=== PATIENT | female | born 1935 | race Caucasian/White ===

== ENCOUNTER → 2016-09-21 | Outpatient (CLI) | payer MEDICARE ==
[~2016-09-21] MED LIST: ACET-93 PO; CALC-140 PO; D50KC PO; DEXL60CA3; DICY10CA12 PO; DIPH1TAB25 PO; HYDR-3812 PO; L-THYROXINE; LEVO75TA6 PO; MELO15TA14; NITR100C44 PO; OLOP2.5D OP; OMEP40CA36 PO; OXYB5TAB9 PO; PANT40TA3 PO; PEDI18TA2 PO; PNT40TEC PO; PROP1TAB61; QUET25TA73 PO; SCR1T1 PO; SERT100T PO; SERT100T8 PO; SPIR25TA3 PO; TEMA15CA PO; TEMA15CA54 PO; [UNRECOGNIZED DRUG - OTHER]
--- NOTE | 2016-09-21 13:26 | Diagnostic Imaging Report ---
EXAMINATION: PA and lateral views of the chest. INDICATION: Weight loss. FINDINGS: The heart is enlarged. The lungs are hyperinflated. There is chronic appearing interstitial thickening with no focal infiltrate. No effusion or pneumothorax. The mediastinum and maia appear unremarkable. There is a compression fracture in the mid thoracic spine which appears to involve T8 or T9 vertebral body. When compared to 05/31/2016 exam, there is further increase in the degree of vertebral body height loss. IMPRESSION: 1. Cardiomegaly. COPD. 2. Further increased compression of T8 or T9 vertebral body compression fracture compared to 05/31/2016 exam. Dictated by: Dictated on workstation # [id number]
== END ==
LOC: RAD 12:06
DX: R63.4 Abnormal weight loss (principal)
CPT/HCPCS: 71020

== ENCOUNTER → 2016-10-05 | Outpatient (CLI) | payer MEDICARE ==
[~2016-10-05] MED LIST changes: +CATHETER FLUSH 10 ML SYR IV PRN; +IOHEXOL 350 MG/ML 100 ML (OMNIPAQUE 350) VIAL IV ONE; +NS 100 ML (IVPB) BAG IV ONE
--- NOTE | 2016-10-05 13:17 | Diagnostic Imaging Report ---
PROCEDURE: CT abdomen and pelvis with contrast. TECHNIQUE: Multiple contiguous axial images were obtained through the abdomen and pelvis after administration of intravenous contrast. INDICATION: Acute abdominal pain with diarrhea. Exam compared 02/26/2016. FINDINGS: There is a tiny punctate calcification within the lumen of or adherent to the wall of the gallbladder. No evidence for acute cholecystitis. No biliary dilatation. Spleen size within the upper limits of normal stable. Subcentimeter low density right adrenal nodule unchanged. Pancreas normal. There is right renal cortical cyst. The kidneys otherwise normal. There are postoperative changes to the sigmoid without evidence for anastomotic leak or obstruction. Gardner of the ascending and proximal transverse colon are slightly thickened and mild colitis could not be excluded. There were no features of focal diverticulitis, however. Pelvic calcifications either exophytic uterine fibroids or vascular in nature unchanged. Urinary bladder unremarkable. There is a low-density left inguinal nodule stable 1.8 cm. No abscess, hematoma or other fluid collection. No free air. No adenopathy. IMPRESSION: Questionable findings for mild proximal colitis. No abscess, obstruction or perforation. Minimal wall versus intraluminal calcification in the gallbladder but no evidence for acute cholecystitis. Stable benign-appearing right adrenal nodule. Benign right renal cortical cyst. Benign pelvic calcifications. Dictated by: Dictated on workstation # [id number]
== END ==
LOC: RAD 11:12
DX: R10.0 Acute abdomen (principal); N28.1 Cyst of kidney, acquired
CPT/HCPCS: 74177

== ENCOUNTER → 2016-12-19 | Outpatient (CLI) | payer MEDICARE ==
--- NOTE | 2016-12-19 17:19 | Diagnostic Imaging Report ---
INDICATION: Abdominal pain and a lump in the left groin area. CT of the abdomen and pelvis obtained with IV contrast bolus and compared to 10/05/2016. Visualized portions of the lung bases are clear. There are no pleural fluid collections. There is no free intraperitoneal air. There is cardiomegaly. The liver shows no focal lesion. The spleen is unremarkable. The adrenals are unchanged with a slight area of nodularity in the right adrenal gland stable compared to the prior study. The kidneys bilaterally are unremarkable except for a benign cyst in the right kidney. Pancreas appears normal. There is no retroperitoneal mass or adenopathy. There is no ascites or abnormal fluid collection. There is a left inguinal hernia containing a portion of small bowel. There appears to be partial obstruction with mild dilatation of small bowel loops above the hernia level. IMPRESSION: Left inguinal hernia containing a portion of small bowel, with mild dilatation of small bowel loops above this which probably represents partial obstruction. There is no ascites or abnormal fluid collection. There is a benign-appearing cyst in the right kidney. There is a stable small right adrenal lesion. Dictated by: Dictated on workstation # [id number]
== END ==
LOC: RAD 16:04
PROVIDERS: ATTEND Nurse Practitioner Family
DX: R10.827 Generalized rebound abdominal tenderness (principal)
CPT/HCPCS: 74177

== ENCOUNTER 2016-12-20 06:17 | Inpatient (IN) | payer MEDICARE ==
[~2016-12-20] VITALS: Ht 167.6 cm; Wt 56.3 kg
[~2016-12-20 06:17] MED LIST changes: -ACET-93 PO; -CALC-140 PO; -CATHETER FLUSH 10 ML SYR IV PRN; -D50KC PO; -DICY10CA12 PO; -DIPH1TAB25 PO; -HYDR-3812 PO; -IOHEXOL 350 MG/ML 100 ML (OMNIPAQUE 350) VIAL IV ONE; -NS 100 ML (IVPB) BAG IV ONE; -PANT40TA3 PO; -PEDI18TA2 PO; -QUET25TA73 PO; -SERT100T8 PO; -SPIR25TA3 PO; -TEMA15CA PO
[2016-12-20] MEDS ORDERED: NS IV 1000 ML 1,000 ML IV ONE (06:29)
[2016-12-20] MEDS ORDERED: fentaNYL INJECTION 100 MCG/2 ML AMP IVP ONE (06:30)
[2016-12-20] MEDS ORDERED: ONDANSETRON 4 MG/2 ML (SDV) Z0FRAN IVP ONE (06:30)
[2016-12-20 06:58] LABS: BASOPHILS % (AUTO) 0 % (0-10); EOSINOPHILS % (AUTO) 0 % (0-10); LYMPHOCYTES # (AUTO) 1.2 X 10^3 (1.0-4.0); LYMPHOCYTES % (AUTO) 8 % (12-44); MEAN CORPUSCULAR HEMOGLOBIN 25 PG (25-34); MEAN CORPUSCULAR HGB CONC 33 G/DL (32-36); MEAN CORPUSCULAR VOLUME 76 FL (80-99); MEAN PLATELET VOLUME 11.6 FL (7.4-10.4); MONOCYTES # (AUTO) 0.8 X 10^3 (0.0-1.0); MONOCYTES % (AUTO) 5 % (0-12); NEUTROPHILS # (AUTO) 12.7 X 10^3 (1.8-7.8); NEUTROPHILS % (AUTO) 86 % (42-75); PLATELET COUNT 296 10^3/uL (130-400); RED BLOOD COUNT 5.62 10^6/uL (4.35-5.85); RED CELL DISTRIBUTION WIDTH 17.4 % (10.0-14.5); WHITE BLOOD COUNT 14.7 10^3/uL (4.3-11.0)
[2016-12-20 07:17] LABS: ALANINE AMINOTRANSFERASE 14 U/L (0-55); ALBUMIN 5.1 G/DL (3.2-4.5); ANION GAP 18 MMOL/L (5-14); ASPARTATE AMINO TRANSFERASE 22 U/L (5-34); BILIRUBIN,TOTAL 0.9 MG/DL (0.1-1.0); BLOOD UREA NITROGEN 9 MG/DL (7-18); BUN/CREATININE RATIO 10; CALCIUM 10.5 MG/DL (8.5-10.1); CARBON DIOXIDE 19 MMOL/L (21-32); CHLORIDE 100 MMOL/L (98-107); CREATININE SERUM 0.86 MG/DL (0.60-1.30); GFR ESTIMATED > 60; GLUCOSE 136 MG/DL (70-105); LACTATE DEHYDROGENASE 229 U/L (125-220); MAGNESIUM 2.4 MG/DL (1.8-2.4); POTASSIUM 3.3 MMOL/L (3.6-5.0); SODIUM 137 MMOL/L (135-145); TOTAL PROTEIN 8.7 G/DL (6.4-8.2)
[2016-12-20 07:41] LABS: BILIRUBIN,URINE NEGATIVE (NEGATIVE); KETONES,URINE 3+ (NEGATIVE); LEUKOCYTE ESTERASE ,URINE 1+ (NEGATIVE); NITRITE,URINE NEGATIVE (NEGATIVE); PH,URINE 7 (5-9); PROTEIN,URINE 2+ (NEGATIVE); UROBILINOGEN,URINE NORMAL (NORMAL)
--- NOTE | 2016-12-20 07:49 | ED Abdominal Pain ---
General Chief Complaint: Abdominal/GI Problems Stated Complaint: VOMITING,CONSTIPATED Nursing Triage Note: Pt. advises she was seen yesterday secondary to difficulty passing stools. She advised this morning the pain and difficulty passing stools has not improved. Sepsis Screen: No Definite Risk Source of Information: Patient Exam Limitations: No Limitations History of Present Illness Time Seen By Provider: 06:35 Initial Comments Here with report of nausea, vomiting and abdominal pain that has been going on all night. Apparently she had difficulty with passing stool yesterday and was constipated and was trying very hard to pass the stool. Subsequently she developed a hernia in the left inguinal canal. She was sent by her primary care doctor yesterday for outpatient CT scan which does raise concerns of incarcerated left inguinal hernia. She did have some blood with stool yesterday but that has stopped. She reports vomiting multiple times overnight. Does complain of lower abdominal pain and enlarging hernia. She has not passed stool. Timing/Duration: 24 Hours Severity/Quality: Moderate, Severe Location: LLQ, Suprapubic Radiation: RUQ, LUQ, RLQ Modifying Factors: Worsens With Eating, Worsens With Movement, Improves With Vomiting Associated Symptoms: No Back Pain, No Chest Pain, No Fever/Chills, Nausea/ Vomiting, No Shortness of Air, No Weakness Allergies and Home Medications Allergies Coded Allergies: Penicillins (Verified Allergy, Unknown, 11/26/07) cephalexin (Verified Allergy, Unknown, 11/26/07) ciprofloxacin (Verified Allergy, Unknown, 11/26/07) estrogens, conjugated (Verified Allergy, Unknown, 06/17/08) gatifloxacin (Verified Allergy, Unknown, 06/17/08) tetracycline (Verified Allergy, Unknown, 06/17/08) Home Medications Levothyroxine Sodium 75 Mcg Tablet, 75 MCG PO DAILY, (Reported) Nitrofurantoin/Nitrofuran Mac 100 Mg Capsule, 100 MG PO BID, #14 Prescribed by: JOSELINE MENDOZA on 10/17/142303 Olopatadine Hcl 2.5 Ml Drops, 1 DROP OP DAILY, #1 Prescribed by: JOSELINE MENDOZA on 10/17/142303 Oxybutynin Chloride 5 Mg Tablet, 1 EACH PO BID, (Reported) Pantoprazole Sod 40 Mg Tab, 40 MG PO DAILY, #30 Ref 3 Prescribed by: KALIN HICKS on 06/24/14 1537 Sertraline Hcl 100 Mg Tablet, 150 MG PO DAILY, (Reported) Sucralfate 1 Gm Tab, 1 GM PO QID, #120 Ref 3 Prescribed by: KALIN HICKS on 06/24/141536 Temazepam 15 Mg Capsule, 15 MG PO HS PRN for SLEEP, (Reported) Review of Systems Constitutional: see HPI, No chills, No fever EENTM: No Symptoms Reported Respiratory: No Symptoms Reported Cardiovascular: No Symptoms Reported Gastrointestinal: See HPI, Abdomen Distended, Abdominal Pain, Nausea, Rectal Bleeding, Vomiting Genitourinary: No Symptoms Reported Musculoskeletal: no symptoms reported Skin: no symptoms reported All Other Systems Reviewed Negative Unless Noted: Yes Past Yrzlblm-Neenkn-Jphuzx Hx Patient Social History Alcohol Use: Denies Use Recreational Drug Use: No Smoking Status: Former Smoker Recent Foreign Travel: No Contact w/Someone Who Travel: No Recent Infectious Disease Expo: No Recent Hopitalizations: No Immunizations Up To Date Date of Pneumonia Vaccine: Jun 24, 2012 Date of Influenza Vaccine: Jun 12, 2014 Surgeries HX Surgeries: Yes (LEFT LEG) Surgeries: Abdominal, Orthopedic Respiratory Hx Respiratory Disorders: No Cardiovascular Hx Cardiac Disorders: No Neurological Hx Neurological Disorders: No Reproductive System : No Hx Reproductive Disorders: Yes Genitourinary Hx Genitourinary Disorders: No Gastrointestinal Hx Gastrointestinal Disorders: Yes Musculoskeletal Hx 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) Endocrine Hx Endocrine Disorders: No HEENT HX ENT Disorders: No Cancer Hx Cancer: No Psychosocial Hx Psychiatric Problems: No Integumentary HX Skin/Integumentary Disorder: No Blood Transfusions Hx Blood Disorders: No Reviewed Nursing Assessment Reviewed/Agree w Nursing PMH: Yes Family Medical History Significant Family History: No Pertinent Family Hx Physical Exam Vital Signs VS - Last 72 Hours, by Label 12/20/16 12/20/16 06:26 06:36 Temp 97.3 97.3 Pulse 86 Resp 16 B/P (MAP) 169/118 Pulse Ox 98 O2 Delivery Room Air Capillary Refill : Less Than 3 Seconds General Appearance: WD/WN, no apparent distress HEENT: PERRL/EOMI, pharynx normal Neck: full range of motion, supple Respiratory: lungs clear, normal breath sounds Cardiovascular: regular rate, rhythm, no murmur Gastrointestinal: distended, tenderness, hernia (left inguinal hernia that is approximately 4 x 10 cm and hard. This does not freely reduce.) Extremities: non-tender, no pedal edema Back: normal inspection, no CVA tenderness, no vertebral tenderness Neurologic/Psychiatric: alert, oriented x 3 Skin: normal color, warm/dry Progress/Results/Core Measures Results/Orders Lab Results Laboratory Tests Test 12/20/16 06:37 12/20/16 07:30 Range/Units White Blood Count 14.7 H 4.3-11.0 10^3/uL Red Blood Count 5.62 4.35-5.85 10^6/uL Hemoglobin 13.9 11.5-16.0 G/DL Hematocrit 43 35-52 % Mean Corpuscular Volume 76 L 80-99 FL Mean Corpuscular Hemoglobin 25 25-34 PG Mean Corpuscular Hemoglobin Concent 33 32-36 G/DL Red Cell Distribution Width 17.4 H 10.0-14.5 % Platelet Count 296 130-400 10^3/uL Mean Platelet Volume 11.6 H 7.4-10.4 FL Neutrophils (%) (Auto) 86 H 42-75 % Lymphocytes (%) (Auto) 8 L 12-44 % Monocytes (%) (Auto) 5 0-12 % Eosinophils (%) (Auto) 0 0-10 % Basophils (%) (Auto) 0 0-10 % Neutrophils # (Auto) 12.7 H 1.8-7.8 X 10^3 Lymphocytes # (Auto) 1.2 1.0-4.0 X 10^3 Monocytes # (Auto) 0.8 0.0-1.0 X 10^3 Eosinophils # (Auto) 0.0 0.0-0.3 10^3/uL Basophils # (Auto) 0.0 0.0-0.1 10^3/uL Sodium Level 137 135-145 MMOL/L Potassium Level 3.3 L 3.6-5.0 MMOL/L Chloride Level 100 98-107 MMOL/L Carbon Dioxide Level 19 L 21-32 MMOL/L Anion Gap 18 H 5-14 MMOL/L Blood Urea Nitrogen 9 7-18 MG/DL Creatinine 0.86 0.60-1.30 MG/DL Estimat Glomerular Filtration Rate > 60 BUN/Creatinine Ratio 10 Glucose Level 136 H 70-105 MG/DL Calcium Level 10.5 H 8.5-10.1 MG/DL Magnesium Level 2.4 1.8-2.4 MG/DL Total Bilirubin 0.9 0.1-1.0 MG/DL Aspartate Amino Transf (AST/SGOT) 22 5-34 U/L Alanine Aminotransferase (ALT/SGPT) 14 0-55 U/L Alkaline Phosphatase 94 40-136 U/L Lactate Dehydrogenase 229 H 125-220 U/L Total Protein 8.7 H 6.4-8.2 G/DL Albumin 5.1 H 3.2-4.5 G/DL Urine Color YELLOW Urine Clarity SLIGHTLY CLOUDY Urine pH 7 5-9 Urine Specific [place] 1.010 L 1.016-1.022 Urine Protein 2+ H NEGATIVE Urine Glucose (UA) NEGATIVE NEGATIVE Urine Ketones 3+ H NEGATIVE Urine Nitrite NEGATIVE NEGATIVE Urine Bilirubin NEGATIVE NEGATIVE Urine Urobilinogen NORMAL NORMAL MG/DL Urine Leukocyte Esterase 1+ H NEGATIVE Urine RBC (Auto) 1+ H NEGATIVE Urine RBC RARE /HPF Urine WBC 0-2 /HPF Urine Squamous Epithelial Cells 2-5 /HPF Urine Crystals PRESENT H /LPF Urine Amorphous Sediment FEW TREY PHOSPHATE H /LPF Urine Bacteria NEGATIVE /HPF Urine Casts PRESENT /LPF Urine Hyaline Casts 2-5 H /LPF Urine Granular Casts 2-5 H /LPF Urine Mucus NEGATIVE /LPF Urine Culture Indicated NO Medications Given in ED Current Medications Medications Dose Ordered Sig/Demarco Route Start Time Stop Time Status Last Admin Dose Admin Fentanyl Citrate 50 mcg ONCE ONCE IVP 12/20/16 06:30 12/20/16 06:33 DC 12/20/16 06:36 50 MCG Ondansetron HCl 4 mg ONCE ONCE IVP 12/20/16 06:30 12/20/16 06:33 DC 12/20/16 06:36 4 MG Sodium Chloride 1,000 ml @ 0 mls/hr Q0M ONCE IV 12/20/16 06:29 12/20/16 06:33 DC 12/20/16 06:36 0 MLS/HR Vital Signs/I&O Vital Sign - Last 12Hours 12/20/16 12/20/16 06:26 06:36 Temp 97.3 97.3 Pulse 86 Resp 16 B/P (MAP) 169/118 Pulse Ox 98 O2 Delivery Room Air Blood Pressure Mean: 135 Progress Note : Progress Note Seen and evaluated. IV, labs and UA ordered. Acute abdominal series ordered. Monitor patient. I did attempt to reduce the inguinal hernia. Multiple attempts were tried and I was unsuccessful. I did discuss the case with Dr. Hicks at 0724. He will see the patient in the ER. 0810: Patient seen by Dr. Hicks. He was able to reduce the hernia. He will take her to the OR later today for repair as the hernia appears to be returning. Patient still uncomfortable. Admit, observation status. Patient and family agree with plan. Departure Communication Time/Spoke to Admitting Phy: 07:24 Impression Impression: Primary Impression: Inguinal hernia Qualified Codes: K40.30 - Unilateral inguinal hernia, with obstruction, without gangrene, not specified as recurrent Disposition: 09 ADMITTED INPATIENT Condition: Stable Decision to Admit Reason: Admit from ER (General) Decision to Admit/Date: Dec 20, 2016 Time/Decision to Admit Time: 08:10 Departure-Patient Inst. Referrals: SAHIL ANGULO MD (PCP/Family) Primary Care Physician TRACY CHAMBERS MD Dec 20, 2016 07:49
[2016-12-20 07:55] LABS: WBC,URINE 0-2 /HPF
--- NOTE | 2016-12-20 08:13 | Diagnostic Imaging Report ---
Upright and supine views of the abdomen. INDICATION: Abdominal pain and vomiting. FINDINGS: There is no pneumoperitoneum. There are mildly dilated small bowel loops with multiple air-fluid levels. There is fecal material seen in the rectum. Internal fixation hardware is partially visualized in the femur. IMPRESSION: Findings suggestive of partial small bowel obstruction, similar to CT findings demonstrating an obstructed left inguinal hernia. Dictated by: Dictated on workstation # [id number]
[2016-12-20 09:00] VITALS: BP 196/68
[2016-12-20] MEDS ORDERED: CATHETER FLUSH 10 ML SYR IV PRN (09:30)
[2016-12-20] MEDS ORDERED: fentaNYL INJECTION 100 MCG/2 ML AMP IV PRN (09:30)
[2016-12-20] MEDS ORDERED: NS IV 1000 ML 1,000 ML IV SCH (09:30)
--- NOTE | 2016-12-20 10:42 | History & Physical-Surgical ---
History of Present Illness History of Present Illness Reason for visit/HPI Patient reports that on Monday she was doing well. She states she was straining on Monday while having a bowel movement and started having pain. She reported pain to her left lower quadrant, with nausea and vomiting all night. She was sent by her primary care doctor yesterday for outpatient CT scan which does raise concerns of incarcerated left inguinal hernia. She did have some blood with stool yesterday but that has stopped. She reports vomiting multiple times overnight. She reports blood to her stools, constipation and diarrhea. Date of Admission Dec 20, 2016 at 08:20 I consulted on this patient on 12/20/16 10:32 Attending Physician Matt Hicks DO Admitting Physician Vernon Garcia MD Consult Allergies and Home Medications Allergies Coded Allergies: Penicillins (Verified Allergy, Unknown, 11/26/07) cephalexin (Verified Allergy, Unknown, 11/26/07) ciprofloxacin (Verified Allergy, Unknown, 11/26/07) estrogens, conjugated (Verified Allergy, Unknown, 06/17/08) gatifloxacin (Verified Allergy, Unknown, 06/17/08) tetracycline (Verified Allergy, Unknown, 06/17/08) Home Medications Acetaminophen 500 Mg Tablet, 500 MG PO DAILY PRN for PAIN-MILD TO MODERATE, ( Reported) Calcium Carbonate/Vitamin D3 1 Each Tablet, 2 TAB PO DAILY, (Reported) Dicyclomine HCl 10 Mg Capsule, 10 MG PO TID PRN for ABDOMINAL PAIN, (Reported) Diphenoxylate HCl/Atropine 1 Each Tablet, 1 TAB PO TID PRN for LOOSE STOOLS, ( Reported) Ergocalciferol (Vitamin D2) 50,000 Unit Capsule, 50,000 UNITS PO WEEK, (Reported ) TAKES ON MONDAY Hydrocodone/Acetaminophen 1 Each Tablet, 1 TAB PO EVERY 4-6 HOURS PRN for PAIN- MODERATE TO SEVERE, (Reported) Pantoprazole Sodium 40 Mg Tablet.dr, 40 MG PO BID, (Reported) Pedi Mv No.79/Ferrous Fumarate 18 Mg Tab.chew, 18 MG PO DAILY, (Reported) Quetiapine Fumarate 25 Mg Tablet, 25 MG PO HS, (Reported) Sertraline HCl 100 Mg Tablet, 150 MG PO DAILY, (Reported) TAKES 1 & 1/2 OF A (100 MG) TABLET Spironolactone 25 Mg Tablet, 25 MG PO DAILY, (Reported) Temazepam 15 Mg Capsule, 15 MG PO HS PRN for SLEEP, (Reported) Past Zbudzgr-Xzwdre-Jveteu Hx Patient Social History Alcohol Use: Denies Use Recreational Drug Use: No Smoking Status: Former Smoker Recent Foreign Travel: No Contact w/Someone Who Travel: No Recent Infectious Disease Expo: No Recent Hopitalizations: No Physical Abuse Screen: No Sexual Abuse: No Immunizations Up To Date Date of Pneumonia Vaccine: Jun 24, 2012 Date of Influenza Vaccine: Jun 12, 2014 Seasonal Allergies Seasonal Allergies: No Surgeries HX Surgeries: Yes (LEFT LEG) Surgeries: Abdominal, Orthopedic Respiratory Hx Respiratory Disorders: No Cardiovascular Hx Cardiac Disorders: No Neurological Hx Neurological Disorders: No Reproductive System : No Hx Reproductive Disorders: Yes Genitourinary Hx Genitourinary Disorders: No Gastrointestinal Hx Gastrointestinal Disorders: Yes Gastrointestinal Disorders: Chronic Diarrhea, Ulcer Musculoskeletal Hx 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) Endocrine Hx Endocrine Disorders: No HEENT HX ENT Disorders: No Cancer Hx Cancer: No Psychosocial Hx Psychiatric Problems: No Integumentary HX Skin/Integumentary Disorder: No Blood Transfusions Hx Blood Disorders: No Reviewed Nursing Assessment Reviewed/Agree w Nursing PMH: Yes Family Medical History Significant Family History: No Pertinent Family Hx Constitutional: other (pain) EENTM: no symptoms reported Respiratory: no symptoms reported Cardiovascular: no symptoms reported Gastrointestinal: LLQ, abdominal pain (LLQ), other (left inguinal hernia) Genitourinary: no symptoms reported Musculoskeletal: no symptoms reported Skin: no symptoms reported Physical Exam Vital Signs Vital Sign - Last 12Hours 12/20/16 06:26 Temp 97.3 Pulse 86 Resp 16 B/P (MAP) 169/118 Pulse Ox 98 O2 Delivery Room Air Capillary Refill : Less Than 3 Seconds General Appearance: Thin Respiratory: Chest Non Tender, No Accessory Muscle Use, No Respiratory Distress Cardiovascular: Regular Rate, Rhythm Gastrointestinal: Soft, Guarding, Tenderness, Other (LLQ) Extremity: Non Tender, No Calf Tenderness, No Pedal Edema, Other (bruising noted to the Left groin. ) Neurologic/Psychiatric: Alert, Oriented x3 Skin: Normal Color, Warm/Dry Data Review Labs Laboratory Tests 12/20/16 06:37: White Blood Count 14.7H, Red Blood Count 5.62, Hemoglobin 13.9, Hematocrit 43, Mean Corpuscular Volume 76L, Mean Corpuscular Hemoglobin 25, Mean Corpuscular Hemoglobin Concent 33, Red Cell Distribution Width 17.4H, Platelet Count 296, Mean Platelet Volume 11.6H, Neutrophils (%) (Auto) 86H, Lymphocytes (%) (Auto) 8L, Monocytes (%) (Auto) 5, Eosinophils (%) (Auto) 0, Basophils (%) (Auto) 0, Neutrophils # (Auto) 12.7H, Lymphocytes # (Auto) 1.2, Monocytes # (Auto) 0.8, Eosinophils # (Auto) 0.0, Basophils # (Auto) 0.0, Sodium Level 137, Potassium Level 3.3L, Chloride Level 100, Carbon Dioxide Level 19L, Anion Gap 18H, Blood Urea Nitrogen 9, Creatinine 0.86, Estimat Glomerular Filtration Rate > 60, BUN/ Creatinine Ratio 10, Glucose Level 136H, Calcium Level 10.5H, Magnesium Level 2.4, Total Bilirubin 0.9, Aspartate Amino Transf (AST/SGOT) 22, Alanine Aminotransferase (ALT/SGPT) 14, Alkaline Phosphatase 94, Lactate Dehydrogenase 229H, Total Protein 8.7H, Albumin 5.1H 12/20/16 07:30: Urine Color YELLOW, Urine Clarity SLIGHTLY CLOUDY, Urine pH 7, Urine Specific [place] 1.010L, Urine Protein 2+H, Urine Glucose (UA) NEGATIVE, Urine Ketones 3+ H, Urine Nitrite NEGATIVE, Urine Bilirubin NEGATIVE, Urine Urobilinogen NORMAL, Urine Leukocyte Esterase 1+H, Urine RBC (Auto) 1+H, Urine RBC RARE, Urine WBC 0- 2, Urine Squamous Epithelial Cells 2-5, Urine Crystals PRESENTH, Urine Amorphous Sediment FEW TREY PHOSPHATEH, Urine Bacteria NEGATIVE, Urine Casts PRESENT, Urine Hyaline Casts 2-5H, Urine Granular Casts 2-5H, Urine Mucus NEGATIVE, Urine Culture Indicated NO Radiology NAME: MELANIA GORDON [facility] REC#: [id number] PT STATUS: ADM [place] : 1935 PHYSICIAN: JOSELINE CASAS MD ADMIT DATE: 12/20/16 Signed Date of Exam: 12/20/16 ABDOMEN, FLAT & UPRIGHT/DECUB Upright and supine views of the abdomen. INDICATION: Abdominal pain and vomiting. FINDINGS: There is no pneumoperitoneum. There are mildly dilated small bowel loops with multiple air-fluid levels. There is fecal material seen in the rectum. Internal fixation hardware is partially visualized in the femur. IMPRESSION: Findings suggestive of partial small bowel obstruction, similar to CT findings demonstrating an obstructed left inguinal hernia. Dictated by: Dictated on workstation # [id number] Dict: 12/20/16 0807 Trans: 12/20/16 0854 [id number] Assessment/Plan Assessment/Plan Assessment/Plan Nausea/vomiting Left Inguinal Hernia,-Reduced by Dr. Hicks in ER Consent for surgery for Left Inguinal Hernia repair with all other indicated procedures. Patient will be NPO. Monique- Seen and evaluated in emergency dept. Patient yesterday straining to have a bowel movement. She had a pop in the left groin and began having a bulge and pain. Patient began having some nausea and emesis overnight. Difficult to reduce left inguinal hernia appears to be causing obstruction of small bowel. I was able to reduce the hernia. She denies any fever sweats chills shortness of breath or chest pain. general uncomfortable heart reg lungs nonlabored abdomen left inguinal hernia was able to be reduced extremities left lower with previous surgical scars normal mood affect alert and oriented skin without rash, slight bruising left lower quadrant left inguinal hernia, was able to be reduced concerned for recurrenct discussed risks and benefits and wishes to proceed with left inguinal hernia repair all other indicated procedures Clinical Quality Measures DVT/VTE Risk/Contraindication: Risk Factor Score Per Nursin RFS Level Per Nursing on Admit: 4+=Very High MADISON MENDEZ APRN Dec 20, 2016 10:41 MATT HICKS DO Dec 20, 2016 13:04
[2016-12-20] MEDS ORDERED: CALC-140 PO (10:43)
[2016-12-20] MEDS ORDERED: HYDR-3812 PO (10:43)
[2016-12-20] MEDS ORDERED: D50KC PO (10:43)
[2016-12-20] MEDS ORDERED: ACET-93 PO (10:43)
[2016-12-20] MEDS ORDERED: DICY10CA12 PO (10:43)
[2016-12-20] MEDS ORDERED: SPIR25TA3 PO (10:43)
[2016-12-20] MEDS ORDERED: DIPH1TAB25 PO (10:43)
[2016-12-20] MEDS ORDERED: QUET25TA73 PO (10:43)
[2016-12-20] MEDS ORDERED: SERT100T8 PO (10:43)
[2016-12-20] MEDS ORDERED: TEMA15CA PO (10:43)
[2016-12-20] MEDS ORDERED: PEDI18TA2 PO (10:43)
[2016-12-20] MEDS ORDERED: PANT40TA3 PO (10:43)
[2016-12-20 12:00] VITALS: BP 171/81
[2016-12-20] MEDS ORDERED: LIDOCAINE PF 2% 10 ML (XYLOCAINE) AMP ONE (13:15)
[2016-12-20] MEDS ORDERED: proPOfol 200 MG/20 ML (DIPRIVAN) VIAL IV ONE (13:15)
[2016-12-20] MEDS ORDERED: MIDAZOLAM 2 MG/2 ML (VERSED) VIAL ONE (13:15)
[2016-12-20] MEDS ORDERED: fentaNYL INJECTION 100 MCG/2 ML AMP ONE ×3 (13:15→15:24)
[2016-12-20] MEDS ORDERED: BUPIVACAINE 0.5% 30 ML (SENSORCAINE) VIAL ONE (13:21)
[2016-12-20] MEDS ORDERED: LACTATED RINGERS 1,000 ML IV ONE ×2 (13:22→15:16)
[2016-12-20] MEDS ORDERED: LIDOCAINE 1% INJ 20 ML (XYLOCAINE) VIAL ONE (13:22)
[2016-12-20] MEDS ORDERED: ROCURONIUM 50 MG/5 ML (ZEMURON) VIAL IV ONE (13:22)
[2016-12-20] MEDS ORDERED: ONDANSETRON 4 MG/2 ML (SDV) Z0FRAN ONE ×2 (13:22→15:10)
[2016-12-20] MEDS: LACTATED RINGERS 1,000 ML IV PRN ×2 (13:29→15:13)
[2016-12-20] MEDS ORDERED: LACTATED RINGERS 1,000 ML IV PRN (13:35)
[2016-12-20] MEDS ORDERED: CLINDAMYCIN 600 MG/50 ML IVPB 50 ML IV ONE (13:45)
[2016-12-20] MEDS ORDERED: CLINDAMYCIN 600 MG/4ML (CLEOCIN) VIAL ONE (13:45)
[2016-12-20] MEDS ORDERED: NS (IVPB) 100 ML ONE (13:45)
[2016-12-20] MEDS ORDERED: PHENYLEPHRINE 100 MCG/ML 10 ML (ANESTHESIA) SYR ONE (14:08)
[2016-12-20] MEDS ORDERED: SEVOFLURANE (ULTANE) 15 ML INHAL SOLN ONE ×5 (15:05→16:03)
[2016-12-20] MEDS ORDERED: NEOSTIGMINE (BLOXIVERZ ) 1 MG/1ML 10 ML VIAL ONE (15:06)
[2016-12-20] MEDS ORDERED: GLYCOPYRROLATE 0.2 MG/ML (ROBINUL) 2 ML VIAL ONE (15:06)
[2016-12-20] MEDS ORDERED: morphine INJ 10 MG/ML 1ML (SYR OR VIAL) IVP PRN (15:15)
[2016-12-20] MEDS ORDERED: fentaNYL INJECTION 100 MCG/2 ML AMP IVP PRN (16:30)
[2016-12-20] MEDS: NS IV 1000 ML 1,000 ML IV SCH (16:30)
[2016-12-20 17:22] VITALS: BP 173/71
[2016-12-20] MEDS: metroNIDAZOLE 500MG/100ML IVPB 100 ML IV SCH (17:33)
--- NOTE | 2016-12-20 17:40 | Progress Note-Post Operative ---
Post-Operative Progess Note Surgeon (s)/Newspaper Editor Managing (s) Surgeon KALIN HICKS DO Newspaper Editor Managing: Dr. Ross Pre-Operative Diagnosis inguinal hernia left Post-Operative Diagnosis femoral hernia left Post-Op Procedure Note Date of Procedure: Dec 20, 2016 Name of Procedure Performed: open left femoral hernia repair, exploratory laparotomy, small bowel resection, lysis of adhesions Description of the Procedure: see note Findings of the Procedure see note Anesthesia Type general Estimated blood loss (mL): minimal Specimen(s) collected/removed hernia sac, small bowel KALIN HICKS DO Dec 20, 2016 5:40 pm
[2016-12-20] MEDS: morphine INJ 4 MG/ML 1 ML (VIAL/SYRINGE) IVP PRN (18:56)
[2016-12-20 20:25] VITALS: BP 188/89
[2016-12-20] MEDS: CLINDAMYCIN 600 MG/50 ML IVPB 50 ML IV SCH (21:24)
[2016-12-21 00:33] VITALS: BP 179/79
[2016-12-21] MEDS: metroNIDAZOLE 500MG/100ML IVPB 100 ML IV SCH (01:25)
[2016-12-21] MEDS: morphine INJ 4 MG/ML 1 ML (VIAL/SYRINGE) IVP PRN ×4 (01:26→20:01)
[2016-12-21] MEDS: NS IV 1000 ML 1,000 ML IV SCH (01:26)
[2016-12-21 04:01] VITALS: BP 160/74
[2016-12-21] MEDS: CLINDAMYCIN 600 MG/50 ML IVPB 50 ML IV SCH (05:14)
[2016-12-21 06:02] LABS: BASOPHILS % (AUTO) 0 % (0-10); EOSINOPHILS % (AUTO) 0 % (0-10); LYMPHOCYTES # (AUTO) 0.6 X 10^3 (1.0-4.0); LYMPHOCYTES % (AUTO) 6 % (12-44); MEAN CORPUSCULAR HEMOGLOBIN 25 PG (25-34); MEAN CORPUSCULAR HGB CONC 32 G/DL (32-36); MEAN CORPUSCULAR VOLUME 78 FL (80-99); MEAN PLATELET VOLUME 11.3 FL (7.4-10.4); MONOCYTES # (AUTO) 0.8 X 10^3 (0.0-1.0); MONOCYTES % (AUTO) 7 % (0-12); NEUTROPHILS # (AUTO) 10.1 X 10^3 (1.8-7.8); NEUTROPHILS % (AUTO) 87 % (42-75); PLATELET COUNT 176 10^3/uL (130-400); RED CELL DISTRIBUTION WIDTH 17.1 % (10.0-14.5); WHITE BLOOD COUNT 11.5 10^3/uL (4.3-11.0)
[2016-12-21 06:28] LABS: ALANINE AMINOTRANSFERASE 11 U/L (0-55); ALBUMIN 3.5 G/DL (3.2-4.5); ANION GAP 9 MMOL/L (5-14); ASPARTATE AMINO TRANSFERASE 16 U/L (5-34); BILIRUBIN,TOTAL 0.8 MG/DL (0.1-1.0); BLOOD UREA NITROGEN 6 MG/DL (7-18); BUN/CREATININE RATIO 9; CARBON DIOXIDE 23 MMOL/L (21-32); CHLORIDE 106 MMOL/L (98-107); CREATININE SERUM 0.64 MG/DL (0.60-1.30); GFR ESTIMATED > 60; GLUCOSE 136 MG/DL (70-105); MAGNESIUM 1.6 MG/DL (1.8-2.4); POTASSIUM 2.6 MMOL/L (3.6-5.0); SODIUM 138 MMOL/L (135-145)
[2016-12-21 07:25] VITALS: BP 183/85
[2016-12-21] MEDS: NS W/KCL 40 MEQ/L 1,000 ML IV SCH ×2 (07:41→17:50)
--- NOTE | 2016-12-21 08:31 | Progress Note ---
Subjective Subjective/Events-last exam Patient is awake and alert. C/O of some pain to the left lower quadrant of her abdomen. No distress noted at this time. Patient reports belching but not passing gas. Objective Exam Vital Signs Date Time Temp Pulse Resp B/P (MAP) Pulse Ox O2 Delivery O2 Flow Rate FiO2 12/21/16 07:25 98.4 75 18 183/85 94 Nasal Cannula 2.00 12/21/16 04:01 98.2 82 16 160/74 90 Nasal Cannula 2.00 12/21/16 00:40 93 Nasal Cannula 2.00 12/21/16 00:33 98.7 88 16 179/79 90 Nasal Cannula 2.00 12/20/16 21:00 98.9 12/20/16 20:25 99.1 76 20 188/89 98 Nasal Cannula 2.00 12/20/16 20:25 98 2.00 12/20/16 17:22 98.4 74 18 173/71 95 Nasal Cannula 2.00 12/20/16 12:00 98.3 85 20 171/81 94 Room Air 12/20/16 09:00 98.5 61 20 196/68 94 Room Air 12/20/16 08:45 97.3 82 16 98 I & O 12/21/16 07:00 Intake Total 3350 ml Output Total 1770 ml Balance 1580 ml Capillary Refill : Less Than 3 Seconds General Appearance: No Apparent Distress, Thin Neck: Normal Inspection, Non Tender Respiratory: Chest Non Tender, No Accessory Muscle Use, No Respiratory Distress Cardiovascular: Regular Rate, Rhythm Gastrointestinal: soft, tenderness (Left lower quadrant), other (Patient has two island dressing from surgery. The one to the right lower quadrant has mild shadowing but no bleeding noted. ) Extremity: Non Tender, No Calf Tenderness, No Pedal Edema, Other (bruising noted to the Left groin. ) Neurologic/Psychiatric: Alert, Oriented x3 Skin: Normal Color, Warm/Dry Results Lab Laboratory Tests Test 12/20/16 06:37 12/20/16 07:30 12/21/16 05:50 Range/Units White Blood Count 14.7 H 11.5 H 4.3-11.0 10^3/uL Red Blood Count 5.62 4.40 4.35-5.85 10^6/uL Hemoglobin 13.9 10.9 #L 11.5-16.0 G/DL Hematocrit 43 34 L 35-52 % Mean Corpuscular Volume 76 L 78 L 80-99 FL Mean Corpuscular Hemoglobin 25 25 25-34 PG Mean Corpuscular Hemoglobin Concent 33 32 32-36 G/DL Red Cell Distribution Width 17.4 H 17.1 H 10.0-14.5 % Platelet Count 296 176 130-400 10^3/uL Mean Platelet Volume 11.6 H 11.3 H 7.4-10.4 FL Neutrophils (%) (Auto) 86 H 87 H 42-75 % Lymphocytes (%) (Auto) 8 L 6 L 12-44 % Monocytes (%) (Auto) 5 7 0-12 % Eosinophils (%) (Auto) 0 0 0-10 % Basophils (%) (Auto) 0 0 0-10 % Neutrophils # (Auto) 12.7 H 10.1 H 1.8-7.8 X 10^3 Lymphocytes # (Auto) 1.2 0.6 L 1.0-4.0 X 10^3 Monocytes # (Auto) 0.8 0.8 0.0-1.0 X 10^3 Eosinophils # (Auto) 0.0 0.0 0.0-0.3 10^3/uL Basophils # (Auto) 0.0 0.0 0.0-0.1 10^3/uL Sodium Level 137 138 135-145 MMOL/L Potassium Level 3.3 L 2.6 L 3.6-5.0 MMOL/L Chloride Level 100 106 98-107 MMOL/L Carbon Dioxide Level 19 L 23 21-32 MMOL/L Anion Gap 18 H 9 5-14 MMOL/L Blood Urea Nitrogen 9 6 L 7-18 MG/DL Creatinine 0.86 0.64 0.60-1.30 MG/DL Estimat Glomerular Filtration Rate > 60 > 60 BUN/Creatinine Ratio 10 9 Glucose Level 136 H 136 H 70-105 MG/DL Calcium Level 10.5 H 8.0 L 8.5-10.1 MG/DL Magnesium Level 2.4 1.6 L 1.8-2.4 MG/DL Total Bilirubin 0.9 0.8 0.1-1.0 MG/DL Aspartate Amino Transf (AST/SGOT) 22 16 5-34 U/L Alanine Aminotransferase (ALT/SGPT) 14 11 0-55 U/L Alkaline Phosphatase 94 61 40-136 U/L Lactate Dehydrogenase 229 H 125-220 U/L Total Protein 8.7 H 6.0 L 6.4-8.2 G/DL Albumin 5.1 H 3.5 3.2-4.5 G/DL Urine Color YELLOW Urine Clarity SLIGHTLY CLOUDY Urine pH 7 5-9 Urine Specific [place] 1.010 L 1.016-1.022 Urine Protein 2+ H NEGATIVE Urine Glucose (UA) NEGATIVE NEGATIVE Urine Ketones 3+ H NEGATIVE Urine Nitrite NEGATIVE NEGATIVE Urine Bilirubin NEGATIVE NEGATIVE Urine Urobilinogen NORMAL NORMAL MG/DL Urine Leukocyte Esterase 1+ H NEGATIVE Urine RBC (Auto) 1+ H NEGATIVE Urine RBC RARE /HPF Urine WBC 0-2 /HPF Urine Squamous Epithelial Cells 2-5 /HPF Urine Crystals PRESENT H /LPF Urine Amorphous Sediment FEW TREY PHOSPHATE H /LPF Urine Bacteria NEGATIVE /HPF Urine Casts PRESENT /LPF Urine Hyaline Casts 2-5 H /LPF Urine Granular Casts 2-5 H /LPF Urine Mucus NEGATIVE /LPF Urine Culture Indicated NO Laboratory Tests 12/21/16 05:50: White Blood Count 11.5H, Red Blood Count 4.40, Hemoglobin 10.9#L, Hematocrit 34L , Mean Corpuscular Volume 78L, Mean Corpuscular Hemoglobin 25, Mean Corpuscular Hemoglobin Concent 32, Red Cell Distribution Width 17.1H, Platelet Count 176, Mean Platelet Volume 11.3H, Neutrophils (%) (Auto) 87H, Lymphocytes (%) (Auto) 6L, Monocytes (%) (Auto) 7, Eosinophils (%) (Auto) 0, Basophils (%) (Auto) 0, Neutrophils # (Auto) 10.1H, Lymphocytes # (Auto) 0.6L, Monocytes # (Auto) 0.8, Eosinophils # (Auto) 0.0, Basophils # (Auto) 0.0, Sodium Level 138, Potassium Level 2.6L, Chloride Level 106, Carbon Dioxide Level 23, Anion Gap 9, Blood Urea Nitrogen 6L, Creatinine 0.64, Estimat Glomerular Filtration Rate > 60, BUN/ Creatinine Ratio 9, Glucose Level 136H, Calcium Level 8.0L, Magnesium Level 1.6L , Total Bilirubin 0.8, Aspartate Amino Transf (AST/SGOT) 16, Alanine Aminotransferase (ALT/SGPT) 11, Alkaline Phosphatase 61, Total Protein 6.0L, Albumin 3.5 Assessment/Plan Assessment/Plan Assessment/Plan S/P open left femoral hernia repair, exploratory laparotomy, small bowel resection, lysis of adhesions Patient on Ice Chips, and tolerating it well. No passing flatus at this time. Monique 04/22/17 Patient not passing flatus. Pain controlled. No n/v fever sweats chills shortness of breath or chest pain. general no acute distress heart reg lungs nonlabored abdomen bruising left groin, incisions c/d/i assessment as above, DC royal, increase activity sips of clears. Clinical Quality Measures DVT/VTE Risk/Contraindication: Risk Factor Score Per Nursin RFS Level Per Nursing on Admit: 4+=Very High MADISON MENDEZ APRDec 21, 2016 8:31 am KALIN HICKS DO Dec 22, 2016 11:56 am
[2016-12-21 11:33] VITALS: BP 179/79
--- NOTE | 2016-12-21 12:09 | Anesthesia-General Post-Op ---
General Patient Condition Mental Status/LOC: Same as Preop Cardiovascular: Satisfactory Nausea/Vomiting: Absent Respiratory: Satisfactory Pain: Controlled Complications: Absent Post Op Complications Complications None Follow Up Care/Instructions Patient Instructions None needed. Anesthesia/Patient Condition Patient Condition Patient is doing well, no complaints, stable vital signs, no apparent adverse anesthesia problems. No complications reported per nursing. D/C home per [facility] Criteria: No VANDANA STEWART CRNA Dec 21, 2016 12:09
[2016-12-21 16:49] VITALS: BP 179/69
[2016-12-21 20:20] VITALS: BP 145/88
[2016-12-22 00:25] VITALS: BP 177/85
[2016-12-22] MEDS: NS W/KCL 40 MEQ/L 1,000 ML IV SCH ×3 (03:55→22:24)
[2016-12-22 04:01] VITALS: BP 137/82
[2016-12-22 05:11] LABS: BASOPHILS % (AUTO) 0 % (0-10); EOSINOPHILS % (AUTO) 0 % (0-10); LYMPHOCYTES # (AUTO) 0.7 X 10^3 (1.0-4.0); LYMPHOCYTES % (AUTO) 6 % (12-44); MEAN CORPUSCULAR HEMOGLOBIN 25 PG (25-34); MEAN CORPUSCULAR HGB CONC 31 G/DL (32-36); MEAN CORPUSCULAR VOLUME 79 FL (80-99); MEAN PLATELET VOLUME 11.9 FL (7.4-10.4); MONOCYTES # (AUTO) 0.9 X 10^3 (0.0-1.0); MONOCYTES % (AUTO) 8 % (0-12); NEUTROPHILS % (AUTO) 86 % (42-75); PLATELET COUNT 177 10^3/uL (130-400); RED BLOOD COUNT 4.28 10^6/uL (4.35-5.85); RED CELL DISTRIBUTION WIDTH 17.2 % (10.0-14.5); WHITE BLOOD COUNT 11.6 10^3/uL (4.3-11.0)
[2016-12-22 05:29] LABS: ALANINE AMINOTRANSFERASE 13 U/L (0-55); ALBUMIN 3.5 G/DL (3.2-4.5); ANION GAP 14 MMOL/L (5-14); ASPARTATE AMINO TRANSFERASE 17 U/L (5-34); BILIRUBIN,TOTAL 0.7 MG/DL (0.1-1.0); BLOOD UREA NITROGEN 8 MG/DL (7-18); BUN/CREATININE RATIO 13; CALCIUM 8.3 MG/DL (8.5-10.1); CARBON DIOXIDE 16 MMOL/L (21-32); CHLORIDE 109 MMOL/L (98-107); GFR ESTIMATED > 60; GLUCOSE 102 MG/DL (70-105); MAGNESIUM 1.8 MG/DL (1.8-2.4); POTASSIUM 3.1 MMOL/L (3.6-5.0); SODIUM 139 MMOL/L (135-145); TOTAL PROTEIN 6.1 G/DL (6.4-8.2)
[2016-12-22] MEDS: ONDANSETRON 4 MG/2 ML (SDV) Z0FRAN IV PRN (06:05)
[2016-12-22] MEDS: morphine INJ 4 MG/ML 1 ML (VIAL/SYRINGE) IVP PRN ×2 (06:29→22:31)
[2016-12-22 07:56] VITALS: BP 144/71
--- NOTE | 2016-12-22 10:46 | Consultation-Hospitalist ---
HPI History of Present Illness: HPI/Chief Complaint CC: Post op ileus in need of medical management HPI: This is an 81yoWF pt of Dr. Garcia'thao that underwent an open left femoral hernia repair with small bowel resection due to incarceration. She is currently on ice chips only due to ileus. Patient Interview: Pt confirms that Dr. Garcia is PCP, but pt is considering switching to a new PCP. Pt states that she feels improved. Physical exam stable. Pt has been seen by Dr. Amaya today, and will advance diet. Pt has not yet ambulated, but will begin today. Pt lives alone at home. Scribed by Silas Maradiaga under the direct supervision of Dr. Mcelroy. Source: patient Date Seen 12/22/16 Attending Physician Matt Amaya DO PCP Vernon Garcia MD Referring Physician Date of Admission Dec 20, 2016 at 08:20 Home Medications & Allergies Home Medications Reviewed patient Home Medication Reconciliation Form Allergies Allergies Coded Allergies Penicillins (Verified Allergy, Unknown, 11/26/07) cephalexin (Verified Allergy, Unknown, 11/26/07) ciprofloxacin (Verified Allergy, Unknown, 11/26/07) estrogens, conjugated (Verified Allergy, Unknown, 06/17/08) gatifloxacin (Verified Allergy, Unknown, 06/17/08) tetracycline (Verified Allergy, Unknown, 06/17/08) Past Stecbaj-Qvzsiq-Azvmli Hx Patient Social History Marrital Status: single Employed/Student: retired Alcohol Use: Denies Use Recreational Drug Use: No Smoking Status: Former Smoker Physical Abuse Screen: No Sexual Abuse: No Recent Foreign Travel: No Contact w/other who traveled: No Recent Hopitalizations: No Recent Infectious Disease Expo: No Immunizations Up To Date Date of Pneumonia Vaccine: Jun 24, 2012 Date of Influenza Vaccine: Jun 12, 2014 Seasonal Allergies Seasonal Allergies: No Surgeries HX Surgeries: Yes (LEFT LEG) Surgeries: Abdominal, Orthopedic Respiratory Hx Respiratory Disorders: No Cardiovascular Hx Cardiovascular Disorders: No Neurological Hx Neurological Disorders: No Reproductive System : No Hx Reproductive Disorders: Yes Genitourinary Hx Genitourinary Disorders: No Gastrointestinal Hx Gastrointestinal Disorders: Yes Gastrointestinal Disorders: Chronic Diarrhea, Ulcer Musculoskeletal Hx 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) Endocrine Hx Endocrine Disorders: No HEENT HX ENT Disorders: No Cancer Hx Cancer: No Psychosocial Hx Psychiatric Problems: No Integumentary HX Skin/Integumentary Disorder: No Blood Transfusions Hx Blood Disorders: No Reviewed Nursing Assessment Reviewed/Agree w Nursing PMH: Yes Family Medical History Significant Family History: No Pertinent Family Hx Review of Systems Constitutional: see HPI EENTM: no symptoms reported Respiratory: no symptoms reported Cardiovascular: no symptoms reported Gastrointestinal: abdominal pain (LUQ) Genitourinary: no symptoms reported Musculoskeletal: no symptoms reported Skin: no symptoms reported Psychiatric/Neurological: No Symptoms Reported All Other Systems Reviewed Negative Unless Noted: Yes Physical Exam Physical Exam Vital Signs Vital Sign - Last 12Hours 12/20/16 12/20/16 06:26 17:22 Temp 97.3 Pulse 86 Resp 16 B/P (MAP) 169/118 Pulse Ox 98 O2 Delivery Room Air O2 Flow Rate 2.00 Capillary Refill : Less Than 3 Seconds General Appearance: No Apparent Distress, WD/WN, Chronically ill Eyes: Bilateral Eye Normal Inspection, Bilateral Eye PERRL HEENT: PERRL/EOMI, Normal ENT Inspection, Pharynx Normal Neck: Full Range of Motion, Normal Inspection, Non Tender, Supple, Carotid Bruit Respiratory: Chest Non Tender, Lungs Clear, Normal Breath Sounds, No Accessory Muscle Use, No Respiratory Distress Cardiovascular: Regular Rate, Rhythm, No Edema, No Gallop, No JVD, No Murmur, Normal Peripheral Pulses Gastrointestinal: Normal Bowel Sounds, No Organomegaly, No Pulsatile Mass, Soft , Tenderness Back: Normal Inspection, No CVA Tenderness, No Vertebral Tenderness Extremity: Normal Capillary Refill, Normal Inspection, Normal Range of Motion, Non Tender, No Calf Tenderness, No Pedal Edema Neurologic/Psychiatric: Alert, Oriented x3, No Motor/Sensory Deficits, Normal Mood/Affect Skin: Normal Color, Warm/Dry Lymphatic: No Adenopathy Results Results/Procedures Lab Laboratory Tests 12/21/16 05:50 12/22/16 05:00 Assessment/Plan Admission Diagnosis Assessment: S/P incarcerated hernia S/P open repair with post-op ileus Chronic pain Depression Anxiety Assessment and Plan Plan: PT Advance diet Likely DC tomorrow Clinical Quality Measures DVT/VTE Risk/Contraindication: Risk Factor Score Per Nursin RFS Level Per Nursing on Admit: 4+=Very High ADAL MCELROY DO Dec 22, 2016 10:46
[2016-12-22 11:47] VITALS: BP 164/55
--- NOTE | 2016-12-22 11:58 | Progress Note ---
Subjective Subjective/Events-last exam Feeling good. Passing flatus. Pain controlled. No new complaints. Denies n/v fever sweats chills shortness of breath or chest pain. Objective Exam Vital Signs Date Time Temp Pulse Resp B/P (MAP) Pulse Ox O2 Delivery O2 Flow Rate FiO2 12/22/16 11:47 98.9 77 20 164/55 92 Nasal Cannula 2.00 12/22/16 07:56 98.4 88 20 144/71 94 Nasal Cannula 2.00 12/22/16 04:01 99.1 75 20 137/82 97 Nasal Cannula 2.00 12/22/16 00:25 99.1 86 22 177/85 97 Nasal Cannula 2.00 12/21/16 20:20 99.3 83 20 145/88 95 Nasal Cannula 2.00 12/21/16 16:49 98.9 75 18 179/69 94 Nasal Cannula 2.00 12/21/16 15:48 2.00 I & O 12/22/16 07:00 Intake Total 2560 ml Output Total 1450 ml Balance 1110 ml Capillary Refill : Less Than 3 Seconds General Appearance: No Apparent Distress, Thin HEENT: PERRL/EOMI, Normal ENT Inspection, Pharynx Normal Neck: Normal Inspection, Non Tender Respiratory: Chest Non Tender, No Accessory Muscle Use, No Respiratory Distress Cardiovascular: Regular Rate, Rhythm Gastrointestinal: soft, tenderness (incisional), other (echymosis left lower quadrant) Extremity: Non Tender, No Calf Tenderness, No Pedal Edema Neurologic/Psychiatric: Alert, Oriented x3 Skin: Normal Color, Warm/Dry Lymphatic: No Adenopathy Results Lab Laboratory Tests 12/22/16 05:00: White Blood Count 11.6H, Red Blood Count 4.28L, Hemoglobin 10.6L, Hematocrit 34L , Mean Corpuscular Volume 79L, Mean Corpuscular Hemoglobin 25, Mean Corpuscular Hemoglobin Concent 31L, Red Cell Distribution Width 17.2H, Platelet Count 177, Mean Platelet Volume 11.9H, Neutrophils (%) (Auto) 86H, Lymphocytes (%) (Auto) 6L, Monocytes (%) (Auto) 8, Eosinophils (%) (Auto) 0, Basophils (%) (Auto) 0, Neutrophils # (Auto) 10.0H, Lymphocytes # (Auto) 0.7L, Monocytes # (Auto) 0.9, Eosinophils # (Auto) 0.0, Basophils # (Auto) 0.0, Sodium Level 139, Potassium Level 3.1L, Chloride Level 109H, Carbon Dioxide Level 16L, Anion Gap 14, Blood Urea Nitrogen 8, Creatinine 0.60, Estimat Glomerular Filtration Rate > 60, BUN/ Creatinine Ratio 13, Glucose Level 102, Calcium Level 8.3L, Magnesium Level 1.8 , Total Bilirubin 0.7, Aspartate Amino Transf (AST/SGOT) 17, Alanine Aminotransferase (ALT/SGPT) 13, Alkaline Phosphatase 61, Total Protein 6.1L, Albumin 3.5 Assessment/Plan Assessment/Plan Assessment/Plan S/P open left femoral hernia repair, exploratory laparotomy, small bowel resection, lysis of adhesions clear liquid diet increase activity scd's an ambulation for dvt prophylaxis Clinical Quality Measures DVT/VTE Risk/Contraindication: Risk Factor Score Per Nursin RFS Level Per Nursing on Admit: 4+=Very High KALIN HICKS DO Dec 22, 2016 11:58 am
[2016-12-22 15:30] VITALS: BP 172/68
--- NOTE | 2016-12-22 17:21 | OPERATIVE REPORT ---
DATE OF SERVICE: 12/20/2016 PREOPERATIVE DIAGNOSIS: Left inguinal hernia. POSTOPERATIVE DIAGNOSIS: Incarcerated left femoral hernia. PROCEDURE PERFORMED: Open left femoral hernia repair, exploratory laparotomy, small bowel resection, lysis of adhesions. SURGEON: Dr. Matt Amaya. AUTOMATION ENGINEERING TECHNICIAN: Dr. Ross, who assisted with retraction, dissection and closure. ANESTHESIA: General. ESTIMATED BLOOD LOSS: Minimal. COMPLICATIONS: None. SPECIMENS: Hernia sac and small bowel. INDICATION: The patient is an 81-year-old female who presented to the Emergency Department with left lower quadrant abdominal pain and hernia that would not reduce on its own. It was felt that it did reduce some in the Emergency Department earlier in the day. She had a CT scan from the day previously demonstrating a femoral hernia. She was explained risks and benefits of the procedure and wished to proceed with procedure. Consent was signed and on the chart. The patient understood possibly also needing exploration to her midline incision as a possibility. The patient understands risks and benefits and wished to proceed. Consent was signed and on the chart. DESCRIPTION OF PROCEDURE: The patient was taken to the operating suite, she was prepped and draped in a sterile fashion. Surgical pause was performed. Left lower quadrant incision was made. The external oblique was encountered and the hernia sac was encountered which came through the femoral canal and below the inguinal ligament. This was further delineated with blunt dissection. The hernia sac was entered which demonstrated an area of ischemic bowel. At this time, it was decided to convert to open at midline for it was difficult to pull the bowel through this area. So midline incision was made through an existing scar. The abdomen was entered. From within the abdomen, the hernia contents were reduced. At this time, the hernia sac was elevated through the left groin incision and cautery was used to dissect around the hernia sac amputating it and the peritoneum returned to its normal position. Attention was then placed to the small bowel as being lifted out to the midline incision to grasp it, it did cause a small puncture but there was no contamination within the left groin incision or within the abdominal cavity. An JOSE F blue staple load was then fired across proximally and distally of the ischemic bowel on good health small bowel after it was dissected around with hemostat. A LigaSure was then used to transect the mesentery. Hemostasis was achieved. The small bowel was then lined up in a side to side fashion and a grdx-an-fovl anastomosis was then created using a JOSE F stapler. 3-0 silk suture was then used to put a crotch stitch. 3-0 silk suture was also used to close the mesentery defect. There was a small mesentery tear that was present from part of the dissection which was then closed using 3-0 silk suture. There was a small mesentery bleed from a tear that was made that 3-0 silk suture was also used to repair. Hemostasis had been achieved. There were also some adhesions of the small bowel up to the left gutter, these adhesions were taken down carefully. There is also adhesions from small bowel to small bowel which were taken down as the small bowel was then ran both proximally and distally. Once the small bowel was all freed and examined, copious amounts of irrigation was used to irrigate. A medium plug was placed through the femoral canal where the defect was present and secured with 3-0 Vicryl plugging the defect from the femoral position. The peritoneum was then closed in a running fashion using 3-0 Vicryl where the hernia sac was transected. Again, copious amounts of irrigation was used to irrigate the abdomen and the left groin incision. The anastomosis was patent and viable. The fascia at the midline was then closed using 0 loop PDS. The wounds were then irrigated with copious amounts of irrigation and the skin was then closed using salvador. The areas were then washed and dried, sterile bandages were applied. The patient tolerated the procedure well without any complications. She was taken to the recovery room in stable condition. Job ID: [id number] DocumentID: [id number] Dictated Date: 12/22/2016 15:22:34 Solar Sales Rep Date: 12/22/2016 16:40:23 Dictated By: DO JACKSON BAEZ
[2016-12-22 20:00] VITALS: BP 154/67
[2016-12-22] MEDS: PANTOPRAZOLE 40 MG (PROTONIX) TAB PO SCH (20:35)
[2016-12-23 00:20] VITALS: BP 168/77
[2016-12-23 04:05] VITALS: BP 140/78
[2016-12-23 05:14] LABS: BASOPHILS % (AUTO) 0 % (0-10); EOSINOPHILS # (AUTO) 0.1 10^3/uL (0.0-0.3); EOSINOPHILS % (AUTO) 1 % (0-10); LYMPHOCYTES # (AUTO) 0.8 X 10^3 (1.0-4.0); LYMPHOCYTES % (AUTO) 8 % (12-44); MEAN CORPUSCULAR HEMOGLOBIN 25 PG (25-34); MEAN CORPUSCULAR HGB CONC 31 G/DL (32-36); MEAN CORPUSCULAR VOLUME 80 FL (80-99); MONOCYTES # (AUTO) 0.8 X 10^3 (0.0-1.0); MONOCYTES % (AUTO) 8 % (0-12); NEUTROPHILS # (AUTO) 8.3 X 10^3 (1.8-7.8); NEUTROPHILS % (AUTO) 83 % (42-75); PLATELET COUNT 155 10^3/uL (130-400); RED BLOOD COUNT 3.84 10^6/uL (4.35-5.85); RED CELL DISTRIBUTION WIDTH 17.3 % (10.0-14.5)
[2016-12-23 05:35] LABS: ALANINE AMINOTRANSFERASE 13 U/L (0-55); ALBUMIN 3.2 G/DL (3.2-4.5); ANION GAP 6 MMOL/L (5-14); ASPARTATE AMINO TRANSFERASE 18 U/L (5-34); BILIRUBIN,TOTAL 0.7 MG/DL (0.1-1.0); BLOOD UREA NITROGEN 7 MG/DL (7-18); BUN/CREATININE RATIO 13; CALCIUM 8.1 MG/DL (8.5-10.1); CARBON DIOXIDE 23 MMOL/L (21-32); CHLORIDE 109 MMOL/L (98-107); CREATININE SERUM 0.55 MG/DL (0.60-1.30); GFR ESTIMATED > 60; GLUCOSE 108 MG/DL (70-105); MAGNESIUM 1.9 MG/DL (1.8-2.4); POTASSIUM 3.7 MMOL/L (3.6-5.0); SODIUM 138 MMOL/L (135-145); TOTAL PROTEIN 5.7 G/DL (6.4-8.2)
[2016-12-23 08:00] VITALS: BP 166/88
--- NOTE | 2016-12-23 08:01 | Progress Note ---
Subjective Subjective/Events-last exam Patient resting in bed. Reports Flatus and states she "almost had a bowel movement". Describes it as a smear. Tolerating clear liquids. NO N/V. Objective Exam Vital Signs Date Time Temp Pulse Resp B/P (MAP) Pulse Ox O2 Delivery O2 Flow Rate FiO2 12/23/16 04:05 98.1 83 16 140/78 90 Room Air 12/23/16 00:20 99.5 82 20 168/77 90 Room Air 12/22/16 20:00 98.8 81 18 154/67 94 Room Air 12/22/16 15:45 2.00 12/22/16 15:30 99.2 81 18 172/68 92 Room Air 12/22/16 13:36 Nasal Cannula 2.00 12/22/16 11:47 98.9 77 20 164/55 92 Nasal Cannula 2.00 I & O 12/23/16 07:00 Intake Total 4060 ml Output Total 1850 ml Balance 2210 ml Capillary Refill : Less Than 3 Seconds General Appearance: No Apparent Distress, Thin HEENT: PERRL/EOMI, Normal ENT Inspection, Pharynx Normal Neck: Normal Inspection, Non Tender Respiratory: Chest Non Tender, No Accessory Muscle Use, No Respiratory Distress Cardiovascular: Regular Rate, Rhythm Gastrointestinal: soft, tenderness (Around her incisions with palpation. ), other (echymosis left lower quadrant) Extremity: Non Tender, No Calf Tenderness, No Pedal Edema Neurologic/Psychiatric: Alert, Oriented x3 Skin: Normal Color, Warm/Dry Lymphatic: No Adenopathy Results Lab Laboratory Tests Test 12/22/16 05:00 12/23/16 04:50 Range/Units White Blood Count 11.6 H 10.0 4.3-11.0 10^3/uL Red Blood Count 4.28 L 3.84 L 4.35-5.85 10^6/uL Hemoglobin 10.6 L 9.5 L 11.5-16.0 G/DL Hematocrit 34 L 31 L 35-52 % Mean Corpuscular Volume 79 L 80 80-99 FL Mean Corpuscular Hemoglobin 25 25 25-34 PG Mean Corpuscular Hemoglobin Concent 31 L 31 L 32-36 G/DL Red Cell Distribution Width 17.2 H 17.3 H 10.0-14.5 % Platelet Count 177 155 130-400 10^3/uL Mean Platelet Volume 11.9 H 12.0 H 7.4-10.4 FL Neutrophils (%) (Auto) 86 H 83 H 42-75 % Lymphocytes (%) (Auto) 6 L 8 L 12-44 % Monocytes (%) (Auto) 8 8 0-12 % Eosinophils (%) (Auto) 0 1 0-10 % Basophils (%) (Auto) 0 0 0-10 % Neutrophils # (Auto) 10.0 H 8.3 H 1.8-7.8 X 10^3 Lymphocytes # (Auto) 0.7 L 0.8 L 1.0-4.0 X 10^3 Monocytes # (Auto) 0.9 0.8 0.0-1.0 X 10^3 Eosinophils # (Auto) 0.0 0.1 0.0-0.3 10^3/uL Basophils # (Auto) 0.0 0.0 0.0-0.1 10^3/uL Sodium Level 139 138 135-145 MMOL/L Potassium Level 3.1 L 3.7 3.6-5.0 MMOL/L Chloride Level 109 H 109 H 98-107 MMOL/L Carbon Dioxide Level 16 L 23 21-32 MMOL/L Anion Gap 14 6 5-14 MMOL/L Blood Urea Nitrogen 8 7 7-18 MG/DL Creatinine 0.60 0.55 L 0.60-1.30 MG/DL Estimat Glomerular Filtration Rate > 60 > 60 BUN/Creatinine Ratio 13 13 Glucose Level 102 108 H 70-105 MG/DL Calcium Level 8.3 L 8.1 L 8.5-10.1 MG/DL Magnesium Level 1.8 1.9 1.8-2.4 MG/DL Total Bilirubin 0.7 0.7 0.1-1.0 MG/DL Aspartate Amino Transf (AST/SGOT) 17 18 5-34 U/L Alanine Aminotransferase (ALT/SGPT) 13 13 0-55 U/L Alkaline Phosphatase 61 57 40-136 U/L Total Protein 6.1 L 5.7 L 6.4-8.2 G/DL Albumin 3.5 3.2 3.2-4.5 G/DL Laboratory Tests 12/23/16 04:50: White Blood Count 10.0, Red Blood Count 3.84L, Hemoglobin 9.5L, Hematocrit 31L, Mean Corpuscular Volume 80, Mean Corpuscular Hemoglobin 25, Mean Corpuscular Hemoglobin Concent 31L, Red Cell Distribution Width 17.3H, Platelet Count 155, Mean Platelet Volume 12.0H, Neutrophils (%) (Auto) 83H, Lymphocytes (%) (Auto) 8L, Monocytes (%) (Auto) 8, Eosinophils (%) (Auto) 1, Basophils (%) (Auto) 0, Neutrophils # (Auto) 8.3H, Lymphocytes # (Auto) 0.8L, Monocytes # (Auto) 0.8, Eosinophils # (Auto) 0.1, Basophils # (Auto) 0.0, Sodium Level 138, Potassium Level 3.7, Chloride Level 109H, Carbon Dioxide Level 23, Anion Gap 6, Blood Urea Nitrogen 7, Creatinine 0.55L, Estimat Glomerular Filtration Rate > 60, BUN/ Creatinine Ratio 13, Glucose Level 108H, Calcium Level 8.1L, Magnesium Level 1.9 , Total Bilirubin 0.7, Aspartate Amino Transf (AST/SGOT) 18, Alanine Aminotransferase (ALT/SGPT) 13, Alkaline Phosphatase 57, Total Protein 5.7L, Albumin 3.2 Assessment/Plan Assessment/Plan Assessment/Plan S/P open left femoral hernia repair, exploratory laparotomy, small bowel resection, lysis of adhesions clear liquid diet- Tolerating diet. Passing flatus. WBC and RBC trending slightly down. Will continue labs and continue to monitor patients. increase activity Clinical Quality Measures DVT/VTE Risk/Contraindication: Risk Factor Score Per Nursin RFS Level Per Nursing on Admit: 4+=Very High MADISON MENDEZ APRN Dec 23, 2016 08:01
[2016-12-23] MEDS: PANTOPRAZOLE 40 MG (PROTONIX) TAB PO SCH (08:22)
[2016-12-23] MEDS: NS W/KCL 40 MEQ/L 1,000 ML IV SCH (08:23)
--- NOTE | 2016-12-23 08:34 | Discharge Inst-Simple/Standard ---
Discharge Inst-Standard Patient Instructions/Follow Up Plan of Care/Instructions/FU: Patient to follow up with Dr. Amaya in one week. Clear liquids for one more day and increase diet as tolerated. Use incentive spirometer for 10 times an hour while awake. Activity as Tolerated: No Discharge Diet: Liquid Diet Other Inst to Patient Follow up Appt: Make appointment for 1 week. Instructions: No lifting greater than 10 pounds. No strenuous activity. May shower, no tub bath or soaking. Use incentive spirometer at home as directed. No Smoking Skin/Wound Care: Keep cleen and dry. You need to leave the salvador over incision on. They will be taken out in clinic. Symptoms to Report: Appetite Changes, Extremity Discoloration, Numbness/Tingling, Swelling Increased , Bleeding Excessive, Eyesight Changes, Pain Increased, Urine Color Change, Constipation(Persistent), Fever over 101 degree F, Pain/Pressure in chest, Urinating Difficulty, Cough Up/Vomit Blood, Heart Beat Irreg/Pounding, Pain/ Pressure in jaw, Vaginal Bleeding Increase, Cramps in feet or legs, Lightheadedness, Pain/Pressure in shoulder, Diarrhea(Persistent), Memory Changes Suddenly, Questions/Concerns, Weight gain consecutive days, Dizziness/ Fainting, Nausea/Vomiting, Shortness of Breath, Weight gain over 2 pounds If questions or concerns contact your physician Or seek help at emergency department. MADISON MENDEZ APRN Dec 23, 2016 08:34
--- NOTE | 2016-12-23 08:46 | Discharge Summary ---
Diagnosis/Chief Complaint Date of Admission Dec 20, 2016 at 08:20 Date of Discharge Discharge Diagnosis S/P open left femoral hernia repair, exploratory laparotomy, small bowel resection, lysis of adhesions Reason Hospital Visit Patient reports that on Monday she was doing well. She states she was straining on Monday while having a bowel movement and started having pain. She reported pain to her left lower quadrant, with nausea and vomiting all night. She was sent by her primary care doctor yesterday for outpatient CT scan which does raise concerns of incarcerated left inguinal hernia. She did have some blood with stool yesterday but that has stopped. She reports vomiting multiple times overnight. She reports blood to her stools, constipation and diarrhea. Discharge Summary Procedures: NAME: MELANIA GORDON [facility] REC#: [id number] : 1935 LOCATION: 4TH ADMIT DATE: 12/20/16 DATE OF SERVICE: 12/20/2016 PREOPERATIVE DIAGNOSIS: Left inguinal hernia. POSTOPERATIVE DIAGNOSIS: Incarcerated left femoral hernia. PROCEDURE PERFORMED: Open left femoral hernia repair, exploratory laparotomy, small bowel resection, lysis of adhesions. SURGEON: Dr. Kalin Amaya. SOFTWARE ENGINEER DEVELOPER: ____, who assisted with retraction, dissection and closure. ANESTHESIA: General. ESTIMATED BLOOD LOSS: Minimal. COMPLICATIONS: None. SPECIMENS: Hernia sac and small bowel. INDICATION: The patient is an 81-year-old female who presented to the Emergency Department with left lower quadrant abdominal pain and hernia that would not reduce on its own. It was felt that it did reduce some in the Emergency Department earlier in the day. She had a CT scan from the day previously demonstrating a femoral hernia. She was explained risks and benefits of the procedure and wished to proceed with procedure. Consent was signed and on the chart. The patient understood possibly also needing exploration to her midline incision as a possibility. The patient understands risks and benefits and wished to proceed. Consent was signed and on the chart. DESCRIPTION OF PROCEDURE: The patient was taken to the operating suite, she was prepped and draped in a sterile fashion. Surgical pause was performed. Left lower quadrant incision was made. The external oblique was encountered and the hernia sac was encountered which came through the femoral canal and below the inguinal ligament. This was further delineated with blunt dissection. The hernia sac was entered which demonstrated an area of ischemic bowel. At this time, it was decided to convert to open for it was difficult to pull the bowel through this area. So midline incision was made through an existing scar. The abdomen was entered. From within the abdomen, the hernia contents were reduced. At this time, the hernia sac was elevated through the left groin incision and cautery was used to dissect around the hernia sac amputating it and the peritoneum returned to its normal position. Attention was then placed to the small bowel as being lifted out to the midline incision to grasp it, it did cause a small puncture but there was no contamination within the left groin incision or within the abdominal cavity. An JOSE F blue staple load was then fired across proximally and distally of the ischemic bowel on good health small bowel after it was dissected around with hemostat. A LigaSure was then used to transect the mesentery. Hemostasis was achieved. The small bowel was then lined up in a side to side fashion and a vtda-kc-nvqy anastomosis was then created using a JOSE F stapler. 3-0 silk suture was then used to put a crotch stitch. 3-0 silk suture was also used to close the mesentery defect. There was a small mesentery tear that was present from part of the dissection which was then closed using 3-0 silk suture. There was a small mesentery bleed from a tear that was made that 3-0 silk suture was also used to repair. Hemostasis had been achieved. There were also some adhesions of the small bowel up to the left gutter, these adhesions were taken down carefully. There is also adhesions from small bowel to small bowel which were taken down as the small bowel was then ran both proximally and distally. Once the small bowel was all freed and examined, copious amounts of irrigation was used to irrigate. A medium plug was placed through the femoral canal where the defect was present and secured with 3-0 Vicryl plugging the defect from the femoral position. The peritoneum was then closed in a running fashion using 3-0 Vicryl where the hernia sac was transected. Again, copious amounts of irrigation was used to irrigate the abdomen and the left groin incision. The anastomosis was patent and viable. The fascia at the midline was then closed using 0 loop PDS. The wounds were then irrigated with copious amounts of irrigation and the skin was then closed using salvador. The areas were then washed and dried, sterile bandages were applied. The patient tolerated the procedure well without any complications. She was taken to the recovery room in stable condition. Job ID: [id number] DocumentID: [id number] Dictated Date: 12/22/2016 15:22:34 Penciller Date: 12/22/2016 16:40:23 Dictated By: KALIN AMAYA, DO Discharge Physical Examination Allergies: Coded Allergies: Penicillins (Verified Allergy, Unknown, 11/26/07) cephalexin (Verified Allergy, Unknown, 11/26/07) ciprofloxacin (Verified Allergy, Unknown, 11/26/07) estrogens, conjugated (Verified Allergy, Unknown, 06/17/08) gatifloxacin (Verified Allergy, Unknown, 06/17/08) tetracycline (Verified Allergy, Unknown, 06/17/08) Vitals & I&Os Vital Signs Date Time Temp Pulse Resp B/P (MAP) Pulse Ox O2 Delivery O2 Flow Rate FiO2 12/23/16 08:00 98.4 75 20 166/88 91 Room Air 12/22/16 15:45 2.00 General Appearance: Alert, Oriented X3, Cooperative Cardiovascular: Regular Rate Abdominal: Soft, Other (tenderness around the incision site with palpation.) Extremities: No Edema, No Tenderness/Swelling Hospital Course This is an 81-year-old female patient who presented to the Emergency Department with left lower quadrant abdominal pain and hernia that would not reduce on its own. Patient reports that on Monday she was doing well. She states she was straining on Monday while having a bowel movement and started having pain. She reported pain to her left lower quadrant, with nausea and vomiting all night. She was sent by her primary care doctor yesterday for outpatient CT scan which does raise concerns of incarcerated left inguinal hernia. She did have some blood with stool but it stopped a day later. She reports vomiting multiple times .It was felt that it did reduce some in the Emergency Department earlier in the day. She was examined by Dr. Amaya. She was explained risks and benefits of the procedure and she wished to proceed with procedure. Consent was signed and on the chart. The patient understood possibly also needing exploration to her midline incision as a possibility. The patient tolerated the procedure well without any complications. An open left femoral hernia repair, exploratory laparotomy, small bowel resection, lysis of adhesions was performed on patient. Patient pain improved daily. Patient tolerated ice chips with no nausea or vomiting. On the 22 of December, patient was started on clear liquids which she tolerated with no nausea or vomiting. Currently patient reports flatus. No signs of nausea or Vomiting. Alert and oriented x 3. Mild pain with palpation to incision sites. Patient to be discharged with instructions and to follow up with Dr. Amaya in one week. She is also to follow up with PCP in one week. Pending Labs Laboratory Tests 12/23/16 04:50: White Blood Count 10.0, Red Blood Count 3.84, Hemoglobin 9.5, Hematocrit 31, Mean Corpuscular Volume 80, Mean Corpuscular Hemoglobin 25, Mean Corpuscular Hemoglobin Concent 31, Red Cell Distribution Width 17.3, Platelet Count 155, Mean Platelet Volume 12.0, Neutrophils (%) (Auto) 83, Lymphocytes (%) (Auto) 8, Monocytes (%) (Auto) 8, Eosinophils (%) (Auto) 1, Basophils (%) (Auto) 0, Neutrophils # (Auto) 8.3, Lymphocytes # (Auto) 0.8, Monocytes # (Auto) 0.8, Eosinophils # (Auto) 0.1, Basophils # (Auto) 0.0, Sodium Level 138, Potassium Level 3.7, Chloride Level 109, Carbon Dioxide Level 23, Anion Gap 6, Blood Urea Nitrogen 7, Creatinine 0.55, Estimat Glomerular Filtration Rate > 60, BUN/ Creatinine Ratio 13, Glucose Level 108, Calcium Level 8.1, Magnesium Level 1.9, Total Bilirubin 0.7, Aspartate Amino Transf (AST/SGOT) 18, Alanine Aminotransferase (ALT/SGPT) 13, Alkaline Phosphatase 57, Total Protein 5.7, Albumin 3.2 Discharge Instructions to patient/family Please see electonic discharge instructions given to patient. Discharge Medications Reviewed and agree with Discharge Medication list on patient's Discharge Instruction sheet Clinical Quality Measures DVT/VTE Risk/Contraindication: Risk Factor Score Per Nursin RFS Level Per Nursing on Admit: 4+=Very High MADISON MENDEZ APRN Dec 23, 2016 08:46
[2016-12-23] MEDS ORDERED: SERTRALINE 100 MG (ZOLOFT) TAB PO SCH (09:00)
[2016-12-23] MEDS: morphine INJ 4 MG/ML 1 ML (VIAL/SYRINGE) IVP PRN (09:06)
[2016-12-23] MEDS: ONDANSETRON 4 MG/2 ML (SDV) Z0FRAN IV PRN (09:06)
--- NOTE | 2016-12-23 10:27 | Progress Note-Hospitalist ---
Progress Note HPI/CC on Admission CC: Post op ileus in need of medical management HPI: This is an 81yoWF pt of Dr. Garcia's that underwent an open left femoral hernia repair with small bowel resection due to incarceration. She is currently on ice chips only due to ileus. Patient Interview: Pt confirms that Dr. Garcia is PCP, but pt is considering switching to a new PCP. Pt states that she feels improved. Physical exam stable. Pt has been seen by Dr. Amaya today, and will advance diet. Pt has not yet ambulated, but will begin today. Pt lives alone at home. Scribed by Silas Maradiaga under the direct supervision of Dr. Bernardo. Progress Notes/Assess & Plan Date Seen 12/23/16 Admission Dx/Process Diagonsis/Assessment & Plan Patient doing very well and using incentive spirometer and getting around with physical therapy Bowels are moving just a small amount Eating and drinking without difficulty Wants to go home No fever vital signs stable, pleasant, improved Regular rate and rhythm, clear to auscultation bilaterally No edema Positive bowel sounds Assessment: S/P incarcerated hernia S/P open repair with post-op ileus Chronic pain Depression Anxiety Plan: PT Advance diet ADAL Bui DC, DO Dec 23, 2016 10:27
[2016-12-23 11:45] VITALS: BP 158/88
[2016-12-23 12:00] VITALS: BP 155/80
== END 2016-12-23 11:45 | disposition home or self-care (01) | DRG 329 ==
LOC: EDUNIT# 06:17 → ER 06:20 → OBSVTOIN 08:20 → INTOOBSV 08:20 → 4TH 08:20 → UNDOADMIN 08:20 → 4TH 08:20 → UNDODISIN 12-23 11:45
PROVIDERS: ADMIT Surgery; ATTEND Surgery
PROC: 0DT80ZZ Resection of Small Intestine, Open Approach (ICD-10-PCS; 2016-12-20)
PROC: 0YQ80ZZ Repair Left Femoral Region, Open Approach (ICD-10-PCS; principal; 2016-12-20 13:54)
DX: K41.30 Unilateral femoral hernia, with obstruction, without gangrene, not specified as recurrent (principal); K55.011 Focal (segmental) acute (reversible) ischemia of small intestine; F32.9 Major depressive disorder, single episode, unspecified; F41.9 Anxiety disorder, unspecified; Z87.891 Personal history of nicotine dependence; Z87.11 Personal history of peptic ulcer disease
CPT/HCPCS: 36415; 74020; 80053; 81000; 83615; 83735; 85025; 88302; 94664; 96374; 96375

== ENCOUNTER → 2017-03-02 | Outpatient (CLI) | payer MEDICARE ==
[~2017-03-02] MED LIST changes: +ACET-93 PO; +CALC-140 PO; +CATHETER FLUSH 10 ML SYR IV PRN; +DICY10CA12 PO; +DIPH1TAB25 PO; +ERGO50006 PO; +HYDR-3812 PO; +IOHEXOL 350 MG/ML 100 ML (OMNIPAQUE 350) VIAL IV ONE; +NS 100 ML (IVPB) BAG IV ONE; +PANT40TA3 PO; +PEDI18TA2 PO; +QUET25TA73 PO; +SERT100T8 PO; +SPIR25TA3 PO; +TEMA15CA PO
== END ==
DX: G31.84 Mild cognitive impairment of uncertain or unknown etiology (principal); I65.21 Occlusion and stenosis of right carotid artery

== ENCOUNTER → 2017-03-09 | Outpatient (CLI) | payer MEDICARE ==
[~2017-03-09] MED LIST changes: -CATHETER FLUSH 10 ML SYR IV PRN; -IOHEXOL 350 MG/ML 100 ML (OMNIPAQUE 350) VIAL IV ONE; -NS 100 ML (IVPB) BAG IV ONE
--- NOTE | 2017-03-09 19:25 | Diagnostic Imaging Report ---
Bilateral screening mammogram The current study was also evaluated with a Computer Aided Detection (CAD) system. Indication: Screening. No current complaints stated on the questionnaire. COMPARISON: 03/03/2016 FINDINGS: The breasts are composed of scattered fibroglandular densities. There are mild vascular calcifications. Allowing for technique and positional differences, no suspicious change is seen. IMPRESSION: No significant change. ACR BI-RADS Category 2: Benign findings. Result letter will be mailed to the patient. Note: At least 10% of breast cancer is not imaged by mammography. Dictated by: Dictated on workstation # [id number]
== END ==
LOC: RAD 09:58
PROVIDERS: ATTEND Nurse Practitioner Family
DX: Z12.31 Encounter for screening mammogram for malignant neoplasm of breast (principal)
CPT/HCPCS: 77067

== ENCOUNTER 2017-04-22 11:41 | Emergency (ER) | payer MEDICARE ==
[~2017-04-22] VITALS: Ht 165.1 cm; Wt 54.4 kg
--- NOTE | 2017-04-22 12:28 | ED GU-Female ---
General Chief Complaint: -Female Stated Complaint: UTI SYMPTOMS/DIARRHEA Nursing Triage Note: PT C/O PAIN WITH URINARTION ONSET LAST NIGHT Nursing Sepsis Screen: No Definite Risk Source: patient, family (Daughter) Exam Limitations: no limitations History of Present Illness Time seen by provider: 12:28 Initial Comments 81-year-old female patient presents to the emergency department complains of dysuria, frequency, and left lower quadrant pain beginning last night. Does complain of diarrhea beginning last night. Intermittent symptoms for 2 weeks. Patient underwent open left femoral hernia repair with bowel resection and adhesiolysis by Dr. Amaya in December 2016. Patient does complain of nausea. Timing/Duration: yesterday, getting worse Severity/Quality: aching, cramping Location: LLQ Radiation: none Activities at Onset: none Prior Genitourinary Problems: none Modifying Factors: Worsens With Eating, Worsens With Palpation, Worsens With Urinating Allergies and Home Medications Allergies Coded Allergies: Penicillins (Verified Allergy, Unknown, 11/26/07) cephalexin (Verified Allergy, Unknown, 11/26/07) ciprofloxacin (Verified Allergy, Unknown, 11/26/07) estrogens, conjugated (Verified Allergy, Unknown, 06/17/08) gatifloxacin (Verified Allergy, Unknown, 06/17/08) tetracycline (Verified Allergy, Unknown, 06/17/08) Home Medications Acetaminophen 500 Mg Tablet, 500 MG PO DAILY PRN for PAIN-MILD TO MODERATE, ( Reported) Calcium Carbonate/Vitamin D3 1 Each Tablet, 2 TAB PO DAILY, (Reported) Dicyclomine HCl 10 Mg Capsule, 10 MG PO TID PRN for ABDOMINAL PAIN, (Reported) Diphenoxylate HCl/Atropine 1 Each Tablet, 1 TAB PO TID PRN for LOOSE STOOLS, ( Reported) Ergocalciferol (Vitamin D2) 50,000 Unit Capsule, 50,000 UNITS PO WEEK, (Reported ) TAKES ON MONDAY Hydrocodone/Acetaminophen 1 Each Tablet, 1 TAB PO EVERY 4-6 HOURS PRN for PAIN- MODERATE TO SEVERE, (Reported) Nitrofurantoin Monohyd/M-Cryst 100 Mg Capsule, 1 CAP PO BID, #14 Ref 0 Prescribed by: NORA HERNANDEZ on 04/22/17 1357 Ondansetron 4 Mg Tab.rapdis, 4 MG PO Q6H PRN for NAUSEA/VOMITING-1ST LINE, #10 Ref 0 Prescribed by: NORA HERNANDEZ on 04/22/17 1357 Pantoprazole Sodium 40 Mg Tablet.dr, 40 MG PO BID, (Reported) Pedi Mv No.79/Ferrous Fumarate 18 Mg Tab.chew, 18 MG PO DAILY, (Reported) Phenazopyridine HCl 200 Mg Tablet, 1 TAB PO Q8H PRN for pain, #30 Ref 0 Prescribed by: NORA HERNANDEZ on 04/22/17 1357 Quetiapine Fumarate 25 Mg Tablet, 25 MG PO HS, (Reported) Sertraline HCl 100 Mg Tablet, 150 MG PO DAILY, (Reported) TAKES 1 & 1/2 OF A (100 MG) TABLET Spironolactone 25 Mg Tablet, 25 MG PO DAILY, (Reported) Temazepam 15 Mg Capsule, 15 MG PO HS PRN for SLEEP, (Reported) Constitutional: chills, No fever, No malaise Respiratory: No cough, No phlegm, No short of breath Cardiovascular: No chest pain, No palpitations Gastrointestinal: see HPI, abdominal pain (LLQ), No constipation, diarrhea, No hematemesis, No melena, nausea, No vomiting Genitourinary: see HPI, dysuria, frequency, denies flank pain, denies hematuria Musculoskeletal: No back pain Skin: no symptoms reported Psychiatric/Neurological: No Symptoms Reported All Other Systemes Reviewed Negative Unless Noted: Yes (Negative excepted noted.) Past Tfkyplx-Udbcjt-Ihmoxq Hx Patient Social History Alcohol Use: Denies Use Recreational Drug Use: No Smoking Status: Never a Smoker Recent Foreign Travel: No Contact w/Someone Who Travel: No Recent Infectious Disease Expo: No Recent Hopitalizations: No Immunizations Up To Date Date of Pneumonia Vaccine: Jun 24, 2012 Date of Influenza Vaccine: Jun 12, 2014 Seasonal Allergies Seasonal Allergies: No Surgeries HX Surgeries: Yes (LEFT LEG) Surgeries: Abdominal (left open femoral herniorrhaphy with SB resection and adhesiolysis.), Orthopedic Respiratory Hx Respiratory Disorders: No Cardiovascular Hx Cardiac Disorders: No Neurological Hx Neurological Disorders: No Reproductive System Hx Reproductive Disorders: Yes Genitourinary Hx Genitourinary Disorders: No Gastrointestinal Hx Gastrointestinal Disorders: Yes Gastrointestinal Disorders: Chronic Diarrhea, Ulcer Musculoskeletal Hx 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) Endocrine Hx Endocrine Disorders: No HEENT HX ENT Disorders: No Cancer Hx Cancer: No Psychosocial Hx Psychiatric Problems: No Integumentary HX Skin/Integumentary Disorder: No Blood Transfusions Hx Blood Disorders: No Reviewed Nursing Assessment Reviewed/Agree w Nursing PMH: Yes Family Medical History Significant Family History: No Pertinent Family Hx Physical Exam Vital Signs Vital Sign - Last 12Hours 04/22/17 11:56 Temp 98.2 Pulse 67 Resp 16 B/P (MAP) 159/80 Pulse Ox 98 Capillary Refill : Less Than 3 Seconds General Appearance: WD/WN, no apparent distress Cardiovascular: regular rate, rhythm, no murmur Respiratory: lungs clear, normal breath sounds, no respiratory distress Gastrointestinal: normal bowel sounds, soft, no organomegaly, No distended, guarding (LLQ), No rebound, tenderness (LLQ and suprapubic), No hernia Back: normal inspection, no CVA tenderness Extremities: no pedal edema, normal capillary refill Neurologic/Psychiatric: alert, normal mood/affect, oriented x 3 Skin: normal color, warm/dry Progress/Results/Core Measures Results/Orders Lab Results Laboratory Tests Test 04/22/17 11:45 04/22/17 13:03 Range/Units Urine Color YELLOW Urine Clarity CLEAR Urine pH 8 5-9 Urine Specific [place] 1.010 L 1.016-1.022 Urine Protein NEGATIVE NEGATIVE Urine Glucose (UA) NEGATIVE NEGATIVE Urine Ketones NEGATIVE NEGATIVE Urine Nitrite NEGATIVE NEGATIVE Urine Bilirubin NEGATIVE NEGATIVE Urine Urobilinogen NORMAL NORMAL MG/DL Urine Leukocyte Esterase 2+ H NEGATIVE Urine RBC (Auto) NEGATIVE NEGATIVE Urine RBC NONE /HPF Urine WBC 10-25 H /HPF Urine Crystals NONE /LPF Urine Bacteria MODERATE H /HPF Urine Casts NONE /LPF Urine Mucus NEGATIVE /LPF Urine Culture Indicated NO White Blood Count 5.9 4.3-11.0 10^3/uL Red Blood Count 4.39 4.35-5.85 10^6/uL Hemoglobin 11.6 11.5-16.0 G/DL Hematocrit 36 35-52 % Mean Corpuscular Volume 83 80-99 FL Mean Corpuscular Hemoglobin 26 25-34 PG Mean Corpuscular Hemoglobin Concent 32 32-36 G/DL Red Cell Distribution Width 14.8 H 10.0-14.5 % Platelet Count 149 130-400 10^3/uL Mean Platelet Volume 10.9 H 7.4-10.4 FL Neutrophils (%) (Auto) 75 42-75 % Lymphocytes (%) (Auto) 15 12-44 % Monocytes (%) (Auto) 8 0-12 % Eosinophils (%) (Auto) 1 0-10 % Basophils (%) (Auto) 1 0-10 % Neutrophils # (Auto) 4.4 1.8-7.8 X 10^3 Lymphocytes # (Auto) 0.9 L 1.0-4.0 X 10^3 Monocytes # (Auto) 0.5 0.0-1.0 X 10^3 Eosinophils # (Auto) 0.1 0.0-0.3 10^3/uL Basophils # (Auto) 0.0 0.0-0.1 10^3/uL Sodium Level 140 135-145 MMOL/L Potassium Level 3.2 L 3.6-5.0 MMOL/L Chloride Level 103 98-107 MMOL/L Carbon Dioxide Level 26 21-32 MMOL/L Anion Gap 11 5-14 MMOL/L Blood Urea Nitrogen 4 L 7-18 MG/DL Creatinine 0.65 0.60-1.30 MG/DL Estimat Glomerular Filtration Rate > 60 BUN/Creatinine Ratio 6 Glucose Level 104 70-105 MG/DL Calcium Level 9.3 8.5-10.1 MG/DL Total Bilirubin 0.6 0.1-1.0 MG/DL Aspartate Amino Transf (AST/SGOT) 21 5-34 U/L Alanine Aminotransferase (ALT/SGPT) 18 0-55 U/L Alkaline Phosphatase 82 40-136 U/L Total Protein 7.1 6.4-8.2 GM/DL Albumin 4.1 3.2-4.5 GM/DL Lipase 22 8-78 U/L My Orders Orders - NORA HERNANDEZ Ua Culture If Indicated (04/22/17 11:56) Saline Lock/Iv-Start (04/22/17 12:38) Cbc With Automated Diff (04/22/17 12:38) Comprehensive Metabolic Panel (04/22/17 12:38) Lipase (04/22/17 12:38) Ketorolac Injection (Toradol Injection) (04/22/17 12:38) Ondansetron Injection (Zofran Injectio (04/22/17 12:45) Ns Iv 1000 Ml (Sodium Chloride 0.9%) (04/22/17 12:38) Medications Given in ED Current Medications Medications Dose Ordered Sig/Demarco Route Start Time Stop Time Status Last Admin Dose Admin Ondansetron HCl 4 mg ONCE ONCE IVP 04/22/17 12:45 04/22/17 12:46 DC 04/22/17 13:18 4 MG Sodium Chloride 1,000 ml @ 0 mls/hr Q0M ONCE IV 04/22/17 12:38 04/22/17 12:40 DC 04/22/17 13:15 0 MLS/HR Vital Signs/I&O Vital Sign - Last 12Hours 04/22/17 04/22/17 11:56 14:20 Temp 98.2 98.2 Pulse 67 66 Resp 16 16 B/P (MAP) 159/80 Pulse Ox 98 98 Blood Pressure Mean: 106 Departure Communication Progress Notes All laboratory and diagnostic findings discussed with the patient and family. Patient reports feeling better with Toradol, Zofran, and IV fluids. Plan for discharge to home. Impression Impression: Primary Impression: Urinary tract infection Qualified Codes: N30.00 - Acute cystitis without hematuria Additional Impression: Diarrhea Qualified Codes: R19.7 - Diarrhea, unspecified Disposition: HOME, SELF-CARE Condition: Improved Departure-Patient Inst. Decision time for Depature: 13:54 Referrals: ANDREW YU MD (PCP/Family) Primary Care Physician Patient Instructions: Urinary Tract Infection, Adult (DC) Add. Discharge Instructions: All discharge instructions reviewed with patient and/or family. Voiced understanding. Medications as instructed. Tylenol Extra Strength over-the- counter as directed for pain if needed. Ibuprofen 800 mg by mouth every 8 hours as needed for pain. Drink plenty of fluids. Increase foods high in potassium such as sweet potatoes, potatoes, bananas, beans, etc... Follow-up with Dr. Yu this week for recheck. Return to the emergency department for worsened pain, fever, inability to urinate, blood in the urine, rectal bleeding, abdominal swelling, or any other concerns. Scripts Ondansetron (Ondansetron Odt) 4 Mg Tab.rapdis 4 MG PO Q6H Y for NAUSEA/VOMITING-1ST LINE, #10 TAB 0 Refills Prov: NORA HERNANDEZ 04/22/17 Nitrofurantoin Monohyd/M-Cryst (Macrobid 100 mg Capsule) 100 Mg Capsule 1 CAP PO BID, #14 CAP 0 Refills Prov: NORA HERNANDEZ 04/22/17 Phenazopyridine HCl (Pyridium) 200 Mg Tablet 1 TAB PO Q8H Y for pain, #30 TAB 0 Refills Prov: NORA HERNANDEZ 04/22/17 NORA HERNANDEZ Apr 22, 2017 12:28
[2017-04-22] MEDS ORDERED: KETOROLAC 30 MG/ML VIAL IVP STA (12:38)
[2017-04-22] MEDS ORDERED: NS IV 1000 ML 1,000 ML IV ONE (12:38)
[2017-04-22] MEDS ORDERED: ONDANSETRON 4 MG/2 ML (SDV) Z0FRAN IVP ONE (12:45)
[2017-04-22 12:56] LABS: BILIRUBIN,URINE NEGATIVE (NEGATIVE); KETONES,URINE NEGATIVE (NEGATIVE); LEUKOCYTE ESTERASE ,URINE 2+ (NEGATIVE); NITRITE,URINE NEGATIVE (NEGATIVE); PH,URINE 8 (5-9); PROTEIN,URINE NEGATIVE (NEGATIVE); UROBILINOGEN,URINE NORMAL (NORMAL)
[2017-04-22 13:15] LABS: BASOPHILS % (AUTO) 1 % (0-10); EOSINOPHILS # (AUTO) 0.1 10^3/uL (0.0-0.3); EOSINOPHILS % (AUTO) 1 % (0-10); LYMPHOCYTES # (AUTO) 0.9 X 10^3 (1.0-4.0); LYMPHOCYTES % (AUTO) 15 % (12-44); MEAN CORPUSCULAR HEMOGLOBIN 26 PG (25-34); MEAN CORPUSCULAR HGB CONC 32 G/DL (32-36); MEAN CORPUSCULAR VOLUME 83 FL (80-99); MEAN PLATELET VOLUME 10.9 FL (7.4-10.4); MONOCYTES # (AUTO) 0.5 X 10^3 (0.0-1.0); MONOCYTES % (AUTO) 8 % (0-12); NEUTROPHILS # (AUTO) 4.4 X 10^3 (1.8-7.8); NEUTROPHILS % (AUTO) 75 % (42-75); PLATELET COUNT 149 10^3/uL (130-400); RED BLOOD COUNT 4.39 10^6/uL (4.35-5.85); RED CELL DISTRIBUTION WIDTH 14.8 % (10.0-14.5); WHITE BLOOD COUNT 5.9 10^3/uL (4.3-11.0)
[2017-04-22 13:36] LABS: ALANINE AMINOTRANSFERASE 18 U/L (0-55); ALBUMIN 4.1 GM/DL (3.2-4.5); ANION GAP 11 MMOL/L (5-14); ASPARTATE AMINO TRANSFERASE 21 U/L (5-34); BILIRUBIN,TOTAL 0.6 MG/DL (0.1-1.0); BLOOD UREA NITROGEN 4 MG/DL (7-18); BUN/CREATININE RATIO 6; CALCIUM 9.3 MG/DL (8.5-10.1); CARBON DIOXIDE 26 MMOL/L (21-32); CHLORIDE 103 MMOL/L (98-107); CREATININE SERUM 0.65 MG/DL (0.60-1.30); GFR ESTIMATED > 60; GLUCOSE 104 MG/DL (70-105); LIPASE 22 U/L (8-78); POTASSIUM 3.2 MMOL/L (3.6-5.0); SODIUM 140 MMOL/L (135-145); TOTAL PROTEIN 7.1 GM/DL (6.4-8.2)
[2017-04-22] MEDS ORDERED: PHEN-640 PO (13:57)
[2017-04-22] MEDS ORDERED: NITR-65 PO (13:57)
[2017-04-22] MEDS ORDERED: ONDA4TAB11 PO (13:57)
[2017-04-22 14:20] VITALS: BP 169/55
== END 2017-04-22 14:20 | disposition home or self-care (01) ==
LOC: EDUNIT# 11:41 → ER 11:43
DX: N39.0 Urinary tract infection, site not specified (principal); R19.7 Diarrhea, unspecified; Z87.19 Personal history of other diseases of the digestive system
CPT/HCPCS: 36415; 80053; 81000; 83690; 85025; 87077; 87088; 87186

== ENCOUNTER 2017-06-05 10:01 | Observation (INO) | payer MEDICARE ==
[~2017-06-05] VITALS: Ht 167.6 cm; Wt 56.2 kg
[~2017-06-05 10:01] MED LIST changes: +NITR-65 PO; +ONDA4TAB11 PO; +PHEN-640 PO
[2017-06-05 10:37] LABS: BASOPHILS % (AUTO) 0 % (0-10); EOSINOPHILS % (AUTO) 0 % (0-10); LYMPHOCYTES # (AUTO) 0.5 X 10^3 (1.0-4.0); LYMPHOCYTES % (AUTO) 4 % (12-44); MEAN CORPUSCULAR HEMOGLOBIN 27 PG (25-34); MEAN CORPUSCULAR HGB CONC 33 G/DL (32-36); MEAN CORPUSCULAR VOLUME 83 FL (80-99); MEAN PLATELET VOLUME 10.8 FL (7.4-10.4); MONOCYTES # (AUTO) 0.5 X 10^3 (0.0-1.0); MONOCYTES % (AUTO) 4 % (0-12); NEUTROPHILS # (AUTO) 10.2 X 10^3 (1.8-7.8); NEUTROPHILS % (AUTO) 91 % (42-75); PLATELET COUNT 179 10^3/uL (130-400); RED CELL DISTRIBUTION WIDTH 15.3 % (10.0-14.5); WHITE BLOOD COUNT 11.2 10^3/uL (4.3-11.0)
[2017-06-05 10:51] LABS: BAND NEUTROPHILS 0 %; BASOPHILS % (MANUAL) 0 %; EOSINOPHILS % (MANUAL) 0 %; LYMPHOCYTES % (MANUAL) 3 %; NEUTROPHILS % (MANUAL) 91 %
[2017-06-05 10:52] LABS: ANISOCYTOSIS SLIGHT
[2017-06-05 10:57] LABS: ALANINE AMINOTRANSFERASE 19 U/L (0-55); ALBUMIN 4.3 GM/DL (3.2-4.5); ANION GAP 10 MMOL/L (5-14); ASPARTATE AMINO TRANSFERASE 20 U/L (5-34); BLOOD UREA NITROGEN 5 MG/DL (7-18); BUN/CREATININE RATIO 7; CALCIUM 9.8 MG/DL (8.5-10.1); CARBON DIOXIDE 29 MMOL/L (21-32); CHLORIDE 94 MMOL/L (98-107); CREATININE SERUM 0.76 MG/DL (0.60-1.30); GFR ESTIMATED > 60; GLUCOSE 143 MG/DL (70-105); MAGNESIUM 1.7 MG/DL (1.8-2.4); POTASSIUM 3.4 MMOL/L (3.6-5.0); SODIUM 133 MMOL/L (135-145); TOTAL PROTEIN 7.7 GM/DL (6.4-8.2)
[2017-06-05 11:24] LABS: BILIRUBIN,URINE NEGATIVE (NEGATIVE); KETONES,URINE NEGATIVE (NEGATIVE); LEUKOCYTE ESTERASE ,URINE 3+ (NEGATIVE); NITRITE,URINE POSITIVE (NEGATIVE); PH,URINE 7 (5-9); PROTEIN,URINE 2+ (NEGATIVE); UROBILINOGEN,URINE NORMAL (NORMAL)
[2017-06-05 11:32] LABS: WBC,URINE TNTC /HPF
[2017-06-05] MEDS ORDERED: fentaNYL INJECTION 100 MCG/2 ML AMP IVP ONE (11:45)
[2017-06-05] MEDS ORDERED: IOHEXOL 350 MG/ML 100 ML (OMNIPAQUE 350) VIAL IV ONE (11:45)
[2017-06-05] MEDS ORDERED: NS 100 ML (IVPB) BAG IV ONE (11:45)
--- NOTE | 2017-06-05 12:27 | Diagnostic Imaging Report ---
PROCEDURE: CT abdomen and pelvis with contrast. TECHNIQUE: Multiple contiguous axial images were obtained through the abdomen and pelvis after administration of intravenous contrast. INDICATION: Diarrhea. Vomiting. Lower abdominal pain. CONTRAST: 100 mL of Omnipaque 350 was administered intravenously. FINDINGS: The lung bases demonstrate minimal atelectasis. The liver, gallbladder, spleen, and pancreas appear unremarkable. The right adrenal gland demonstrates a 1.4 cm nodule, similar to the 06/05/2014 exam, compatible with an adenoma. There are multiple dilated bowel loops involving mainly the jejunum. There is transition to a decompressed loop in the midabdomen with dilated loops seen and another segment of low caliber loop followed by a dilated loop and again a decompressed loop. There are moderate amounts of free fluid in the pelvis and a small amount of free fluid in the abdomen. The appendix is normal in caliber. There is, however, minimal stranding around it. This could be related to the fluid and potentially inflammation in the bowel loops rather than from appendicitis. The uterus demonstrates a calcified lesion, suggestive of a fibroid. There are sutures in the colon and small bowel, suggestive of prior anastomosis. The kidneys have symmetric enhancement. A simple cyst in the right kidney measuring 2 cm is seen. The abdominal aorta is normal in caliber. No significantly enlarged lymph nodes are seen. The osseous structures demonstrate partially visualized internal fixation hardware in the proximal left femur. IMPRESSION: 1. There are multiple dilated small bowel loops, mostly involving the jejunal loops, with transition points in the mid and lower abdomen. There is some mesenteric edema and moderate amounts of free fluid, mostly in the pelvis. The findings are concerning for underlying enteritis with the dilatation potentially relating to a localized reactive ileus in these bowel loops versus adhesions at multiple points. 2. Slight stranding around the appendix could be from the mesenteric edema and not necessarily related to appendicitis. Correlate clinically. The findings were discussed with Dr. Fairchild at the time of dictation. Dictated by: Dictated on workstation # [id number]
--- NOTE | 2017-06-05 12:59 | ED Abdominal Pain ---
General Chief Complaint: Abdominal/GI Problems Stated Complaint: DIARRHEA/N/V Nursing Triage Note: ARRIVED VIA AMB TO ROOM 04. WAS TOLD TO COME BY HER HOSPICE NURSE. N/V/D SINCE YESTERDAY. STATES THE DIARRHEA HAS SLOWED DOWN BUT CONTINUES WITH THE N/V. WAS GIVEN A ZOFRAN AT 0945 AND HAS NOT VOMITED SINCE. Sepsis Screen: No Definite Risk Source of Information: Patient, Old Records Exam Limitations: No Limitations History of Present Illness Time Seen By Provider: 10:31 Initial Comments This 81-year-old woman presents to emergency room with complaints of generalized abdominal pain, nausea, and vomiting that started in the middle of the night. She also reports having diarrhea intermittently for about the past month. Diarrhea has actually improved over the last several hours. She denies any fever. Her abdominal pain is generalized and mild. She reports having a hernia repair in December with Dr. Amaya. She also had a urinary tract infection about a month ago for which she took antibiotics. Diarrhea seemed to start after that. Patient received Zofran at home as given by [facility]. Nausea has since subsided. Allergies and Home Medications Allergies Coded Allergies: Penicillins (Verified Allergy, Unknown, 11/26/07) cephalexin (Verified Allergy, Unknown, 11/26/07) ciprofloxacin (Verified Allergy, Unknown, 11/26/07) estrogens, conjugated (Verified Allergy, Unknown, 06/17/08) gatifloxacin (Verified Allergy, Unknown, 06/17/08) tetracycline (Verified Allergy, Unknown, 06/17/08) Home Medications Acetaminophen 500 Mg Tablet, 500 MG PO DAILY PRN for PAIN-MILD TO MODERATE, ( Reported) Atorvastatin Calcium 80 Mg Tablet, 80 MG PO HS, (Reported) Cranberry Extract 500 Mg Capsule, 500 MG PO DAILY, (Reported) Diphenoxylate HCl/Atropine 1 Each Tablet, 1 TAB PO TID PRN for LOOSE STOOLS, ( Reported) Donepezil HCl 5 Mg Tablet, 5 MG PO BID, (Reported) Levothyroxine Sodium 75 Mcg Tablet, 75 MCG PO DAILY, (Reported) Multivit with Calcium,Iron,Min 1 Each Tablet, 1 TAB PO DAILY, (Reported) Oxybutynin Chloride 5 Mg Tablet, 5 MG PO TID, (Reported) Pantoprazole Sodium 40 Mg Tablet.dr, 40 MG PO BID, (Reported) Quetiapine Fumarate 25 Mg Tablet, 25 MG PO HS, (Reported) Sertraline HCl 100 Mg Tablet, 150 MG PO DAILY, (Reported) TAKES 1 & 1/2 OF A (100 MG) TABLET Spironolactone 25 Mg Tablet, 25 MG PO DAILY, (Reported) Temazepam 15 Mg Capsule, 15 MG PO HS PRN for SLEEP, (Reported) Review of Systems Constitutional: no symptoms reported EENTM: No Symptoms Reported Respiratory: No Symptoms Reported Cardiovascular: No Symptoms Reported Gastrointestinal: See HPI Genitourinary: See HPI Skin: no symptoms reported Psychiatric/Neurological: No Symptoms Reported Endocrine: No Symptoms Reported Hematologic/Lymphatic: No Symptoms Reported Past Cazynfd-Kmaixx-Cnzeel Hx Patient Social History Alcohol Use: Past History Recreational Drug Use: No Smoking Status: Former Smoker Former Smoker, Quit: Dec 21, 1979 Recent Foreign Travel: No Contact w/Someone Who Travel: No Recent Infectious Disease Expo: No Recent Hopitalizations: No Immunizations Up To Date Date of Pneumonia Vaccine: Jun 24, 2012 Date of Influenza Vaccine: Jun 12, 2014 Seasonal Allergies Seasonal Allergies: No Surgeries History of Surgeries: Yes (LEFT LEG) Surgeries: Abdominal, Orthopedic Respiratory History of Respiratory Disorde: No Cardiovascular History of Cardiac Disorders: No Neurological History of Neurological Disord: No Reproductive System Hx Reproductive Disorders: Yes Genitourinary History of Genitourinary Disor: No Gastrointestinal History of Gastrointestinal Di: Yes Gastrointestinal Disorders: Chronic Diarrhea, Ulcer Musculoskeletal History of Musculoskeletal Dis: Yes (OSTEOMYLITIS left lower extremity) Endocrine History of Endocrine Disorders: No HEENT History of HEENT Disorders: No Cancer History of Cancer: No Psychosocial History of Psychiatric Problem: No Integumentary History of Skin or Integumenta: No Blood Transfusions History of Blood Disorders: No Family Medical History Significant Family History: No Pertinent Family Hx Physical Exam Vital Signs VS - Last 72 Hours, by Label 06/05/17 10:19 Temp 98.8 Pulse 70 Resp 16 B/P (MAP) 183/104 Capillary Refill : Less Than 3 Seconds General Appearance: WD/WN, no apparent distress HEENT: PERRL/EOMI, normal ENT inspection, pharynx normal Neck: normal inspection Respiratory: lungs clear, normal breath sounds, no respiratory distress, no accessory muscle use Cardiovascular: regular rate, rhythm, no edema, no murmur Gastrointestinal: normal bowel sounds, soft, tenderness (generalized but more focused in the suprapubic region) Extremities: normal inspection, no pedal edema 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, no motor/sensory deficits, alert, normal mood/affect, oriented x 3 Skin: normal color, warm/dry Progress/Results/Core Measures Results/Orders Lab Results Laboratory Tests Test 06/05/17 10:30 06/05/17 11:14 Range/Units White Blood Count 11.2 H 4.3-11.0 10^3/uL Red Blood Count 4.90 4.35-5.85 10^6/uL Hemoglobin 13.4 11.5-16.0 G/DL Hematocrit 41 35-52 % Mean Corpuscular Volume 83 80-99 FL Mean Corpuscular Hemoglobin 27 25-34 PG Mean Corpuscular Hemoglobin Concent 33 32-36 G/DL Red Cell Distribution Width 15.3 H 10.0-14.5 % Platelet Count 179 130-400 10^3/uL Mean Platelet Volume 10.8 H 7.4-10.4 FL Neutrophils (%) (Auto) 91 H 42-75 % Lymphocytes (%) (Auto) 4 L 12-44 % Monocytes (%) (Auto) 4 0-12 % Eosinophils (%) (Auto) 0 0-10 % Basophils (%) (Auto) 0 0-10 % Neutrophils # (Auto) 10.2 H 1.8-7.8 X 10^3 Lymphocytes # (Auto) 0.5 L 1.0-4.0 X 10^3 Monocytes # (Auto) 0.5 0.0-1.0 X 10^3 Eosinophils # (Auto) 0.0 0.0-0.3 10^3/uL Basophils # (Auto) 0.0 0.0-0.1 10^3/uL Neutrophils % (Manual) 91 % Lymphocytes % (Manual) 3 % Monocytes % (Manual) 6 % Eosinophils % (Manual) 0 % Basophils % (Manual) 0 % Band Neutrophils 0 % Anisocytosis SLIGHT Sodium Level 133 L 135-145 MMOL/L Potassium Level 3.4 L 3.6-5.0 MMOL/L Chloride Level 94 L 98-107 MMOL/L Carbon Dioxide Level 29 21-32 MMOL/L Anion Gap 10 5-14 MMOL/L Blood Urea Nitrogen 5 L 7-18 MG/DL Creatinine 0.76 0.60-1.30 MG/DL Estimat Glomerular Filtration Rate > 60 BUN/Creatinine Ratio 7 Glucose Level 143 H 70-105 MG/DL Calcium Level 9.8 8.5-10.1 MG/DL Magnesium Level 1.7 L 1.8-2.4 MG/DL Total Bilirubin 1.0 0.1-1.0 MG/DL Aspartate Amino Transf (AST/SGOT) 20 5-34 U/L Alanine Aminotransferase (ALT/SGPT) 19 0-55 U/L Alkaline Phosphatase 117 40-136 U/L Total Protein 7.7 6.4-8.2 GM/DL Albumin 4.3 3.2-4.5 GM/DL Urine Color YELLOW Urine Clarity VERY CLOUDY H Urine pH 7 5-9 Urine Specific [place] 1.010 L 1.016-1.022 Urine Protein 2+ H NEGATIVE Urine Glucose (UA) NEGATIVE NEGATIVE Urine Ketones NEGATIVE NEGATIVE Urine Nitrite POSITIVE H NEGATIVE Urine Bilirubin NEGATIVE NEGATIVE Urine Urobilinogen NORMAL NORMAL MG/DL Urine Leukocyte Esterase 3+ H NEGATIVE Urine RBC (Auto) 3+ H NEGATIVE Urine RBC 5-10 H /HPF Urine WBC TNTC H /HPF Urine Squamous Epithelial Cells NONE /HPF Urine Crystals NONE /LPF Urine Bacteria LARGE H /HPF Urine Casts NONE /LPF Urine Mucus NEGATIVE /LPF Urine Culture Indicated YES My Orders Orders - JOSELINE FAIRCHILD MD Cbc With Automated Diff (06/05/17 10:31) Comprehensive Metabolic Panel (06/05/17 10:31) Magnesium (06/05/17 10:31) Ua Culture If Indicated (06/05/17 10:31) Manual Differential (06/05/17 10:30) Fentanyl Injection (Sublimaze Injection (06/05/17 11:45) Urine Culture (06/05/17 11:14) Ct Abdomen/Pelvis W (06/05/17 11:34) Iohexol Injection (Omnipaque 350 Mg/Ml 1 (06/05/17 11:45) Ns (Ivpb) (Sodium Chloride 0.9% Ivpb Bag (06/05/17 11:45) Medications Given in ED Current Medications Medications Dose Ordered Sig/Demarco Route Start Time Stop Time Status Last Admin Dose Admin Fentanyl Citrate 25 mcg ONCE ONCE IVP 06/05/17 11:45 06/05/17 11:46 DC 06/05/17 11:42 25 MCG Iohexol 100 ml ONCE ONCE IV 06/05/17 11:45 06/05/17 11:46 DC 06/05/17 11:47 100 ML Sodium Chloride 100 ml ONCE ONCE IV 06/05/17 11:45 06/05/17 11:46 DC 06/05/17 11:47 80 ML Vital Signs/I&O Vital Sign - Last 12Hours 06/05/17 10:19 Temp 98.8 Pulse 70 Resp 16 B/P (MAP) 183/104 Blood Pressure Mean: 130 Progress Note : Progress Note CT scan was ordered as patient has multiple past medical issues that could relate to her current pain. She has UTI that could be triggered by renal stone. She has history of diverticulitis. She also has history of recent hernia repair which could predispose her to bowel obstruction. CT scan revealed small bowel abnormalities that could suggest small bowel obstruction versus ileus versus gastroenteritis. Patient was given fentanyl and was feeling much better. She actually wanted to return home. I discussed the case with Dr. Amaya and Dr. Yu. Dr. Amaya does not feel she has a surgical problem at this time but would be happy to evaluate her and observe her. Dr. Yu would like her admitted for hydration and observation overnight as well as treatment of the urinary tract infection. Patient is agreeable. Urine culture from prior UA was reviewed. Patient will be started on Cipro based on this culture result and allergy profile. Diagnostic Imaging Diagonstic Imaging: CT Plain Films/CT/US/NM/MRI: abdomen, pelvis Comments CT abdomen and pelvis viewed by me and report reviewed. Discussed with radiologist. See report below: NAME: MELANIA GORDON [facility] REC#: [id number] PT STATUS: REG ER : 1935 PHYSICIAN: JOSELINE FAIRCHILD MD ADMIT DATE: 06/05/17/ER Signed Date of Exam: 06/05/17 CT ABDOMEN/PELVIS W PROCEDURE: CT abdomen and pelvis with contrast. TECHNIQUE: Multiple contiguous axial images were obtained through the abdomen and pelvis after administration of intravenous contrast. INDICATION: Diarrhea. Vomiting. Lower abdominal pain. CONTRAST: 100 mL of Omnipaque 350 was administered intravenously. FINDINGS: The lung bases demonstrate minimal atelectasis. The liver, gallbladder, spleen, and pancreas appear unremarkable. The right adrenal gland demonstrates a 1.4 cm nodule, similar to the 06/05/2014 exam, compatible with an adenoma. There are multiple dilated bowel loops involving mainly the jejunum. There is transition to a decompressed loop in the midabdomen with dilated loops seen and another segment of low caliber loop followed by a dilated loop and again a decompressed loop. There are moderate amounts of free fluid in the pelvis and a small amount of free fluid in the abdomen. The appendix is normal in caliber. There is, however, minimal stranding around it. This could be related to the fluid and potentially inflammation in the bowel loops rather than from appendicitis. The uterus demonstrates a calcified lesion, suggestive of a fibroid. There are sutures in the colon and small bowel, suggestive of prior anastomosis. The kidneys have symmetric enhancement. A simple cyst in the right kidney measuring 2 cm is seen. The abdominal aorta is normal in caliber. No significantly enlarged lymph nodes are seen. The osseous structures demonstrate partially visualized internal fixation hardware in the proximal left femur. IMPRESSION: 1. There are multiple dilated small bowel loops, mostly involving the jejunal loops, with transition points in the mid and lower abdomen. There is some mesenteric edema and moderate amounts of free fluid, mostly in the pelvis. The findings are concerning for underlying enteritis with the dilatation potentially relating to a localized reactive ileus in these bowel loops versus adhesions at multiple points. 2. Slight stranding around the appendix could be from the mesenteric edema and not necessarily related to appendicitis. Correlate clinically. The findings were discussed with Dr. Fairchild at the time of dictation. Dictated by: Dictated on workstation # [id number] Dict: 06/05/17 1202 Trans: 06/05/17 1228 Interpreted by: ALLEY FOUNTAIN MD Electronically signed by: ALLEY FOUNTAIN MD 06/05/17 1228 Departure Communication (Admissions) Time/Spoke to Admitting Phy: 12:[address] Yu Time/Spoke to Consulting Phy: 12:30 Communication/Consulting Dr. Amaya Impression Impression: Primary Impression: Nausea vomiting and diarrhea Additional Impressions: Abdominal pain Qualified Codes: R10.84 - Generalized abdominal pain Urinary tract infection Qualified Codes: N39.0 - Urinary tract infection, site not specified Disposition: ADMITTED INPATIENT Condition: Improved Admissions Decision to Admit Reason: Admit from ER (General) Decision to Admit/Date: Jun 05, 2017 Time/Decision to Admit Time: 12:40 Departure-Patient Inst. Referrals: ANDREW YU MD (PCP/Family) Primary Care Physician JOSELINE FAIRCHILD MD Jun 05, 2017 12:59
[2017-06-05] MEDS ORDERED: CATHETER FLUSH 10 ML SYR IV PRN (14:15)
[2017-06-05] MEDS: NS W/KCL 20 MEQ/L 1,000 ML IV SCH (14:56)
[2017-06-05] MEDS: ONDANSETRON 4 MG/2 ML (SDV) Z0FRAN IV PRN ×2 (14:56→18:37)
--- NOTE | 2017-06-05 16:03 | History & Physicial ---
History of Present Illness History of Present Illness Reason for visit/HPI PT IS AN 81 Y/O FEMALE WHO IS KNOWN TO ME FROM CLINIC. SHE PRESENTED TO THE HOSPITAL WITH ABDOMINAL PAIN, NAUSEA AND EMESIS WITH DIARRHEA SINCE MONDAY MORNING. SHE STATES THAT SHE HAD EMESIS ALL DAY AND ALL NIGHT. SHE REPORTS THAT SHE CALLED THE OFFICE, AND COULD NOT GET IN TO THE OFFICE THIS MORNING, SO SHE WENT TO THE EMERGENCY DEPARTMENT. SHE REPORTS THAT SHE TOOK A ZOFRAN AT HOME AND HER NAUSEA IMPROVED. SHE ALSO REPORTS THAT HER ABDOMINAL PAIN RESOLVED AFTER A DOSE OF PAIN MEDICATION IN THE EMERGENCY DEPARTMENT. Date of Admission Jun 05, 2017 at 12:53 Date Seen by Provider: Jun 05, 2017 Time Seen by Provider: 15:45 Attending Physician Andrew Yu MD Admitting Physician Andrew Yu MD Consult Allergies and Home Medications Allergies Coded Allergies: Penicillins (Verified Allergy, Unknown, 11/26/07) cephalexin (Verified Allergy, Unknown, 11/26/07) ciprofloxacin (Verified Allergy, Unknown, 11/26/07) estrogens, conjugated (Verified Allergy, Unknown, 06/17/08) gatifloxacin (Verified Allergy, Unknown, 06/17/08) tetracycline (Verified Allergy, Unknown, 06/17/08) Home Medications Acetaminophen 500 Mg Tablet, 500 MG PO DAILY PRN for PAIN-MILD TO MODERATE, ( Reported) Calcium Carbonate/Vitamin D3 1 Each Tablet, 2 TAB PO DAILY, (Reported) Dicyclomine HCl 10 Mg Capsule, 10 MG PO TID PRN for ABDOMINAL PAIN, (Reported) Diphenoxylate HCl/Atropine 1 Each Tablet, 1 TAB PO TID PRN for LOOSE STOOLS, ( Reported) Ergocalciferol (Vitamin D2) 50,000 Unit Capsule, 50,000 UNITS PO WEEK, (Reported ) TAKES ON MONDAY Hydrocodone/Acetaminophen 1 Each Tablet, 1 TAB PO EVERY 4-6 HOURS PRN for PAIN- MODERATE TO SEVERE, (Reported) Pantoprazole Sodium 40 Mg Tablet.dr, 40 MG PO BID, (Reported) Pedi Mv No.79/Ferrous Fumarate 18 Mg Tab.chew, 18 MG PO DAILY, (Reported) Quetiapine Fumarate 25 Mg Tablet, 25 MG PO HS, (Reported) Sertraline HCl 100 Mg Tablet, 150 MG PO DAILY, (Reported) TAKES 1 & 1/2 OF A (100 MG) TABLET Spironolactone 25 Mg Tablet, 25 MG PO DAILY, (Reported) Temazepam 15 Mg Capsule, 15 MG PO HS PRN for SLEEP, (Reported) Past Kphyosn-Pqtgws-Ovueup Hx Patient Social History Marrital Status: Living Status: LIVES AT HOME BY HERSELF, SON CHECKS ON HER FREQUENTLY Employed/Student: retired Alcohol Use: Past History Recreational Drug Use: No Smoking Status: Former Smoker Former Smoker, Quit: Sep 11, 1970 Type Used: Cigarettes Physical Abuse Screen: No Sexual Abuse: No Recent Foreign Travel: No Contact w/other who traveled: No Recent Hopitalizations: No Recent Infectious Disease Expo: No Immunizations Up To Date Date of Pneumonia Vaccine: Jun 24, 2012 Date of Influenza Vaccine: Jun 12, 2014 Seasonal Allergies Seasonal Allergies: No Surgeries Yes (LEFT LEG) Abdominal (ILEUS WITH PARTIAL BOWEL RESECTION), Orthopedic Respiratory No Currently Using CPAP: No Currently Using BIPAP: No Cardiovascular No Neurological No Reproductive System Hx Reproductive Disorders: Yes Sexually Transmitted Disease: No HIV/AIDS: No Female Reproductive Disorders: Denies Genitourinary Yes Bladder Infection Gastrointestinal Yes Chronic Diarrhea, Ulcer Musculoskeletal Yes (OSTEOMYLITIS left lower extremity) Endocrine History of Endocrine Disorders: No Are Your Blood Sugars Over 250: No HEENT History of HEENT Disorders: No Loss of Vision: Denies Hearing Impairment: Hard of Hearing Cancer No Psychosocial History of Psychiatric Problem: Yes Behavioral Health Disorders: Sleep Difficulties, Anxiety Integumentary History of Skin or Integumenta: No Blood Transfusions History of Blood Disorders: No Reviewed Nursing Assessment Reviewed/Agree w Nursing PMH: Yes Family Medical History Significant Family History: Diabetes, Hypertension Family Hx: Patient reports no known family medical history. Constitutional: No chills, No fever, malaise, weakness EENTM: No hoarseness, No mouth pain, No throat pain, No throat swelling Respiratory: No dyspnea on exertion, No short of breath, No wheezing Cardiovascular: No chest pain, No palpitations Gastrointestinal: RUQ, LUQ, abdominal pain, diarrhea, nausea, vomiting Genitourinary: frequency Musculoskeletal: no symptoms reported, No muscle pain, No muscle weakness Skin: No change in color, No lesions Psychiatric/Neurological: Anxiety, Depressed, Other (MEMORY LOSS) All Other Systems Reviewed Negative Unless Noted: Yes Physical Exam Vital Signs Vital Sign - Last 12Hours 06/05/17 06/05/17 10:19 13:45 Temp 98.8 Pulse 70 Resp 16 B/P (MAP) 183/104 Pulse Ox 96 O2 Delivery Room Air Capillary Refill : Less Than 3 SecondsLess Than 3 Seconds General Appearance: No Apparent Distress, WD/WN Eyes: Bilateral Eye Normal Inspection, Bilateral Eye PERRL, Bilateral Eye EOMI HEENT: PERRL/EOMI, Other (PARTIAL EDENTULOUS) Neck: Full Range of Motion, Supple Respiratory: Chest Non Tender, Lungs Clear, Normal Breath Sounds, No Accessory Muscle Use Cardiovascular: Regular Rate, Rhythm Gastrointestinal: Abnormal Bowel Sounds (DECREASED BOWEL SOUNDS THROUGHOUT, FEW HIGH PITCHED SOUNDS, NONTENDER TO TOUCH OVER ENTIRE ABDOMEN), Distended, No Guarding, No Mass, No Rebound, No Tenderness Rectal: Deferred Back: Normal Inspection Extremity: Normal Capillary Refill, Normal Range of Motion, Non Tender, No Calf Tenderness Neurologic/Psychiatric: Alert, Oriented x3, No Motor/Sensory Deficits, Normal Mood/Affect, 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 WILL ADD PROBIOTIC TODAY. CONTINUE WITH IV FLUIDS, MONITOR SYMPTOMS. PRN ZOFRAN - START FLAGYL URINARY TRACT INFECTION - PT ALLERGIC TO CIPROFLOXACIN - ER WAS NOT AWARE OF HER ALLERGY - THIS ANTIBIOTIC WAS STOPPED, PT TO BE ON BACTRIM DS ORALLY FOR INFECTION. INSOMNIA - RESTART HOME MEDICATION WHEN MEDS HAVE BEEN VERIFIED, MEANWHILE, START ON MELATONIN. DVT PROPHYLAXIS WITH SCD'S - WILL AVOID LOVENOX FOR NOW UNLESS PT REQUIRES PROLONGED HOSPITALIZATION. GI PROPHYLAXIS WITH PPI. DEMENTIA - MILD Problems: Admission Diagnosis ILEUS NAUSEA EMESIS ABDOMINAL PAIN COLITIS URINARY TRACT INFECTION INSOMNIA DEMENTIA - MILD Clinical Quality Measures DVT/VTE Risk/Contraindication: Risk Factor Score Per Nursin RFS Level Per Nursing on Admit: 4+=Very High ANDREW YU MD Jun 05, 2017 16:03
[2017-06-05 16:10] VITALS: BP 194/69
[2017-06-05] MEDS ORDERED: PANTOPRAZOLE 40 MG/10 ML (PROTONIX) VIAL IV NR (16:15)
[2017-06-05 17:00] VITALS: BP 196/91
[2017-06-05] MEDS ORDERED: MAGNESIUM 1 GM/100 ML IVPB 100 ML IV ONE (17:00)
[2017-06-05] MEDS ORDERED: PROMETHAZINE INJ 25 MG/ML (PHENERGAN) AMP IVP PRN (17:00)
[2017-06-05] MEDS ORDERED: meTOprolol TARTRATE 25 MG (LOPRESSOR) TABLET PO NR (17:00)
[2017-06-05] MEDS ORDERED: ATOR80TA76 PO (17:06)
[2017-06-05] MEDS ORDERED: CRAN500C4 PO (17:06)
[2017-06-05] MEDS ORDERED: OXYB5TAB9 PO (17:06)
[2017-06-05] MEDS ORDERED: MULT-141 PO (17:06)
[2017-06-05] MEDS ORDERED: LEVO75TA6 PO (17:06)
[2017-06-05] MEDS ORDERED: DONE5TAB30 PO (17:06)
[2017-06-05] MEDS: LACTOBACILLUS Acidoph/Bulgar (LACTINEX/FLORANEX) TAB PO SCH (17:18)
--- NOTE | 2017-06-05 17:34 | Consultation ---
History of Present Illness History of Present Illness Patient Consulted On(eve/time) 06/05/17 17:25 Date Seen by Provider: Jun 05, 2017 Time Seen by Provider: 13:00 History of Present Illness Consult requested for abdominal pain, enteritis Patient is a 84-year-old female who for the last month has been having on and off episodes of diarrhea. Patient yesterday began having lower abdominal pain, generalized. No radiation of the pain. She also began having nausea and emesis which was last night and continued into the contracting officer. She was found to have urinary tract infection. Patient states that her last bowel movement was yesterday which was liquid. Currently she states that she's not having any significant abdominal pain but she did have some pain medication. She states previously to the pain yesterday she had not had any previously. She had a CT scan demonstrating slightly dilated small bowel with some edema of the mesentery with some small amount of fluid and then also states some stranding around the appendix which could be related to the mesentery rather than appendicitis. She is also found to have urinary tract infection. Allergies and Home Medications Allergies Coded Allergies: Penicillins (Verified Allergy, Unknown, 11/26/07) cephalexin (Verified Allergy, Unknown, 11/26/07) ciprofloxacin (Verified Allergy, Unknown, 11/26/07) estrogens, conjugated (Verified Allergy, Unknown, 06/17/08) gatifloxacin (Verified Allergy, Unknown, 06/17/08) tetracycline (Verified Allergy, Unknown, 06/17/08) Home Medications Acetaminophen 500 Mg Tablet, 500 MG PO DAILY PRN for PAIN-MILD TO MODERATE, ( Reported) Atorvastatin Calcium 80 Mg Tablet, 80 MG PO HS, (Reported) Cranberry Extract 500 Mg Capsule, 500 MG PO DAILY, (Reported) Diphenoxylate HCl/Atropine 1 Each Tablet, 1 TAB PO TID PRN for LOOSE STOOLS, ( Reported) Donepezil HCl 5 Mg Tablet, 5 MG PO BID, (Reported) Levothyroxine Sodium 75 Mcg Tablet, 75 MCG PO DAILY, (Reported) Multivit with Calcium,Iron,Min 1 Each Tablet, 1 TAB PO DAILY, (Reported) Oxybutynin Chloride 5 Mg Tablet, 5 MG PO TID, (Reported) Pantoprazole Sodium 40 Mg Tablet.dr, 40 MG PO BID, (Reported) Quetiapine Fumarate 25 Mg Tablet, 25 MG PO HS, (Reported) Sertraline HCl 100 Mg Tablet, 150 MG PO DAILY, (Reported) TAKES 1 & 1/2 OF A (100 MG) TABLET Spironolactone 25 Mg Tablet, 25 MG PO DAILY, (Reported) Temazepam 15 Mg Capsule, 15 MG PO HS PRN for SLEEP, (Reported) Past Uxwhomq-Vaxehf-Lazywe Hx Patient Social History Alcohol Use: Past History Recreational Drug Use: No Smoking Status: Former Smoker Former Smoker, Quit: Sep 11, 1970 Type Used: Cigarettes Recent Foreign Travel: No Contact w/Someone Who Travel: No Recent Infectious Disease Expo: No Recent Hopitalizations: No Physical Abuse Screen: No Sexual Abuse: No Immunizations Up To Date Date of Pneumonia Vaccine: Jun 24, 2012 Date of Influenza Vaccine: Jun 12, 2014 Seasonal Allergies Seasonal Allergies: No Surgeries History of Surgeries: Yes (LEFT LEG) Surgeries: Abdominal (ILEUS WITH PARTIAL BOWEL RESECTION), Orthopedic Respiratory History of Respiratory Disorde: No Cardiovascular History of Cardiac Disorders: No Neurological History of Neurological Disord: No Reproductive System Hx Reproductive Disorders: Yes Sexually Transmitted Disease: No HIV/AIDS: No Female Reproductive Disorders: Denies Genitourinary History of Genitourinary Disor: Yes Genitourinary Disorders: Bladder Infection Gastrointestinal History of Gastrointestinal Di: Yes Gastrointestinal Disorders: Chronic Diarrhea, Ulcer Musculoskeletal History of Musculoskeletal Dis: Yes (OSTEOMYLITIS left lower extremity) Endocrine History of Endocrine Disorders: No HEENT History of HEENT Disorders: No Loss of Vision: Denies Hearing Impairment: Hard of Hearing Cancer History of Cancer: No Psychosocial History of Psychiatric Problem: Yes Behavioral Health Disorders: Sleep Difficulties, Anxiety Integumentary History of Skin or Integumenta: No Blood Transfusions History of Blood Disorders: No Reviewed Nursing Assessment Reviewed/Agree w Nursing PMH: Yes Family Medical History Significant Family History: Diabetes, Hypertension Family Medial History: Patient reports no known family medical history. Review of Systems-General Constitutional: see HPI EENTM: no symptoms reported Respiratory: no symptoms reported Cardiovascular: no symptoms reported Gastrointestinal: see HPI Genitourinary: see HPI Musculoskeletal: no symptoms reported Skin: no symptoms reported Psychiatric/Neurological: No Symptoms Reported Physical Exam-General Problems Physical Exam Vital Signs Vital Sign - Last 12Hours 06/05/17 06/05/17 10:19 13:45 Temp 98.8 Pulse 70 Resp 16 B/P (MAP) 183/104 Pulse Ox 96 O2 Delivery Room Air Capillary Refill : Less Than 3 SecondsLess Than 3 Seconds General Appearance: no apparent distress HEENT: PERRL/EOMI, normal ENT inspection Neck: supple Respiratory: no respiratory distress, no accessory muscle use Cardiovascular: regular rate, rhythm, no edema Gastrointestinal: non tender, soft, no organomegaly (no significant tenderness on palpation, no guarding or rebounding), distended (slight) Rectal: deferred Back: normal inspection Extremities: non-tender, normal inspection Neurologic/Psychiatric: alert, normal mood/affect, oriented x 3 Skin: normal color, warm/dry Data Review Labs Laboratory Tests 06/05/17 10:30: White Blood Count 11.2H, Red Blood Count 4.90, Hemoglobin 13.4, Hematocrit 41, Mean Corpuscular Volume 83, Mean Corpuscular Hemoglobin 27, Mean Corpuscular Hemoglobin Concent 33, Red Cell Distribution Width 15.3H, Platelet Count 179, Mean Platelet Volume 10.8H, Neutrophils (%) (Auto) 91H, Lymphocytes (%) (Auto) 4L, Monocytes (%) (Auto) 4, Eosinophils (%) (Auto) 0, Basophils (%) (Auto) 0, Neutrophils # (Auto) 10.2H, Lymphocytes # (Auto) 0.5L, Monocytes # (Auto) 0.5, Eosinophils # (Auto) 0.0, Basophils # (Auto) 0.0, Neutrophils % (Manual) 91, Lymphocytes % (Manual) 3, Monocytes % (Manual) 6, Eosinophils % (Manual) 0, Basophils % (Manual) 0, Band Neutrophils 0, Anisocytosis SLIGHT, Sodium Level 133L, Potassium Level 3.4L, Chloride Level 94L, Carbon Dioxide Level 29, Anion Gap 10, Blood Urea Nitrogen 5L, Creatinine 0.76, Estimat Glomerular Filtration Rate > 60, BUN/Creatinine Ratio 7, Glucose Level 143H, Calcium Level 9.8, Magnesium Level 1.7L, Total Bilirubin 1.0, Aspartate Amino Transf (AST/SGOT) 20 , Alanine Aminotransferase (ALT/SGPT) 19, Alkaline Phosphatase 117, Total Protein 7.7, Albumin 4.3 06/05/17 11:14: Urine Color YELLOW, Urine Clarity VERY CLOUDYH, Urine pH 7, Urine Specific [place] 1.010L, Urine Protein 2+H, Urine Glucose (UA) NEGATIVE, Urine Ketones NEGATIVE, Urine Nitrite POSITIVEH, Urine Bilirubin NEGATIVE, Urine Urobilinogen NORMAL, Urine Leukocyte Esterase 3+H, Urine RBC (Auto) 3+H, Urine RBC 5-10H, Urine WBC TNTCH, Urine Squamous Epithelial Cells NONE, Urine Crystals NONE, Urine Bacteria LARGEH, Urine Casts NONE, Urine Mucus NEGATIVE, Urine Culture Indicated YES Assessment/Plan Assessment/Plan Assessment/Plan Enteritis, nausea vomiting, diarrhea, or any tract infection Patient nausea and vomiting is under control this time. If she does not tolerate liquid diet or has episodes of emesis would get an NG tube placed and decompress followed by small bowel follow-through for further evaluation. I feel this is more likely related to an enteritis. She does not have any abdominal pain on exam at this time. She is on antibiotics for a urinary tract infection. No surgical intervention at this time will continue to follow. Clinical Quality Measures DVT/VTE Risk/Contraindication: Risk Factor Score Per Nursin RFS Level Per Nursing on Admit: 4+=Very High Contraindications-Pharm: Other *list below* Other: PT TO BE ON SCD'S, ANTICIPATE SHORT STAY IN HOSPITAL, WILL NOT BE GIVEN LOVENOX DUE TO HER PLANNED SHORT STAY AND PT IS UP AND ACTIVE. KALIN HICKS DO Jun 05, 2017 17:34
[2017-06-05] MEDS: TRIM/SULFAMETH 160/800 (SEPTRA DS) TAB PO SCH (18:37)
[2017-06-05 19:17] VITALS: BP 196/98
[2017-06-05 19:38] VITALS: BP 180/81
[2017-06-05] MEDS ORDERED: MELATONIN 3 MG TABLET PO SCH (21:00)
[2017-06-06 00:30] VITALS: BP 166/82
[2017-06-06 04:00] VITALS: BP 146/61
[2017-06-06] MEDS: NS W/KCL 20 MEQ/L 1,000 ML IV SCH ×2 (04:02→10:54)
[2017-06-06] MEDS: LACTOBACILLUS Acidoph/Bulgar (LACTINEX/FLORANEX) TAB PO SCH ×3 (05:54→16:20)
[2017-06-06] MEDS: TRIM/SULFAMETH 160/800 (SEPTRA DS) TAB PO SCH ×2 (05:54→16:20)
[2017-06-06 06:54] LABS: MEAN PLATELET VOLUME 11.9 FL (7.4-10.4); RED BLOOD COUNT 4.65 10^6/uL (4.35-5.85); RED CELL DISTRIBUTION WIDTH 15.6 % (10.0-14.5); WHITE BLOOD COUNT 11.2 10^3/uL (4.3-11.0)
[2017-06-06 07:14] LABS: ALANINE AMINOTRANSFERASE 16 U/L (0-55); ANION GAP 13 MMOL/L (5-14); ASPARTATE AMINO TRANSFERASE 19 U/L (5-34); BILIRUBIN,TOTAL 0.9 MG/DL (0.1-1.0); BLOOD UREA NITROGEN 8 MG/DL (7-18); BUN/CREATININE RATIO 11; CALCIUM 8.9 MG/DL (8.5-10.1); CARBON DIOXIDE 18 MMOL/L (21-32); CHLORIDE 106 MMOL/L (98-107); CREATININE SERUM 0.74 MG/DL (0.60-1.30); GFR ESTIMATED > 60; GLUCOSE 113 MG/DL (70-105); MAGNESIUM 2.2 MG/DL (1.8-2.4); POTASSIUM 3.6 MMOL/L (3.6-5.0); SODIUM 137 MMOL/L (135-145); TOTAL PROTEIN 7.1 GM/DL (6.4-8.2)
--- NOTE | 2017-06-06 08:23 | Progress Note (SOAP) ---
Subjective Date Seen by Provider: Jun 06, 2017 Time Seen by Provider: 08:23 Objective Exam Vital Signs Date Time Temp Pulse Resp B/P (MAP) Pulse Ox O2 Delivery O2 Flow Rate FiO2 06/06/17 04:00 98.7 61 18 146/61 94 Room Air 06/06/17 00:30 99.1 59 18 166/82 96 Room Air 06/05/17 19:38 180/81 06/05/17 19:17 97.8 55 16 196/98 94 06/05/17 17:00 99 196/91 06/05/17 16:10 98.7 65 18 194/69 95 Room Air 06/05/17 15:14 95 Room Air 06/05/17 13:45 76 18 96 Room Air 06/05/17 10:19 98.8 70 16 183/104 Capillary Refill : Less Than 3 SecondsLess Than 3 Seconds Results Lab Laboratory Tests 06/05/17 10:30: White Blood Count 11.2H, Red Blood Count 4.90, Hemoglobin 13.4, Hematocrit 41, Mean Corpuscular Volume 83, Mean Corpuscular Hemoglobin 27, Mean Corpuscular Hemoglobin Concent 33, Red Cell Distribution Width 15.3H, Platelet Count 179, Mean Platelet Volume 10.8H, Neutrophils (%) (Auto) 91H, Lymphocytes (%) (Auto) 4L, Monocytes (%) (Auto) 4, Eosinophils (%) (Auto) 0, Basophils (%) (Auto) 0, Neutrophils # (Auto) 10.2H, Lymphocytes # (Auto) 0.5L, Monocytes # (Auto) 0.5, Eosinophils # (Auto) 0.0, Basophils # (Auto) 0.0, Neutrophils % (Manual) 91, Lymphocytes % (Manual) 3, Monocytes % (Manual) 6, Eosinophils % (Manual) 0, Basophils % (Manual) 0, Band Neutrophils 0, Anisocytosis SLIGHT, Sodium Level 133L, Potassium Level 3.4L, Chloride Level 94L, Carbon Dioxide Level 29, Anion Gap 10, Blood Urea Nitrogen 5L, Creatinine 0.76, Estimat Glomerular Filtration Rate > 60, BUN/Creatinine Ratio 7, Glucose Level 143H, Calcium Level 9.8, Magnesium Level 1.7L, Total Bilirubin 1.0, Aspartate Amino Transf (AST/SGOT) 20 , Alanine Aminotransferase (ALT/SGPT) 19, Alkaline Phosphatase 117, Total Protein 7.7, Albumin 4.3 06/05/17 11:14: Urine Color YELLOW, Urine Clarity VERY CLOUDYH, Urine pH 7, Urine Specific [place] 1.010L, Urine Protein 2+H, Urine Glucose (UA) NEGATIVE, Urine Ketones NEGATIVE, Urine Nitrite POSITIVEH, Urine Bilirubin NEGATIVE, Urine Urobilinogen NORMAL, Urine Leukocyte Esterase 3+H, Urine RBC (Auto) 3+H, Urine RBC 5-10H, Urine WBC TNTCH, Urine Squamous Epithelial Cells NONE, Urine Crystals NONE, Urine Bacteria LARGEH, Urine Casts NONE, Urine Mucus NEGATIVE, Urine Culture Indicated YES 06/06/17 05:43: White Blood Count 11.2H, Red Blood Count 4.65, Hemoglobin 12.9, Hematocrit 39, Mean Corpuscular Volume 84, Mean Corpuscular Hemoglobin 28, Mean Corpuscular Hemoglobin Concent 33, Red Cell Distribution Width 15.6H, Platelet Count 185, Mean Platelet Volume 11.9H, Sodium Level 137, Potassium Level 3.6, Chloride Level 106, Carbon Dioxide Level 18L, Anion Gap 13, Blood Urea Nitrogen 8, Creatinine 0.74, Estimat Glomerular Filtration Rate > 60, BUN/Creatinine Ratio 11, Glucose Level 113H, Calcium Level 8.9, Magnesium Level 2.2, Total Bilirubin 0.9, Aspartate Amino Transf (AST/SGOT) 19, Alanine Aminotransferase (ALT/SGPT) 16, Alkaline Phosphatase 106, Total Protein 7.1, Albumin 4.0 Microbiology 06/05/17 Urine Culture - Preliminary, Resulted Probable Klebsiella/Enterobact Clinical Quality Measures DVT/VTE Risk/Contraindication: Risk Factor Score Per Nursin RFS Level Per Nursing on Admit: 4+=Very High Contraindications-Pharm: Other *list below* Other: PT TO BE ON SCD'S, ANTICIPATE SHORT STAY IN HOSPITAL, WILL NOT BE GIVEN LOVENOX DUE TO HER PLANNED SHORT STAY AND PT IS UP AND ACTIVE. ANDREW LEMON MD Jun 06, 2017 08:23
[2017-06-06 08:24] VITALS: BP 118/62
[2017-06-06] MEDS ORDERED: LEVOTHYROXINE 75 MCG (LEVOTHROID) TABLET PO SCH (08:40)
[2017-06-06] MEDS ORDERED: PANTOPRAZOLE 40 MG (PROTONIX) TAB PO SCH (09:00)
[2017-06-06] MEDS ORDERED: SERTRALINE 100 MG (ZOLOFT) TAB PO SCH (09:00)
[2017-06-06] MEDS ORDERED: PANTOPRAZOLE 40 MG/10 ML (PROTONIX) VIAL IV SCH (09:00)
[2017-06-06] MEDS ORDERED: SERTRALINE 50 MG (ZOLOFT) TABLET PO SCH (09:00)
[2017-06-06] MEDS ORDERED: SULF1TAB35 PO (09:30)
[2017-06-06] MEDS ORDERED: ACID1TAB PO (09:30)
--- NOTE | 2017-06-06 09:32 | Discharge Inst-Complex ---
PDI Med Rec & Follow Up Appt. New Medications: L. Acidophilus/Bulgaricus (Floranex Tablet) 1 Each Tablet 1 TAB.CHEW PO AC for 30 Days, #90 TAB 1 Refill Sulfamethoxazole/Trimethoprim (Bactrim Ds Tablet) 1 Each Tablet 1 EA PO BID WITH MEALS for 7 Days, #14 TAB Continued Medications: Acetaminophen (Acetaminophen) 500 Mg Tablet 500 MG PO DAILY PRN for PAIN-MILD TO MODERATE, TAB Atorvastatin Calcium (Atorvastatin Calcium) 80 Mg Tablet 80 MG PO HS Cranberry Extract (Cranberry) 500 Mg Capsule 500 MG PO DAILY, CAP Diphenoxylate HCl/Atropine (Diphenoxylate-Atrop 2.5-0.025) 1 Each Tablet 1 TAB PO TID PRN for LOOSE STOOLS Donepezil HCl (Donepezil HCl) 5 Mg Tablet 5 MG PO BID Levothyroxine Sodium (Levothyroxine Sodium) 75 Mcg Tablet 75 MCG PO DAILY Multivit with Calcium,Iron,Min (Women's Daily Formula) 1 Each Tablet 1 TAB PO DAILY, TAB Oxybutynin Chloride (Oxybutynin Chloride) 5 Mg Tablet 5 MG PO TID Pantoprazole Sodium (Pantoprazole Sodium) 40 Mg Tablet.dr 40 MG PO BID Quetiapine Fumarate (Quetiapine Fumarate) 25 Mg Tablet 25 MG PO HS Sertraline HCl (Sertraline HCl) 100 Mg Tablet 150 MG PO DAILY TAKES 1 & 1/2 OF A (100 MG) TABLET Spironolactone (Spironolactone) 25 Mg Tablet 25 MG PO DAILY Temazepam (Temazepam) 15 Mg Capsule 15 MG PO HS PRN for SLEEP Prescription: Transmitted to Pharmacy ([facility]) Activity, Diet and PDI Resume Normal Activity: Yes Discharge Diet: Other Diet (BLAND DIET ADVANCE TOLERATED) Diet for 24 Hours: No Alcohol, No [place] Foods, No Spicy Foods Diet After 24 Hours: Clear Liquid if Nauseous Drink 6-8 Glasses of Fluid/Day: Yes Driving Instructions: No Driving/Refer to Return to The Hospital For: ANY CONCERN FOR WORSENING ILLNESS OR LIFETHREATENING ILLNESS/INJURY Symptoms to Reoprt to : Constipation(Persistant), Fever Over 101 Degrees F, Diarrhea(Persistant) For Problems or Questions: Contact Your Physician, Go to Emergency Room ANDREW LEMON MD Jun 06, 2017 09:32
[2017-06-06 12:55] VITALS: BP 137/71
--- NOTE | 2017-06-06 15:06 | Progress Note ---
Subjective Date Seen by Provider: Jun 06, 2017 Time Seen by Provider: 15:04 Subjective/Events-last exam Feeling better. Not having any abdominal pain. No more nausea or emesis today. Having some diarrhea. No fever sweats chills shortness of breath or chest pain. Wanting to go home. Objective Exam Vital Signs Date Time Temp Pulse Resp B/P (MAP) Pulse Ox O2 Delivery O2 Flow Rate FiO2 06/06/17 12:55 98.4 61 16 137/71 94 Room Air 06/06/17 08:24 97.6 60 20 118/62 97 Room Air 06/06/17 04:00 98.7 61 18 146/61 94 Room Air 06/06/17 00:30 99.1 59 18 166/82 96 Room Air 06/05/17 19:38 180/81 06/05/17 19:17 97.8 55 16 196/98 94 06/05/17 17:00 99 196/91 06/05/17 16:10 98.7 65 18 194/69 95 Room Air 06/05/17 15:14 95 Room Air I & O 06/07/17 07:00 Intake Total 1900 ml Balance 1900 ml Capillary Refill : Less Than 3 SecondsLess Than 3 Seconds General Appearance: No Apparent Distress, WD/WN HEENT: PERRL/EOMI, Other (PARTIAL EDENTULOUS) Neck: Full Range of Motion, Supple Respiratory: Chest Non Tender, Normal Breath Sounds, No Accessory Muscle Use Cardiovascular: Regular Rate, Rhythm Gastrointestinal: normal bowel sounds, non tender, soft Extremity: Normal Capillary Refill, Normal Range of Motion, Non Tender, No Calf Tenderness Neurologic/Psychiatric: Alert, Oriented x3, No Motor/Sensory Deficits, Normal Mood/Affect, temporary receptionist II-XII Norm as Tested Skin: Warm/Dry Lymphatic: No Adenopathy Results Lab Laboratory Tests 06/06/17 05:43: White Blood Count 11.2H, Red Blood Count 4.65, Hemoglobin 12.9, Hematocrit 39, Mean Corpuscular Volume 84, Mean Corpuscular Hemoglobin 28, Mean Corpuscular Hemoglobin Concent 33, Red Cell Distribution Width 15.6H, Platelet Count 185, Mean Platelet Volume 11.9H, Sodium Level 137, Potassium Level 3.6, Chloride Level 106, Carbon Dioxide Level 18L, Anion Gap 13, Blood Urea Nitrogen 8, Creatinine 0.74, Estimat Glomerular Filtration Rate > 60, BUN/Creatinine Ratio 11, Glucose Level 113H, Calcium Level 8.9, Magnesium Level 2.2, Total Bilirubin 0.9, Aspartate Amino Transf (AST/SGOT) 19, Alanine Aminotransferase (ALT/SGPT) 16, Alkaline Phosphatase 106, Total Protein 7.1, Albumin 4.0 Microbiology 06/05/17 Urine Culture - Preliminary, Resulted Probable Klebsiella/Enterobact Assessment/Plan Assessment/Plan Assessment/Plan Enteritis, nausea vomiting, diarrhea, or urinary tract infection No more pain, having some diarrhea, no further nausea or emesis today. she's wanting to go home. Feel she could go home if tolerating diet and no nausea and vomiting. No surgical intervention Clinical Quality Measures DVT/VTE Risk/Contraindication: Risk Factor Score Per Nursin RFS Level Per Nursing on Admit: 4+=Very High Contraindications-Pharm: Other *list below* Other: PT TO BE ON SCD'S, ANTICIPATE SHORT STAY IN HOSPITAL, WILL NOT BE GIVEN LOVENOX DUE TO HER PLANNED SHORT STAY AND PT IS UP AND ACTIVE. KALIN HICKS DO Jun 06, 2017 15:06
[2017-06-06 15:45] VITALS: BP 134/62
[2017-06-06] MEDS ORDERED: MAGNESIUM 1 GM/100 ML IVPB 100 ML IV ONE (16:15)
[2017-06-06 16:20] VITALS: BP 134/62
[2017-06-06] MEDS ORDERED: QUEtiapine 25 MG (SEROquel) TAB IMMEDIATE RELEASE PO SCH (21:00)
== END 2017-06-06 17:00 | disposition home or self-care (01) ==
LOC: EDUNIT# 10:01 → ER 10:03 → 4TH 12:53 → UNDOADMOB 12:53 → 4TH 13:45 → UNDODISOB 06-06 16:20
PROVIDERS: ADMIT Family Medicine; ATTEND Family Medicine
DX: K52.9 Noninfective gastroenteritis and colitis, unspecified (principal); N39.0 Urinary tract infection, site not specified; G47.00 Insomnia, unspecified; Z79.899 Other long term (current) drug therapy; Z87.891 Personal history of nicotine dependence
CPT/HCPCS: 36415; 74177; 80053; 81000; 83735; 85007; 85025; 85027; 87077; 87088; 87186; 96374; G0378

== ENCOUNTER 2017-08-04 01:06 | Emergency (ER) | payer MEDICARE ==
[~2017-08-04] VITALS: Ht 167.6 cm; Wt 55.8 kg
[~2017-08-04 01:06] MED LIST changes: +ACID1TAB PO; +ATOR80TA76 PO; +CRAN500C4 PO; +DONE5TAB30 PO; +MULT-141 PO; +SULF1TAB35 PO
--- NOTE | 2017-08-04 01:37 | ED GU-Female ---
General Chief Complaint: -Female Stated Complaint: POSS BLADDER INFECTION Nursing Triage Note: PATIENT C/O URINARY INCONT AND BURNING THAT BEGAN THIS AFTERNOON. Nursing Sepsis Screen: No Definite Risk Source: patient Exam Limitations: no limitations History of Present Illness Time seen by provider: 01:22 Initial Comments Here with report of urinary frequency and incontinence. This started tonight. She states that she feels like she has to go and then for she knows it she has incontinence. Denies fevers, chills, nausea, vomiting or diarrhea. Does complain of mild suprapubic/bladder pain. Timing/Duration: this afternoon Severity/Quality: moderate Location: suprapubic Radiation: urethral Activities at Onset: none Sexual [place] History: not active Associated Symptoms: dysuria, No fever/chills, loss of bladder control, urinary frequency Allergies and Home Medications Allergies Coded Allergies: Penicillins (Verified Allergy, Unknown, 11/26/07) cephalexin (Verified Allergy, Unknown, 11/26/07) ciprofloxacin (Verified Allergy, Unknown, 11/26/07) estrogens, conjugated (Verified Allergy, Unknown, 06/17/08) gatifloxacin (Verified Allergy, Unknown, 06/17/08) tetracycline (Verified Allergy, Unknown, 06/17/08) Home Medications Acetaminophen 500 Mg Tablet, 500 MG PO DAILY PRN for PAIN-MILD TO MODERATE, ( Reported) Atorvastatin Calcium 80 Mg Tablet, 80 MG PO HS, (Reported) Cranberry Extract 500 Mg Capsule, 500 MG PO DAILY, (Reported) Diphenoxylate HCl/Atropine 1 Each Tablet, 1 TAB PO TID PRN for LOOSE STOOLS, ( Reported) Donepezil HCl 5 Mg Tablet, 5 MG PO BID, (Reported) L. Acidophilus/Bulgaricus 1 Each Tablet, 1 TAB.CHEW PO AC for 30 Days, #90 Ref 1 Prescribed by: ANDREW LEMON on 06/06/17 0930 Levothyroxine Sodium 75 Mcg Tablet, 75 MCG PO DAILY, (Reported) Multivit with Calcium,Iron,Min 1 Each Tablet, 1 TAB PO DAILY, (Reported) Nitrofurantoin Macrocrystal 100 Mg Capsule, 100 MG PO BID, #13 Ref 0 Prescribed by: TRACY CHAMBERS on 08/04/17 0208 Oxybutynin Chloride 5 Mg Tablet, 5 MG PO TID, (Reported) Pantoprazole Sodium 40 Mg Tablet.dr, 40 MG PO BID, (Reported) Quetiapine Fumarate 25 Mg Tablet, 25 MG PO HS, (Reported) Sertraline HCl 100 Mg Tablet, 150 MG PO DAILY, (Reported) TAKES 1 & 1/2 OF A (100 MG) TABLET Spironolactone 25 Mg Tablet, 25 MG PO DAILY, (Reported) Sulfamethoxazole/Trimethoprim 1 Each Tablet, 1 EA PO BID WITH MEALS for 7 Days, #14 Prescribed by: ANDREW LEMON on 06/06/17 0930 Temazepam 15 Mg Capsule, 15 MG PO HS PRN for SLEEP, (Reported) Constitutional: see HPI, No chills, No fever EENTM: no symptoms reported Respiratory: no symptoms reported Cardiovascular: no symptoms reported Gastrointestinal: see HPI Genitourinary: see HPI, dysuria, incontinence, pain Musculoskeletal: no symptoms reported Past Rxwvzna-Yjuxcu-Upwjcq Hx Patient Social History Alcohol Use: Denies Use Recreational Drug Use: No Smoking Status: Former Smoker Type Used: Cigarettes Former Smoker, Quit: Sep 11, 1970 Recent Foreign Travel: No Contact w/Someone Who Travel: No Recent Infectious Disease Expo: No Recent Hopitalizations: No Immunizations Up To Date Date of Pneumonia Vaccine: Jun 24, 2012 Date of Influenza Vaccine: Jun 12, 2014 Seasonal Allergies Seasonal Allergies: No Surgeries History of Surgeries: Yes (LEFT LEG) Surgeries: Abdominal, Orthopedic Respiratory History of Respiratory Disorde: No Currently Using CPAP: No Currently Using BIPAP: No Cardiovascular History of Cardiac Disorders: No Neurological History of Neurological Disord: No Reproductive System Hx Reproductive Disorders: Yes Sexually Transmitted Disease: No HIV/AIDS: No Female Reproductive Disorders: Denies Genitourinary History of Genitourinary Disor: Yes Genitourinary Disorders: Bladder Infection Gastrointestinal History of Gastrointestinal Di: Yes Gastrointestinal Disorders: Chronic Diarrhea, Ulcer Musculoskeletal History of Musculoskeletal Dis: Yes (OSTEOMYLITIS left lower extremity) Endocrine History of Endocrine Disorders: No HEENT History of HEENT Disorders: No Loss of Vision: Denies Hearing Impairment: Hard of Hearing Cancer History of Cancer: No Psychosocial History of Psychiatric Problem: Yes Behavioral Health Disorders: Sleep Difficulties, Anxiety Integumentary History of Skin or Integumenta: No Blood Transfusions History of Blood Disorders: No Reviewed Nursing Assessment Reviewed/Agree w Nursing PMH: Yes Family Medical History Significant Family History: Diabetes, Hypertension Family Medial History: Patient reports no known family medical history. Physical Exam Vital Signs Vital Sign - Last 12Hours 08/04/17 01:20 Temp 98.1 Pulse 63 Resp 16 B/P (MAP) 173/87 Pulse Ox 96 O2 Delivery Room Air Capillary Refill : Less Than 3 Seconds General Appearance: WD/WN, no apparent distress Cardiovascular: regular rate, rhythm, no murmur Respiratory: lungs clear, normal breath sounds Gastrointestinal: soft, tenderness (mild suprapubic) Back: normal inspection, no CVA tenderness, no vertebral tenderness Neurologic/Psychiatric: alert, oriented x 3 Progress/Results/Core Measures Suspected Sepsis Recent Fever Within 48 Hours: No Infection Criteria Present: None New/Unexplained Altered Menta: No Sepsis Screen: No Definite Risk Sepsis Diagnosis: SIRS Temperature:98.1 Pulse: 63 Respiratory Rate: 16 Blood Pressure 173 /87 Mean: 115 Results/Orders Lab Results Laboratory Tests Test 08/04/17 01:34 Range/Units Urine Color YELLOW Urine Clarity CLEAR Urine pH 7 5-9 Urine Specific [place] 1.010 L 1.016-1.022 Urine Protein 2+ H NEGATIVE Urine Glucose (UA) NEGATIVE NEGATIVE Urine Ketones NEGATIVE NEGATIVE Urine Nitrite NEGATIVE NEGATIVE Urine Bilirubin NEGATIVE NEGATIVE Urine Urobilinogen NORMAL NORMAL MG/DL Urine Leukocyte Esterase 3+ H NEGATIVE Urine RBC (Auto) 5+ H NEGATIVE Urine RBC 2-5 H /HPF Urine WBC 50-100 H /HPF Urine Renal Epithelial Cells 2-5 /HPF Urine Crystals NONE /LPF Urine Bacteria FEW H /HPF Urine Casts NONE /LPF Urine Mucus NEGATIVE /LPF Urine Culture Indicated YES My Orders Orders - TRACY CHAMBERS MD Ua Culture If Indicated (08/04/17 01:11) Urine Culture (08/04/17 01:34) Sulfamethoxazole/Trimet Ds Tab (Bactrim (08/04/17 02:05) Vital Signs/I&O Vital Sign - Last 12Hours 08/04/17 01:20 Temp 98.1 Pulse 63 Resp 16 B/P (MAP) 173/87 Pulse Ox 96 O2 Delivery Room Air Capillary Refill : Less Than 3 Seconds Blood Pressure Mean: 115 Progress Note : Progress Note Seen and evaluated. UA ordered. History of Klebsiella UTI that is sensitive to nitrofurantoin and Bactrim. Nitrofurantoin one tab by mouth given chosen because of med interaction with Bactrim. Discharged home with return precautions. Patient verbalize understanding instructions and agreement with plan. Departure Impression Impression: Primary Impression: Urinary tract infection Qualified Codes: N30.00 - Acute cystitis without hematuria Disposition: HOME, SELF-CARE Condition: Stable Departure-Patient Inst. Decision time for Depature: 01:36 Referrals: ANDREW LEMON MD (PCP/Family) Primary Care Physician Patient Instructions: Urinary Tract Infection, Adult (DC) Add. Discharge Instructions: All discharge instructions reviewed with patient and/or family. Voiced understanding. Drink plenty of fluids. Follow-up with your Dr. in a few days for recheck as needed. Return for worse pain, fever, vomiting, weakness, breathing problems or other concerns as needed. Scripts Nitrofurantoin Macrocrystal (Nitrofurantoin) 100 Mg Capsule 100 MG PO BID, #13 CAP 0 Refills Prov: TRACY CHAMBERS MD 08/04/17 TRACY CHAMBERS MD Aug 04, 2017 01:37
[2017-08-04 01:42] LABS: BILIRUBIN,URINE NEGATIVE (NEGATIVE); KETONES,URINE NEGATIVE (NEGATIVE); LEUKOCYTE ESTERASE ,URINE 3+ (NEGATIVE); NITRITE,URINE NEGATIVE (NEGATIVE); PH,URINE 7 (5-9); PROTEIN,URINE 2+ (NEGATIVE); UROBILINOGEN,URINE NORMAL (NORMAL)
[2017-08-04 01:50] LABS: WBC,URINE 50-100 /HPF
[2017-08-04] MEDS ORDERED: TRIM/SULFAMETH 160/800 (SEPTRA DS) TAB PO STA (02:05)
[2017-08-04] MEDS ORDERED: NITR100C PO (02:08)
[2017-08-04] MEDS ORDERED: NITROFURANTOIN 100 MG (MACROBID) CAPSULE PO ONE (02:15)
[2017-08-04 02:30] VITALS: BP 155/74
== END 2017-08-04 02:31 | disposition home or self-care (01) ==
LOC: EDUNIT# 01:06 → ER 01:09
DX: N39.0 Urinary tract infection, site not specified (principal); Z87.11 Personal history of peptic ulcer disease; Z87.891 Personal history of nicotine dependence
CPT/HCPCS: 81000; 87088; 99283

== ENCOUNTER 2017-08-20 19:27 | Emergency (ER) | payer MEDICARE ==
[~2017-08-20] VITALS: Ht 167.6 cm; Wt 55.8 kg
[~2017-08-20 19:27] MED LIST changes: +NITR100C PO
--- NOTE | 2017-08-20 20:22 | ED GI ---
General Chief Complaint: Rect Problems Stated Complaint: BLOOD IN BOWEL Nursing Triage Note: PT TO ED 7 W/ C/O CONSTIPATION, RESOLVED BUT NOW REPORTS PAIN TO RECTUM ET "SPOTTING". NO OTHER C/O VOICED Sepsis Screen: No Definite Risk Source of Information: Patient, Family Exam Limitations: No Limitations History of Present Illness Time Seen By Provider: 20:19 Initial Comments Patient presents to ER by private conveyance with chief complaint she is having some constipation for last couple days so she took a glycerin suppository. 4 state the suppository and had a bowel movement she was doing a lot of straining started noticing some drops of blood around the stool. She is also seeing some drops of blood in her pad. She is not sure she has a history of hemorrhoids or fissures however 6 months ago had a similar episode of this. Typically she has loose stools which she says her primary care doctor has put her on a powder twice a day to fix her loose stools. The family members not certain if the patient is taking her medications appropriately are too much or just throwing them away since she has early stage Alzheimer's. 4 days ago she was in her primary care physician's office and had a urinalysis done that was normal at that time. She's had no discharge, dysuria or frequency. She states she had a colonoscopy 2-3 years ago. 2006 the patient had a colonoscopy showing diverticulosis and status post sigmoid colectomy. She was scheduled to have another one in [address] Amaya did a colonoscopy in 2013 showing a single polyp in the ascending colon, descending colon. Allergies and Home Medications Allergies Coded Allergies: Penicillins (Verified Allergy, Unknown, 11/26/07) cephalexin (Verified Allergy, Unknown, 11/26/07) ciprofloxacin (Verified Allergy, Unknown, 11/26/07) estrogens, conjugated (Verified Allergy, Unknown, 06/17/08) gatifloxacin (Verified Allergy, Unknown, 06/17/08) tetracycline (Verified Allergy, Unknown, 06/17/08) Home Medications Acetaminophen 500 Mg Tablet, 500 MG PO DAILY PRN for PAIN-MILD TO MODERATE, ( Reported) Atorvastatin Calcium 80 Mg Tablet, 80 MG PO HS, (Reported) Cranberry Extract 500 Mg Capsule, 500 MG PO DAILY, (Reported) Diphenoxylate HCl/Atropine 1 Each Tablet, 1 TAB PO TID PRN for LOOSE STOOLS, ( Reported) Donepezil HCl 5 Mg Tablet, 5 MG PO BID, (Reported) L. Acidophilus/Bulgaricus 1 Each Tablet, 1 TAB.CHEW PO AC for 30 Days, #90 Ref 1 Prescribed by: ANDREW LEMON on 06/06/17 0930 Levothyroxine Sodium 75 Mcg Tablet, 75 MCG PO DAILY, (Reported) Multivit with Calcium,Iron,Min 1 Each Tablet, 1 TAB PO DAILY, (Reported) Nitrofurantoin Macrocrystal 100 Mg Capsule, 100 MG PO BID, #13 Ref 0 Prescribed by: TRACY CHAMBERS on 08/04/17 0208 Oxybutynin Chloride 5 Mg Tablet, 5 MG PO TID, (Reported) Pantoprazole Sodium 40 Mg Tablet.dr, 40 MG PO BID, (Reported) Quetiapine Fumarate 25 Mg Tablet, 25 MG PO HS, (Reported) Sertraline HCl 100 Mg Tablet, 150 MG PO DAILY, (Reported) TAKES 1 & 1/2 OF A (100 MG) TABLET Spironolactone 25 Mg Tablet, 25 MG PO DAILY, (Reported) Sulfamethoxazole/Trimethoprim 1 Each Tablet, 1 EA PO BID WITH MEALS for 7 Days, #14 Prescribed by: ANDREW LEMON on 06/06/17 0930 Temazepam 15 Mg Capsule, 15 MG PO HS PRN for SLEEP, (Reported) Review of Systems Constitutional: No chills, No fever EENTM: No Blurred Vision, No Double Vision Gastrointestinal: Denies Abdomen Distended, Denies Abdominal Pain, Blood Streaked Stools, Constipated, Denies Nausea, Denies Vomiting Genitourinary: Denies Burning, Denies Discharge Musculoskeletal: No back pain, No joint pain Skin: No pruritus, No rash Endocrine: Denies Intolerance to Cold, Denies Intolerance to Heat, Denies Increased Urine Past Mvhrhkm-Ptclla-[id number] Hx Patient Social History Alcohol Use: Denies Use Recreational Drug Use: No Smoking Status: Never a Smoker Type Used: Cigarettes Former Smoker, Quit: Aug 04, 1997 Recent Foreign Travel: No Contact w/Someone Who Travel: No Recent Infectious Disease Expo: No Recent Hopitalizations: No Physical Abuse: No Sexual Abuse: No Mistreated: No Fear: No Immunizations Up To Date Date of Pneumonia Vaccine: Jun 24, 2012 Date of Influenza Vaccine: Jun 10, 2017 Seasonal Allergies Seasonal Allergies: No Surgeries History of Surgeries: Yes (LEFT LEG) Surgeries: Abdominal, Orthopedic Respiratory History of Respiratory Disorde: No Currently Using CPAP: No Currently Using BIPAP: No Cardiovascular History of Cardiac Disorders: No Neurological History of Neurological Disord: No Reproductive System Hx Reproductive Disorders: Yes Sexually Transmitted Disease: No HIV/AIDS: No Female Reproductive Disorders: Denies Genitourinary History of Genitourinary Disor: Yes Genitourinary Disorders: Bladder Infection Gastrointestinal History of Gastrointestinal Di: Yes Gastrointestinal Disorders: Chronic Diarrhea, Ulcer Musculoskeletal History of Musculoskeletal Dis: Yes (OSTEOMYLITIS left lower extremity) Endocrine History of Endocrine Disorders: No HEENT History of HEENT Disorders: No Loss of Vision: Denies Hearing Impairment: Hard of Hearing Cancer History of Cancer: No Psychosocial History of Psychiatric Problem: Yes Behavioral Health Disorders: Sleep Difficulties, Anxiety Suicide Risk Score: 0 Integumentary History of Skin or Integumenta: No Blood Transfusions History of Blood Disorders: No Family Medical History Significant Family History: Diabetes, Hypertension Family Medial History: Patient reports no known family medical history. Physical Exam Vital Signs VS - Last 72 Hours, by Label 08/20/17 20:03 Temp 98.4 Pulse 70 Resp 18 B/P (MAP) 139/109 (119) Pulse Ox 96 O2 Delivery Room Air Capillary Refill : Less Than 3 Seconds General Appearance: WD/WN, no apparent distress HEENT: PERRL/EOMI, pharynx normal Neck: non-tender, normal inspection Cardiovascular: normal peripheral pulses, regular rate, rhythm Peripheral Pulses: 2+ Radial Pulses (R), 2+ Radial Pulses (L) Gastrointestinal: normal bowel sounds, soft, tenderness (left lower quadrant without palpable colon. ) Rectal: normal rectal tone, tenderness, other (patient has a large erythematous irritated fissure at the 10:00 position. No mass or stool felt in the rectal vault.) Neurologic/Psychiatric: alert, oriented x 3 Skin: normal color, warm/dry Progress/Results/Core Measures Results/Orders Vital Signs/I&O Vital Sign - Last 12Hours 08/20/17 20:03 Temp 98.4 Pulse 70 Resp 18 B/P (MAP) 139/109 (119) Pulse Ox 96 O2 Delivery Room Air Blood Pressure Mean: 119 Departure Impression Impression: Primary Impression: Acute anal fissure Additional Impression: Constipation Qualified Codes: K59.00 - Constipation, unspecified Disposition: HOME, SELF-CARE Condition: Stable Departure-Patient Inst. Decision time for Depature: 20:34 Referrals: ANDREW LEMON MD (PCP/Family) Primary Care Physician Patient Instructions: Anal Fissure (DC) Add. Discharge Instructions: Increase your fiber intake by using fiber capsules, fiber powder mixes or 3 your diet by eating dark, green, leafy, woody, stemy, vegetables. Continue to use a laxative such as Dulcolax or MiraLAX 2-4 times a day to keep your stools loose as well as glycerin suppositories or enemas once a day. Use sitz baths throughout the day by sitting in lukewarm bath water to help with the pain at the site of your anus. Apply the nifedipine gel to your rectum 1 g 2-3 times a day as needed to control the pain. You may also use Tylenol 1000 mg every 8 hours as needed. Follow up with your primary care physician in 2-3 weeks to ensure that things are getting better and discuss any potential need for further endoscopy or evaluation. All discharge instructions reviewed with patient and/or family. Voiced understanding. Copy Copies To 1: ANDREW LEMON MD, TITUS J Aug 20, 2017 20:22
[2017-08-20] MEDS ORDERED: LIDOCAINE 2% VISCOUS 15 ML UDC ONE (20:47)
[2017-08-20 20:49] VITALS: BP 0/0
[2017-08-20] MEDS ORDERED: LIDOCAINE 2% VISCOUS 15 ML UDC MM ONE (21:00)
== END 2017-08-20 20:49 | disposition home or self-care (01) ==
LOC: EDUNIT# 19:27 → ER 19:30
DX: K60.0 Acute anal fissure (principal); K59.00 Constipation, unspecified; Z87.891 Personal history of nicotine dependence
CPT/HCPCS: 99283

== ENCOUNTER 2017-10-07 08:38 | Emergency (ER) | payer MEDICARE ==
[~2017-10-07] VITALS: Ht 167.6 cm; Wt 54.4 kg
[~2017-10-07 08:38] MED LIST changes: +ACHD5005 PO; -HYDR-3812 PO
[2017-10-07] MEDS ORDERED: ONDANSETRON 4 MG/2 ML (SDV) Z0FRAN IVP ONE (09:00)
[2017-10-07 09:16] LABS: BASOPHILS # (AUTO) 0.1 10^3/uL (0.0-0.1); BASOPHILS % (AUTO) 1 % (0-10); EOSINOPHILS # (AUTO) 0.1 10^3/uL (0.0-0.3); EOSINOPHILS % (AUTO) 2 % (0-10); HEMATOCRIT 39 % (35-52); HEMOGLOBIN 13.1 G/DL (11.5-16.0); LYMPHOCYTES # (AUTO) 0.9 X 10^3 (1.0-4.0); LYMPHOCYTES % (AUTO) 15 % (12-44); MEAN CORPUSCULAR HEMOGLOBIN 29 PG (25-34); MEAN CORPUSCULAR HGB CONC 34 G/DL (32-36); MEAN CORPUSCULAR VOLUME 85 FL (80-99); MEAN PLATELET VOLUME 11.1 FL (7.4-10.4); MONOCYTES # (AUTO) 0.4 X 10^3 (0.0-1.0); MONOCYTES % (AUTO) 6 % (0-12); NEUTROPHILS # (AUTO) 4.4 X 10^3 (1.8-7.8); NEUTROPHILS % (AUTO) 75 % (42-75); PLATELET COUNT 178 10^3/uL (130-400); RED BLOOD COUNT 4.53 10^6/uL (4.35-5.85); RED CELL DISTRIBUTION WIDTH 14.4 % (10.0-14.5); WHITE BLOOD COUNT 5.9 10^3/uL (4.3-11.0)
[2017-10-07 09:48] LABS: ALANINE AMINOTRANSFERASE 28 U/L (0-55); ALBUMIN 4.1 GM/DL (3.2-4.5); ALKALINE PHOSPHATASE 112 U/L (40-136); BILIRUBIN,TOTAL 0.8 MG/DL (0.1-1.0); BUN/CREATININE RATIO 11; CALCIUM 9.2 MG/DL (8.5-10.1); CARBON DIOXIDE 18 MMOL/L (21-32); CHLORIDE 106 MMOL/L (98-107); CREATININE SERUM 0.79 MG/DL (0.60-1.30); GFR ESTIMATED > 60; GLUCOSE 108 MG/DL (70-105); POTASSIUM 4.7 MMOL/L (3.6-5.0); SODIUM 137 MMOL/L (135-145); TOTAL PROTEIN 7.5 GM/DL (6.4-8.2)
[2017-10-07] MEDS ORDERED: NS IV 1000 ML 1,000 ML IV ONE (10:17)
[2017-10-07 11:04] LABS: BILIRUBIN,URINE NEGATIVE (NEGATIVE); CLARITY,URINE CLEAR; COLOR,URINE YELLOW; GLUCOSE, URINE (UA) NEGATIVE (NEGATIVE); KETONES,URINE NEGATIVE (NEGATIVE); LEUKOCYTE ESTERASE ,URINE 3+ (NEGATIVE); NITRITE,URINE POSITIVE (NEGATIVE); PH,URINE 7 (5-9); PROTEIN,URINE NEGATIVE (NEGATIVE); UROBILINOGEN,URINE NORMAL (NORMAL)
[2017-10-07 11:41] LABS: BACTERIA,URINE LARGE /HPF
[2017-10-07] MEDS ORDERED: NITR-65 PO (12:13)
[2017-10-07] MEDS ORDERED: ONDA4TAB8 SL (12:13)
--- NOTE | 2017-10-07 12:13 | ED General ---
General Chief Complaint: Abdominal/GI Problems Stated Complaint: N/WANTING TO VOMIT, LOOSE STOOL Nursing Triage Note: pt reports abdominal pain, n/v since 0400 this am. Nursing Sepsis Screen: No Definite Risk Source of Information: Patient, Family Exam Limitations: No Limitations History of Present Illness Date Seen by Provider: Oct 07, 2017 Time Seen by Provider: 08:52 Initial Comments This 82-year-old woman presents to the emergency room accompanied by her son with complaints of nausea since about 04:00 without vomiting. She is also had loose stools. Patient reports that she personally did not think she needed to come to the emergency room by her son was concerned about her symptoms and her hydration status. She denies any fever, pain, cough, urinary symptoms, or other acute symptoms. Allergies and Home Medications Allergies Coded Allergies: Penicillins (Verified Allergy, Unknown, 11/26/07) cephalexin (Verified Allergy, Unknown, 11/26/07) ciprofloxacin (Verified Allergy, Unknown, 11/26/07) estrogens, conjugated (Verified Allergy, Unknown, 06/17/08) gatifloxacin (Verified Allergy, Unknown, 06/17/08) tetracycline (Verified Allergy, Unknown, 06/17/08) Home Medications Acetaminophen 500 Mg Tablet, 500 MG PO DAILY PRN for PAIN-MILD TO MODERATE, ( Reported) Atorvastatin Calcium 80 Mg Tablet, 80 MG PO HS, (Reported) Cranberry Extract 500 Mg Capsule, 500 MG PO DAILY, (Reported) Diphenoxylate HCl/Atropine 1 Each Tablet, 1 TAB PO TID PRN for LOOSE STOOLS, ( Reported) Donepezil HCl 5 Mg Tablet, 5 MG PO BID, (Reported) L. Acidophilus/Bulgaricus 1 Each Tablet, 1 TAB.CHEW PO AC for 30 Days, #90 Ref 1 Prescribed by: ANDREW LEMON on 06/06/17 0930 Levothyroxine Sodium 75 Mcg Tablet, 75 MCG PO DAILY, (Reported) Multivit with Calcium,Iron,Min 1 Each Tablet, 1 TAB PO DAILY, (Reported) Nitrofurantoin Macrocrystal 100 Mg Capsule, 100 MG PO BID, #13 Ref 0 Prescribed by: TRACY CHAMBERS on 08/04/17 0208 Nitrofurantoin Monohyd/M-Cryst 100 Mg Capsule, 1 TAB PO BID, #14 Prescribed by: JOSELINE MENDOZA on 10/07/17 1213 Ondansetron 4 Mg Tab.rapdis, 4 MG SL Q4H PRN for NAUSEA/VOMITING-1ST LINE, #10 Prescribed by: JOSELINE MENDOZA on 10/07/17 1213 Oxybutynin Chloride 5 Mg Tablet, 5 MG PO TID, (Reported) Pantoprazole Sodium 40 Mg Tablet.dr, 40 MG PO BID, (Reported) Quetiapine Fumarate 25 Mg Tablet, 25 MG PO HS, (Reported) Sertraline HCl 100 Mg Tablet, 150 MG PO DAILY, (Reported) TAKES 1 & 1/2 OF A (100 MG) TABLET Spironolactone 25 Mg Tablet, 25 MG PO DAILY, (Reported) Sulfamethoxazole/Trimethoprim 1 Each Tablet, 1 EA PO BID WITH MEALS for 7 Days, #14 Prescribed by: ANDREW LEMON on 06/06/17 0930 Temazepam 15 Mg Capsule, 15 MG PO HS PRN for SLEEP, (Reported) Constitutional: no symptoms reported EENTM: no symptoms reported Respiratory: no symptoms reported Cardiovascular: no symptoms reported Gastrointestinal: see HPI Genitourinary: no symptoms reported : No Musculoskeletal: no symptoms reported Skin: no symptoms reported Psychiatric/Neurological: No Symptoms Reported Hematologic/Lymphatic: No Symptoms Reported Past Gpndksy-Uolhak-Vwtsyu Hx Patient Social History Alcohol Use: Denies Use Recreational Drug Use: No Smoking Status: Former Smoker Type Used: Cigarettes Former Smoker, Quit: Sep 21, 1992 Recent Foreign Travel: No Contact w/Someone Who Travel: No Recent Infectious Disease Expo: No Recent Hopitalizations: No Physical Abuse: No Sexual Abuse: No Mistreated: No Fear: No Immunizations Up To Date Date of Pneumonia Vaccine: Jun 24, 2012 Date of Influenza Vaccine: Jun 10, 2017 Seasonal Allergies Seasonal Allergies: No Surgeries History of Surgeries: Yes (LEFT LEG) Surgeries: Abdominal, Orthopedic Respiratory History of Respiratory Disorde: No Currently Using CPAP: No Currently Using BIPAP: No Cardiovascular History of Cardiac Disorders: No Neurological History of Neurological Disord: No Reproductive System : No Hx Reproductive Disorders: Yes Sexually Transmitted Disease: No HIV/AIDS: No Female Reproductive Disorders: Denies Genitourinary History of Genitourinary Disor: Yes Genitourinary Disorders: Bladder Infection Gastrointestinal History of Gastrointestinal Di: Yes Gastrointestinal Disorders: Chronic Diarrhea, Ulcer Musculoskeletal History of Musculoskeletal Dis: Yes (OSTEOMYLITIS left lower extremity) Endocrine History of Endocrine Disorders: No HEENT History of HEENT Disorders: No Loss of Vision: Denies Hearing Impairment: Hard of Hearing Cancer History of Cancer: No Psychosocial History of Psychiatric Problem: Yes Behavioral Health Disorders: Sleep Difficulties, Anxiety Suicide Risk Score: 0 Integumentary History of Skin or Integumenta: No Blood Transfusions History of Blood Disorders: No Family Medical History Significant Family History: Diabetes, Hypertension Family Medial History: Patient reports no known family medical history. Physical Exam Vital Signs Vital Sign - Last 12Hours 10/07/17 09:13 Temp 96.6 Pulse 54 Resp 20 B/P (MAP) 151/91 (111) Pulse Ox 97 Capillary Refill : Less Than 3 Seconds General Appearance: No Apparent Distress, WD/WN HEENT: PERRL/EOMI, Normal ENT Inspection, Pharynx Normal Neck: Normal Inspection Respiratory: Lungs Clear, Normal Breath Sounds, No Accessory Muscle Use, No Respiratory Distress Cardiovascular: Regular Rate, Rhythm, No Edema, No Murmur Gastrointestinal: Normal Bowel Sounds, Non Tender, Soft Extremity: Normal Capillary Refill, Normal Inspection, No Pedal Edema Neurologic/Psychiatric: Alert, Oriented x3, No Motor/Sensory Deficits, Normal Mood/Affect, 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 Norm as Tested Skin: Normal Color, Warm/Dry Progress/Results/Core Measures Suspected Sepsis Recent Fever Within 48 Hours: No Infection Criteria Present: None New/Unexplained Altered Menta: No Sepsis Screen: No Definite Risk Sepsis Diagnosis: SIRS Temperature:96.6 Pulse: 54 Respiratory Rate: 20 Laboratory Tests 10/07/17 09:07: White Blood Count 5.9 Blood Pressure 151 /91 Mean: 111 Laboratory Tests 10/07/17 09:07: Creatinine 0.79, Platelet Count 178, Total Bilirubin 0.8 Results/Orders Lab Results Laboratory Tests Test 10/07/17 09:07 10/07/17 10:55 Range/Units White Blood Count 5.9 4.3-11.0 10^3/uL Red Blood Count 4.53 4.35-5.85 10^6/uL Hemoglobin 13.1 11.5-16.0 G/DL Hematocrit 39 35-52 % Mean Corpuscular Volume 85 80-99 FL Mean Corpuscular Hemoglobin 29 25-34 PG Mean Corpuscular Hemoglobin Concent 34 32-36 G/DL Red Cell Distribution Width 14.4 10.0-14.5 % Platelet Count 178 130-400 10^3/uL Mean Platelet Volume 11.1 H 7.4-10.4 FL Neutrophils (%) (Auto) 75 42-75 % Lymphocytes (%) (Auto) 15 12-44 % Monocytes (%) (Auto) 6 0-12 % Eosinophils (%) (Auto) 2 0-10 % Basophils (%) (Auto) 1 0-10 % Neutrophils # (Auto) 4.4 1.8-7.8 X 10^3 Lymphocytes # (Auto) 0.9 L 1.0-4.0 X 10^3 Monocytes # (Auto) 0.4 0.0-1.0 X 10^3 Eosinophils # (Auto) 0.1 0.0-0.3 10^3/uL Basophils # (Auto) 0.1 0.0-0.1 10^3/uL Sodium Level 137 135-145 MMOL/L Potassium Level 4.7 3.6-5.0 MMOL/L Chloride Level 106 98-107 MMOL/L Carbon Dioxide Level 18 L 21-32 MMOL/L Anion Gap 13 5-14 MMOL/L Blood Urea Nitrogen 9 7-18 MG/DL Creatinine 0.79 0.60-1.30 MG/DL Estimat Glomerular Filtration Rate > 60 BUN/Creatinine Ratio 11 Glucose Level 108 H 70-105 MG/DL Calcium Level 9.2 8.5-10.1 MG/DL Total Bilirubin 0.8 0.1-1.0 MG/DL Aspartate Amino Transf (AST/SGOT) 36 H 5-34 U/L Alanine Aminotransferase (ALT/SGPT) 28 0-55 U/L Alkaline Phosphatase 112 40-136 U/L Total Protein 7.5 6.4-8.2 GM/DL Albumin 4.1 3.2-4.5 GM/DL Urine Color YELLOW Urine Clarity CLEAR Urine pH 7 5-9 Urine Specific [place] 1.005 L 1.016-1.022 Urine Protein NEGATIVE NEGATIVE Urine Glucose (UA) NEGATIVE NEGATIVE Urine Ketones NEGATIVE NEGATIVE Urine Nitrite POSITIVE H NEGATIVE Urine Bilirubin NEGATIVE NEGATIVE Urine Urobilinogen NORMAL NORMAL MG/DL Urine Leukocyte Esterase 3+ H NEGATIVE Urine RBC (Auto) NEGATIVE NEGATIVE Urine RBC NONE /HPF Urine WBC 10-25 H /HPF Urine Crystals NONE /LPF Urine Bacteria LARGE H /HPF Urine Casts NONE /LPF Urine Mucus NEGATIVE /LPF Urine Culture Indicated YES Micro Results Microbiology 10/07/17 Urine Culture - Preliminary, Resulted Escherichia Coli My Orders Orders - JOSELINE CASAS MD Saline Lock/Iv-Start (10/07/17 08:51) Cbc With Automated Diff (10/07/17 08:51) Comprehensive Metabolic Panel (10/07/17 08:51) Ua Culture If Indicated (10/07/17 08:51) Ondansetron Injection (Zofran Injectio (10/07/17 09:00) Ns Iv 1000 Ml (Sodium Chloride 0.9%) (10/07/17 10:17) Urine Culture (10/07/17 10:55) Medications Given in ED Vital Signs/I&O Capillary Refill : Less Than 3 Seconds Blood Pressure Mean: 111 Progress Note : Progress Note Workup was fairly unremarkable. Patient received a liter of IV fluids and a dose of IV Zofran. She was found to have a urinary tract infection. Macrobid was selected as patient has numerous antibiotic allergies. Departure Impression Impression: Primary Impression: Urinary tract infection Qualified Codes: N39.0 - Urinary tract infection, site not specified Additional Impressions: Nausea alone Loose stools Disposition: HOME, SELF-CARE Condition: Improved Departure-Patient Inst. Decision time for Depature: 12:00 Referrals: ANDREW LEMON MD (PCP/Family) Primary Care Physician Patient Instructions: Urinary Tract Infection, Adult (DC) Add. Discharge Instructions: Drink plenty of clear liquids. Complete your antibiotic as prescribed. This antibiotic may cause and oriented color to your urine which is normal. Follow-up with your primary care provider on Monday to review urine cultures. This will ensure you're taking the appropriate antibiotic for your infection. Return to the emergency room if symptoms worsen Use the nausea medication as prescribed for nausea as needed. All discharge instructions reviewed with patient and/or family. Voiced understanding. Scripts Ondansetron (Zofran Odt) 4 Mg Tab.rapdis 4 MG SL Q4H Y for NAUSEA/VOMITING-1ST LINE, #10 TAB Prov: JOSELINE CASAS MD 10/07/17 Nitrofurantoin Monohyd/M-Cryst (Macrobid 100 mg Capsule) 100 Mg Capsule 1 TAB PO BID, #14 CAP Prov: JOSELINE CASAS MD 10/07/17 Copy Copies To 1: ANDREW LEMON MD, JOSHUA T MD Oct 07, 2017 12:13
[2017-10-07 12:39] VITALS: BP 123/75
== END 2017-10-07 12:39 | disposition home or self-care (01) ==
LOC: EDUNIT# 08:38 → ER 08:40
DX: N39.0 Urinary tract infection, site not specified (principal); R11.0 Nausea; R19.7 Diarrhea, unspecified; F41.9 Anxiety disorder, unspecified; Z87.891 Personal history of nicotine dependence; Z87.01 Personal history of pneumonia (recurrent); Z87.448 Personal history of other diseases of urinary system; Z87.19 Personal history of other diseases of the digestive system
CPT/HCPCS: 36415; 80053; 81000; 85025; 87077; 87088; 87186

== ENCOUNTER 2017-12-09 16:28 | Emergency (ER) | payer MEDICARE ==
[~2017-12-09] VITALS: Ht 167.6 cm; Wt 54.4 kg
[~2017-12-09 16:28] MED LIST changes: +ONDA4TAB8 SL
[2017-12-09 16:50] LABS: BILIRUBIN,URINE NEGATIVE (NEGATIVE); CLARITY,URINE CLEAR; COLOR,URINE YELLOW; GLUCOSE, URINE (UA) NEGATIVE (NEGATIVE); KETONES,URINE NEGATIVE (NEGATIVE); LEUKOCYTE ESTERASE ,URINE 1+ (NEGATIVE); NITRITE,URINE NEGATIVE (NEGATIVE); PH,URINE 7 (5-9); PROTEIN,URINE NEGATIVE (NEGATIVE); UROBILINOGEN,URINE NORMAL (NORMAL)
[2017-12-09 16:57] LABS: BACTERIA,URINE NEGATIVE /HPF; SQUAMOUS EPITHELIAL CELL,UR 0-2 /HPF
[2017-12-09] MEDS ORDERED: KETOROLAC 30 MG/ML VIAL IVP STA (17:28)
[2017-12-09 18:09] LABS: BASOPHILS % (AUTO) 1 % (0-10); EOSINOPHILS # (AUTO) 0.2 10^3/uL (0.0-0.3); EOSINOPHILS % (AUTO) 4 % (0-10); HEMATOCRIT 37 % (35-52); HEMOGLOBIN 12.1 G/DL (11.5-16.0); LYMPHOCYTES # (AUTO) 1.2 X 10^3 (1.0-4.0); LYMPHOCYTES % (AUTO) 20 % (12-44); MEAN CORPUSCULAR HEMOGLOBIN 30 PG (25-34); MEAN CORPUSCULAR HGB CONC 33 G/DL (32-36); MEAN CORPUSCULAR VOLUME 90 FL (80-99); MONOCYTES # (AUTO) 0.6 X 10^3 (0.0-1.0); MONOCYTES % (AUTO) 10 % (0-12); NEUTROPHILS % (AUTO) 67 % (42-75); PLATELET COUNT 115 10^3/uL (130-400); RED BLOOD COUNT 4.07 10^6/uL (4.35-5.85); RED CELL DISTRIBUTION WIDTH 13.4 % (10.0-14.5)
[2017-12-09 18:32] LABS: ALANINE AMINOTRANSFERASE 28 U/L (0-55); ALBUMIN 3.9 GM/DL (3.2-4.5); ALKALINE PHOSPHATASE 118 U/L (40-136); BILIRUBIN,TOTAL 0.6 MG/DL (0.1-1.0); BUN/CREATININE RATIO 10; CALCIUM 9.3 MG/DL (8.5-10.1); CARBON DIOXIDE 28 MMOL/L (21-32); CHLORIDE 104 MMOL/L (98-107); CREATININE SERUM 0.71 MG/DL (0.60-1.30); GFR ESTIMATED > 60; GLUCOSE 107 MG/DL (70-105); POTASSIUM 3.4 MMOL/L (3.6-5.0); SODIUM 138 MMOL/L (135-145); TOTAL PROTEIN 5.7 GM/DL (6.4-8.2)
--- NOTE | 2017-12-09 18:56 | Diagnostic Imaging Report ---
PROCEDURE: CT abdomen and pelvis without contrast. TECHNIQUE: Multiple contiguous axial images were obtained through the abdomen and pelvis without the use of intravenous contrast. INDICATION: Lower abdominal pain. COMPARISON: CT abdomen and pelvis with IV contrast, 06/05/2017. FINDINGS: Mild scarring in the lung bases. Cardiomegaly. Moderate diffuse atherosclerotic calcifications including a normal caliber abdominal aorta. The liver, gallbladder, pancreas, spleen, adrenals, left kidney and collecting systems are negative on this noncontrast exam. Low-attenuation presumed renal cyst, measuring up to 2.0 cm, in the right kidney. Sigmoid anastomosis. Small bowel anastomosis in the right abdomen. There is a moderate amount of stool throughout the colon. No evidence of bowel obstruction. No free intraperitoneal air or fluid. Negative appendix. Calcified uterine fibroids. Age appropriate mild spondylotic changes in the visualized spine. No acute osseous findings. IMPRESSION: No acute CT findings in the abdomen or pelvis. Chronic and incidental findings as above. Dictated by: Dictated on workstation # [id number]
--- NOTE | 2017-12-09 19:03 | ED Abdominal Pain ---
General Chief Complaint: -Female Stated Complaint: LOWER STOMACH PAIN Nursing Triage Note: PT CO OF LOWER ABD DISCOMFORT STATES PROB HAS UTI. HAS HX OF UTI'S. DISCOMFORT STARTED THIS AM Sepsis Screen: No Definite Risk History of Present Illness Date Seen by Provider: Dec 09, 2017 Time Seen by Provider: 16:45 Initial Comments 82-year-old female presents for suprapubic pain. She reports history of recurrent UTIs. Symptoms began this morning. Timing/Duration: 12 Hours Severity/Quality: Mild Location: Suprapubic Radiation: No Radiation Associated Symptoms: Denies Symptoms Allergies and Home Medications Allergies Coded Allergies: Penicillins (Verified Allergy, Unknown, 11/26/07) cephalexin (Verified Allergy, Unknown, 11/26/07) ciprofloxacin (Verified Allergy, Unknown, 11/26/07) estrogens, conjugated (Verified Allergy, Unknown, 06/17/08) gatifloxacin (Verified Allergy, Unknown, 06/17/08) tetracycline (Verified Allergy, Unknown, 06/17/08) Home Medications Acetaminophen 500 Mg Tablet, 500 MG PO DAILY PRN for PAIN-MILD TO MODERATE, ( Reported) Atorvastatin Calcium 80 Mg Tablet, 80 MG PO HS, (Reported) Cranberry Extract 500 Mg Capsule, 500 MG PO DAILY, (Reported) Diphenoxylate HCl/Atropine 1 Each Tablet, 1 TAB PO TID PRN for LOOSE STOOLS, ( Reported) Donepezil HCl 5 Mg Tablet, 5 MG PO BID, (Reported) L. Acidophilus/Bulgaricus 1 Each Tablet, 1 TAB.CHEW PO AC Prescribed by: ANDREW LEMON on 06/06/17 0930 Levothyroxine Sodium 75 Mcg Tablet, 75 MCG PO DAILY, (Reported) Multivit with Calcium,Iron,Min 1 Each Tablet, 1 TAB PO DAILY, (Reported) Oxybutynin Chloride 5 Mg Tablet, 5 MG PO TID, (Reported) Pantoprazole Sodium 40 Mg Tablet.dr, 40 MG PO BID, (Reported) Quetiapine Fumarate 25 Mg Tablet, 25 MG PO HS, (Reported) Sertraline HCl 100 Mg Tablet, 150 MG PO DAILY, (Reported) TAKES 1 & 1/2 OF A (100 MG) TABLET Spironolactone 25 Mg Tablet, 25 MG PO DAILY, (Reported) Temazepam 15 Mg Capsule, 15 MG PO HS PRN for SLEEP, (Reported) Patient Home Medication List Home Medication List Reviewed: Yes Review of Systems Constitutional: no symptoms reported, see HPI Genitourinary: See HPI, Frequency, Denies Flank Pain, Pain, Urgency All Other Systems Reviewed Negative Unless Noted: Yes Past Bhszujw-Ehplsg-Yvmxvq Hx Patient Social History Alcohol Use: Denies Use Recreational Drug Use: No Smoking Status: Former Smoker Type Used: Cigarettes Former Smoker, Quit: Sep 21, 1992 Recent Foreign Travel: No Contact w/Someone Who Travel: No Recent Infectious Disease Expo: No Recent Hopitalizations: No Immunizations Up To Date Date of Pneumonia Vaccine: Jun 24, 2012 Date of Influenza Vaccine: Jun 10, 2017 Seasonal Allergies Seasonal Allergies: No Surgeries History of Surgeries: Yes (LEFT LEG) Surgeries: Abdominal, Orthopedic Respiratory History of Respiratory Disorde: No Currently Using CPAP: No Currently Using BIPAP: No Cardiovascular History of Cardiac Disorders: No Neurological History of Neurological Disord: No Reproductive System Hx Reproductive Disorders: Yes Sexually Transmitted Disease: No HIV/AIDS: No Female Reproductive Disorders: Denies Genitourinary History of Genitourinary Disor: Yes Genitourinary Disorders: Bladder Infection Gastrointestinal History of Gastrointestinal Di: Yes Gastrointestinal Disorders: Diverticulosis, Chronic Diarrhea, Ulcer Musculoskeletal History of Musculoskeletal Dis: Yes (OSTEOMYLITIS left lower extremity) Endocrine History of Endocrine Disorders: No HEENT History of HEENT Disorders: No Loss of Vision: Denies Hearing Impairment: Hard of Hearing Cancer History of Cancer: No Psychosocial History of Psychiatric Problem: Yes Behavioral Health Disorders: Sleep Difficulties, Anxiety Integumentary History of Skin or Integumenta: No Blood Transfusions History of Blood Disorders: No Reviewed Nursing Assessment Reviewed/Agree w Nursing PMH: Yes Family Medical History Significant Family History: Diabetes, Hypertension Family Medial History: Patient reports no known family medical history. Physical Exam Vital Signs VS - Last 72 Hours, by Label 12/09/17 12/09/17 16:35 19:32 Temp 97.9 Pulse 67 55 Resp 18 18 B/P (MAP) 155/68 (97) 155/83 Pulse Ox 100 97 O2 Delivery Room Air Capillary Refill : Less Than 3 Seconds General Appearance: WD/WN, no apparent distress HEENT: PERRL/EOMI, normal ENT inspection, TMs normal, pharynx normal Neck: non-tender, full range of motion, supple, normal inspection Respiratory: chest non-tender, lungs clear, normal breath sounds Cardiovascular: normal peripheral pulses, regular rate, rhythm Gastrointestinal: normal bowel sounds, soft, distended (Suprapubic), No guarding, No rebound, tenderness (Suprapubic) Back: normal inspection, no CVA tenderness, no vertebral tenderness Neurologic/Psychiatric: no motor/sensory deficits, alert, normal mood/affect, oriented x 3 Skin: normal color, warm/dry Progress/Results/Core Measures Results/Orders Lab Results Laboratory Tests Test 12/09/17 16:45 12/09/17 18:00 Range/Units Urine Color YELLOW Urine Clarity CLEAR Urine pH 7 5-9 Urine Specific Page 1.005 L 1.016-1.022 Urine Protein NEGATIVE NEGATIVE Urine Glucose (UA) NEGATIVE NEGATIVE Urine Ketones NEGATIVE NEGATIVE Urine Nitrite NEGATIVE NEGATIVE Urine Bilirubin NEGATIVE NEGATIVE Urine Urobilinogen NORMAL NORMAL MG/DL Urine Leukocyte Esterase 1+ H NEGATIVE Urine RBC (Auto) NEGATIVE NEGATIVE Urine RBC NONE /HPF Urine WBC 2-5 /HPF Urine Squamous Epithelial Cells 0-2 /HPF Urine Crystals NONE /LPF Urine Bacteria NEGATIVE /HPF Urine Casts NONE /LPF Urine Mucus NEGATIVE /LPF Urine Culture Indicated NO White Blood Count 6.0 4.3-11.0 10^3/uL Red Blood Count 4.07 L 4.35-5.85 10^6/uL Hemoglobin 12.1 11.5-16.0 G/DL Hematocrit 37 35-52 % Mean Corpuscular Volume 90 80-99 FL Mean Corpuscular Hemoglobin 30 25-34 PG Mean Corpuscular Hemoglobin Concent 33 32-36 G/DL Red Cell Distribution Width 13.4 10.0-14.5 % Platelet Count 115 L 130-400 10^3/uL Mean Platelet Volume 11.0 H 7.4-10.4 FL Neutrophils (%) (Auto) 67 42-75 % Lymphocytes (%) (Auto) 20 12-44 % Monocytes (%) (Auto) 10 0-12 % Eosinophils (%) (Auto) 4 0-10 % Basophils (%) (Auto) 1 0-10 % Neutrophils # (Auto) 4.0 1.8-7.8 X 10^3 Lymphocytes # (Auto) 1.2 1.0-4.0 X 10^3 Monocytes # (Auto) 0.6 0.0-1.0 X 10^3 Eosinophils # (Auto) 0.2 0.0-0.3 10^3/uL Basophils # (Auto) 0.0 0.0-0.1 10^3/uL Sodium Level 138 135-145 MMOL/L Potassium Level 3.4 L 3.6-5.0 MMOL/L Chloride Level 104 98-107 MMOL/L Carbon Dioxide Level 28 21-32 MMOL/L Anion Gap 6 5-14 MMOL/L Blood Urea Nitrogen 7 7-18 MG/DL Creatinine 0.71 0.60-1.30 MG/DL Estimat Glomerular Filtration Rate > 60 BUN/Creatinine Ratio 10 Glucose Level 107 H 70-105 MG/DL Calcium Level 9.3 8.5-10.1 MG/DL Total Bilirubin 0.6 0.1-1.0 MG/DL Aspartate Amino Transf (AST/SGOT) 31 5-34 U/L Alanine Aminotransferase (ALT/SGPT) 28 0-55 U/L Alkaline Phosphatase 118 40-136 U/L C-Reactive Protein High Sensitivity 0.02 0.00-0.50 MG/DL Total Protein 5.7 L 6.4-8.2 GM/DL Albumin 3.9 3.2-4.5 GM/DL My Orders Orders - ALICIA LUCAS Ua Culture If Indicated (12/09/17 16:45) Ketorolac Injection (Toradol Injection) (12/09/17 17:28) Cbc With Automated Diff (12/09/17 17:28) Comprehensive Metabolic Panel (12/09/17 17:28) Saline Lock/Iv-Start (12/09/17 17:28) Ct Abdomen/Pelvis Wo (12/09/17 17:28) Hs C Reactive Protein (12/09/17 18:48) Vital Signs/I&O Vital Sign - Last 12Hours 12/09/17 12/09/17 16:35 19:32 Temp 97.9 Pulse 67 55 Resp 18 18 B/P (MAP) 155/68 (97) 155/83 Pulse Ox 100 97 O2 Delivery Room Air Blood Pressure Mean: 97 Progress Note : Time: 16:45 Progress Note Initial evaluation completed, recommended UA and reevaluation. 1700 UA with no indications of UTI. Upon further examination and discussion with the patient she does have a history of diverticulosis. She does report eating cashews yesterday. He will obtain labs and a CT of the abdomen and pelvis. Toradol 30 mg IV for pain. 182 patient reports pain has improved significantly since the Toradol. Results of CT discussed with the patient and her son. Discharge planning and return precautions reviewed. All questions answered. Diagnostic Imaging Diagonstic Imaging: CT Plain Films/CT/US/NM/MRI: abdomen, pelvis Comments NAME: MELANIA GORDON [facility] REC#: [id number] PT STATUS: REG ER : 1935 PHYSICIAN: ALICIA LUCAS ADMIT DATE: 12/09/17/ER Draft Date of Exam:12/09/17 CT ABDOMEN/PELVIS WO PROCEDURE: CT abdomen and pelvis without contrast. TECHNIQUE: Multiple contiguous axial images were obtained through the abdomen and pelvis without the use of intravenous contrast. INDICATION: Lower abdominal pain. COMPARISON: CT abdomen and pelvis with IV contrast, 06/05/2017. FINDINGS: Mild scarring in the lung bases. Cardiomegaly. Moderate diffuse atherosclerotic calcifications including a normal caliber abdominal aorta. The liver, gallbladder, pancreas, spleen, adrenals, left kidney and collecting systems are negative on this noncontrast exam. Low-attenuation presumed renal cyst, measuring up to 2.0 cm, in the right kidney. Sigmoid anastomosis. Small bowel anastomosis in the right abdomen. There is a moderate amount of stool throughout the colon. No evidence of bowel obstruction. No free intraperitoneal air or fluid. Negative appendix. Calcified uterine fibroids. Age appropriate mild spondylotic changes in the visualized spine. No acute osseous findings. IMPRESSION: No acute CT findings in the abdomen or pelvis. Chronic and incidental findings as above. Dictated on workstation # [id number] Dict: 12/09/17 1844 Trans: 12/09/17 1855 [facility] [id number] Interpreted by: DARYL KATHLEEN MD Electronically signed by: Reviewed: Reviewed by Me Departure Impression Impression: Primary Impression: Pain in the abdomen Qualified Codes: R10.30 - Lower abdominal pain, unspecified Disposition: HOME, SELF-CARE Condition: Improved Departure-Patient Inst. Decision time for Depature: 18:45 Referrals: ANDREW LEMON MD (PCP/Family) Primary Care Physician Patient Instructions: Acute Abdomen (Belly Pain), Adult (DC) Add. Discharge Instructions: Alternate Tylenol 650 mg and ibuprofen 600 mg every 4 hours for pain. Diet and Activity as tolerated. Follow-up with your primary care provider in 2-3 days if symptoms aren't improving or worsen. Return to emergency department for painful urination, fever greater than 101, increased abdominal pain, nausea and vomiting, or new problems. All discharge instructions reviewed with patient and/or family. Voiced understanding. Copy Copies To 1: ANDREW LEMON MD, AMY ARNP Dec 09, 2017 19:03
[2017-12-09 19:32] VITALS: BP 155/83
== END 2017-12-09 19:32 | disposition home or self-care (01) ==
LOC: EDUNIT# 16:28 → ER 16:30
DX: R10.30 Lower abdominal pain, unspecified (principal); F41.9 Anxiety disorder, unspecified; G47.9 Sleep disorder, unspecified; Z87.19 Personal history of other diseases of the digestive system; Z87.440 Personal history of urinary (tract) infections; Z87.891 Personal history of nicotine dependence; Z88.0 Allergy status to penicillin; Z88.1 Allergy status to other antibiotic agents; Z88.8 Allergy status to other drugs, medicaments and biological substances
CPT/HCPCS: 36415; 74176; 80053; 81000; 85025; 86141; 96374

== ENCOUNTER → 2018-11-24 | Outpatient (CLI) | payer MEDICARE ==
[~2018-11-24] MED LIST changes: -SPIR25TA3 PO; +SPIR25TA5 PO
[2018-11-24 14:45] LABS: BILIRUBIN,URINE NEGATIVE (NEGATIVE); CLARITY,URINE SLIGHTLY CLOUDY; COLOR,URINE YELLOW; GLUCOSE, URINE (UA) NEGATIVE (NEGATIVE); KETONES,URINE NEGATIVE (NEGATIVE); LEUKOCYTE ESTERASE ,URINE 1+ (NEGATIVE); NITRITE,URINE NEGATIVE (NEGATIVE); PH,URINE 6 (5-9); PROTEIN,URINE NEGATIVE (NEGATIVE); UROBILINOGEN,URINE NORMAL (NORMAL)
[2018-11-24 14:55] LABS: BACTERIA,URINE LARGE /HPF
== END ==
LOC: LAB 14:19
PROVIDERS: ATTEND Family Medicine
DX: R30.0 Dysuria (principal); R35.0 Frequency of micturition
CPT/HCPCS: 81000; 87077; 87088; 87186

== ENCOUNTER → 2018-12-13 | Outpatient (CLI) | payer MEDICARE ==
--- NOTE | 2018-12-13 15:12 | Diagnostic Imaging Report ---
INDICATION: Hip pain x3 days. No known injury. TECHNIQUE: 2 views of the right hip. CORRELATION STUDY: None FINDINGS: Images of the hip demonstrate no evidence for acute fracture. Alignment is anatomic. The femoral head acetabular relationship is unremarkable. The bony trabecular pattern is intact. Rounded calcifications in the pelvis likely of no significance. IMPRESSION: 1. Unremarkable examination of the right hip. Dictated by: Dictated on workstation # [id number]
== END ==
LOC: RAD 14:49
PROVIDERS: ATTEND Nurse Practitioner Family
DX: M25.551 Pain in right hip (principal)
CPT/HCPCS: 73502

== ENCOUNTER 2019-01-14 21:10 | Emergency (ER) | payer MEDICARE ==
[~2019-01-14] VITALS: Ht 167.6 cm; Wt 61.2 kg
--- NOTE | 2019-01-14 22:00 | ED Fall/Injury ---
General Chief Complaint: Trauma-Non Activation Stated Complaint: FALL Nursing Triage Note: PT STATES SHE TRIPPED ON HER OWN FEET IN A CONCRETE PARKING LOT WHILE WALKING HER DOG. STATES SHE STRUCK HER RIGHT ELBOW AND KNEE, ALSO STRUCK HER HEAD, DENIES LOC OR USE OF BLOOD THINNERS. Source: patient History of Present Illness Date Seen by Provider: January 14, 2019 Time Seen by Provider: 21:30 Initial Comments PT ARRIVES VIA POV WITH STAFF FROM [facility] PT STATES SHE WAS WALKING HER DOG AND FELL IN THE PARKING LOT OF [facility] STATES SHE WAS NOT ABLE TO GET UP, AND STAFF HELPED HER UP OCCURRED AROUND 2014 TONIGHT STATES "I REALLY DON'T HURT ANYWHERE" --YET STATES HER RIGHT ELBOW IS SORE, HER RIGHT KNEE IS SORE, AND HER RIGHT RIBS AND SIDE ARE SORE. ALSO HIT HER HEAD AND TOP OF HEAD IS SORE. DENIES LOSS OF CONSCIOUSNESS DENIES NECK OR BACK PAIN NO PARESTHESIAS OR MOTOR DEFICITS NO VISION CHANGES NO NAUSEA/VOMITING NO SHORTNESS OF BREATH NO DIZZINESS AT THIS TIME, BUT STATES THAT SHE HAS BEEN HAVING SOME PROBLEMS WITH DIZZINESS "FOR AWHILE" STATES SHE DOES NOT TAKE BLOOD THINNERS PCP: DR. LEMON Allergies and Home Medications Allergies Coded Allergies: Penicillins (Verified Allergy, Unknown, 11/26/07) cephalexin (Verified Allergy, Unknown, 11/26/07) ciprofloxacin (Verified Allergy, Unknown, 11/26/07) estrogens, conjugated (Verified Allergy, Unknown, 06/17/08) gatifloxacin (Verified Allergy, Unknown, 06/17/08) tetracycline (Verified Allergy, Unknown, 06/17/08) Home Medications Acetaminophen 500 Mg Tablet, 500 MG PO DAILY PRN for PAIN-MILD TO MODERATE, ( Reported) Atorvastatin Calcium 80 Mg Tablet, 80 MG PO HS, (Reported) Cranberry Extract 500 Mg Capsule, 500 MG PO DAILY, (Reported) Diphenoxylate HCl/Atropine 1 Each Tablet, 1 TAB PO TID PRN for LOOSE STOOLS, ( Reported) Donepezil HCl 5 Mg Tablet, 5 MG PO BID, (Reported) L. Acidophilus/Bulgaricus 1 Each Tablet, 1 TAB.CHEW PO AC Prescribed by: ANDREW LEMON on 06/06/17 0930 Levothyroxine Sodium 75 Mcg Tablet, 75 MCG PO DAILY, (Reported) Multivit with Calcium,Iron,Min 1 Each Tablet, 1 TAB PO DAILY, (Reported) Oxybutynin Chloride 5 Mg Tablet, 5 MG PO TID, (Reported) Pantoprazole Sodium 40 Mg Tablet.dr, 40 MG PO BID, (Reported) Quetiapine Fumarate 25 Mg Tablet, 25 MG PO HS, (Reported) Sertraline HCl 100 Mg Tablet, 150 MG PO DAILY, (Reported) TAKES 1 & 1/2 OF A (100 MG) TABLET Spironolactone 25 Mg Tablet, 25 MG PO DAILY, (Reported) Temazepam 15 Mg Capsule, 15 MG PO HS PRN for SLEEP, (Reported) Patient Home Medication List Home Medication List Reviewed: Yes Review of Systems Review of Systems Constitutional: no symptoms reported Eyes: No Symptoms Reported Ears, Nose, Mouth, Throat: no symptoms reported Respiratory: no symptoms reported Cardiovascular: no symptoms reported Gastrointestinal: no symptoms reported Genitourinary: no symptoms reported Musculoskeletal: see HPI; No back pain, No neck pain Skin: no symptoms reported Psychiatric/Neurological: See HPI (ONGOING DIZZINESS, NOT PRESENT NOW); Denies Headache, Denies Numbness, Denies Paresthesia, Denies Seizure, Denies Tingling, Denies Tremors, Denies Weakness Past Iejdmtn-Phbbct-Qnfghm Hx Patient Social History Alcohol Use: Denies Use Recreational Drug Use: No Smoking Status: Former Smoker Type Used: Cigarettes Former Smoker, Quit: Sep 21, 1992 Recent Foreign Travel: No Contact w/Someone Who Travel: No Recent Infectious Disease Expo: No Recent Hopitalizations: No Immunizations Up To Date Date of Pneumonia Vaccine: Jun 24, 2012 Date of Influenza Vaccine: Jun 10, 2017 Seasonal Allergies Seasonal Allergies: No Past Medical History Surgeries: Yes (RIGHT KNEE REPLACEMENT; 7 SURGERIES ON LEFT FEMUR--LAST ONE WAS 2005 AND HAD A JEN PLACED--HAD OSTEOMYELITIS IN LEFT FEMUR INFANT AND HAD MULTIPLE SURGERIES TO LEFT FEMUR, AND HAD SURGERIES TO BILATERAL SHOULDERS FOR OSTEOMYELITIS THAT SPREAD FROM FEMUR; ) Abdominal, Joint Replacement, Orthopedic Respiratory: No Currently Using CPAP: No Currently Using BIPAP: No Cardiac: Yes High Cholesterol, Hypertension Neurological: Yes Vertigo : No Reproductive Disorders: Yes Female Reproductive Disorders: Denies 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 TESTER History: Menopausal Sexually Transmitted Disease: No HIV/AIDS: No Genitourinary: Yes Bladder Infection Gastrointestinal: Yes Diverticulosis, Chronic Diarrhea, Ulcer Musculoskeletal: Yes (OSTEOMYELITIS LEFT FEMUR AT AGE 1--MULTIPLE FRACTURES AND SURGERIES SINCE CHILDHOOD, LAST SURGERY WAS 2006 AND HAD A JEN PLACED; RIGHT KNEE REPLACEMENT; MARKED KYPHOSIS) Osteoporosis, Arthritis, Fractures Endocrine: No HEENT: Yes Loss of Vision: Denies Hearing Impairment: Hard of Hearing Cancer: No Psychosocial: Yes Sleep Difficulties, Anxiety Integumentary: No Blood Disorders: No Family Medical History Patient reports no known family medical history. Diabetes, Hypertension Physical Exam Vital Signs Vital Signs - First Documented 01/14/19 21:20 Temp 97.9 Pulse 99 Resp 20 B/P (MAP) 108/74 (85) Pulse Ox 99 O2 Delivery Room Air Capillary Refill : Less Than 3 Seconds Height, Weight, BMI Height: 5'6.00" Weight: 135lbs. 0.0oz. 61.792266hp; 20.0 BMI Method:Stated General Appearance: WD/WN, no apparent distress, other (SMILING, VERY TALKATIVE , DOES NOT APPEAR TO BE IN ANY DISCOMFORT OR DISTRESS) HEENT: PERRL/EOMI, normal ENT inspection, TMs normal, pharynx normal, other ( TENDERNESS TO TOP OF HEAD, BUT NO EXTERNAL EVIDENCE OF TRAUMA) Neck: non-tender, full range of motion, supple, normal inspection Cardiovascular: normal peripheral pulses, regular rate, rhythm, no edema, no JVD, no murmur Respiratory: normal breath sounds, no respiratory distress, no accessory muscle use, other (RIGHT RIB TENDERNESS) Gastrointestinal: normal bowel sounds, soft, no organomegaly, no pulsatile mass ; No distended, No guarding, No rebound; tenderness (RIGHT FLANK, AND RIGHT ABDOMINAL TENDERNESS) Back: no vertebral tenderness, CVA tenderness (R), other (MARKED KYPHOSIS) Extremities: normal range of motion, no pedal edema, no calf tenderness, normal capillary refill, other (NO EXTERNAL EVIDENCE OF TRAUMA, BUT HAS TENDERNESS TO RIGHT ELBOW AND RIGHT KNEE; POST SURGICAL CHANGES TO LEFT THIGH) 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, no motor/sensory deficits, alert, normal mood/affect, oriented x 3 Skin: normal color, warm/dry; No ecchymosis; other (NO EXTERNAL EVIDENCE OF TRAUMA ANYWHERE ON BODY) Sanjeev Coma Score Best Eye Response: (4) Open Spontaneously Best Verbal Response: (5) Oriented Best Motor Response: (6) Obeys Commands [place] Total: 15 Progress/Results/Core Measures Results/Orders Lab Results Laboratory Tests Test 5/6/19 21:50 01/14/19 22:58 Range/Units White Blood Count 5.6 4.3-11.0 10^3/uL Red Blood Count 4.23 L 4.35-5.85 10^6/uL Hemoglobin 12.0 11.5-16.0 G/DL Hematocrit 37 35-52 % Mean Corpuscular Volume 87 80-99 FL Mean Corpuscular Hemoglobin 28 25-34 PG Mean Corpuscular Hemoglobin Concent 33 32-36 G/DL Red Cell Distribution Width 14.0 10.0-14.5 % Platelet Count 136 130-400 10^3/uL Mean Platelet Volume 11.4 H 7.4-10.4 FL Neutrophils (%) (Auto) 62 42-75 % Lymphocytes (%) (Auto) 25 12-44 % Monocytes (%) (Auto) 10 0-12 % Eosinophils (%) (Auto) 3 0-10 % Basophils (%) (Auto) 1 0-10 % Neutrophils # (Auto) 3.5 1.8-7.8 X 10^3 Lymphocytes # (Auto) 1.4 1.0-4.0 X 10^3 Monocytes # (Auto) 0.6 0.0-1.0 X 10^3 Eosinophils # (Auto) 0.2 0.0-0.3 10^3/uL Basophils # (Auto) 0.1 0.0-0.1 10^3/uL Prothrombin Time 13.5 12.2-14.7 SEC INR Comment 1.0 0.8-1.4 Activated Partial Thromboplast Time 29 24-35 SEC Sodium Level 136 135-145 MMOL/L Potassium Level 2.8 L 3.6-5.0 MMOL/L Chloride Level 104 98-107 MMOL/L Carbon Dioxide Level 20 L 21-32 MMOL/L Anion Gap 12 5-14 MMOL/L Blood Urea Nitrogen 10 7-18 MG/DL Creatinine 1.04 0.60-1.30 MG/DL Estimat Glomerular Filtration Rate 51 BUN/Creatinine Ratio 10 Glucose Level 110 H 70-105 MG/DL Calcium Level 9.3 8.5-10.1 MG/DL Corrected Calcium 9.2 8.5-10.1 MG/DL Magnesium Level 2.2 1.8-2.4 MG/DL Total Bilirubin 0.7 0.1-1.0 MG/DL Aspartate Amino Transf (AST/SGOT) 22 5-34 U/L Alanine Aminotransferase (ALT/SGPT) 18 0-55 U/L Alkaline Phosphatase 114 40-136 U/L Total Protein 6.7 6.4-8.2 GM/DL Albumin 4.1 3.2-4.5 GM/DL Amylase Level 34 25-125 U/L Lipase 43 8-78 U/L Urine Color YELLOW Urine Clarity CLEAR Urine pH 7 5-9 Urine Specific [place] 1.005 L 1.016-1.022 Urine Protein NEGATIVE NEGATIVE Urine Glucose (UA) NEGATIVE NEGATIVE Urine Ketones NEGATIVE NEGATIVE Urine Nitrite NEGATIVE NEGATIVE Urine Bilirubin NEGATIVE NEGATIVE Urine Urobilinogen NORMAL NORMAL MG/DL Urine Leukocyte Esterase 2+ H NEGATIVE Urine RBC (Auto) NEGATIVE NEGATIVE Urine RBC NONE /HPF Urine WBC RARE /HPF Urine Squamous Epithelial Cells 2-5 /HPF Urine Crystals NONE /LPF Urine Bacteria NEGATIVE /HPF Urine Casts NONE /LPF Urine Mucus NEGATIVE /LPF Urine Culture Indicated NO My Orders Orders - DEMOND BABCOCK DO Ed Iv/Invasive Line Start (01/14/19 21:44) Monitor-Rhythm Ecg Trace Only (01/14/19 21:44) I-Stat Bedside Testing (01/14/19 21:44) Ct Head/Cervical Spine Wo (01/14/19 21:44) Chest 1 View, Ap/Pa Only (01/14/19 21:44) Elbow, Right, 3 Views (01/14/19 21:44) Knee, Right, 3 Views (01/14/19 21:44) Pelvis (01/14/19 21:44) Amylase (01/14/19 21:44) Cbc With Automated Diff (01/14/19 21:44) Comprehensive Metabolic Panel (01/14/19 21:44) Lipase (01/14/19 21:44) Magnesium (01/14/19 21:44) Protime With Inr (01/14/19 21:44) Partial Thromboplastin Time (01/14/19 21:44) Ua Culture If Indicated (01/14/19 21:44) Ct Chest/Abdomen/Pelvis W (01/14/19 21:44) Iohexol Injection (Omnipaque 350 Mg/Ml 1 (01/14/19 22:30) Received Contrast (Hold Metformin- Contr (01/14/19 22:30) Potassium Chloride (Tablet) (Klor Con Ta (01/15/19 00:15) Potassium Chloride (Tablet) (K Dur Table (01/15/19 00:10) Medications Given in ED Current Medications Medications Dose Ordered Sig/Demarco Route Start Time Stop Time Status Last Admin Dose Admin Iohexol 100 ml ONCE ONCE IV 01/14/19 22:30 01/14/19 22:31 DC 01/14/19 22:26 100 ML Potassium Chloride 40 meq ONCE ONCE PO 01/15/19 00:15 01/15/19 00:16 DC 01/15/19 00:15 40 MEQ Vital Signs/I&O 01/14/19 01/15/19 21:20 00:09 Temp 97.9 97.9 Pulse 99 82 Resp 20 20 B/P (MAP) 108/74 (85) 128/99 (109) Pulse Ox 99 99 O2 Delivery Room Air Room Air Blood Pressure Mean: 85 Progress Progress Note : Progress Note UNEVENTFUL ER STAY PT HAD NO COMPLAINTS DURING ER STAY ON REVIEW OF CT RESULTS OF COMPRESSION FX, PT DENIES ANY BACK PAIN. PT DENIES ANY HISTORY OF COMPRESSION FRACTURES PT AMBULATES WITHOUT DIFFICULTY Diagnostic Imaging Comments XRAYS: CXR--NO ACUTE PROCESS PELVIS --NO ACUTE PROCESS RIGHT ELBOW--NO ACUTE PROCESS RIGHT HIP--NO ACUTE PROCESS ALL PENDING RADIOLOGIST REVIEW CT HEAD/CERVICAL SPINE--NO ACUTE PROCESS, CHRONIC APPEARING CHANGES--PER [facility] VIA FAX @ [id number] CT CHEST/ABDOMEN/PELVIS--T9 COMPRESSION FRACTURE, OTHERWISE NO ACUTE PROCESS-- PER [facility] VIA FAX @ [id number] Reviewed: Reviewed by Me Departure Impression Primary Impression: Status post fall Additional Impressions: Minor head injury without loss of consciousness Compression fracture of T9 vertebra Contusion of right knee RIGHT CHEST AND ABDOMEN CONTUSION Contusion of right elbow Disposition: 01 HOME, SELF-CARE Condition: Stable Departure-Patient Inst. Referrals: ANDREW LEMON MD (PCP/Family) Primary Care Physician Patient Instructions: Contusion (DC), Minor Head Injury (DC), Preventing Falls in the Older Adult, Vertebral Compression Fracture (DC) Add. Discharge Instructions: CONTINUE YOUR REGULAR MEDICATIONS PRESCRIBED FOLLOW UP WITH DR. LEMON THIS WEEK FOR FURTHER CARE TYLENOL NEEDED FOR PAIN All discharge instructions reviewed with patient and/or family. Voiced understanding. Images Full Body/Extremities Full Progress SEE ADDITIONAL PAPER DIAGRAMS FOR IMAGES DEMOND BABCOCK DO January 14, 2019 22:00
[2019-01-14 22:05] LABS: BASOPHILS # (AUTO) 0.1 10^3/uL (0.0-0.1); BASOPHILS % (AUTO) 1 % (0-10); EOSINOPHILS # (AUTO) 0.2 10^3/uL (0.0-0.3); EOSINOPHILS % (AUTO) 3 % (0-10); HEMATOCRIT 37 % (35-52); LYMPHOCYTES # (AUTO) 1.4 X 10^3 (1.0-4.0); LYMPHOCYTES % (AUTO) 25 % (12-44); MEAN CORPUSCULAR HEMOGLOBIN 28 PG (25-34); MEAN CORPUSCULAR HGB CONC 33 G/DL (32-36); MEAN CORPUSCULAR VOLUME 87 FL (80-99); MEAN PLATELET VOLUME 11.4 FL (7.4-10.4); MONOCYTES # (AUTO) 0.6 X 10^3 (0.0-1.0); MONOCYTES % (AUTO) 10 % (0-12); NEUTROPHILS # (AUTO) 3.5 X 10^3 (1.8-7.8); NEUTROPHILS % (AUTO) 62 % (42-75); PLATELET COUNT 136 10^3/uL (130-400); WHITE BLOOD COUNT 5.6 10^3/uL (4.3-11.0)
[2019-01-14 22:16] LABS: PROTHROMBIN TIME PATIENT 13.5 SEC (12.2-14.7)
[2019-01-14 22:25] LABS: ALBUMIN 4.1 GM/DL (3.2-4.5); BILIRUBIN,TOTAL 0.7 MG/DL (0.1-1.0); CALCIUM 9.3 MG/DL (8.5-10.1); CREATININE SERUM 1.04 MG/DL (0.60-1.30); MAGNESIUM 2.2 MG/DL (1.8-2.4); POTASSIUM 2.8 MMOL/L (3.6-5.0); TOTAL PROTEIN 6.7 GM/DL (6.4-8.2)
[2019-01-14] MEDS ORDERED: IOHEXOL 350 MG/ML 100 ML (OMNIPAQUE 350) VIAL IV ONE (22:30)
[2019-01-14] MEDS ORDERED: HOLD METFORMIN - RECEIVED CONTRAST 20 ML VIAL IV SCH (22:30)
[2019-01-14 23:52] LABS: BILIRUBIN,URINE NEGATIVE (NEGATIVE); CLARITY,URINE CLEAR; COLOR,URINE YELLOW; GLUCOSE, URINE (UA) NEGATIVE (NEGATIVE); KETONES,URINE NEGATIVE (NEGATIVE); LEUKOCYTE ESTERASE ,URINE 2+ (NEGATIVE); NITRITE,URINE NEGATIVE (NEGATIVE); PH,URINE 7 (5-9); PROTEIN,URINE NEGATIVE (NEGATIVE); UROBILINOGEN,URINE NORMAL (NORMAL)
[2019-01-15 00:03] LABS: BACTERIA,URINE NEGATIVE /HPF; WBC,URINE RARE /HPF
[2019-01-15 00:09] VITALS: BP 128/99
[2019-01-15] MEDS ORDERED: KCL 20 MEQ TAB (K-DUR) PO ONE (00:10)
[2019-01-15] MEDS ORDERED: KCL 10 MEQ TAB (MICRO K) PO ONE (00:15)
--- NOTE | 2019-01-15 06:36 | Diagnostic Imaging Report ---
EXAMINATION: Chest radiograph, portable AP view. DATE: January 14, 2019 at 2200 hours. INDICATION: 83-year-old female, fall. Right-sided rib pain. COMPARISON: September 21, 2016. FINDINGS: Stable overall appearance of the cardiomediastinal silhouette. There is no identified pneumothorax. There is no large pleural effusion. There is no identified focal airspace consolidation. There is no identified significantly displaced rib fracture. IMPRESSION: 1. No radiographically apparent significantly displaced rib fracture. 2. No identified acute cardiopulmonary abnormality. Dictated by: Dictated on workstation # [id number]
--- NOTE | 2019-01-15 07:04 | Diagnostic Imaging Report ---
EXAMINATION: Pelvis, single view. COMPARISON: December 13, 2018 right hip radiographs. HISTORY: 83-year-old female, fall. Pelvic pain. FINDINGS: There is incompletely imaged hardware in the left proximal femur. The hips are not obviously dislocated. There is fiwi-sh-kbbwklxh medial joint space loss of both hips without prominent osteophyte formation. There are vascular calcifications. The pubic symphysis and sacroiliac joints are normally aligned. There are sutures in the left side of the pelvis. There are degenerative changes lower lumbar spine. There is no identified acute fracture. IMPRESSION: 1. No identified acute bony abnormality at the level of the pelvis or either hip. Dictated by: Dictated on workstation # [id number]
--- NOTE | 2019-01-15 07:07 | Diagnostic Imaging Report ---
EXAMINATION: Right knee radiographs, 3 views. COMPARISON: None. HISTORY: 83-year-old female, fall. Right knee pain. 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 The hardware is intact. There is no periprosthetic lucency. There is no identified acute fracture. There are vascular calcifications. IMPRESSION: 1. Intact right total knee prosthesis without apparent complication. 2. No otherwise identified acute bony abnormality at the level of the right knee. Dictated by: Dictated on workstation # [id number]
--- NOTE | 2019-01-15 07:09 | Diagnostic Imaging Report ---
EXAMINATION: Right elbow radiographs, 3 views. COMPARISON: None. HISTORY: 83-year-old female, fall. Right elbow pain. FINDINGS: There is no definite large elbow joint effusion. The elbow is not dislocated. There is no identified acute fracture. There is no radiopaque foreign body. There is no prominent focal soft tissue swelling. IMPRESSION: No identified acute bony abnormality of the right elbow. Dictated by: Dictated on workstation # [id number]
--- NOTE | 2019-01-15 07:16 | Diagnostic Imaging Report ---
PROCEDURE: CT head and CT cervical spine without contrast. TECHNIQUE: Multiple contiguous axial images were obtained through the brain and cervical spine without the use of intravenous contrast. Sagittal and coronal reformations through the cervical spine were then performed. Auto Exposure Controls were utilized during the CT exam to meet ALARA standards for radiation dose reduction. DATE: January 14, 2019. COMPARISON: CT head March 02, 2017. CT head and neck in June 10, 2010. INDICATION: 83-year-old female, fall. Hit head. Head and neck pain. FINDINGS: There is mild proportional prominence of the ventricles and CSF spaces compatible with mild cerebral volume loss. There is no mass effect or midline shift. There is no acute intracranial hemorrhage. There is no abnormal extra-axial fluid collection. The visualized portions of the paranasal sinuses, mastoid air cells and middle ears are well aerated. There are significant limitations of the coronal and sagittal reformats for evaluation of the cervical spine. This is technically related. There is no identified facet joint subluxation or dislocation. There are multilevel facet degenerative changes of the cervical spine. There is no asymmetric widening of the cervical disc spaces. There is no prevertebral soft tissue swelling. There are degenerative changes at the C1-C2 articulation. There is a well-corticated ossification adjacent to the tip of the dens compatible with a chronic long-standing etiology. There are multilevel mild disc degenerative changes of the cervical spine. CT is limited for assessment of disc pathology as well as additional non-bony causes of foraminal and spinal stenosis. There is no identified acute fracture of the cervical spine. The visualized portions of the lung apices are clear. There are changes of emphysema. There are carotid vascular calcifications. IMPRESSION: 1. No identified acute intracranial abnormality. 2. Mild cerebral volume loss. 3. No identified acute posttraumatic abnormality of the cervical spine. 4. Multilevel disc and facet degenerative changes of the cervical spine. Dictated by: Dictated on workstation # [id number]
--- NOTE | 2019-01-15 09:53 | Diagnostic Imaging Report ---
PROCEDURE: CT chest, abdomen, and pelvis with contrast. TECHNIQUE: Multiple contiguous axial images were obtained through the chest, abdomen, and pelvis after the administration of intravenous contrast. Auto Exposure Controls were utilized during the CT exam to meet ALARA standards for radiation dose reduction. DATE: January 14, 2019. COMPARISON: Chest and pelvic radiographs January 14, 2019. CT abdomen and pelvis December 09, 2017. INDICATION: 83-year-old female, fall. Right-sided rib and abdominal pain. FINDINGS: There are upper lobe predominant changes of emphysema. There is very mild bronchiectasis in the right lower lobe and left lower lobe. There are mild linear opacities in the right lower lobe and left lower lobe that likely relate to very mild scarring and/or atelectasis. There is also mild dependent atelectasis in the lung bases. There is no additional identified focal airspace consolidation. There is no identified pulmonary nodule or lung mass. There is no pneumothorax or pleural effusion. The central airways are patent. There is no identified pulmonary embolus. The main pulmonary artery is normal in caliber. The heart is not enlarged. There are coronary artery calcifications and additional areas of atherosclerotic disease. There is no pericardial effusion. There is no identified abnormally enlarged mediastinal, hilar, or axillary lymph node which meets CT size criteria for adenopathy. The liver is normal in size and contour. There is no identified liver lesion. The main, right, and left portal veins are patent. The gallbladder is contracted. There is mild gallbladder wall thickening which could relate to gallbladder contraction. There is no CT apparent gallstones or imaging findings to suggest acute cholecystitis. There is no biliary ductal dilation. The main pancreatic duct is unremarkable in caliber. Unremarkable appearance of the pancreatic parenchyma. The spleen is normal in size. The adrenal glands are unremarkable. There is a low-attenuation right renal lesion on axial image 57 measuring 1.9 cm in size with internal attenuation diagnostic for a benign right renal cyst. The urinary collecting systems are not distended. There is no identified renal or ureteral stone. The urinary bladder is unremarkable in appearance. There is a calcified intrauterine lesion likely relating to a degenerating uterine leiomyoma which measures up to maximally 1.1 cm in size. There are sutures at the level of the mid to distal sigmoid colon. There does appear to be mild bowel wall thickening and mucosal enhancement at the level of the hepatic flexure. There are sutures at the level of the cecum. There is no free intraperitoneal air. There is no drainable fluid collection. There is no free pelvic fluid. There is a masslike outpouching adjacent to the left common femoral vein on axial image 105 which measures 2.8 x 1.7 cm in size. This is present dating back to at least December 19, 2016. At that time the area previously measured 3.5 x 2.4 cm in size. This lesion has decreased in size over time. There is no identified abnormally enlarged lymph nodes specifically in the abdomen or pelvis. There is partially visualized hardware in the left proximal femur. There are degenerative changes of the spine. There is a fracture of the T9 vertebral body with complete vertebral body height loss centrally. There is retropulsion of the posterior aspect of T9 beyond the expected posterior vertebral body margin by approximately 2 mm. There is no identified fracture extension to involve the posterior elements. There is focal kyphosis at this level. There are visible fracture lines. This is unchanged since September 21, 2016 at chest radiographs. There is no identified acute fracture. IMPRESSION: CT CHEST, ABDOMEN AND PELVIS. 1. No identified acute fracture. 2. Stable T9 compression deformity with complete vertebral body height loss and focal kyphosis at this level. 3. No identified acute abnormality within the chest, abdomen, or pelvis. 4. Interval decrease in size of a low-attenuation mass adjacent to the left common femoral vein. This potentially could relate to a fluid collection. Dictated by: Dictated on workstation # [id number]
== END 2019-01-15 00:11 | disposition home or self-care (01) ==
LOC: EDUNIT# 21:10 → ER 21:13
DX: S09.90XA Unspecified injury of head, initial encounter (principal); S22.070A Wedge compression fracture of T9-T10 vertebra, initial encounter for closed fracture; S80.01XA Contusion of right knee, initial encounter; S20.211A Contusion of right front wall of thorax, initial encounter; S50.01XA Contusion of right elbow, initial encounter; S30.1XXA Contusion of abdominal wall, initial encounter; E78.00 Pure hypercholesterolemia, unspecified; I10 Essential (primary) hypertension; M81.0 Age-related osteoporosis without current pathological fracture; F41.9 Anxiety disorder, unspecified; R40.2142 Coma scale, eyes open, spontaneous, at arrival to emergency department; R40.2252 Coma scale, best verbal response, oriented, at arrival to emergency department; R40.2362 Coma scale, best motor response, obeys commands, at arrival to emergency department; Z87.19 Personal history of other diseases of the digestive system; Z87.448 Personal history of other diseases of urinary system; Z88.0 Allergy status to penicillin; Z88.1 Allergy status to other antibiotic agents; Z88.8 Allergy status to other drugs, medicaments and biological substances; Z87.891 Personal history of nicotine dependence; Z96.651 Presence of right artificial knee joint; Z98.890 Other specified postprocedural states; W01.198A Fall on same level from slipping, tripping and stumbling with subsequent striking against other object, initial encounter; Y92.481 Parking lot as the place of occurrence of the external cause
CPT/HCPCS: 36415; 70450; 71045; 71260; 72125; 72170; 73080; 73562; 74177; 80053; 81000; 82150; 83690; 83735; 85025; 85610; 85730; 93041

== ENCOUNTER → 2019-06-07 | Outpatient (CLI) | payer MEDICARE, MEDICAID ==
--- NOTE | 2019-06-07 12:19 | Diagnostic Imaging Report ---
PROCEDURE: US left lower extremity venous. TECHNIQUE: Multiple real-time grayscale images were obtained over the left lower extremity in various projections. Additional duplex Doppler and color Doppler images were also obtained. INDICATION: Left knee pain. FINDINGS: There is no evidence of a left lower extremity DVT. Left lower extremity deep venous system shows normal compressibility with normal response to augmentation and Valsalva. No fluid collection or mass is seen. IMPRESSION: No evidence of left lower extremity DVT. Dictated by: Dictated on workstation # [id number]
== END ==
LOC: RAD 10:31
PROVIDERS: ATTEND Nurse Practitioner Family
DX: R60.0 Localized edema (principal); M25.562 Pain in left knee

== ENCOUNTER 2020-10-02 10:00 | Emergency (ER) | payer MEDICARE, MEDICAID ==
[~2020-10-02] VITALS: Ht 165 cm; Wt 64.0 kg
[~2020-10-02 10:00] MED LIST changes: +OXYB5TAB13 PO; -PANT40TA3 PO; +PANT40TA52 PO
[2020-10-02 11:10] LABS: BILIRUBIN,URINE NEGATIVE (NEGATIVE); CLARITY,URINE CLOUDY; COLOR,URINE YELLOW; GLUCOSE, URINE (UA) NEGATIVE (NEGATIVE); KETONES,URINE NEGATIVE (NEGATIVE); LEUKOCYTE ESTERASE ,URINE 3+ (NEGATIVE); NITRITE,URINE POSITIVE (NEGATIVE); PROTEIN,URINE NEGATIVE (NEGATIVE)
--- NOTE | 2020-10-02 11:11 | NUR ---
C-COLLAR ON BY DR MENDOZA
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
[2020-10-02 11:26] LABS: BACTERIA,URINE MODERATE /HPF; RBC,URINE RARE /HPF; WBC,URINE TNTC /HPF
--- NOTE | 2020-10-02 11:51 | Diagnostic Imaging Report ---
PROCEDURE: CT head and CT cervical spine without contrast. TECHNIQUE: Multiple contiguous axial images were obtained through the brain and cervical spine without the use of intravenous contrast. Sagittal and coronal reformations through the cervical spine were then performed. Auto Exposure Controls were utilized during the CT exam to meet ALARA standards for radiation dose reduction. INDICATION: Trauma, fall. Left scalp hematoma. COMPARISON: CT head and cervical spine from 01/14/2019. FINDINGS: Head: No intracranial hyperdense hemorrhage or space-occupying mass. No hydrocephalus or midline shift. Global atrophy is present with periventricular white matter hypoattenuation is similar to prior examination. No acute skull fracture. There is a large subcutaneous hematoma in the left high frontal scalp. Paranasal sinuses and mastoid air cells are clear. Cervical spine: No acute fracture or traumatic malalignment in the cervical spine. No high-grade spinal stenosis. Diffuse osseous demineralization raises possibility of osteopenia/osteoporosis. Atherosclerotic plaquing within the carotid bulbs. Apical subpleural scarring within the lungs. Severe emphysema. IMPRESSION: 1. No acute intracranial hemorrhage or skull fracture. Large left frontal scalp hematoma. 2. No acute fracture or traumatic malalignment in the cervical spine. Dictated by: Dictated on workstation # [id number]
--- NOTE | 2020-10-02 11:58 | Diagnostic Imaging Report ---
INDICATION: Fall with pelvis and hip pain. TIME OF EXAM: 11:43 a.m. EXAMINATION: AP view of the pelvis and two views of the left hip were obtained. FINDINGS: Intramedullary lisbet transfixes proximal left femur. Femoroacetabular alignment is normal bilaterally. Both femoral heads and necks are intact. Rami are intact. SI joints and symphysis are not widened. No fractures are seen. IMPRESSION: No acute bony abnormality is detected. Dictated by: Dictated on workstation # [id number]
[2020-10-02 12:23] VITALS: BP 135/70
[2020-10-02] MEDS ORDERED: SULF1TAB35 PO (12:27)
== END 2020-10-02 13:59 | disposition home or self-care (01) ==
LOC: EDUNIT# 10:10 → ER 10:12
DX: S00.03XA Contusion of scalp, initial encounter (principal); N39.0 Urinary tract infection, site not specified; M25.552 Pain in left hip; E78.00 Pure hypercholesterolemia, unspecified; F41.9 Anxiety disorder, unspecified; Z87.891 Personal history of nicotine dependence; Z82.49 Family history of ischemic heart disease and other diseases of the circulatory system; Z83.3 Family history of diabetes mellitus; Z88.0 Allergy status to penicillin; Z88.1 Allergy status to other antibiotic agents; Z88.8 Allergy status to other drugs, medicaments and biological substances; W22.8XXA Striking against or struck by other objects, initial encounter
CPT/HCPCS: 70450; 72125; 81000; 87077; 87088; 87186

== ENCOUNTER 2020-10-25 07:26 | Emergency (ER) | payer MEDICARE, MEDICAID ==
[~2020-10-25] VITALS: Ht 162 cm; Wt 54.0 kg
[~2020-10-25 07:26] MED LIST changes: +QUET25TA34 PO; -QUET25TA73 PO; +SERT-414 PO; -SERT100T8 PO
[2020-10-25] MEDS ORDERED: NS IV 1000 ML 1,000 ML ONE (07:34)
[2020-10-25 07:45] LABS: BASOPHILS # (AUTO) 0.1 10^3/uL (0.0-0.1); BASOPHILS % (AUTO) 1 % (0-10); EOSINOPHILS # (AUTO) 0.1 10^3/uL (0.0-0.3); EOSINOPHILS % (AUTO) 1 % (0-10); HEMATOCRIT 38 % (35-52); HEMOGLOBIN 12.2 g/dL (11.5-16.0); LYMPHOCYTES # (AUTO) 0.8 10^3/uL (1.0-4.0); LYMPHOCYTES % (AUTO) 11 % (12-44); MEAN CORPUSCULAR HEMOGLOBIN 29 pg (25-34); MEAN CORPUSCULAR HGB CONC 32 g/dL (32-36); MEAN CORPUSCULAR VOLUME 91 fL (80-99); MEAN PLATELET VOLUME 10.9 fL (9.0-12.2); MONOCYTES # (AUTO) 0.6 10^3/uL (0.0-1.0); MONOCYTES % (AUTO) 9 % (0-12); NEUTROPHILS # (AUTO) 5.3 10^3/uL (1.8-7.8); NEUTROPHILS % (AUTO) 78 % (42-75); PLATELET COUNT 190 10^3/uL (130-400); WHITE BLOOD COUNT 6.8 10^3/uL (4.3-11.0)
[2020-10-25] MEDS ORDERED: NS IV 1000 ML 1,000 ML IV SCH (07:45)
[2020-10-25 07:55] LABS: ALBUMIN 3.9 GM/DL (3.2-4.5); CHLORIDE 99 MMOL/L (98-107); POTASSIUM 4.3 MMOL/L (3.6-5.0); SODIUM 136 MMOL/L (135-145)
[2020-10-25 07:56] LABS: CALCIUM 8.9 MG/DL (8.5-10.1)
--- NOTE | 2020-10-25 07:56 | ED Fall/Injury ---
General Chief Complaint: Trauma-Non Activation Stated Complaint: FALL Nursing Triage Note: PT ARRIVED PER EMS FROM [facility], PT WAS FOUND ON FLOOR THIS AM. DENIES LOC, PT IS ALERT. PT DENIES PAIN OR INJURY FROM FALL. Source: patient, EMS, caregiver Exam Limitations: no limitations History of Present Illness Date Seen by Provider: Oct 25, 2020 Time Seen by Provider: 07:27 Initial Comments This pleasant 85-year-old woman presents to the emergency room via EMS after being found on the floor in her apartment at [facility]. She does not remember the nature of her fall and her fall was unwitnessed. She denies any pain at this time. She was ambulatory on scene. She does complain of lightheadedness and dizziness recently which has also been mentioned to the staff. Staff reports a fall yesterday as well that was unwitnessed. She was found sitting on her floor. She has a scabbed lesion on her left temporal region which may be the hematoma resolving from her prior fall in September for which she was seen in the ER. Review of chart notes a carotid stenosis on ultrasound imaging from 2017 demonstrating 50 to 69% right ICA stenosis. [facility] staff said her mentation is not quite normal and that she seems "slightly off" in regard to her mentation. Patient was treated for urinary tract infection with Bactrim on October 02 from her ER visit. Urine culture showed resistance and she was changed to Omnicef on October 07. Filling record notes a prescription for doxycycline started on October 21. custodial staff suggested this was due to new results of a urine culture last week. Allergies and Home Medications Allergies Coded Allergies: Penicillins (Verified Allergy, Unknown, 11/26/07) cephalexin (Verified Allergy, Unknown, 11/26/07) ciprofloxacin (Verified Allergy, Unknown, 11/26/07) estrogens, conjugated (Verified Allergy, Unknown, 06/17/08) gatifloxacin (Verified Allergy, Unknown, 06/17/08) tetracycline (Verified Allergy, Unknown, 06/17/08) Home Medications Acetaminophen 500 Mg Tablet, 500 MG PO DAILY PRN for PAIN-MILD TO MODERATE, (Reported) Atorvastatin Calcium 80 Mg Tablet, 80 MG PO HS, (Reported) Cranberry Extract 500 Mg Capsule, 500 MG PO DAILY, (Reported) Diphenoxylate HCl/Atropine 1 Each Tablet, 1 TAB PO TID PRN for LOOSE STOOLS, (Reported) Donepezil HCl 5 Mg Tablet, 5 MG PO BID, (Reported) L. Acidophilus/Bulgaricus 1 Each Tablet, 1 TAB.CHEW PO AC Prescribed by: ANDREW LEMON on 06/06/17 0930 Levothyroxine Sodium 75 Mcg Tablet, 75 MCG PO DAILY, (Reported) Multivit with Calcium,Iron,Min 1 Each Tablet, 1 TAB PO DAILY, (Reported) Oxybutynin Chloride 5 Mg Tablet, 5 MG PO TID, (Reported) Pantoprazole Sodium 40 Mg Tablet.dr, 40 MG PO BID, (Reported) Quetiapine Fumarate 25 Mg Tablet, 25 MG PO HS, (Reported) Sertraline HCl 100 Mg Tablet, 150 MG PO DAILY, (Reported) TAKES 1 & 1/2 OF A (100 MG) TABLET Spironolactone 25 Mg Tablet, 25 MG PO DAILY, (Reported) Sulfamethoxazole/Trimethoprim 1 Each Tablet, 1 EACH PO BID Prescribed by: JOSELINE MARES on 10/02/20 1227 Temazepam 15 Mg Capsule, 15 MG PO HS PRN for SLEEP, (Reported) Patient Home Medication List Home Medication List Reviewed: Yes Review of Systems Review of Systems Constitutional: no symptoms reported Eyes: No Symptoms Reported Ears, Nose, Mouth, Throat: see HPI (Scabbed lesion on the left temporal region with a very subtle scratch inferior to that) Respiratory: no symptoms reported Cardiovascular: see HPI Gastrointestinal: no symptoms reported Genitourinary: no symptoms reported : No Musculoskeletal: no symptoms reported Skin: no symptoms reported Psychiatric/Neurological: See HPI Past Mhrnafb-Cxpnjh-Thtzvd Hx Patient Social History Type Used: Cigarettes Former Smoker, Quit: Sep 21, 1992 Recent Infectious Disease Expo: No Recent Hopitalizations: No Immunizations Up To Date Tetanus Booster (TDap): Unknown Date of Pneumonia Vaccine: Jun 24, 2012 Date of Influenza Vaccine: Jun 10, 2017 Seasonal Allergies Seasonal Allergies: No Past Medical History Surgeries: Yes Abdominal, Joint Replacement, Orthopedic Respiratory: No Currently Using CPAP: No Currently Using BIPAP: No Cardiac: Yes High Cholesterol, Hypertension, Peripheral Vascular (Carotid stenosis) Neurological: Yes Vertigo : No Female Reproductive Disorders: Denies 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 Diabetes, Hypertension Physical Exam Vital Signs Vital Signs - First Documented 10/25/20 07:27 Temp 35.6 Pulse 73 Resp 16 B/P (MAP) 169/90 (116) Pulse Ox 97 O2 Delivery Room Air Capillary Refill : Less Than 3 Seconds Height, Weight, BMI Height: 5'6.00" Weight: 135lbs. 0.0oz. 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 She believed it was August and that her age was 84. She is oriented to place.) Skin: normal color, warm/dry, other (Subtle scratch beneath the scabbed lesion on the left temporal region.) [place] Coma Score Best Eye Response: (4) Open Spontaneously Best Verbal Response: (4) Confused Conversation Best Motor Response: (6) Obeys Commands [place] Total: 14 Progress/Results/Core Measures Results/Orders Lab Results Laboratory Tests Test 10/25/20 07:25 10/25/20 07:35 10/25/20 08:40 10/25/20 08:42 Range/Units Prothrombin Time 13.4 12.2-14.7 SEC INR Comment 1.0 0.8-1.4 Activated Partial Thromboplast Time 25 24-35 SEC Myoglobin 254.8 H 10.0-92.0 NG/ML Troponin I 0.031 H <0.028 NG/ML Thyroid Stimulating Hormone (TSH) 1.04 0.35-4.94 UIU/ML Free Thyroxine 1.23 0.70-1.48 NG/DL White Blood Count 6.8 4.3-11.0 10^3/uL Red Blood Count 4.21 3.80-5.11 10^6/uL Hemoglobin 12.2 11.5-16.0 g/dL Hematocrit 38 35-52 % Mean Corpuscular Volume 91 80-99 fL Mean Corpuscular Hemoglobin 29 25-34 pg Mean Corpuscular Hemoglobin Concent 32 32-36 g/dL Red Cell Distribution Width 15.4 H 10.0-14.5 % Platelet Count 190 130-400 10^3/uL Mean Platelet Volume 10.9 9.0-12.2 fL Immature Granulocyte % (Auto) 0 % Neutrophils (%) (Auto) 78 H 42-75 % Lymphocytes (%) (Auto) 11 L 12-44 % Monocytes (%) (Auto) 9 0-12 % Eosinophils (%) (Auto) 1 0-10 % Basophils (%) (Auto) 1 0-10 % Neutrophils # (Auto) 5.3 1.8-7.8 10^3/uL Lymphocytes # (Auto) 0.8 L 1.0-4.0 10^3/uL Monocytes # (Auto) 0.6 0.0-1.0 10^3/uL Eosinophils # (Auto) 0.1 0.0-0.3 10^3/uL Basophils # (Auto) 0.1 0.0-0.1 10^3/uL Immature Granulocyte # (Auto) 0.0 0.0-0.1 10^3/uL Sodium Level 136 135-145 MMOL/L Potassium Level 4.3 3.6-5.0 MMOL/L Chloride Level 99 98-107 MMOL/L Carbon Dioxide Level 19 L 21-32 MMOL/L Anion Gap 18 H 5-14 MMOL/L Blood Urea Nitrogen 12 7-18 MG/DL Creatinine 0.78 0.60-1.30 MG/DL Estimat Glomerular Filtration Rate > 60 BUN/Creatinine Ratio 15 Glucose Level 53 *L 70-105 MG/DL Calcium Level 8.9 8.5-10.1 MG/DL Corrected Calcium 9.0 8.5-10.1 MG/DL Magnesium Level 1.8 1.6-2.4 MG/DL Total Bilirubin 1.3 H 0.1-1.0 MG/DL Aspartate Amino Transf (AST/SGOT) 62 H 5-34 U/L Alanine Aminotransferase (ALT/SGPT) 24 0-55 U/L Alkaline Phosphatase 125 40-136 U/L C-Reactive Protein High Sensitivity 0.92 H 0.00-0.50 MG/DL B-Type Natriuretic Peptide 290.5 H <100.0 PG/ML Total Protein 7.3 6.4-8.2 GM/DL Albumin 3.9 3.2-4.5 GM/DL Procalcitonin 0.07 <0.10 NG/ML Glucometer 67 L 70-110 MG/DL Coronavirus 2019 (MONET) Negative Negative Test 10/25/20 09:00 10/25/20 09:36 10/25/20 10:08 Range/Units Urine Color YELLOW Urine Clarity CLEAR Urine pH 5.5 5-9 Urine Specific [place] 1.015 L 1.016-1.022 Urine Protein NEGATIVE NEGATIVE Urine Glucose (UA) NEGATIVE NEGATIVE Urine Ketones 1+ H NEGATIVE Urine Nitrite NEGATIVE NEGATIVE Urine Bilirubin NEGATIVE NEGATIVE Urine Urobilinogen 0.2 < = 1.0 MG/DL Urine Leukocyte Esterase NEGATIVE NEGATIVE Urine RBC (Auto) NEGATIVE NEGATIVE Urine RBC NONE /HPF Urine WBC NONE /HPF Urine Squamous Epithelial Cells NONE /HPF Urine Crystals NONE /LPF Urine Bacteria NEGATIVE /HPF Urine Casts NONE /LPF Urine Mucus NEGATIVE /LPF Urine Culture Indicated NO Glucometer 59 *L 128 H 70-110 MG/DL My Orders Orders - JOSELINE CASAS MD Cbc With Automated Diff (10/25/20 07:39) Comprehensive Metabolic Panel (10/25/20 07:39) Magnesium (10/25/20 07:39) Ua Culture If Indicated (10/25/20 07:39) Ekg Tracing (10/25/20 07:39) Monitor-Rhythm Ecg Trace Only (10/25/20 07:39) Ed Iv/Invasive Line Start (10/25/20 07:39) Ns Iv 1000 Ml (Sodium Chloride 0.9%) (10/25/20 07:45) Ns Iv 1000 Ml (Sodium Chloride 0.9%) (10/25/20 07:34) Ct Head/Cervical Spine Wo (10/25/20 07:48) Thyroid Stimulating Hormone (10/25/20 07:48) Free T4 (Free Thyroxine) (10/25/20 07:48) D50w (Emergency) Syringe (Dextrose 50% 5 (10/25/20 08:15) Chest 1 View, Ap/Pa Only (10/25/20 08:08) Myoglobin Serum (10/25/20 08:08) Protime With Inr (10/25/20 08:08) Partial Thromboplastin Time (10/25/20 08:08) Lipid Panel (10/26/20 06:00) Troponin I (10/25/20 08:08) Diltiazem Drip Pre-Mix (Cardizem Drip Pr (10/25/20 08:15) Diltiazem Injection (Cardizem Injection) (10/25/20 08:15) D50w (Emergency) Syringe (Dextrose 50% 5 (10/25/20 08:00) Ekg Tracing (10/25/20 08:24) BNP (10/25/20 08:34) Hs C Reactive Protein (10/25/20 08:34) Procalcitonin (Pct) (10/25/20 08:34) Covid 19 Inhouse Test (10/25/20 08:34) D5 Ns 1000 Ml Iv Solution (Dextrose 5%/0 (10/25/20 08:45) Vital Signs: Special (Order) (10/25/20 09:20) Consent-Obtain Consent For (10/25/20 09:20) Monitor S/S Transfusion Reacti (10/25/20 09:20) Ns Iv 500 Ml (Sodium Chloride 0.9%) (10/25/20 09:30) Type And Screen (10/25/20 09:20) Fresh Frozen Plasma (10/25/20 09:20) Preop Checklist (10/25/20 09:20) Accucheck Stat ONCE (10/25/20 09:34) Accucheck Stat ONCE (10/25/20 09:34) D50w (Emergency) Syringe (Dextrose 50% 5 (10/25/20 09:45) Medications Given in ED Current Medications Medications Dose Ordered Sig/Demarco Route Start Time Stop Time Status Last Admin Dose Admin Dextrose 25 ml ONCE ONCE IV 10/25/20 08:15 10/25/20 08:16 DC 10/25/20 08:08 25 ML Dextrose 50 ml ONCE ONCE IV 10/25/20 09:45 10/25/20 09:46 DC 10/25/20 09:39 50 ML Dextrose/Sodium Chloride 1,000 ml @ 100 mls/hr Q10H ONCE IV 10/25/20 08:45 10/25/20 18:44 10/25/20 09:08 100 MLS/HR Diltiazem HCl 5 mg ONCE ONCE IVP 10/25/20 08:15 10/25/20 08:16 DC 10/25/20 08:33 5 MG Vital Signs/I&O 10/25/20 07:27 Temp 35.6 Pulse 73 Resp 16 B/P (MAP) 169/90 (116) Pulse Ox 97 O2 Delivery Room Air Blood Pressure Mean: 116 Progress Progress Note #1: Time: 08:15 Progress Note Patient has now developed atrial fibrillation with RVR with a heart rate in the 120s to 140s. She is being started on a Cardizem drip with a 5 mg bolus. She was also found to be hypoglycemic with a blood sugar of 53. She is being given a half an amp of D50. For these reasons she will likely need to be admitted. CT of the head and cervical spine is pending. I discussed the situation with Scott Mann. Patient has not had her medications yet this morning. I could not find any history of atrial fibrillation in her record. The [facility]pc believes she is on Eliquis due to prior DVT. Progress Note #2: Time: 08:31 Progress Note Large hemorrhage was noted on the left brain, likely subdural hematoma, on CT imaging. The chronicity of this is uncertain. I am awaiting CT read. Progress Note #3: Time: 09:30 Progress Note Heart rate is improved on Cardizem drip and blood pressure is stable. Patient just now converted to sinus rhythm but will remain on Cardizem drip. Patient remains alert and talkative. My interpretation of the head CT initially was of subacute subdural hematoma on the left. However, after consulting with the radiologist it was determined that there is a sliver of possible acute component on the medial aspect of the hematoma. I have discussed this finding with the patient's son. He would like to pursue aggressive care and transfer to a neurosurgy capable facility, preferably [facility] in [place]. I discussed the case with Dr. Marti who accepted transfer. I also spoke with Dr. Acuna in the emergency room who likewise accepted transfer. Dr. Marti did recommend giving a plasma product. Since the patient has been here for a while and has not decompensated neurologically, we will proceed with FFP rather than PCC. Rapid COVID-19 swab was negative. Patient's initial hypoglycemia was treated with D50 and now with a liter of D5 normal saline running at 100 mL/h. We are monitoring blood sugar levels. I did confirm with patient and [facility]pc staff that she has not received any Eliquis since last night. I discussed the situation with patient's son, Monico Otero, or [phone]. He would like to maintain full CODE STATUS at this time. I did discuss risks and benefits of resuscitation efforts. Progress Note #4: Time: 09:38 Progress Note Fingerstick blood sugar was just obtained and was 59. We will administer an amp of D50 and continue to monitor closely. Progress Note #5: Time: 10:14 Progress Note Blood sugar is now 128. Blood pressure and heart rate are normal. Patient remains in sinus rhythm. Initial ECG Impression Date: Oct 25, 2020 Initial ECG Impression Time: 07:39 Initial ECG Rate: 71 Initial ECG Rhythm: Normal Sinus Comment Sinus rhythm with no ST elevation or depression. Borderline QT interval. No major axis deviation. EKG : Rhythm: A Fib/Flutter Comment New atrial fibrillation with RVR. Probable LVH with secondary repolarization abnormality. Prolonged QT interval with QTC of 512. Diagnostic Imaging Diagonstic Imaging: Xray Plain Films/CT/US/NM/MRI: chest Comments Chest x-ray viewed by me and report reviewed. Compared with prior. See report below: NAME: MELANIA GORDON [facility] REC#: [id number] PT STATUS: REG ER : 1935 PHYSICIAN: JOSELINE CASAS MD ADMIT DATE: 10/25/20/ER Draft Date of Exam:10/25/20 CHEST 1 VIEW, AP/PA ONLY EXAMINATION: Chest 1 view HISTORY: Chest pain COMPARISON: Chest radiograph 01/14/2019. FINDINGS: Heart size and pulmonary vasculature are mildly enlarged, stable. There are mild patchy interstitial airspace opacities greatest within the lung bases. No pneumothorax. Trace left pleural effusion. Calcifications of the aorta. Degenerative changes of the spine. The osseous structures are otherwise intact. IMPRESSION: 1. Patchy interstitial airspace opacities greatest within the lung bases concerning for pneumonia. 2. Likely trace left pleural effusion. Dictated on workstation # [id number] Dict: 10/25/20 0828 Trans: 10/25/20 0832 CV [id number] Interpreted by: FREDDY GALEAS DO Diagonstic Imaging: CT Plain Films/CT/US/NM/MRI: c-spine, head Comments CT head and C-spine viewed by me, report reviewed, and discussed with radiologist. See report below: NAME: MELANIA GORDON [facility] REC#: [id number] PT STATUS: REG ER : 1935 PHYSICIAN: JOSELINE CASAS MD ADMIT DATE: 10/25/20/ER Signed Date of Exam:10/25/20 CT HEAD/CERVICAL SPINE WO PROCEDURE: CT head and CT cervical spine without contrast. TECHNIQUE: Multiple contiguous axial images were obtained through the brain and cervical spine without the use of intravenous contrast. Sagittal and coronal reformations through the cervical spine were then performed. Auto Exposure Controls were utilized during the CT exam to meet ALARA standards for radiation dose reduction. INDICATION: Patient found on floor in [facility]. EXAMINATION: CT brain, CT cervical spine 10/25/2020. COMPARISON: 10/02/[address]: There is a subdural hematoma overlying the mid and posterior left parietal and temporal lobes which is heterogeneous in nature and has a possibly subacute appearance. A small amount of superimposed acute hemorrhage is not excluded. Findings cause mild mass effect upon the adjacent brain parenchyma. Midline shift of a few millimeters noted. Ventricles stable from previous imaging. No intraparenchymal hemorrhage is seen. There is no acute infarct. Chronic ischemic change seen in the periventricular deep white matter distribution. The calvarium appears intact. There is a hematoma overlying the left lateral parietal calvarium. Paranasal sinuses and mastoid air cells appear clear. IMPRESSION: 1. Likely subacute left subdural hematoma. A small amount of superimposed acute blood not excluded. Mild midline shift as noted above. 2. Scalp hematoma CT cervical spine: There is normal height and alignment of the vertebral bodies. Multilevel diffuse degenerative disease is seen without acute fracture. No significant subluxations. There is osteopenia. Multilevel facet hypertrophy and spur disc complex eccentric throughout the spine. The visualized lung apices demonstrate chronic changes. Mild coarsened interstitial changes also noted, edema not excluded. Prevertebral soft tissues unremarkable. IMPRESSION: 1. Chronic change in the cervical spine no acute abnormality. Called to Dr. Mares at 8:50 a.m. by cvb. Dictated by: Dictated on workstation # [id number] Dict: 10/25/20 0830 Trans: 10/25/20923 CVB [id number] Interpreted by: KARYN BOND MD Electronically signed by: KARYN BOND MD 10/25/20923 Departure Impression Primary Impression: Subdural hematoma Additional Impressions: Atrial fibrillation with RVR Hypoglycemia Frequent falls Abnormal chest x-ray Disposition: [facility] Condition: Improved Admissions Decision to Admit Reason: Admit from ER (General) Decision to Admit/Date: Oct 25, 2020 Time/Decision to Admit Time: 08:15 Transfer Transfer Reason: Exceeds level of care Time Spoke to Accepting Phy: 09:20 Transfer Progress Notes Discussed with Dr. Marti (neurosurgery) and Dr. Acuna (ER) who accepted transfer. Transfer Time: 10:38 Transfer Facility: [facility] Method of Transfer: EMS Departure-Patient Inst. Referrals: ANDREW LEMON MD (PCP/Family) Primary Care Physician Copy Copies To 1: ANDREW LEMON MD, JOSHUA T MD Oct 25, 2020 07:56
[2020-10-25 07:57] LABS: TOTAL PROTEIN 7.3 GM/DL (6.4-8.2)
[2020-10-25 07:59] LABS: BILIRUBIN,TOTAL 1.3 MG/DL (0.1-1.0); CARBON DIOXIDE 19 MMOL/L (21-32)
[2020-10-25] MEDS ORDERED: DEXTROSE 50% 50 ML (IMS) SYR ONE (08:00)
[2020-10-25 08:01] LABS: ALKALINE PHOSPHATASE 125 U/L (40-136); CREATININE SERUM 0.78 MG/DL (0.60-1.30); GFR ESTIMATED > 60
[2020-10-25 08:02] LABS: BUN/CREATININE RATIO 15
[2020-10-25 08:03] LABS: GLUCOSE 53 MG/DL (70-105)
[2020-10-25 08:04] LABS: ALANINE AMINOTRANSFERASE 24 U/L (0-55); MAGNESIUM 1.8 MG/DL (1.6-2.4)
[2020-10-25] MEDS ORDERED: dilTIAZem DRIP PRE-MIX 125 ML IV SCH (08:15)
[2020-10-25] MEDS ORDERED: DEXTROSE 50% 50 ML (IMS) SYR IV ONE ×2 (08:15→09:45)
[2020-10-25 08:20] LABS: PROTHROMBIN TIME PATIENT 13.4 SEC (12.2-14.7)
[2020-10-25 08:28] LABS: FREE T4 (FREE THYROXINE) 1.23 NG/DL (0.70-1.48)
--- NOTE | 2020-10-25 08:33 | Diagnostic Imaging Report ---
EXAMINATION: Chest 1 view HISTORY: Chest pain COMPARISON: Chest radiograph 01/14/2019. FINDINGS: Heart size and pulmonary vasculature are mildly enlarged, stable. There are mild patchy interstitial airspace opacities greatest within the lung bases. No pneumothorax. Trace left pleural effusion. Calcifications of the aorta. Degenerative changes of the spine. The osseous structures are otherwise intact. IMPRESSION: 1. Patchy interstitial airspace opacities greatest within the lung bases concerning for pneumonia. 2. Likely trace left pleural effusion. Dictated by: Dictated on workstation # [id number]
[2020-10-25] MEDS ORDERED: D5 NS 1000 ML IV SOLUTION 1,000 ML IV ONE (08:45)
--- NOTE | 2020-10-25 08:57 | Diagnostic Imaging Report ---
PROCEDURE: CT head and CT cervical spine without contrast. TECHNIQUE: Multiple contiguous axial images were obtained through the brain and cervical spine without the use of intravenous contrast. Sagittal and coronal reformations through the cervical spine were then performed. Auto Exposure Controls were utilized during the CT exam to meet ALARA standards for radiation dose reduction. INDICATION: Patient found on floor in shelter. EXAMINATION: CT brain, CT cervical spine 10/25/2020. COMPARISON: 10/02/[address]: There is a subdural hematoma overlying the mid and posterior left parietal and temporal lobes which is heterogeneous in nature and has a possibly subacute appearance. A small amount of superimposed acute hemorrhage is not excluded. Findings cause mild mass effect upon the adjacent brain parenchyma. Midline shift of a few millimeters noted. Ventricles stable from previous imaging. No intraparenchymal hemorrhage is seen. There is no acute infarct. Chronic ischemic change seen in the periventricular deep white matter distribution. The calvarium appears intact. There is a hematoma overlying the left lateral parietal calvarium. Paranasal sinuses and mastoid air cells appear clear. IMPRESSION: 1. Likely subacute left subdural hematoma. A small amount of superimposed acute blood not excluded. Mild midline shift as noted above. 2. Scalp hematoma CT cervical spine: There is normal height and alignment of the vertebral bodies. Multilevel diffuse degenerative disease is seen without acute fracture. No significant subluxations. There is osteopenia. Multilevel facet hypertrophy and spur disc complex eccentric throughout the spine. The visualized lung apices demonstrate chronic changes. Mild coarsened interstitial changes also noted, edema not excluded. Prevertebral soft tissues unremarkable. IMPRESSION: 1. Chronic change in the cervical spine no acute abnormality. Called to Dr. Mares at 8:50 a.m. by cvb. Dictated by: Dictated on workstation # [id number]
[2020-10-25 09:05] LABS: BILIRUBIN,URINE NEGATIVE (NEGATIVE); CLARITY,URINE CLEAR; COLOR,URINE YELLOW; GLUCOSE, URINE (UA) NEGATIVE (NEGATIVE); KETONES,URINE 1+ (NEGATIVE); LEUKOCYTE ESTERASE ,URINE NEGATIVE (NEGATIVE); NITRITE,URINE NEGATIVE (NEGATIVE); PH,URINE 5.5 (5-9); PROTEIN,URINE NEGATIVE (NEGATIVE)
[2020-10-25 09:15] LABS: BACTERIA,URINE NEGATIVE /HPF
[2020-10-25] MEDS ORDERED: NS IV 500 ML 500 ML IV SCH (09:30)
[2020-10-25 10:30] VITALS: BP 111/66
[2020-10-25 10:40] VITALS: BP 111/66
== END 2020-10-25 10:40 | disposition short-term general hospital (02) ==
LOC: EDUNIT# 07:26 → ER 07:27
DX: S06.5X9A Traumatic subdural hemorrhage with loss of consciousness of unspecified duration, initial encounter (principal); I48.20 Chronic atrial fibrillation, unspecified; E16.2 Hypoglycemia, unspecified; R91.8 Other nonspecific abnormal finding of lung field; E78.00 Pure hypercholesterolemia, unspecified; F41.9 Anxiety disorder, unspecified; R40.2410 Glasgow coma scale score 13-15, unspecified time; R29.6 Repeated falls; Z88.0 Allergy status to penicillin; Z88.1 Allergy status to other antibiotic agents; Z88.8 Allergy status to other drugs, medicaments and biological substances; Z87.891 Personal history of nicotine dependence; Z83.3 Family history of diabetes mellitus; Z82.49 Family history of ischemic heart disease and other diseases of the circulatory system; W19.XXXA Unspecified fall, initial encounter; Z20.822 Contact with and (suspected) exposure to COVID-19
CPT/HCPCS: 70450; 71045; 72125; 80053; 81000; 82962; 83735; 83874; 83880; 84145; 84439; 84443; 84484; 85025; 85610; 85730; 86141; 86850; 86900; 86901; 93005; 93041; 99284; P9017; U0002; 36415; 87635

== ENCOUNTER 2021-01-23 20:23 | Emergency (ER) | payer MEDICARE, MEDICAID ==
[~2021-01-23] VITALS: Ht 162.5 cm; Wt 54.0 kg
[2021-01-23 20:50] LABS: BILIRUBIN,URINE NEGATIVE (NEGATIVE); CLARITY,URINE SL CLOUDY; COLOR,URINE YELLOW; GLUCOSE, URINE (UA) NEGATIVE (NEGATIVE); KETONES,URINE NEGATIVE (NEGATIVE); LEUKOCYTE ESTERASE ,URINE 2+ (NEGATIVE); NITRITE,URINE POSITIVE (NEGATIVE); PROTEIN,URINE NEGATIVE (NEGATIVE)
[2021-01-23 20:50] LABS: BASOPHILS % (AUTO) 1 % (0-10); EOSINOPHILS # (AUTO) 0.2 10^3/uL (0.0-0.3); EOSINOPHILS % (AUTO) 3 % (0-10); HEMATOCRIT 36 % (35-52); HEMOGLOBIN 11.8 g/dL (11.5-16.0); LYMPHOCYTES % (AUTO) 16 % (12-44); MEAN CORPUSCULAR HEMOGLOBIN 29 pg (25-34); MEAN CORPUSCULAR HGB CONC 32 g/dL (32-36); MEAN CORPUSCULAR VOLUME 89 fL (80-99); MEAN PLATELET VOLUME 10.9 fL (9.0-12.2); MONOCYTES # (AUTO) 0.7 10^3/uL (0.0-1.0); MONOCYTES % (AUTO) 10 % (0-12); NEUTROPHILS # (AUTO) 4.4 10^3/uL (1.8-7.8); NEUTROPHILS % (AUTO) 70 % (42-75); PLATELET COUNT 190 10^3/uL (130-400); WHITE BLOOD COUNT 6.3 10^3/uL (4.3-11.0)
[2021-01-23 20:57] LABS: BACTERIA,URINE LARGE /HPF; RBC,URINE RARE /HPF; WBC,URINE 25-50 /HPF
[2021-01-23 21:04] LABS: PROTHROMBIN TIME PATIENT 13.9 SEC (12.2-14.7)
[2021-01-23 21:07] LABS: ALBUMIN 3.6 GM/DL (3.2-4.5); CHLORIDE 101 MMOL/L (98-107); SODIUM 134 MMOL/L (135-145)
[2021-01-23 21:08] LABS: CALCIUM 9.1 MG/DL (8.5-10.1)
[2021-01-23 21:09] LABS: GLUCOSE 114 MG/DL (70-105); TOTAL PROTEIN 6.7 GM/DL (6.4-8.2)
[2021-01-23 21:10] LABS: CARBON DIOXIDE 23 MMOL/L (21-32)
[2021-01-23 21:11] LABS: BILIRUBIN,TOTAL 0.5 MG/DL (0.1-1.0)
[2021-01-23 21:13] LABS: ALKALINE PHOSPHATASE 114 U/L (40-136); GFR ESTIMATED > 60
[2021-01-23 21:14] LABS: BUN/CREATININE RATIO 11
[2021-01-23 21:16] LABS: ALANINE AMINOTRANSFERASE 12 U/L (0-55); CREATINE KINASE 78 U/L (29-168); MAGNESIUM 1.8 MG/DL (1.6-2.4)
[2021-01-23 21:23] LABS: CREATINE KINASE MB 2.6 NG/ML (<6.6)
--- NOTE | 2021-01-23 21:35 | Diagnostic Imaging Report ---
INDICATION: Hand pain, post fall. TECHNIQUE: Three views of the right hand. CORRELATION STUDY: None. FINDINGS: There is a generally mottled, demineralized appearance about the osseous structures. Alignment is anatomic. Mild degenerative changes through the interphalangeal joints. There are also degenerative changes at the level of the wrist most pronounced at the radiocarpal row with joint space narrowing. There is no acute fracture. Soft tissues are unremarkable. IMPRESSION: Negative for acute bony abnormality of the hand. Multifocal degenerative changes as well as bony demineralization. Dictated by: Dictated on workstation # [id number]
--- NOTE | 2021-01-23 21:37 | Diagnostic Imaging Report ---
INDICATION: Fall. TECHNIQUE: Single view chest, 9:09 PM. CORRELATION STUDY: 10/25/2020. FINDINGS: Patient is rotated towards the right. Given this, heart size is enlarged. Mediastinum is prominent but overall appears stable. Vasculature is slightly prominent but less congested from prior. Mildly prominent interstitial markings likely reflective of some residual edema. No definitive infiltrate. IMPRESSION: Findings to suggest underlying congestive heart failure; however, overall significantly less severe from prior study. Dictated by: Dictated on workstation # [id number]
--- NOTE | 2021-01-23 21:37 | Diagnostic Imaging Report ---
INDICATION: forearm pain TECHNIQUE: 2 views of the right forearm. CORRELATION STUDY: None FINDINGS: The radius and ulna have an unremarkable appearance. The visualized portions of the elbow and wrist are unremarkable. Soft tissues are unremarkable. IV tubing over the antecubital region does obscure detail. IMPRESSION: 1. Negative for acute bony abnormality of the forearm. Dictated by: Dictated on workstation # [id number]
--- NOTE | 2021-01-23 21:39 | Diagnostic Imaging Report ---
INDICATION: Pelvic pain, post fall. TECHNIQUE: AP pelvis along with additional AP view of left femur, 9:17 PM. CORRELATION STUDY: 10/02/2020. FINDINGS: Some generalized bony demineralization. There is no acute displaced pelvic fracture. SI joints with mild sclerosis. Bilateral hip joints are maintained. Longstem intramedullary lisbet of the femur transfixing old healed femur fracture. Calcifications as well as suture line within the pelvis. IMPRESSION: Negative examination of the pelvis. Dictated by: Dictated on workstation # [id number]
--- NOTE | 2021-01-23 21:52 | Diagnostic Imaging Report ---
PROCEDURE: CT cervical spine without contrast. TECHNIQUE: Multiple contiguous axial images were obtained through the cervical spine without the use of intravenous contrast. Sagittal and coronal reformations were then performed. Auto Exposure Controls were utilized during the CT exam to meet ALARA standards for radiation dose reduction. INDICATION: Fall, neurological deficit. CORRELATION STUDY: 10/25/2020. FINDINGS: Cervical spine alignment appears to be anatomic. Vertebral body heights maintained. Disc spaces appear unchanged. Posterior elements intact with mild asymmetric hypertrophic facet arthropathy. Odontoid intact. Rather prominent carotid bifurcation calcification. Lung apices clear. IMPRESSION: Negative for acute fracture or traumatic subluxation of the cervical spine. Dictated by: Dictated on workstation # [id number]
--- NOTE | 2021-01-23 21:56 | ED Neurological Problem ---
General Chief Complaint: Neurological Problems Stated Complaint: FALL Nursing Triage Note: EMS REPORTS PATIENT HAD A FALL ON 01/20/21 AND ACCORDING TO THE AIDE AT ID. PATIENT DECLINE BEGAN AFTER THE FALL. NURSING STAFF REPORTS NO DECLINE UNTIL 0600 THIS AM. PATIENT HAS NOTED BRUSING TO RIGHT FOREARM AND HAND, PATIENT IS INTERACTING WITH STAFF AND ALERT TO PERSON AND PLACE. CALL LIGHT IN REACH, ENCOURAGED TO CALL FOR NEEDS. FREQUENT MONITORING MAINTAINED. PATIENT IS MOVED TO ROOM 6 FOR BETTER MONITORING. Nursing Sepsis Screen: No Definite Risk Source: family, EMS, detention records, old records History of Present Illness Date Seen by Provider: January 23, 2021 Time Seen by Provider: 20:20 Initial Comments PT ARRIVES VIA EMS FROM [facility] PT HAD AN UNWITNESSED FALL ON Monday01/20/21 RESIDENTIAL STAFF REPORT THAT PT "HAS [place] THEN" PT WAS NOT SEEN BY AFTER THE FALL ON MONDAY STAFF NOTICED TONIGHT THAT HER RIGHT ARM AND RIGHT LEG ARE FLACCID AND RIGHT HAND IS SWOLLEN AND BRUISED--HAND IS REPORTEDLY DUE TO FALL ON 01/20/21 PT WITH KNOWN DEMENTIA AND IS NORMALLY DISORIENTED, BUT ABLE TO FOLLOW BASIC COMMANDS, ACCORDING TO EMS FROM RESIDENTIAL STAFF PT HAS HISTORY OF FREQUENT FALLS, AND EARLIER THIS YEAR, FELL ON 09/30/20 BUT WAS NOT SEEN UNTIL 10/02/20--SCALP HEMATOMA BUT NO INTRACRANIAL BLEED OR SKULL FRACTURE. PT HAD AN UNWITNESSED FALL 10/25/20 AT [facility], AND HAD A SUBDURAL BLEED ( PT HAD BEEN ON [facility] AT THAT TIME) AND WAS TRANSFERRED TO [facility], BUT APPARENTLY NO SURGERY WAS DONE AT THAT TIME. PT IS CURRENTLY NOT ON ANY ASPIRIN OR ANTICOAGULANTS OF ANY KIND. ON DIRECT QUESTIONING OF PT IF SHE HURTS ANYWHERE, SHE STATES "NO" NO OTHER RELEVANT INFORMATION IS OBTAINABLE FROM PT PT IS FULL CODE, PER RESIDENTIAL RECORDS PCP: DR. CASPER Allergies and Home Medications Allergies Coded Allergies: Penicillins (Verified Allergy, Unknown, 11/26/07) cephalexin (Verified Allergy, Unknown, 11/26/07) ciprofloxacin (Verified Allergy, Unknown, 11/26/07) estrogens, conjugated (Verified Allergy, Unknown, 06/17/08) gatifloxacin (Verified Allergy, Unknown, 06/17/08) tetracycline (Verified Allergy, Unknown, 06/17/08) Home Medications Acetaminophen 500 Mg Tablet, 500 MG PO DAILY PRN for PAIN-MILD TO MODERATE, (Reported) Atorvastatin Calcium 80 Mg Tablet, 80 MG PO HS, (Reported) Cranberry Extract 500 Mg Capsule, 500 MG PO DAILY, (Reported) Diphenoxylate HCl/Atropine 1 Each Tablet, 1 TAB PO TID PRN for LOOSE STOOLS, (Reported) Donepezil HCl 5 Mg Tablet, 5 MG PO BID, (Reported) L. Acidophilus/Bulgaricus 1 Each Tablet, 1 TAB.CHEW PO AC Prescribed by: ANDREW LEMON on 06/06/17 0930 Levothyroxine Sodium 75 Mcg Tablet, 75 MCG PO DAILY, (Reported) Multivit with Calcium,Iron,Min 1 Each Tablet, 1 TAB PO DAILY, (Reported) Oxybutynin Chloride 5 Mg Tablet, 5 MG PO TID, (Reported) Pantoprazole Sodium 40 Mg Tablet.dr, 40 MG PO BID, (Reported) Quetiapine Fumarate 25 Mg Tablet, 25 MG PO HS, (Reported) Sertraline HCl 100 Mg Tablet, 150 MG PO DAILY, (Reported) TAKES 1 & 1/2 OF A (100 MG) TABLET Spironolactone 25 Mg Tablet, 25 MG PO DAILY, (Reported) Sulfamethoxazole/Trimethoprim 1 Each Tablet, 1 EACH PO BID Prescribed by: JOSELINE MENDOZA on 10/02/20 1227 Temazepam 15 Mg Capsule, 15 MG PO HS PRN for SLEEP, (Reported) Patient Home Medication List Home Medication List Reviewed: Yes Review of Systems Review of Systems Constitutional: other (UNABLE TO OBTAIN ANY RELEVANT INFORMATION FROM PT) Past [id number] Hx Past Med/Social Hx: Reviewed and Corrections made Patient Social History Smoking Status: Former Smoker Type Used: Cigarettes Former Smoker, Quit: Sep 21, 1992 Recent Infectious Disease Expo: No Recent Hopitalizations: No Immunizations Up To Date Tetanus Booster (TDap): Unknown Date of Pneumonia Vaccine: Jun 24, 2012 Date of Influenza Vaccine: Jun 11, 2020 Seasonal Allergies Seasonal Allergies: No Past Medical History Surgeries: Yes (FEMUR FX/JEN) Abdominal, Joint Replacement, Orthopedic Respiratory: No Currently Using CPAP: No Currently Using BIPAP: No Cardiac: Yes Deep Vein Thrombosis, High Cholesterol, Hypertension, Peripheral Vascular Neurological: Yes (SUBDURAL BLEED 10/25/20--NO SURGERY/NO TREATMENT. ) Dementia, Traumatic Brain Injury, Vertigo Female Reproductive Disorders: Denies FRAME TENDER History: Menopausal Sexually Transmitted Disease: No HIV/AIDS: No Genitourinary: Yes (INCONTINENCE) Bladder Infection Gastrointestinal: Yes Gastroesophageal Reflux, Diverticulosis, Chronic Diarrhea, Polyps, Hiatal Hernia, Ulcer Musculoskeletal: Yes (OSTEOMYELITIS LEFT TIB/FIB; GENERALIZED WEAKNESS; FREQUENT FALLS) Osteoporosis, Arthritis, Fractures Endocrine: Yes Hypothyroidsim HEENT: Yes Cataract Loss of Vision: Denies Hearing Impairment: Hard of Hearing Cancer: No Psychosocial: Yes Sleep Difficulties, Anxiety Integumentary: No Blood Disorders: No Family Medical History Patient reports no known family medical history. Diabetes, Hypertension HX OF COVID-19 INFECTION Physical Exam Vital Signs Vital Signs - First Documented 01/24/21 00:45 Pulse 66 Resp 14 B/P (MAP) 120/56 Pulse Ox 92 O2 Delivery Nasal Cannula O2 Flow Rate 2.00 Capillary Refill : Less Than 3 Seconds Height, Weight, BMI Height: 5'6.00" Weight: 135lbs. 0.0oz. [id number]; 20.00 BMI Method:Stated General Appearance: other (PT SITTING UP ON EMS COT, ON ARRIVAL. LOOKING AROUND, CONSTANT "CHEWING" MOUTH MOVEMENTS; DOES NOT APPEAR TO BE IN ANY DISCOMFORT OR DISTRESS) HEENT: PERRL/EOMI, other (NO OBVIOUS EXTERNAL EVIDENCED OF TRAUMA TO HEAD AT THIS TIME) Neck: non-tender Respiratory: chest non-tender, normal breath sounds, no respiratory distress, no accessory muscle use Cardiovascular: regular rate, rhythm, no murmur, extra beats (FREQUENT ECTOPY) Gastrointestinal: non tender, soft Back: no CVA tenderness, no vertebral tenderness Extremities: normal capillary refill, other (SWELLING AND BRUISING TO RIGHT HAND AND WRIST--2 RINGS ARE ON BUT VERY TIGHT, DUE TO SWELLING. ) Neurologic/Psychiatric: alert, other (PT DOES HAVE SOME MINIMAL VOLUNTARY MOVEMENT WITH RIGHT ARM AND LEG, BUT DOES APPEAR TO BE WEAKER ON RIGHT THAN LEFT. PT DOES NOT FOLLOW COMMANDS, AND IS NOT REALLY TALKING. ) Skin: normal color, warm/dry, ecchymosis Progress/Results/Core Measures Results/Orders Lab Results Laboratory Tests Test 01/23/21 20:24 01/23/21 20:25 01/23/21 20:43 Range/Units Lab Scanned Report Referred Lab Report [id number] White Blood Count 6.3 4.3-11.0 10^3/uL Red Blood Count 4.09 3.80-5.11 10^6/uL Hemoglobin 11.8 11.5-16.0 g/dL Hematocrit 36 35-52 % Mean Corpuscular Volume 89 80-99 fL Mean Corpuscular Hemoglobin 29 25-34 pg Mean Corpuscular Hemoglobin Concent 32 32-36 g/dL Red Cell Distribution Width 14.2 10.0-14.5 % Platelet Count 190 130-400 10^3/uL Mean Platelet Volume 10.9 9.0-12.2 fL Immature Granulocyte % (Auto) 1 % Neutrophils (%) (Auto) 70 42-75 % Lymphocytes (%) (Auto) 16 12-44 % Monocytes (%) (Auto) 10 0-12 % Eosinophils (%) (Auto) 3 0-10 % Basophils (%) (Auto) 1 0-10 % Neutrophils # (Auto) 4.4 1.8-7.8 10^3/uL Lymphocytes # (Auto) 1.0 1.0-4.0 10^3/uL Monocytes # (Auto) 0.7 0.0-1.0 10^3/uL Eosinophils # (Auto) 0.2 0.0-0.3 10^3/uL Basophils # (Auto) 0.0 0.0-0.1 10^3/uL Immature Granulocyte # (Auto) 0.0 0.0-0.1 10^3/uL Prothrombin Time 13.9 12.2-14.7 SEC INR Comment 1.0 0.8-1.4 Activated Partial Thromboplast Time 28 24-35 SEC Sodium Level 134 L 135-145 MMOL/L Potassium Level 4.0 3.6-5.0 MMOL/L Chloride Level 101 98-107 MMOL/L Carbon Dioxide Level 23 21-32 MMOL/L Anion Gap 10 5-14 MMOL/L Blood Urea Nitrogen 8 7-18 MG/DL Creatinine 0.70 0.60-1.30 MG/DL Estimat Glomerular Filtration Rate > 60 BUN/Creatinine Ratio 11 Glucose Level 114 H 70-105 MG/DL Calcium Level 9.1 8.5-10.1 MG/DL Corrected Calcium 9.4 8.5-10.1 MG/DL Magnesium Level 1.8 1.6-2.4 MG/DL Total Bilirubin 0.5 0.1-1.0 MG/DL Aspartate Amino Transf (AST/SGOT) 18 5-34 U/L Alanine Aminotransferase (ALT/SGPT) 12 0-55 U/L Alkaline Phosphatase 114 40-136 U/L Total Creatine Kinase 78 29-168 U/L Creatine Kinase MB 2.6 <6.6 NG/ML Myoglobin 73.3 10.0-92.0 NG/ML Troponin I < 0.028 <0.028 NG/ML Total Protein 6.7 6.4-8.2 GM/DL Albumin 3.6 3.2-4.5 GM/DL Urine Color YELLOW Urine Clarity SL CLOUDY Urine pH 6.0 5-9 Urine Specific [place] 1.010 L 1.016-1.022 Urine Protein NEGATIVE NEGATIVE Urine Glucose (UA) NEGATIVE NEGATIVE Urine Ketones NEGATIVE NEGATIVE Urine Nitrite POSITIVE H NEGATIVE Urine Bilirubin NEGATIVE NEGATIVE Urine Urobilinogen 0.2 < = 1.0 MG/DL Urine Leukocyte Esterase 2+ H NEGATIVE Urine RBC (Auto) TRACE-I NEGATIVE Urine RBC RARE /HPF Urine WBC 25-50 H /HPF Urine Crystals NONE /LPF Urine Bacteria LARGE H /HPF Urine Casts NONE /LPF Urine Mucus NEGATIVE /LPF Urine Culture Indicated YES Micro Results Microbiology 01/23/21 Urine Culture - Final, Complete Klebsiella pneumoniae Klebsiella pneumoniae#2 My Orders Orders - DEMOND BABCOCK DO Ed Iv/Invasive Line Start (01/23/21 20:28) Ekg Tracing (01/23/21 20:28) Catheter(Urinary) Insert & Ass 03,15 (01/23/21 20:28) O2 (01/23/21 20:28) Monitor-Rhythm Ecg Trace Only (01/23/21 20:28) Chest 1 View, Ap/Pa Only (01/23/21 20:28) Ct Head Wo-R/O Stroke (01/23/21 20:28) Ct Cervical Spine Wo (01/23/21 20:28) Cbc With Automated Diff (01/23/21 20:28) Comprehensive Metabolic Panel (01/23/21 20:28) Creatine Kinase (01/23/21 20:28) Creatine Kinase Mb (01/23/21 20:28) Magnesium (01/23/21 20:28) Protime With Inr (01/23/21 20:28) Partial Thromboplastin Time (01/23/21 20:28) Ua Culture If Indicated (01/23/21 20:28) Myoglobin Serum (01/23/21 20:28) Troponin I (01/23/21 20:28) Hand, Right, 3 Views (01/23/21 20:28) Pelvis (01/23/21 20:28) Forearm, Right, 2 Views (01/23/21 20:36) Urine Culture (01/23/21 20:43) Vital Signs/I&O 01/24/21 00:45 Pulse 66 Resp 14 B/P (MAP) 120/56 Pulse Ox 92 O2 Delivery Nasal Cannula O2 Flow Rate 2.00 Blood Pressure Mean: 90 Progress Progress Note : Progress Note UNABLE TO DO NIH DUE TO PT NOT ABLE TO FOLLOW COMMANDS AND IS NOT TALKING, AND WITH KNOWN HISTORY OF DEMENTIA NO DETERIORATION IN PT'S CONDITION DURING ER STAY Initial ECG Impression Date: January 23, 2021 Initial ECG Impression Time: 20:48 Initial ECG Rate: 63 Initial ECG Rhythm: Normal Sinus Diagnostic Imaging Comments CT CERVICAL SPINE--PER RADIOLOGIST REPORT AT 2154 IMPRESSION: 1. Findings compatible with sinusitis may be acute on chronic. 2. Bilateral cervical lymphadenopathy likely reactive in nature. CT HEAD--PER RADIOLOGIST REPORT AT 2200 IMPRESSION: 1. Interval increase in size of a rather sizable left-sided subdural hematoma. This appears largely chronic. There is, however, some increased density in the more dependent portions, may reflect a very mild amount of acute blood. There has been increase in the localized mass effect as well as increase in the left to right midline shift from prior. CXR--PER RADIOLOGIST REPORT AT 2209 IMPRESSION: Findings to suggest underlying congestive heart failure; however, overall significantly less severe from prior study. XRAYS RIGHT FOREARM--NO ACUTE PROCESS, PENDING RADIOLOGIST REVIEW XRAYS RIGHT HAND--NO ACUTE PROCESS, PENDING RADIOLOGIST REVIEW XRAYS PELVIS--NO ACUTE PROCESS Reviewed: Reviewed by Me Departure Communication (Admissions) Family Conversation 2202--ATTEMPTING TO CONTACT FAMILY MEMBER--ALL PHONE NUMBERS ARE NO LONGER IN SERVICE. CALLED RESIDENTIAL, AND THEY HAVE THE SAME SINGLE HEALTH AND SOCIAL CARE TEACHER AND PHONE NUMBERS THAT ARE ON FILE HERE AT HOSPITAL, AND THEY HAVE NOT BEEN ABLE TO CONTACT FAMILY MEMBER EITHER. 2204--CALLED [facility]10--SPOKE WITH DR. PLASENCIA, UNABLE TO ACCEPT PT DUE TO NO ICU BEDS AVAILABLE THERE 221--CALLED [facility], HAVE BEDS 2217--SPOKE WITH DR. MARCELINO, ER PHYSICIAN, ACCEPTS PT FOR ADMIT/TRANSFER. 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 Referrals: ANDREW LEMON MD (PCP/Family) Primary Care Physician DEMOND BABCOCK DO January 23, 2021 21:56
--- NOTE | 2021-01-23 21:58 | Diagnostic Imaging Report ---
PROCEDURE: CT head w/o r/o stroke. TECHNIQUE: Multiple contiguous axial images were obtained through the brain without the use of intravenous contrast. Auto Exposure Controls were utilized during the CT exam to meet ALARA standards for radiation dose reduction. INDICATION: Fall, neurological deficit. CORRELATION STUDY: 10/25/2020. FINDINGS: There has been interval increase in size of a rather sizable but what appears to be chronic subdural hematoma. This is lower density, slightly greater than that of cerebral spinal fluid. Perhaps very slight asymmetric increased density noted deep in likely could be reflective of more acute blood. However, high density component is not present. Maximum thickness, approximately 2.6 cm, previously at 1.1 cm. This extends from the frontal convexity posteriorly. Overall length of approximately 11.3 cm with a pseudo-craniocaudal blood direction of approximately 7 cm. Significant mass effect upon the left cerebral hemisphere has increased. Significant effacement of the left lateral ventricle. A right lateral ventricle is enlarged but generally stable. The severity of the left to right midline shift, increased currently at approximately 8 mm. Basilar cisterns are maintained. Bony calvarium intact. Paranasal sinus and mastoid air cells are clear. IMPRESSION: 1. Interval increase in size of a rather sizable left-sided subdural hematoma. This appears largely chronic. There is, however, some increased density in the more dependent portions, may reflect a very mild amount of acute blood. There has been increase in the localized mass effect as well as increase in the left to right midline shift from prior. Critical findings Findings telephoned to the emergency department, 9:45 PM. Dictated by: Dictated on workstation # [id number]
[2021-01-24 00:45] VITALS: BP 120/56
== END 2021-01-24 00:49 | disposition short-term general hospital (02) ==
LOC: EDUNIT# 20:23 → ER 20:24
DX: S06.5X0A Traumatic subdural hemorrhage without loss of consciousness, initial encounter (principal); S60.221A Contusion of right hand, initial encounter; S60.211A Contusion of right wrist, initial encounter; F03.90 Unspecified dementia, unspecified severity, without behavioral disturbance, psychotic disturbance, mood disturbance, and anxiety; R53.1 Weakness; I10 Essential (primary) hypertension; E78.00 Pure hypercholesterolemia, unspecified; K21.9 Gastro-esophageal reflux disease without esophagitis; E03.9 Hypothyroidism, unspecified; F41.9 Anxiety disorder, unspecified; M81.0 Age-related osteoporosis without current pathological fracture; Z87.891 Personal history of nicotine dependence; Z79.890 Hormone replacement therapy; Z79.899 Other long term (current) drug therapy; W19.XXXA Unspecified fall, initial encounter
CPT/HCPCS: 36415; 51702; 70450; 71045; 72125; 72170; 73090; 73130; 80053; 81000; 82550; 82553; 83735; 83874; 84484; 85025; 85610; 85730; 87077; 87088; 87186; 93005; 93041

== ENCOUNTER 2021-04-14 22:19 | Inpatient (IN) | payer MEDICARE, MEDICAID ==
[~2021-04-14] VITALS: Ht 170.2 cm; Wt 55.0 kg
[~2021-04-14 22:19] MED LIST changes: -SULF1TAB35 PO; +SULF1TAB38 PO
[2021-04-14] MEDS ORDERED: fentaNYL INJ 100 MCG/2 ML AMP ONE (22:39)
[2021-04-14] MEDS ORDERED: fentaNYL INJ 100 MCG/2 ML AMP IVP ONE (22:45)
[2021-04-14 22:48] LABS: BASOPHILS # (AUTO) 0.1 10^3/uL (0.0-0.1); BASOPHILS % (AUTO) 1 % (0-10); EOSINOPHILS # (AUTO) 0.2 10^3/uL (0.0-0.3); EOSINOPHILS % (AUTO) 3 % (0-10); HEMATOCRIT 41 % (35-52); HEMOGLOBIN 13.3 g/dL (11.5-16.0); LYMPHOCYTES # (AUTO) 1.2 10^3/uL (1.0-4.0); LYMPHOCYTES % (AUTO) 17 % (12-44); MEAN CORPUSCULAR HEMOGLOBIN 28 pg (25-34); MEAN CORPUSCULAR HGB CONC 32 g/dL (32-36); MEAN CORPUSCULAR VOLUME 88 fL (80-99); MEAN PLATELET VOLUME 11.8 fL (9.0-12.2); MONOCYTES # (AUTO) 0.7 10^3/uL (0.0-1.0); MONOCYTES % (AUTO) 9 % (0-12); NEUTROPHILS # (AUTO) 5.1 10^3/uL (1.8-7.8); NEUTROPHILS % (AUTO) 70 % (42-75); PLATELET COUNT 160 10^3/uL (130-400); WHITE BLOOD COUNT 7.3 10^3/uL (4.3-11.0)
[2021-04-14] MEDS ORDERED: morphine INJ 10 MG/ML 1ML (SYR OR VIAL) IVP STA (23:09)
[2021-04-14 23:11] LABS: ALBUMIN 3.7 GM/DL (3.2-4.5); BILIRUBIN,TOTAL 0.4 MG/DL (0.1-1.0); CALCIUM 9.8 MG/DL (8.5-10.1); CREATININE SERUM 0.74 MG/DL (0.60-1.30); TOTAL PROTEIN 7.4 GM/DL (6.4-8.2)
[2021-04-14 23:13] LABS: PROTHROMBIN TIME PATIENT 13.3 SEC (12.2-14.7)
[2021-04-14] MEDS ORDERED: LORazepam INJ 2 MG/ML (ATIVAN) VIAL IVP ONE (23:45)
[2021-04-15] VITALS (11 sets, daily range): BP systolic 68–131; BP diastolic 46–66
[2021-04-15 01:11] LABS: BILIRUBIN,URINE NEGATIVE (NEGATIVE); CLARITY,URINE CLEAR; COLOR,URINE YELLOW; GLUCOSE, URINE (UA) NEGATIVE (NEGATIVE); KETONES,URINE NEGATIVE (NEGATIVE); LEUKOCYTE ESTERASE ,URINE 1+ (NEGATIVE); NITRITE,URINE POSITIVE (NEGATIVE); PROTEIN,URINE NEGATIVE (NEGATIVE)
[2021-04-15] MEDS ORDERED: morphine INJ 10 MG/ML 1ML (SYR OR VIAL) IVP STA (01:34)
[2021-04-15 01:35] LABS: BACTERIA,URINE LARGE /HPF; SQUAMOUS EPITHELIAL CELL,UR 0-2 /HPF; WBC,URINE 25-50 /HPF
--- NOTE | 2021-04-15 02:16 | ED Fall/Injury ---
General Chief Complaint: Trauma-Non Activation Stated Complaint: R HIP PAIN Nursing Triage Note: PT ARRIVES VIA EMS TO ROOM FOUR, FELL WHILE TRANSITIONING FROM HER WHEELCHAIR IN A LTC FACILITY. DENIES HEAD OR NECK PAIN, DENIES LOC. Source: patient, EMS, correction records Exam Limitations: no limitations History of Present Illness Date Seen by Provider: Apr 14, 2021 Time Seen by Provider: 22:21 Initial Comments This 85-year-old woman presents to the emergency room via EMS from the correction where she fell while getting out of her wheelchair. She denies any prodrome such as lightheadedness, shortness of breath, etc. She fell onto her right hip. She complains of right hip and buttock pain. She has external rotation and shortening of the right leg. She has dementia and is mildly confused. She is overall alert and oriented. She denies any head or neck injury. Allergies and Home Medications Allergies Coded Allergies: Penicillins (Verified Allergy, Unknown, 11/26/07) cephalexin (Verified Allergy, Unknown, 11/26/07) ciprofloxacin (Verified Allergy, Unknown, 11/26/07) estrogens, conjugated (Verified Allergy, Unknown, 06/17/08) gatifloxacin (Verified Allergy, Unknown, 06/17/08) tetracycline (Verified Allergy, Unknown, 06/17/08) Home Medications Acetaminophen 500 Mg Tablet, 500 MG PO DAILY PRN for PAIN-MILD TO MODERATE, (Reported) Atorvastatin Calcium 80 Mg Tablet, 80 MG PO HS, (Reported) Cranberry Extract 500 Mg Capsule, 500 MG PO DAILY, (Reported) Diphenoxylate HCl/Atropine 1 Each Tablet, 1 TAB PO TID PRN for LOOSE STOOLS, (Reported) Donepezil HCl 5 Mg Tablet, 5 MG PO BID, (Reported) L. Acidophilus/Bulgaricus 1 Each Tablet, 1 TAB.CHEW PO AC Prescribed by: ANDREW YU on 06/06/17 0930 Levothyroxine Sodium 75 Mcg Tablet, 75 MCG PO DAILY, (Reported) Multivit with Calcium,Iron,Min 1 Each Tablet, 1 TAB PO DAILY, (Reported) Oxybutynin Chloride 5 Mg Tablet, 5 MG PO TID, (Reported) Pantoprazole Sodium 40 Mg Tablet.dr, 40 MG PO BID, (Reported) Quetiapine Fumarate 25 Mg Tablet, 25 MG PO HS, (Reported) Sertraline HCl 100 Mg Tablet, 150 MG PO DAILY, (Reported) TAKES 1 & 1/2 OF A (100 MG) TABLET Spironolactone 25 Mg Tablet, 25 MG PO DAILY, (Reported) Sulfamethoxazole/Trimethoprim 1 Each Tablet, 1 EACH PO BID Prescribed by: JOSELINE MENDOZA on 10/02/20 1227 Temazepam 15 Mg Capsule, 15 MG PO HS PRN for SLEEP, (Reported) Patient Home Medication List Home Medication List Reviewed: Yes Review of Systems Review of Systems Constitutional: no symptoms reported Eyes: No Symptoms Reported Ears, Nose, Mouth, Throat: no symptoms reported Respiratory: no symptoms reported Cardiovascular: no symptoms reported Gastrointestinal: no symptoms reported Genitourinary: no symptoms reported Musculoskeletal: see HPI Skin: no symptoms reported Psychiatric/Neurological: See HPI Past Gojmscx-Qzdagq-Sxczqi Hx Patient Social History Tobacco Use?: No Substance use?: No Alcohol Use?: No Immunizations Up To Date Tetanus Booster (TDap): Unknown Influenza Vaccine Up-to-Date: Yes; Up-to-Date Seasonal Allergies Seasonal Allergies: No Past Medical History Surgeries: Yes (FEMUR FX/JEN) Abdominal, Joint Replacement, Orthopedic Respiratory: No Currently Using CPAP: No Currently Using BIPAP: No Cardiac: Yes Deep Vein Thrombosis, High Cholesterol, Hypertension, Peripheral Vascular Neurological: Yes (SUBDURAL BLEED 10/25/20--NO SURGERY/NO TREATMENT. 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 Sexually Transmitted Disease: No HIV/AIDS: No Genitourinary: Yes (INCONTINENCE) Bladder Infection Gastrointestinal: Yes Gastroesophageal Reflux, Diverticulosis, Chronic Diarrhea, Polyps, Hiatal Hernia, Ulcer Musculoskeletal: Yes (OSTEOMYELITIS LEFT TIB/FIB; GENERALIZED WEAKNESS; FREQUENT FALLS) Osteoporosis, Arthritis, Fractures Endocrine: Yes Hypothyroidsim HEENT: Yes Cataract Loss of Vision: Denies Hearing Impairment: Hard of Hearing Cancer: No Psychosocial: Yes Sleep Difficulties, Anxiety Integumentary: No Blood Disorders: No Family Medical History Patient reports no known family medical history. Diabetes, Hypertension HX OF COVID-19 INFECTION Physical Exam Vital Signs Vital Signs - First Documented 04/14/21 22:20 Temp 36.8 Pulse 89 Resp 16 B/P (MAP) 138/76 (96) Pulse Ox 84 O2 Delivery Room Air Capillary Refill : Less Than 3 Seconds Height, Weight, BMI Height: 5'6.00" Weight: 135lbs. 0.0oz. 61.137591lz; 21.00 BMI Method:Stated General Appearance: WD/WN, mild distress HEENT: PERRL/EOMI, normal ENT inspection Neck: normal inspection Cardiovascular: regular rate, rhythm, no edema, no murmur Respiratory: lungs clear, normal breath sounds, no respiratory distress Gastrointestinal: normal bowel sounds, non tender, soft Extremities: no pedal edema, other (Tenderness to palpation over the right hip. Right leg is externally rotated and shortened. 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, no motor/sensory deficits, alert, normal mood/affect, oriented x 3, other (Normally confused from dementia at baseline) Skin: normal color, warm/dry [place] Coma Score Best Eye Response: (4) Open Spontaneously Best Verbal Response: (5) Oriented Best Motor Response: (6) Obeys Commands Sanjeev Total: 15 Progress/Results/Core Measures Results/Orders Lab Results Laboratory Tests Test 04/14/21 22:35 04/14/21 22:44 04/15/21 01:04 Range/Units White Blood Count 7.3 4.3-11.0 10^3/uL Red Blood Count 4.71 3.80-5.11 10^6/uL Hemoglobin 13.3 11.5-16.0 g/dL Hematocrit 41 35-52 % Mean Corpuscular Volume 88 80-99 fL Mean Corpuscular Hemoglobin 28 25-34 pg Mean Corpuscular Hemoglobin Concent 32 32-36 g/dL Red Cell Distribution Width 14.6 H 10.0-14.5 % Platelet Count 160 130-400 10^3/uL Mean Platelet Volume 11.8 9.0-12.2 fL Immature Granulocyte % (Auto) 0 % Neutrophils (%) (Auto) 70 42-75 % Lymphocytes (%) (Auto) 17 12-44 % Monocytes (%) (Auto) 9 0-12 % Eosinophils (%) (Auto) 3 0-10 % Basophils (%) (Auto) 1 0-10 % Neutrophils # (Auto) 5.1 1.8-7.8 10^3/uL Lymphocytes # (Auto) 1.2 1.0-4.0 10^3/uL Monocytes # (Auto) 0.7 0.0-1.0 10^3/uL Eosinophils # (Auto) 0.2 0.0-0.3 10^3/uL Basophils # (Auto) 0.1 0.0-0.1 10^3/uL Immature Granulocyte # (Auto) 0.0 0.0-0.1 10^3/uL Sodium Level 138 135-145 MMOL/L Potassium Level 4.0 3.6-5.0 MMOL/L Chloride Level 102 98-107 MMOL/L Carbon Dioxide Level 25 21-32 MMOL/L Anion Gap 11 5-14 MMOL/L Blood Urea Nitrogen 14 7-18 MG/DL Creatinine 0.74 0.60-1.30 MG/DL Estimat Glomerular Filtration Rate 75 BUN/Creatinine Ratio 19 Glucose Level 127 H 70-105 MG/DL Calcium Level 9.8 8.5-10.1 MG/DL Corrected Calcium 10.0 8.5-10.1 MG/DL Total Bilirubin 0.4 0.1-1.0 MG/DL Aspartate Amino Transf (AST/SGOT) 32 5-34 U/L Alanine Aminotransferase (ALT/SGPT) 24 0-55 U/L Alkaline Phosphatase 128 40-136 U/L Total Protein 7.4 6.4-8.2 GM/DL Albumin 3.7 3.2-4.5 GM/DL Prothrombin Time 13.3 12.2-14.7 SEC INR Comment 1.0 0.8-1.4 Activated Partial Thromboplast Time 27 24-35 SEC Urine Color YELLOW Urine Clarity CLEAR Urine pH 6.0 5-9 Urine Specific [place] 1.025 H 1.016-1.022 Urine Protein NEGATIVE NEGATIVE Urine Glucose (UA) NEGATIVE NEGATIVE Urine Ketones NEGATIVE NEGATIVE Urine Nitrite POSITIVE H NEGATIVE Urine Bilirubin NEGATIVE NEGATIVE Urine Urobilinogen 0.2 < = 1.0 MG/DL Urine Leukocyte Esterase 1+ H NEGATIVE Urine RBC (Auto) NEGATIVE NEGATIVE Urine RBC NONE /HPF Urine WBC 25-50 H /HPF Urine Squamous Epithelial Cells 0-2 /HPF Urine Crystals NONE /LPF Urine Bacteria LARGE H /HPF Urine Casts NONE /LPF Urine Mucus NEGATIVE /LPF Urine Culture Indicated YES My Orders Orders - JOSELINE CASAS MD Cbc With Automated Diff (04/14/21 22:39) Comprehensive Metabolic Panel (04/14/21 22:39) Protime With Inr (8/4/21 22:39) Partial Thromboplastin Time (04/14/21 22:39) Ua Culture If Indicated (04/14/21 22:39) Ed Iv/Invasive Line Start (04/14/21 22:39) Fentanyl Inj (Sublimaze Injection) (04/14/21 22:45) Fernández Cath (04/14/21 22:40) Fentanyl Inj (Sublimaze Injection) (04/14/21 22:39) Morphine Injection (Morphine Injection (04/14/21 23:09) Lorazepam Injection (Ativan Injection) (04/14/21 23:45) Pelvis With Right Hip 2-3views (04/15/21 00:01) Chest 1 View, Ap/Pa Only (04/15/21 ) Morphine Injection (Morphine Injection (04/15/21 01:34) Urine Culture (04/15/21 01:04) Medications Given in ED Current Medications Medications Dose Ordered Sig/Demarco Route Start Time Stop Time Status Last Admin Dose Admin Fentanyl Citrate 25 mcg ONCE ONCE IVP 04/14/21 22:45 04/14/21 22:46 DC 04/14/21 22:42 25 MCG Lorazepam 0.25 mg ONCE ONCE IVP 04/14/21 23:45 04/14/21 23:46 DC 04/14/21 23:50 0.25 MG Vital Signs/I&O 04/14/21 22:20 Temp 36.8 Pulse 89 Resp 16 B/P (MAP) 138/76 (96) Pulse Ox 84 O2 Delivery Room Air Blood Pressure Mean: 96 Progress Progress Note : Progress Note Pain was controlled with opioid analgesics. Agitation was treated with Ativan. A comminuted right intertrochanteric hip fracture was identified. Dr. Street was consulted and plans to do surgery today. Departure Communication (Admissions) Time/Spoke to Admitting Phy: 02:11 Dr. Yu Time/Spoke to Consulting Phy: 02:[address] Dr. Street Impression Primary Impression: Closed right hip fracture Qualified Codes: S72.001A - Fracture of unspecified part of neck of right femur, initial encounter for closed fracture Additional Impression: Fall from wheelchair Qualified Codes: W05.0XXA - Fall from non-moving wheelchair, initial encounter Disposition: ADMITTED INPATIENT Condition: Stable Admissions Decision to Admit Reason: Admit from ER (General) Decision to Admit/Date: Apr 14, 2021 Time/Decision to Admit Time: 23:00 Departure-Patient Inst. Referrals: ANDREW YU MD (PCP/Family) Primary Care Physician JOSELINE CASAS MD Apr 15, 2021 02:16
[2021-04-15] MEDS ORDERED: LORazepam INJ 2 MG/ML (ATIVAN) VIAL IVP ONE (02:30)
[2021-04-15] MEDS ORDERED: LACTATED RINGERS 1,000 ML IV ONE (04:13)
[2021-04-15] MEDS: LACTATED RINGERS 1,000 ML IV SCH ×3 (04:15→21:04)
[2021-04-15] MEDS ORDERED: ONDANSETRON 4 MG/2 ML (SDV) Z0FRAN IV PRN (04:45)
[2021-04-15] MEDS: LORazepam INJ 2 MG/ML (ATIVAN) VIAL IV PRN ×3 (06:52→20:16)
--- NOTE | 2021-04-15 07:45 | Diagnostic Imaging Report ---
Indication: Right hip injury from a fall Portable chest 12:37 AM Heart size and pulmonary vascularity are normal. Lungs are clear. There are no effusions or pneumothoraces. IMPRESSION: Negative chest Dictated by: Dictated on workstation # [id number]
--- NOTE | 2021-04-15 07:49 | Diagnostic Imaging Report ---
Indication: Right hip pain 4 views of the right hip show a comminuted intertrochanteric fracture of the right hip with reduction of the femoral angle. IMPRESSION: Comminuted intertrochanteric fracture right hip. Pelvic ring appears to be intact. Dictated by: Dictated on workstation # [id number]
[2021-04-15] MEDS: morphine INJ 4 MG/ML 1 ML (VIAL/SYRINGE) IV PRN ×2 (08:27→18:24)
--- NOTE | 2021-04-15 08:40 | History & Physical-Hospitalist ---
MELLISA CASAS A MED STUDENT 04/15/21 0840: History of Present Illness HPI/Chief Complaint Right hip fracture Source: RN notes reviewed, EMS notes reviewed Exam Limitations: no limitations Date Seen 04/15/21 Time Seen by a Provider: 08:10 Attending Physician Poonam Yu MD PCP Poonam Yu MD Referring Physician Date of Admission Apr 15, 2021 at 02:13 Home Medications & Allergies Home Medications Reviewed patient Home Medication Reconciliation performed by pharmacy medication reconciliations railroad signal technician and/or nursing. Patients Allergies have been reviewed. Allergies Allergies Coded Allergies Penicillins (Verified Allergy, Unknown, 11/26/07) cephalexin (Verified Allergy, Unknown, 11/26/07) ciprofloxacin (Verified Allergy, Unknown, 11/26/07) estrogens, conjugated (Verified Allergy, Unknown, 06/17/08) gatifloxacin (Verified Allergy, Unknown, 06/17/08) tetracycline (Verified Allergy, Unknown, 06/17/08) Past Dgsanpv-Bmjqjg-Inksuq Hx Patient Social History Tobacco Use?: No Substance use?: No Alcohol Use?: No Pt feels they are or have been: No Immunizations Up To Date Date of Influenza Vaccine: Jun 11, 2020 Tetanus Booster (TDap): Unknown Hepatitis A: No Hepatitis B: No Date of Pneumonia Vaccine: Jun 24, 2012 Seasonal Allergies Seasonal Allergies: No Current Status status: No Advance Directives: Unable to obtain Advance Directive Location: Copy placed in chart Communicates: Verbally Primary Language: Serbian Preferred Spoken Language: Serbian Is interpretation needed?: No Sensory deficits: Vision impairment Implanted or Applied Medical D: None Past Medical History Surgeries: Abdominal, Joint Replacement, Orthopedic Currently Using CPAP: No Currently Using BIPAP: No Deep Vein Thrombosis, High Cholesterol, Hypertension, Peripheral Vascular Dementia, Traumatic Brain Injury, Vertigo 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 Diabetes, Hypertension HX OF COVID-19 INFECTION Review of Systems Genitourinary: dysuria Physical Exam Physical Exam Vital Signs Vital Signs - First Documented 04/14/21 04/15/21 22:20 03:20 Temp 36.8 Pulse 89 Resp 16 B/P (MAP) 138/76 (96) Pulse Ox 84 O2 Delivery Room Air O2 Flow Rate 2.00 Capillary Refill : Less Than 3 Seconds Height, Weight, BMI Height: 5'6.00" Weight: 135lbs. 0.0oz. 61.693791mc; 18.98 BMI Method:Stated General Appearance: Moderate Distress Respiratory: Lungs Clear, Normal Breath Sounds, No Respiratory Distress Cardiovascular: Regular Rate, Rhythm, No Edema, No Murmur Gastrointestinal: Normal Bowel Sounds, Non Tender, Soft Extremity: No Pedal Edema Neurologic/Psychiatric: Alert Skin: Normal Color, Warm/Dry Results Results/Procedures Labs Laboratory Tests 04/14/21 22:35 Patient resulted labs reviewed. BRANDON JASON MD 04/15/21 1347: Past Fbpwakx-Abpouk-Pyckzx Hx Family Medical History Patient reports no known family medical history. MELLISA CASAS MED STUDENT Apr 15, 2021 08:40 BRANDON JASON MD Apr 15, 2021 13:47
[2021-04-15] MEDS ORDERED: HYDR120L2 TP (09:47)
[2021-04-15] MEDS ORDERED: BISA10SU8 RC (09:47)
[2021-04-15] MEDS ORDERED: MENT71OI TP (09:47)
[2021-04-15] MEDS ORDERED: LACT1CAP28 PO (09:47)
[2021-04-15] MEDS ORDERED: ACET650S15 RC (09:47)
[2021-04-15] MEDS ORDERED: CETI10TA17 PO (09:47)
[2021-04-15] MEDS ORDERED: MORP20SO PO (09:47)
[2021-04-15] MEDS ORDERED: MICO85PO4 TP (09:47)
[2021-04-15] MEDS ORDERED: ONDA-105 PO (09:47)
[2021-04-15] MEDS ORDERED: MAG355OR17 PO (09:47)
[2021-04-15] MEDS ORDERED: DONE10TA41 PO (09:47)
[2021-04-15] MEDS ORDERED: CRAN500T3 PO (09:47)
[2021-04-15] MEDS ORDERED: ACET-2267 PO (09:47)
[2021-04-15] MEDS ORDERED: MULT-1136 PO (09:47)
[2021-04-15] MEDS ORDERED: HYOS-20 PO (09:47)
--- NOTE | 2021-04-15 09:47 | Consultation - Ortho ---
Consult - Ortho Subjective Date of Exam 04/15/21 Chief Complaint Intertrochanteric fracture right hip HPI/Events since last exam Mrs. Landon is an 85-year-old white female Who fell last evening transferring from her wheelchair falling directly on the right hip. She was seen in the emergency room where she was evaluated and x-rayed noted to have a fracture of the right hip, three-part intertrochanteric fracture. She is admitted by Dr. LEMON and I am seeing her in consultation. She does ambulate but states she uses a wheelchair most of the time. She has had a previous fracture of the left femur that was rotted and it sounds like this was infected. 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 She denies any previous problems with right hip. I also spoke to her son and he discussed the above with me as well. She denies any other injuries. States she does have a history of low back pain. Her son states she is been in the care home for 3 to 4 months, prior to that she was in [facility] after a traumatic brain injury/hematoma He does have a history of Alzheimer's and dementia Medical, Surgical History Reviewed and no additions or changes Social History Reviewed and no additions or changes Family History Reviewed and no additions or changes Review of Systems Reviewed and no additions or changes Allergies: Coded Allergies: Penicillins (Verified Allergy, Unknown, 11/26/07) cephalexin (Verified Allergy, Unknown, 11/26/07) ciprofloxacin (Verified Allergy, Unknown, 11/26/07) estrogens, conjugated (Verified Allergy, Unknown, 06/17/08) gatifloxacin (Verified Allergy, Unknown, 06/17/08) tetracycline (Verified Allergy, Unknown, 06/17/08) Home Meds Active Scripts Sulfamethoxazole/Trimethoprim (Bactrim Ds Tablet) 1 Each Tablet, 1 EACH PO BID, #14 TAB Prov:JOSELINE CASAS MD 10/02/20 L. Acidophilus/Bulgaricus (Floranex Tablet) 1 Each Tablet, 1 TAB.CHEW PO AC for 30 Days, #90 TAB 1 Refill Prov:ANDREW LEMON MD 06/06/17 Reported Medications Oxybutynin Chloride (Oxybutynin Chloride) 5 Mg Tablet, 5 MG PO TID 06/05/17 Donepezil HCl (Donepezil HCl) 5 Mg Tablet, 5 MG PO BID 06/05/17 Levothyroxine Sodium (Levothyroxine Sodium) 75 Mcg Tablet, 75 MCG PO DAILY 06/05/17 Atorvastatin Calcium (Atorvastatin Calcium) 80 Mg Tablet, 80 MG PO HS 06/05/17 Cranberry Extract (Cranberry) 500 Mg Capsule, 500 MG PO DAILY, CAP 06/05/17 Multivit with Calcium,Iron,Min (Women's Daily Formula) 1 Each Tablet, 1 TAB PO DAILY, TAB 06/05/17 Acetaminophen (Acetaminophen) 500 Mg Tablet, 500 MG PO DAILY PRN for PAIN-MILD TO MODERATE, TAB 12/20/16 Temazepam (Temazepam) 15 Mg Capsule, 15 MG PO HS PRN for SLEEP 12/20/16 Sertraline HCl (Sertraline HCl) 100 Mg Tablet, 150 MG PO DAILY TAKES 1 & 1/2 OF A (100 MG) TABLET 12/20/16 Pantoprazole Sodium (Pantoprazole Sodium) 40 Mg Tablet.dr, 40 MG PO BID 12/20/16 Diphenoxylate HCl/Atropine (Diphenoxylate-Atrop 2.5-0.025) 1 Each Tablet, 1 TAB PO TID PRN for LOOSE STOOLS 12/20/16 Quetiapine Fumarate (Quetiapine Fumarate) 25 Mg Tablet, 25 MG PO HS 12/20/16 Spironolactone (Spironolactone) 25 Mg Tablet, 25 MG PO DAILY 12/20/16 Objective Exam Constitutional: [] HEENT: [] Neck: [No pain with range of motion or palpation] Cardiovascular: [] Respiratory: [] Gastrointestinal: [] Genitourinary: [] Skin: [] Back/Spine: [Mild pain with palpation lower back but the patient states that this is stable and not from her fall] Extremities: [Upper extremity she has full range of motion without pain. No deformity no crepitation. She has normal sensation with good cap refill and equal pulses. Lower extremitiespain with palpation range of motion right hip. No pain right knee or right ankle. No pain left hip nor left knee or ankle. She has surgical scars from previous surgeries on both knees and left femur. She states she has normal sensation of the foot and toes with good cap refill and equal pulses.] Neurologic: [] Psychiatric: [] Hematologic/lymphatic/immunologic: [] Vital Signs Vital Signs Date Time Temp Pulse Resp B/P (MAP) Pulse Ox O2 Delivery O2 Flow Rate FiO2 04/15/21 07:54 37.2 86 20 104/59 (74) 96 Nasal Cannula 2.00 04/15/21 03:25 Nasal Cannula 2.00 04/15/21 03:20 36.4 91 20 129/66 (87) 98 Nasal Cannula 2.00 04/15/21 03:16 36.8 95 16 108/82 (96) 98 Room Air 04/14/21 22:20 36.8 89 16 138/76 (96) 84 Room Air I & O 04/15/21 07:00 Output Total 150 ml Balance -150 ml Lab Results Laboratory Tests 04/14/21 22:35: White Blood Count 7.3, Red Blood Count 4.71, Hemoglobin 13.3, Hematocrit 41, Mean Corpuscular Volume 88, Mean Corpuscular Hemoglobin 28, Mean Corpuscular Hemoglobin Concent 32, Red Cell Distribution Width 14.6H, Platelet Count 160, Mean Platelet Volume 11.8, Immature Granulocyte % (Auto) 0, Neutrophils (%) (Auto) 70, Lymphocytes (%) (Auto) 17, Monocytes (%) (Auto) 9, Eosinophils (%) (A uto) 3, Basophils (%) (Auto) 1, Neutrophils # (Auto) 5.1, Lymphocytes # (Auto) 1.2, Monocytes # (Auto) 0.7, Eosinophils # (Auto) 0.2, Basophils # (Auto) 0.1, Immature Granulocyte # (Auto) 0.0, Sodium Level 138, Potassium Level 4.0, Chloride Level 102, Carbon Dioxide Level 25, Anion Gap 11, Blood Urea Nitrogen 14, Creatinine 0.74, Estimat Glomerular Filtration Rate 75, BUN/Creatinine Ratio 19, Glucose Level 127H, Calcium Level 9.8, Corrected Calcium 10.0, Total Bilirubin 0.4, Aspartate Amino Transf (AST/SGOT) 32, Alanine Aminotransferase (ALT/SGPT) 24, Alkaline Phosphatase 128, Total Protein 7.4, Albumin 3.7 04/14/21 22:44: Prothrombin Time 13.3, INR Comment 1.0, Activated Partial Thromboplast Time 27 04/15/21 01:04: Urine Color YELLOW, Urine Clarity CLEAR, Urine pH 6.0, Urine Specific [place] 1.025H, Urine Protein NEGATIVE, Urine Glucose (UA) NEGATIVE, Urine Ketones NEGATIVE, Urine Nitrite POSITIVEH, Urine Bilirubin NEGATIVE, Urine Urobilinogen 0.2, Urine Leukocyte Esterase 1+H, Urine RBC (Auto) NEGATIVE, Urine RBC NONE, Urine WBC 25-50H, Urine Squamous Epithelial Cells 0-2, Urine Crystals NONE, Urine Bacteria LARGEH, Urine Casts NONE, Urine Mucus NEGATIVE, Urine Culture Indicated YES Imaging X-rays were reviewed which shows a 3 part intertrochanteric fracture of the right hip Assessment and Plan Assessment Three-part intertrochanteric fracture right hip Problem List Unchanged Plan I discussed treatment options with the patient and her son Who has power of county attorney. I discussed both nonoperative and operative treatment. He understands with nonoperative treatment that she Would require bedrest for possibly 6 to 8 weeks and the fracture still may not heal. She probably would not return to ambulation. She may develop complications from bedrest. Surgical treatment was discussed and I recommended a trochanteric fixation nail. He understands she is at increased risk due to her medical history. After discussion he thinks he would like to have her proceed with surgical treatment. He understands the procedure risk complications. I did discuss her allergies and both him and his mother are unsure what her penicillin and cephalexin allergies were. She states that she has had no severe Allergic reaction. She thinks it was just a rash. No respiratory problems or anaphylaxis from either the penicillin or the cephalosporin. With a minor or mild reaction to cephalosporin the recommendations are to proceed with cephalosporin for surgical antibiotic prophylaxis. Plan on short TFN later on this morning.The son again who has power of county attorney will speak with the patient's nurse. Final Diagonsis Three-part intertrochanteric fracture right hip Level of the visit: Level 3 MOHAN BARRETT MD Apr 15, 2021 09:47
[2021-04-15] MEDS ORDERED: KETAMINE HCL 100 MG/ML 5 ML VIAL ONE (10:23)
[2021-04-15] MEDS ORDERED: LORA-405 PO (10:30)
[2021-04-15] MEDS ORDERED: LACTATED RINGERS 1,000 ML IV PRN (10:30)
[2021-04-15] MEDS ORDERED: MORP100S3 SL (10:30)
[2021-04-15] MEDS ORDERED: ceFAZolin 2 GM IV Premixed 50 ML ONE (11:08)
--- NOTE | 2021-04-15 11:08 | Diagnostic Imaging Report ---
PROCEDURE: CT head without contrast. TECHNIQUE: Multiple contiguous axial images were obtained through the brain without the use of intravenous contrast. Auto Exposure Controls were utilized during the CT exam to meet ALARA standards for radiation dose reduction. INDICATION: Hypoxia. COMPARISON: Comparison is made with prior head CT from 01/23/2021. FINDINGS: A low-density subdural collection along the left cerebral convexity has significantly decreased in size since exam from 01/23/2021. Thickness of the collection is approximately 14 mm compared with 27 mm when measured at similar location. This continues to exert some mass effect with left to right midline shift of approximately 3 mm. The subdural collection is primarily low density and appears chronic. No acute component is identified. No acute intra-axial or extra-axial hemorrhage is seen. Cisterns are patent. The visualized paranasal sinuses are clear. IMPRESSION: Reduction in size of chronic left cerebral convexity subdural collection when compared with prior study from 01/23/2021. No acute intracranial hemorrhage is detected. Dictated by: Dictated on workstation # [id number]
[2021-04-15] MEDS ORDERED: fentaNYL INJ 100 MCG/2 ML AMP ONE (11:30)
[2021-04-15] MEDS ORDERED: BACITRACIN OINTMENT 28 GM TUBE ONE (12:10)
--- NOTE | 2021-04-15 12:21 | Diagnostic Imaging Report ---
INDICATION: Right femoral fracture. ORIF. COMPARISON: None. TOTAL FLUOROSCOPY TIME: 47 seconds. TOTAL NUMBER OF FLUOROSCOPIC IMAGES SAVED: 3. FINDINGS: Multiple intraoperative image intensifier views of the right hip were obtained during ORIF of the proximal right femur. Images provided show placement of a short intramedullary lisbet which traverses the right femoral shaft. This intersects a screw which traverses the femoral head and neck. There is appropriate alignment of the major fracture fragments. Please note, the interpreting radiologist was not present during the procedure. IMPRESSION: Fluoroscopic guidance was provided during right hip ORIF. Dictated by: Dictated on workstation # [id number]
--- NOTE | 2021-04-15 12:32 | Anesthesia-Regional Post-Op ---
Regional Patient Condition Mental Status: Alert, Oriented x3 Circulation: Same as Pre-Op Headache: Absent Sensation: Full Recovery Motor Block: Absent Post Op Complications Complications None Follow Up Care/Instructions Patient Instructions None needed. Anesthesia/Patient Condition Patient is doing well, no complaints, stable vital signs, no apparent adverse anesthesia problems. No complications reported per nursing. VANDANA STEWART CRNA Apr 15, 2021 12:32
[2021-04-15] MEDS ORDERED: BUPIVACAINE 0.5% 30 ML (SENSORCAINE) VIAL ONE (12:33)
[2021-04-15] MEDS ORDERED: PHENYLEPHRINE 100 MCG/ML 10 ML (ANESTHESIA) SYR ONE (12:33)
[2021-04-15] MEDS ORDERED: VASOPRESSIN INJECTION 20 UNIT/ML VIAL ONE (12:42)
[2021-04-15] MEDS ORDERED: ONDANSETRON 4 MG/2 ML (SDV) Z0FRAN IVP PRN (12:45)
[2021-04-15] MEDS ORDERED: MEPERIDINE (DEMEROL) INJ 50 MG/ML IVP ONE (12:45)
[2021-04-15] MEDS ORDERED: morphine INJ 10 MG/ML 1ML (SYR OR VIAL) IVP ONE (12:45)
--- NOTE | 2021-04-15 12:58 | Operative Report - Ortho ---
Operative Report Surgeon (s)/Ingot Header (s) Surgeon MOHAN BARRETT MD Ingot Header n/a Pre-Operative Diagnosis Three-part intertrochanteric fracture right hip Post-Operative Diagnosis same Operative Report Date of Procedure: Apr 15, 2021 Name of Procedure Performed: Short TFN right hip using a 170 x 11 mm lisbet with a 95 mm helical blade and a 36 mm distal locking screw Description & Findings The patient was seen in the preoperative area and orders were given for Ancef 2 g IV preop. The patient has a history of a penicillin and Keflex allergy but she states that it just gave her a rash. We had elected to proceed with Ancef for our pre and postop antibiotic. She had no reaction after receiving the A ncef. She was taken operating room and after spinal anesthesia she was placed on the fracture table. Perineal post was used for traction countertraction. The right foot was placed in the boot and traction was applied to the leg which was in adduction and and internal rotation. The left leg was placed in the well-leg heath. Images used to visualize reduction and the reduction was anatomic except for the small fragment of the lesser trochanter. The right hip and thigh were then prepped and draped in usual sterile manner incision was made just proximal to the tip of the greater trochanter. This is taken down through subtenons tissue then through the gluteal fascia. The trochanter was palpated and a guidewire was placed through the tip of the greater trochanter into the proximal femoral shaft on both AP and lateral views which was centralized on the lateral view. This point the greater trochanter was overreamed with a tissue protector and then an 11 mm x 170 mm short lisbet was selected and inserted. This was a position for insertion of the guidewire for the helical blade. With the guide through a small matilde incision the guidewire was inserted into the proximal lateral cortex into the central aspect of the neck and head into the subchondral bone. This was measured and a 95 mm helical blade was selected. The cortex was opened laterally and then the helical blade was inserted to approximately 5 mm from the articular surface on both AP and lateral views again central in the neck and head. This was then locked in place. Next the guide for the distal locking screw was inserted through a separate incision measured after drilling and 36 mm distal locking screw was inserted. The entire proximal femur was evaluated with fluoroscopy and excellent alignment was noted of the fracture as well as a TFN in good position. Permanent films were obtained. There is no penetration of the head with the helical blade. At this point the wounds were irrigated with normal saline. The fascia was closed with 0 Vicryl, the subc utaneous tissue with 2-0 Vicryl and skin with skin clips. The wounds were dressed with antibiotic ointment Adaptic 4 x 4's and ABDs which were taped in position. Patient was transferred to her hospital bed. Leg lengths were equal as well as rotation. She was then transferred to recovery room in good in good condition, she tolerated the procedure well. Estimated blood loss was 50 mL. Replacement none drains none complications none specimens none n/a Anesthesia Type Spinal Estimated Blood Loss 50 mL Packing none. Specimen(s) collected/removed None MOHAN BARRETT MD Apr 15, 2021 12:58
[2021-04-15] MEDS ORDERED: fentaNYL INJ 100 MCG/2 ML AMP IVP PRN ×2 (13:00)
--- NOTE | 2021-04-15 13:53 | History & Physical-Hospitalist ---
History of Present Illness HPI/Chief Complaint Monae Landon is an 85 year old female with PMH dementia, hyperlipidemia, hypothyroidism, subdural hematoma on hospice, who presented with a fall. She is a long-term resident of [facility]. She reportedly fell when trying to get out of her wheelchair. She is a poor historian due to her dementia. She reports right leg pain. She denies any chest pain or shortness of breath. She denies any fevers. She denies any abdominal pain. She denies any nausea or vomiting. She has no history of renal disease. She is not on insulin. She has no history of stroke or heart disease. Source: patient Exam Limitations: no limitations Date Seen 04/15/21 Time Seen by a Provider: 10:15 Attending Physician Brandon Jason MD PCP No,Local Physician Referring Physician Date of Admission Apr 15, 2021 at 02:13 Home Medications & Allergies Home Medications Reviewed patient Home Medication Reconciliation performed by pharmacy medication reconciliations mechanical service technician and/or nursing. Patients Allergies have been reviewed. Allergies Allergies Coded Allergies Penicillins (Verified Allergy, Unknown, 11/26/07) cephalexin (Verified Allergy, Unknown, 11/26/07) ciprofloxacin (Verified Allergy, Unknown, 11/26/07) estrogens, conjugated (Verified Allergy, Unknown, 06/17/08) gatifloxacin (Verified Allergy, Unknown, 06/17/08) tetracycline (Verified Allergy, Unknown, 06/17/08) Past Kbetiet-Brtusp-Udnseu Hx Patient Social History Tobacco Use?: No Substance use?: No Alcohol Use?: No Pt feels they are or have been: No Immunizations Up To Date Date of Influenza Vaccine: Jun 11, 2020 First/Initial COVID19 Vaccinat: 10/12/2020 Second COVID19 Vaccination Keagan: 11/21/2020 Tetanus Booster (TDap): Less Than 5 Years Hepatitis A: No Hepatitis B: No Date of Pneumonia Vaccine: Jun 24, 2012 Seasonal Allergies Seasonal Allergies: No Current Status status: No Advance Directives: Yes Advance Directive Location: [facility] Communicates: Verbally Primary Language: Ukrainian Preferred Spoken Language: Ukrainian Is interpretation needed?: No Sensory deficits: Vision impairment Implanted or Applied Medical D: None Past Medical History Surgeries: Abdominal, Joint Replacement, Orthopedic Currently Using CPAP: No Currently Using BIPAP: No Deep Vein Thrombosis, High Cholesterol, Hypertension, Peripheral Vascular Dementia, Traumatic Brain Injury, Vertigo 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 Diabetes, Hypertension HX OF COVID-19 INFECTION Review of Systems Constitutional: no symptoms reported EENTM: no symptoms reported Respiratory: no symptoms reported Cardiovascular: no symptoms reported Gastrointestinal: no symptoms reported Genitourinary: no symptoms reported Musculoskeletal: joint pain Skin: no symptoms reported Psychiatric/Neurological: No Symptoms Reported Physical Exam Physical Exam Vital Signs Vital Signs - First Documented 04/14/21 04/15/21 22:20 03:20 Temp 36.8 Pulse 89 Resp 16 B/P (MAP) 138/76 (96) Pulse Ox 84 O2 Delivery Room Air O2 Flow Rate 2.00 Capillary Refill : Less Than 3 Seconds Height, Weight, BMI Height: 5'6.00" Weight: 135lbs. 0.0oz. 61.743038lb; 18.98 BMI Method:Stated General Appearance: No Apparent Distress, Chronically ill HEENT: PERRL/EOMI, Pharynx Normal Neck: Normal Inspection, Supple Respiratory: Lungs Clear, Normal Breath Sounds, No Respiratory Distress Cardiovascular: Regular Rate, Rhythm, No Edema, No Murmur Gastrointestinal: Normal Bowel Sounds, Non Tender, Soft Extremity: Normal Inspection, Non Tender, No Pedal Edema Neurologic/Psychiatric: Alert, No Motor/Sensory Deficits, Normal Mood/Affect, Disoriented Skin: Normal Color, Warm/Dry Results Results/Procedures Labs Laboratory Tests 04/14/21 22:35 Patient resulted labs reviewed. Imaging: Reviewed Imaging Report Assessment/Plan Admission Diagnosis Closed comminuted intertrochanteric right femur fracture Admission Status: Inpatient Order (span 2 midnights) Reason for Inpatient Admission: Hip surgery Assessment and Plan Closed comminuted intertrochanteric right femur fracture XR consistent with right hip fracture Orthopedic surgery consulted, planning for surgery today RCRI 0 Intermediate risk patient, intermediate risk procedure Chronic intracranial subdural hematoma CT head showed stability, improvement Plan to begin postoperative Lovenox with risk of DVT/PE UTI UA consistent with UTI Urine culture with gram negative lisbet Rocephin HLD Hypothyroidism Hold home meds, resume when able Dementia Hospice care patient Clincially significant, no acute management needs Palliative care consulted DVT prophylaxis: Lovenox Diagnosis/Problems Diagnosis/Problems (1) Closed comminuted intertrochanteric fracture of right femur Status: Acute (2) Fall from wheelchair Status: Acute Qualifiers: Encounter type: initial encounter Qualified Codes: W05.0XXA - Fall from non-moving wheelchair, initial encounter (3) Chronic intracranial subdural hematoma Status: Chronic (4) Dementia Status: Chronic (5) Urinary tract infection Status: Acute (6) Hospice care patient BRANDON JASON MD Apr 15, 2021 13:53
[2021-04-15] MEDS: cefTRIAXone 1,000 MG in WATER (STERILE) FOR INJECTION 10 ML IV SCH (17:09)
[2021-04-15] MEDS ORDERED: ceFAZolin INJECTION 1,000 MG in WATER (STERILE) FOR INJECTION 10 ML IV SCH (19:00)
[2021-04-15] MEDS: HYDROcodone/APAP 5 MG/325 MG (LORTAB) TAB PO PRN (20:16)
[2021-04-15] MEDS: ENOXAPARIN 30 MG/0.3 ML (LOVENOX) SYR SC SCH (21:03)
[2021-04-16] MEDS: LORazepam INJ 2 MG/ML (ATIVAN) VIAL IV PRN ×4 (00:12→20:36)
[2021-04-16] MEDS: HYDROcodone/APAP 5 MG/325 MG (LORTAB) TAB PO PRN ×4 (00:13→20:36)
[2021-04-16 04:13] VITALS: BP 106/50
[2021-04-16 05:13] LABS: HEMOGLOBIN 8.1 g/dL (11.5-16.0)
[2021-04-16 07:41] VITALS: BP 109/56
[2021-04-16] MEDS: morphine INJ 4 MG/ML 1 ML (VIAL/SYRINGE) IV PRN ×3 (09:07→17:48)
--- NOTE | 2021-04-16 09:14 | Anesthesia-Regional Post-Op ---
Regional Patient Condition Mental Status: Alert, Oriented x3 Circulation: Same as Pre-Op Headache: Absent Sensation: Full Recovery Motor Block: Absent Post Op Complications Complications None Follow Up Care/Instructions Patient Instructions None needed. Anesthesia/Patient Condition Patient is doing well, no complaints, stable vital signs, no apparent adverse anesthesia problems. No complications reported per nursing. VANDANA STEWART CRNA Apr 16, 2021 09:14
--- NOTE | 2021-04-16 09:40 | Physical Therapy Evaluation ---
PT Evaluation-General Medical Diagnosis Admission Date Apr 15, 2021 at 02:13 Medical Diagnosis: right hip fracture/fall from w/c Onset Date: Apr 15, 2021 Therapy Diagnosis Therapy Diagnosis: debility/weakness Height/Weight Height (Feet): 5 Height (Inches): 6.00 Weight (Pounds): 135 Weight (Ounces): 0.0 Precautions Precautions/Isolations: Fall Prevention, Standard Precautions Referral Physician: Yenifer Reason for Referral: Evaluation/Treatment Medical History Pertinent Medical History: Dementia (advanced), HTN, PVD, TBI Current History EMS secondary to fall during a transfer at [place] Reviewed History: Yes Social History Home: Skilled Nursing Prior Prior Level of Function SCALE: Activities may be completed with or without assistive devices. 5-Xfiglsoorr-rujmkkc completes the activity by him/herself with no assistance from a helper. 5-Set-up or Clean-up Assistance-helper sets up or cleans up; patient completes activity. [place]o assists only prior to or following the activity. 4-Supervision or Touching Assistance-helper provides verbal cues and/or touching/steadying and/or contact guard assistance as patient completes activity. Assistance may be provided throughout the activity or intermittently. 3-Partial/Moderate Assistance-helper does LESS THAN HALF the effort. [place]o lifts, holds or supports trunk or limbs, but provides less than half the effort. 2-Substantial/Maximal Assistance-helper does MORE THAN HALF the effort. [place] lifts or holds trunk or limbs and provides more than half the effort. 8-Kglhamihe-gzohhe does ALL the effort. Patient does none of the effort to complete the activity. Or, the assistance of 2 or more helpers is required for the patient to complete the activity. If activity was not attempted, code reason: 7-Patient Refused. 9-Not Applicable-not attempted and the patient did not perform the activity before the current illness, exacerbation or injury. 10-Not Attempted due to Environmental Limitations-(lack of equipment, weather restraints, etc.). 88-Not Attempted due to Medical Conditions or Safety Concerns. Bed Mobility: 1 Transfers (B,C,W/C): 1 Gait: 9 Stairs: 9 Wheelchair Mobility: 1 Indoor Mobility (Ambulation): Not Applicalbe Stairs: Not Applicalbe Prior Devices Use: Manual wheelchair PT Evaluation-Current Subjective Patient is very confused, agitated and combative. Pain Numeric Pain Scale: 10-Worst Possible Pain Location: Right Location Body Site: Hip Pain Description: Acute Comment: FLACC Objective Patient Orientation: Confused Attachments: Oxygen, Fernández Catheter, IV ROM/Strength ROM Lower Extremities bilateral LE functional Strength Lower Extremities 3-/5 grossly bilateral LE (no formal testing) Integumentary/Posture Integumentary refer to nursing notes Bladder Incontinence: Fernández Cath Posture kyphotic Neuromuscular (Tone, Coordination, Reflexes) diminished coordination Sensory Vision: Unable to Assess Hearing: Functional Transfers Sit to Lying (QC): 1 Lying to Sitting/Side of Bed(Q: 1 Sit to Stand (QC): 1 Chair/Nyy-pp-Qyxjv Xfer(QC): 1 patient combative during session Gait Does the Patient Walk?: No and Walking Goal NOT indicated Balance Sitting Static: Fair Sitting Dynamic: Fair Standing Static: Poor Standing Dynamic: Poor Assessment/Needs 85 y.o. female, will be seen short term by skilled PT to address functional strength and mobility. Patient will benefit in returning to her environment due to severe dementia and inability to follow simple direction. Rehab Potential: Guarded PT Skilled Nursing Goals Cloth Carrier Goals PT Cloth Carrier Goals Time Frame: Apr 24, 2021 Roll Left & Right (QC): 2 Sit to Lying (QC): 2 Lying-Sitting on Side/Bed(QC): 2 Sit to Stand (QC): 2 Chair/Kcn-lm-Jwuug Xfer(QC): 2 PT Plan Problem List Problem List: Activity Tolerance, Functional Strength, Safety, Balance, Gait, Transfer, Bed Mobility Treatment/Plan Treatment Plan: Continue Plan of Care Treatment Plan: Bed Mobility, Education, Functional Activity Jeannette, Functional Strength, Gait, Safety, Therapeutic Exercise, Transfers Treatment Duration: Apr 24, 2021 Frequency: 6 times per week Estimated Hrs Per Day: .25 hour per day Patient and/or Family Agrees t: Yes Discharge Recommendations Therapy Discharge Recommendati: Other, See Comments (group home facility) Time/GCodes Time In: 842 Time Out: 853 Total Billed Treatment Time: 11 [facility] Apr 16, 2021 09:39
--- NOTE | 2021-04-16 09:41 | Progress Note - Ortho ---
Progress Note Subjective Date of Exam 04/16/21 Chief Complaint POD#1 Short TFN right hip for a 3 part intertrochanteric fracture HPI/Events since last exam Mrs. Alonso is 1 day postop short TFN for a 3 part intertrochanteric fracture of the right hip. Physical therapy has attempted to get her up. She states she just does not feel well. Review of Systems Reviewed and no additions or changes Allergies: Coded Allergies: Penicillins (Verified Allergy, Unknown, 11/26/07) cephalexin (Verified Allergy, Unknown, 11/26/07) ciprofloxacin (Verified Allergy, Unknown, 11/26/07) estrogens, conjugated (Verified Allergy, Unknown, 06/17/08) gatifloxacin (Verified Allergy, Unknown, 06/17/08) tetracycline (Verified Allergy, Unknown, 06/17/08) Home Meds Reported Medications Lorazepam (Ativan) 1 Mg Tablet, 1 MG PO Q4H, TAB 04/15/21 Morphine Sulfate (Morphine Conc. 20mg/ml) 100 Mg/5 Ml Solution, 0.25-1 ML SL Q4H PRN for PAIN-SEVERE (8-10), ML 04/15/21 Donepezil HCl (Donepezil HCl) 10 Mg Tablet, 5 MG PO BID, TAB TAKES (10MG) TABS 04/15/21 Ondansetron HCl (Ondansetron HCl) 4 Mg Tablet, 4 MG PO Q4H PRN for NAUSEA/VOMITING-1ST LINE, TAB 04/15/21 Mag Hydrox/Al Hydrox/Simeth (Maalox Maximum Strength Susp) 355 Ml Oral.susp, 30 ML PO QID PRN for UPSET STOMACH, ML 04/15/21 Hyoscyamine Sulfate (Hyoscyamine Sulfate) 0.125 Mg Tablet, 0.125 MG PO Q4H PRN for INCREASED SECRETIONS, TAB 04/15/21 Hydrocortisone (Hydrocortisone) 114 Gm Lotion, 1 APPLIC TP QID PRN for ITCHING, ML 04/15/21 Cetirizine HCl (Cetirizine HCl) 10 Mg Tablet, 10 MG PO SEASONAL ALLERGIES, TAB 04/15/21 Bisacodyl (Bisacodyl) 10 Mg Supp.rect, 10 MG RC DAILY PRN for CONSTIPATION-4TH LINE, SUPP.RECT 04/15/21 Acetaminophen (Tylenol Extra Strength) 500 Mg Tablet, 500 MG PO Q6H PRN for PAIN-MILD (1-4), TAB 04/15/21 Miconazole Nitrate (Remedy Antifungal) 85 Gm Powder, 1 APPLIC TP BID, EA APPLY TO BUTTOCKS 04/15/21 Menthol/Lanolin/Calamine/Znox (Calmoseptine Ointment) 71 Gm Oint, 1 EACH TP BID, EA APPLY BUTTOCKS 04/15/21 Lactobacillus Acidophilus (Acidophilus) 1 Each Capsule, 1 EACH PO TID, CAP 04/15/21 Cranberry Extract (Cranberry) 500 Mg Tablet, 500 MG PO DAILY, TAB 04/15/21 Multivitamin (Multivitamin) 1 Each Tablet, 1 EACH PO DAILY, TAB 04/15/21 Oxybutynin Chloride (Oxybutynin Chloride) 5 Mg Tablet, 5 MG PO TID 06/05/17 Levothyroxine Sodium (Levothyroxine Sodium) 75 Mcg Tablet, 75 MCG PO DAILY, TAB 06/05/17 Atorvastatin Calcium (Atorvastatin Calcium) 80 Mg Tablet, 80 MG PO HS 06/05/17 Acetaminophen (Acetaminophen) 500 Mg Tablet, 1000 MG PO TID, TAB 12/20/16 Sertraline HCl (Sertraline HCl) 100 Mg Tablet, 100 MG PO DAILY, TAB 12/20/16 Diphenoxylate HCl/Atropine (Diphenoxylate-Atrop 2.5-0.025) 1 Each Tablet, 1 TAB PO Q8H PRN for LOOSE STOOLS, TAB 12/20/16 Quetiapine Fumarate (Quetiapine Fumarate) 25 Mg Tablet, 25 MG PO HS 12/20/16 Spironolactone (Spironolactone) 25 Mg Tablet, 25 MG PO DAILY 12/20/16 Discontinued Reported Medications Morphine Sulfate (Morphine Sulfate) 20 Mg/5 Ml Solution, 20 MG PO for 7 Days, EA 04/15/21 Acetaminophen (Acetaminophen) 650 Mg Supp.rect, 650 MG RC, SUPP.RECT 04/15/21 Donepezil HCl (Donepezil HCl) 5 Mg Tablet, 5 MG PO BID 06/05/17 Multivit with Calcium,Iron,Min (Women's Daily Formula) 1 Each Tablet, 1 TAB PO DAILY, TAB 06/05/17 Temazepam (Temazepam) 15 Mg Capsule, 15 MG PO HS PRN for SLEEP 12/20/16 Pantoprazole Sodium (Pantoprazole Sodium) 40 Mg Tablet.dr, 40 MG PO BID 12/20/16 Discontinued Scripts Sulfamethoxazole/Trimethoprim (Bactrim Ds Tablet) 1 Each Tablet, 1 EACH PO BID, #14 TAB Prov:JOSELINE CASAS MD 10/02/20 L. Acidophilus/Bulgaricus (Floranex Tablet) 1 Each Tablet, 1 TAB.CHEW PO AC for 30 Days, #90 TAB 1 Refill Prov:ANDREW LEMON MD 06/06/17 Objective Exam Constitutional: [] HEENT: [] Neck: [] Cardiovascular: [] Respiratory: [] Gastrointestinal: [] Genitourinary: [] Skin: [] Back/Spine: [] Extremities: [Dressing is intact although she has been pulling at the front edge. No swelling in the leg. Leg is in good position. She can move her foot and toes and states she has normal sensation to her toes. No calf tenderness. Good strength on dorsiflexion plantarflexion of the foot and ankle] Neurologic: [] Psychiatric: [] Hematologic/lymphatic/immunologic: [] Vital Signs Vital Signs Date Time Temp Pulse Resp B/P (MAP) Pulse Ox O2 Delivery O2 Flow Rate FiO2 04/16/21 07:41 36.0 77 18 109/56 (73) 95 Nasal Cannula 2.00 04/16/21 04:13 36.4 92 16 106/50 (68) 93 Nasal Cannula 2.00 04/15/21 23:41 36.8 96 16 106/54 (71) 95 Nasal Cannula 2.00 04/15/21 20:21 Nasal Cannula 2.00 04/15/21 19:57 36.6 84 18 131/60 (83) 94 Nasal Cannula 2.00 04/15/21 16:26 96 Nasal Cannula 2.00 04/15/21 16:20 36.4 84 20 103/52 (69) 95 Nasal Cannula 2.00 04/15/21 13:18 Nasal Cannula 2 04/15/21 13:10 36.2 14 100/47 (64) 98 Nasal Cannula 2 04/15/21 13:00 14 95/65 (75) 98 OxyMask 2 04/15/21 13:00 OxyMask 2 04/15/21 12:50 14 89/47 (61) 99 OxyMask 2 04/15/21 12:45 OxyMask 2 04/15/21 12:40 14 89/52 (64) 99 OxyMask 2 04/15/21 12:30 16 68/46 (53) 100 OxyMask 4 04/15/21 12:20 37.4 16 94/51 (65) 100 OxyMask 6 04/15/21 12:20 OxyMask 6 I & O 04/16/21 07:00 Intake Total 1100 ml Output Total 950 ml Balance 150 ml Lab Results Laboratory Tests 04/16/21 04:36: Hemoglobin 8.1#L, Hematocrit 26L Microbiology 04/15/21 Urine Culture - Preliminary, Resulted Probable Klebsiella/Enterobact Assessment and Plan Assessment Doing as expected first day postop Problem List Unchanged Plan Continue out of bed as tolerated. I am not real optimistic as far as her ambulation. I do not think she did a lot of ambulating prior to her fracture. She seems a little confused and it may be difficult to get her to understand walker ambulation weightbearing as tolerated safely. She may just be bed to chair with minimal ambulation Final Diagonsis Three-part intertrochanteric fracture right hip status post short TFN Level of the visit: Level 3 MOHAN BARRETT MD Apr 16, 2021 09:41
--- NOTE | 2021-04-16 11:00 | Occupational Therapy Eval ---
OT Evaluation-General/PLF Medical Diagnosis Admission Date Apr 15, 2021 at 02:13 Medical Diagnosis: right hip fracture/fall from w/c Onset Date: Apr 15, 2021 Therapy Diagnosis Therapy Diagnosis: weakness, decreased ADL status Height/Weight Height (Feet): 5 Height (Inches): 6.00 Weight (Pounds): 135 Weight (Ounces): 0.0 Precautions Precautions/Isolations: Fall Prevention, Standard Precautions Referral Physician: Yenifer Referral Reason: Evaluation/Treatment Medical History Pertinent Medical History: Dementia (advanced), HTN, PVD, TBI Additional Medical History dementia, hyperlipidemia, subdural hematoma, hypothyroidism, DBT, TBI, PVD, GERD, arthritis, hospice Current History ED due to fall from w/c, R hip fx. Social History Home: [facility] ADL-Prior Level of Function SCALE: Activities may be completed with or without assistive devices. 2-Roidqojhow-rnikuql completes the activity by him/herself with no assistance from a helper. 5-Set-up or Clean-up Assistance-helper sets up or cleans up; patient completes activity. Laver[place] assists only prior to or following the activity. 4-Supervision or Touching Assistance-helper provides verbal cues and/or touching/steadying and/or contact guard assistance as patient completes activity. Assistance may be provided throughout the activity or intermittently. 3-Partial/Moderate Assistance-helper does LESS THAN HALF the effort. Laverne lifts, holds or supports trunk or limbs, but provides less than half the effort. 2-Substantial/Maximal Assistance-helper does MORE THAN HALF the effort. Laverne lifts or holds trunk or limbs and provides more than half the effort. 5-Lndrqawto-dxvrxu does ALL the effort. Patient does none of the effort to complete the activity. Or, the assistance of 2 or more helpers is required for the patient to complete the activity. If activity was not attempted, code reason: 7-Patient Refused. 9-Not Applicable-not attempted and the patient did not perform the activity before the current illness, exacerbation or injury. 10-Not Attempted due to Environmental Limitations-(lack of equipment, weather restraints, etc.). 88-Not Attempted due to Medical Conditions or Safety Concerns. ADL PLOF Comments Pt unable to provide information about PLOF, based on clinical judgment, pt requires assistance [facility] ADLs.l Self Care: Needed Some Help Functional Cognition: Needed Some Help OT Current Status Subjective Pt laying in bed sleeping, easily awoken and agreeable to OT tx. Pt had taken O2 off, OT reapplied oxygen, nurse notified. Mental Status/Objective Patient Orientation: Person, Confused Attachments: Fernández Catheter, IV, Oxygen Current Upper Extremity ROM Unable to formally test, WFL during ADLs. Upper Extremity Strength grossly 3/5 BUEs ADL-Treatment Eating (QC): 4 (SBA, pt able to use fork and hands to bring food to mouth. Min verbal cues ) Lower Body Dressing (QC): 1 (based on clincial judgment) On/Off Footwear (QC): 1 (based on clincial judgment) Toileting Hygiene (QC): 1 (based on clincial judgment) Other Treatments Pt in bed, breakfast tray in front of her. Pt able to use fork and fingers to get food from tray to mouth. Pt ate small amount of food then states she is sa tisfied. OT left food on table in case pt wants more. Pt had taken O2 off, OT cued pt to keep O2 on as per dr orders, she agreed. Pt combed hair, min A overall with back of hair. Set up assistance to wash face. Pt requests to rest at this time. Post tx, pt laying in bed, call light in reach and all needs met. Bed alarm activated Education OT Patient Education: Correct positioning, Modified ADL techniques, Progress toward Goal/Update tx plan, Purpose of tx/functional activities, Rehab process Teaching Recipient: Patient Teaching Methods: Discussion Response to Teaching: Verbalize Understanding OT [facility] Goals [facility] Goals Time Frame: Apr 30, 2021 Eating (QC): 5 Oral Hygiene (QC): 5 Toileting Hygiene (QC): 2 Shower/Bathe Self (QC): 2 Upper Body Dressing (QC): 5 Lower Body Dressing (QC): 2 On/Off Footwear (QC): 2 Additional Goals: 1-Demonstrate ADL Tasks, 2-Verbalize Understanding, 3- ImproveStrength/Jeannette 1=Demonstrate adherence to instructed precautions during ADL tasks. 2=Patient will verbalize/demonstrate understanding of assistive devices/modifications for ADL. 3=Patient will improve strength/tolerance for activity to enable patient to perform ADL's. OT Education/Plan Problem List/Assessment Assessment: Decreased Activ Tolerance, Decreased UE Strength, Impaired Bed Mob ility, Impaired Cognition, Impaired Funct Balance, Impaired I ADL's, Impaired Self-Care Skills Discharge Recommendations Plan/Recommendations: Continue POC Treatment Plan/Plan of Care Patient would benefit from OT for education, treatment and training to promote independence in ADL's, mobility, safety and/or upper extremity function for ADL's. Plan of Care: ADL Retraining, Functional Mobility, UE Funct Exercise/Act Treatment Duration: Apr 30, 2021 Frequency: 5 times per week Estimated Hrs Per Day: .25 hour per day Rehab Potential: Guarded Time/GCodes Start Time: 10:00 Stop Time: 10:16 Total Time Billed (hr/min): 16 Billed Treatment Time 1, SALEEM TODD OT Apr 16, 2021 11:00
[2021-04-16 11:24] VITALS: BP 110/57
[2021-04-16] MEDS: LACTATED RINGERS 1,000 ML IV SCH ×2 (11:28→16:13)
--- NOTE | 2021-04-16 13:22 | Progress Note - Hospitalist ---
Subjective HPI/CC On Admission Date Seen by Provider: Apr 16, 2021 Time Seen by Provider: 10:45 Monae Landon is an 85 year old female with PMH dementia, hyperlipidemia, hypothyroidism, subdural hematoma on hospice, who presented with a fall. She is a long-term resident of [facility] and rehab. She reportedly fell when trying to get out of her wheelchair. She is a poor historian due to her dementia. She reports right leg pain. She denies any chest pain or shortness of breath. She denies any fevers. She denies any abdominal pain. She denies any nausea or vomiting. She has no history of renal disease. She is not on insulin. She has no history of stroke or heart disease. Subjective/Events-last exam She is doing well today. She has no complaints or concerns. She is disoriented. Objective Exam Vital Signs Vital Signs Date Time Temp Pulse Resp B/P (MAP) Pulse Ox O2 Delivery O2 Flow Rate FiO2 04/16/21 11:24 36.2 75 18 110/57 (74) 93 Nasal Cannula 2.00 Capillary Refill : Less Than 3 Seconds General Appearance: No Apparent Distress, Chronically ill, Thin Respiratory: Lungs Clear, Normal Breath Sounds, No Respiratory Distress Cardiovascular: Regular Rate, Rhythm, No Edema, No Murmur Gastrointestinal: Normal Bowel Sounds, Non Tender, Soft Extremity: Normal Inspection, Non Tender, No Pedal Edema Neurologic/Psychiatric: Alert, Oriented x3, No Motor/Sensory Deficits, Normal Mood/Affect Skin: Normal Color, Warm/Dry Results/Procedures Lab Laboratory Tests 04/16/21 04:36 Patient resulted labs reviewed. Imaging: Reviewed Imaging Report Assessment/Plan Assessment and Plan Assess & Plan/Chief Complaint Closed comminuted intertrochanteric right femur fracture Postoperative anemia XR consistent with right hip fracture Orthopedic surgery following Underwent surgery 04/15 Hgb 8.1, monitor Chronic intracranial subdural hematoma CT head showed stability, improvement UTI UA consistent with UTI Urine culture with Klebsiella pneumoniae Rocephin HLD Hypothyroidism Hold home meds, resume when able Dementia Hospice care patient Clincially significant, no acute management needs Palliative care consulted DVT prophylaxis: Lovenox Diagnosis/Problems Diagnosis/Problems (1) Closed comminuted intertrochanteric fracture of right femur Status: Acute (2) Fall from wheelchair Status: Acute Qualifiers: Encounter type: initial encounter Qualified Codes: W05.0XXA - Fall from non-moving wheelchair, initial encounter (3) Chronic intracranial subdural hematoma Status: Chronic (4) Dementia Status: Chronic (5) Urinary tract infection Status: Acute (6) Hospice care patient BRANDON JASON MD Apr 16, 2021 13:22
[2021-04-16] MEDS: cefTRIAXone 1,000 MG in WATER (STERILE) FOR INJECTION 10 ML IV SCH (14:07)
[2021-04-16 15:51] VITALS: BP 100/51
[2021-04-16 19:25] VITALS: BP 111/55
[2021-04-16] MEDS: ENOXAPARIN 30 MG/0.3 ML (LOVENOX) SYR SC SCH ×2 (21:51→22:00)
[2021-04-16 23:47] VITALS: BP 102/64
[2021-04-17] VITALS (9 sets, daily range): BP systolic 91–130; BP diastolic 44–65
[2021-04-17] MEDS: LORazepam INJ 2 MG/ML (ATIVAN) VIAL IV PRN ×4 (00:35→21:39)
[2021-04-17] MEDS: HYDROcodone/APAP 5 MG/325 MG (LORTAB) TAB PO PRN ×2 (00:35→07:01)
[2021-04-17] MEDS: LACTATED RINGERS 1,000 ML IV SCH ×2 (02:52→16:59)
[2021-04-17 05:26] LABS: POTASSIUM 3.7 MMOL/L (3.6-5.0)
[2021-04-17 05:32] LABS: CREATININE SERUM 0.55 MG/DL (0.60-1.30)
[2021-04-17] MEDS: ENOXAPARIN 30 MG/0.3 ML (LOVENOX) SYR SC SCH (09:05)
[2021-04-17] MEDS ORDERED: NS IV 500 ML 500 ML IV ONE (10:30)
--- NOTE | 2021-04-17 12:07 | Progress Note - Hospitalist ---
Subjective HPI/CC On Admission Date Seen by Provider: Apr 17, 2021 Time Seen by Provider: 09:45 Monae Landon is an 85 year old female with PMH dementia, hyperlipidemia, hypothyroidism, subdural hematoma on hospice, who presented with a fall. She is a long-term resident of [facility] and rehab. She reportedly fell when trying to get out of her wheelchair. She is a poor historian due to her dementia. She reports right leg pain. She denies any chest pain or shortness of breath. She denies any fevers. She denies any abdominal pain. She denies any nausea or vomiting. She has no history of renal disease. She is not on insulin. She has no history of stroke or heart disease. Subjective/Events-last exam She is confused. She denies pain. She denies trouble breathing. She says she is not hungry. Objective Exam Vital Signs Vital Signs Date Time Temp Pulse Resp B/P (MAP) Pulse Ox O2 Delivery O2 Flow Rate FiO2 04/17/21 11:39 36.4 82 16 102/50 (67) 95 Nasal Cannula 2.00 Capillary Refill : Less Than 3 Seconds General Appearance: No Apparent Distress, Chronically ill Respiratory: Lungs Clear, Normal Breath Sounds, No Respiratory Distress Cardiovascular: Regular Rate, Rhythm, No Edema, No Murmur Gastrointestinal: Normal Bowel Sounds, Non Tender, Soft Extremity: Normal Inspection, No Pedal Edema Neurologic/Psychiatric: Alert, Disoriented, Motor Weakness Skin: Normal Color, Warm/Dry Results/Procedures Lab Laboratory Tests 04/17/21 04:26 04/17/21 04:36 Patient resulted labs reviewed. Imaging: Reviewed Imaging Report Assessment/Plan Assessment and Plan Assess & Plan/Chief Complaint Closed comminuted intertrochanteric right femur fracture Postoperative anemia XR consistent with right hip fracture Orthopedic surgery following, Dr. Street Underwent surgery 04/15 Hgb 7, transfuse 1 unit PRBC Obtain hip xray Chronic intracranial subdural hematoma CT head showed stability, improvement UTI UA consistent with UTI Urine culture with Klebsiella pneumoniae Rocephin HLD Hypothyroidism Hold home meds, resume when able Dementia Hospice care patient Clincially significant, no acute management needs Palliative care consulted DVT prophylaxis: Lovenox Diagnosis/Problems Diagnosis/Problems (1) Closed comminuted intertrochanteric fracture of right femur Status: Acute (2) Fall from wheelchair Status: Acute Qualifiers: Encounter type: initial encounter Qualified Codes: W05.0XXA - Fall from non-moving wheelchair, initial encounter (3) Chronic intracranial subdural hematoma Status: Chronic (4) Dementia Status: Chronic (5) Urinary tract infection Status: Acute (6) Hospice care patient BRANDON JASON MD Apr 17, 2021 12:07
--- NOTE | 2021-04-17 12:10 | Physical Therapy Daily Note ---
PT Daily Note-Current Subjective Pt laying Supine in bed, Sitter present. Pt is on bed wolf & naked but refuses to put clothes on when asked. Pain Numeric Pain Scale: 10-Worst Possible Pain Location: Right Location Body Site: Hip Pain Description: Sharp Comment: Pt doesn't rate cries out w/movement. Mental Status Patient Orientation: Person, Confused Attachments: Oxygen, IV Pt demonstrates Dementia. Transfers SCALE: Activities may be completed with or without assistive devices. 0-Zqgtbqrgqx-hmhqlrm completes the activity by him/herself with no assistance from a helper. 5-Set-up or Clean-up Assistance-helper sets up or cleans up; patient completes activity. [place] assists only prior to or following the activity. 4-Supervision or Touching Assistance-helper provides verbal cues and/or touching/steadying and/or contact guard assistance as patient completes activity. Assistance may be provided throughout the activity or intermittently. 3-Partial/Moderate Assistance-helper does LESS THAN HALF the effort. [place] lifts, holds or supports trunk or limbs, but provides less than half the effort. 2-Substantial/Maximal Assistance-helper does MORE THAN HALF the effort. [place] lifts or holds trunk or limbs and provides more than half the effort. 3-Ioxnxykws-mreypu does ALL the effort. Patient does none of the effort to complete the activity. Or, the assistance of 2 or more helpers is required for the patient to complete the activity. If activity was not attempted, code reason: 7-Patient Refused. 9-Not Applicable-not attempted and the patient did not perform the activity before the current illness, exacerbation or injury. 10-Not Attempted due to Environmental Limitations-(lack of equipment, weather restraints, etc.). 88-Not Attempted due to Medical Conditions or Safety Concerns. Lying to Sitting/Side of Bed(Q: 1 Weight Bearing Weight Bearing/Tolerated Treatments TF from Supine to EOB with Assist x2. Pt sits at EOB for ~10m before returning to Supine in bed. Pt's R LE wants to IR so positioned with pillow to aid in proper positioning. This AREA MECHANIC is concerned of possible dislocation prior to tx. Consulted w/PT & notified sitter & Nursing hip xray is warranted to rule out dislocation. All needs met, call light in hand. Assessment Current Status: Fair Progress Pt reacts with pain/discomfort with movement. Recommending R hip xray to rule out dislocation. PT Alf Goals Alf Goals PT Telescope Operator Goals Time Frame: Apr 24, 2021 Roll Left & Right (QC): 2 Sit to Lying (QC): 2 Lying-Sitting on Side/Bed(QC): 2 Sit to Stand (QC): 2 Chair/Jww-ui-Gjutt Xfer(QC): 2 PT Plan Problem List Problem List: Activity Tolerance, Functional Strength, Safety Treatment/Plan Treatment Plan: Continue Plan of Care Treatment Plan: Bed Mobility, Education, Functional Activity Jeannette, Functional Strength, Gait, Safety, Therapeutic Exercise, Transfers Treatment Duration: Apr 24, 2021 Frequency: 6 times per week Estimated Hrs Per Day: .25 hour per day Patient and/or Family Agrees t: Yes Safety Risks/Education Patient Education: Correct Positioning Teaching Recipient: Patient Teaching Methods: Discussion Response to Teaching: Reinforcement Needed Time/GCodes Time In: 1112 Time Out: 1132 Total Billed Treatment Time: 20 Total Billed Treatment 1, FA (20m) BLESSING RIDLEY AREA MECHANIC Apr 17, 2021 12:10
[2021-04-17] MEDS: morphine INJ 4 MG/ML 1 ML (VIAL/SYRINGE) IV PRN (13:54)
[2021-04-17] MEDS: cefTRIAXone 1,000 MG in WATER (STERILE) FOR INJECTION 10 ML IV SCH (15:19)
--- NOTE | 2021-04-17 16:33 | Diagnostic Imaging Report ---
EXAMINATION: Right hip unilateral 2 or 3 views (w/pelvis when done) HISTORY: Postoperative evaluation right hip. EXAMINATION: Right hip, 04/17/2021. COMPARISON: 12/13/2018. FINDINGS: Two views of the right hip demonstrate overlying skin salvador with subcutaneous air. There is an intramedullary lisbet with intervening screws along the proximal right femur. Proximal femoral fracture is in good anatomic alignment. There is no evidence for dislocation. IMPRESSION: Expected postoperative findings. Dictated by: Dictated on workstation # [id number]
--- NOTE | 2021-04-17 16:39 | Progress Note - Ortho ---
Progress Note Subjective Date of Exam 04/17/21 Chief Complaint POD#2 Short TFN for three-part intertrochanteric fracture right hip HPI/Events since last exam Mrs. Hanks is 2 days postop short TFN for three-part intertrochanteric fracture left hip. Patient remains confused. She is taking her dressing off. She now has a sitter. Review of Systems Reviewed and no additions or changes Allergies: Coded Allergies: Penicillins (Verified Allergy, Unknown, 11/26/07) cephalexin (Verified Allergy, Unknown, 11/26/07) ciprofloxacin (Verified Allergy, Unknown, 11/26/07) estrogens, conjugated (Verified Allergy, Unknown, 06/17/08) gatifloxacin (Verified Allergy, Unknown, 06/17/08) tetracycline (Verified Allergy, Unknown, 06/17/08) Home Meds Reported Medications Lorazepam (Ativan) 1 Mg Tablet, 1 MG PO Q4H, TAB 04/15/21 Morphine Sulfate (Morphine Conc. 20mg/ml) 100 Mg/5 Ml Solution, 0.25-1 ML SL Q4H PRN for PAIN-SEVERE (8-10), ML 04/15/21 Donepezil HCl (Donepezil HCl) 10 Mg Tablet, 5 MG PO BID, TAB TAKES (10MG) TABS 04/15/21 Ondansetron HCl (Ondansetron HCl) 4 Mg Tablet, 4 MG PO Q4H PRN for NAUSEA/VOMITING-1ST LINE, TAB 04/15/21 Mag Hydrox/Al Hydrox/Simeth (Maalox Maximum Strength Susp) 355 Ml Oral.susp, 30 ML PO QID PRN for UPSET STOMACH, ML 04/15/21 Hyoscyamine Sulfate (Hyoscyamine Sulfate) 0.125 Mg Tablet, 0.125 MG PO Q4H PRN for INCREASED SECRETIONS, TAB 04/15/21 Hydrocortisone (Hydrocortisone) 114 Gm Lotion, 1 APPLIC TP QID PRN for ITCHING, ML 04/15/21 Cetirizine HCl (Cetirizine HCl) 10 Mg Tablet, 10 MG PO SEASONAL ALLERGIES, TAB 04/15/21 Bisacodyl (Bisacodyl) 10 Mg Supp.rect, 10 MG RC DAILY PRN for CONSTIPATION-4TH LINE, SUPP.RECT 04/15/21 Acetaminophen (Tylenol Extra Strength) 500 Mg Tablet, 500 MG PO Q6H PRN for PAIN-MILD (1-4), TAB 04/15/21 Miconazole Nitrate (Remedy Antifungal) 85 Gm Powder, 1 APPLIC TP BID, EA APPLY TO BUTTOCKS 04/15/21 Menthol/Lanolin/Calamine/Znox (Calmoseptine Ointment) 71 Gm Oint, 1 EACH TP BID, EA APPLY BUTTOCKS 04/15/21 Lactobacillus Acidophilus (Acidophilus) 1 Each Capsule, 1 EACH PO TID, CAP 04/15/21 Cranberry Extract (Cranberry) 500 Mg Tablet, 500 MG PO DAILY, TAB 04/15/21 Multivitamin (Multivitamin) 1 Each Tablet, 1 EACH PO DAILY, TAB 04/15/21 Oxybutynin Chloride (Oxybutynin Chloride) 5 Mg Tablet, 5 MG PO TID 06/05/17 Levothyroxine Sodium (Levothyroxine Sodium) 75 Mcg Tablet, 75 MCG PO DAILY, TAB 06/05/17 Atorvastatin Calcium (Atorvastatin Calcium) 80 Mg Tablet, 80 MG PO HS 06/05/17 Acetaminophen (Acetaminophen) 500 Mg Tablet, 1000 MG PO TID, TAB 12/20/16 Sertraline HCl (Sertraline HCl) 100 Mg Tablet, 100 MG PO DAILY, TAB 12/20/16 Diphenoxylate HCl/Atropine (Diphenoxylate-Atrop 2.5-0.025) 1 Each Tablet, 1 TAB PO Q8H PRN for LOOSE STOOLS, TAB 12/20/16 Quetiapine Fumarate (Quetiapine Fumarate) 25 Mg Tablet, 25 MG PO HS 12/20/16 Spironolactone (Spironolactone) 25 Mg Tablet, 25 MG PO DAILY 12/20/16 Discontinued Reported Medications Morphine Sulfate (Morphine Sulfate) 20 Mg/5 Ml Solution, 20 MG PO for 7 Days, EA 04/15/21 Acetaminophen (Acetaminophen) 650 Mg Supp.rect, 650 MG RC, SUPP.RECT 04/15/21 Donepezil HCl (Donepezil HCl) 5 Mg Tablet, 5 MG PO BID 06/05/17 Multivit with Calcium,Iron,Min (Women's Daily Formula) 1 Each Tablet, 1 TAB PO DAILY, TAB 06/05/17 Temazepam (Temazepam) 15 Mg Capsule, 15 MG PO HS PRN for SLEEP 12/20/16 Pantoprazole Sodium (Pantoprazole Sodium) 40 Mg Tablet.dr, 40 MG PO BID 12/20/16 Discontinued Scripts Sulfamethoxazole/Trimethoprim (Bactrim Ds Tablet) 1 Each Tablet, 1 EACH PO BID, #14 TAB Prov:JOSELINE CASAS MD 10/02/20 L. Acidophilus/Bulgaricus (Floranex Tablet) 1 Each Tablet, 1 TAB.CHEW PO AC for 30 Days, #90 TAB 1 Refill Prov:ANDREW LEMON MD 06/06/17 Objective Exam Constitutional: [] HEENT: [] Neck: [] Cardiovascular: [] Respiratory: [] Gastrointestinal: [] Genitourinary: [] Skin: [] Back/Spine: [] Extremities: [Dressing has been pulled off. Incisions look good without redness or drainage. Mild bruising and swelling right thigh. No calf tenderness negative Homans. She states she has normal sensation of the foot and toes. Patient is able To dorsiflex and plantarflex the foot and ankle without weakness.] Neurologic: [] Psychiatric: [] Hematologic/lymphatic/immunologic: [] Vital Signs Vital Signs Date Time Temp Pulse Resp B/P (MAP) Pulse Ox O2 Delivery O2 Flow Rate FiO2 04/17/21 16:00 35.8 78 20 120/60 (80) 95 Nasal Cannula 2.00 04/17/21 13:28 36.5 82 20 122/65 97 Nasal Cannula 2.00 04/17/21 11:39 36.4 82 16 102/50 (67) 95 Nasal Cannula 2.00 04/17/21 10:51 36.4 82 16 102/50 95 Nasal Cannula 2.00 04/17/21 10:36 36.9 91 18 106/52 93 Nasal Cannula 2.00 04/17/21 08:00 94 16 91/44 (60) 90 Room Air 04/17/21 04:30 36.1 82 16 98/60 (73) 90 Room Air 04/16/21 23:47 37.0 95 18 102/64 (77) 91 Room Air 04/16/21 19:59 Nasal Cannula 2.00 04/16/21 19:25 36.8 92 18 111/55 (73) 94 Nasal Cannula 2.00 I & O 04/17/21 07:00 Intake Total 1950 ml Output Total 1500 ml Balance 450 ml Lab Results Laboratory Tests 04/17/21 04:26: Hemoglobin 7.0L, Hematocrit 23L 04/17/21 04:36: Sodium Level 138, Potassium Level 3.7, Chloride Level 102, Carbon Dioxide Level 25, Anion Gap 11, Blood Urea Nitrogen 12, Creatinine 0.55L, Estimat Glomerular Filtration Rate 105, BUN/Creatinine Ratio 22, Glucose Level 112H, Calcium Level 8.0L Microbiology 04/15/21 Urine Culture - Preliminary, Resulted Klebsiella pneumoniae Imaging X-ray of the right hip was taken today which shows no change in position of the TFN or fracture with excellent alignment of both Assessment and Plan Assessment Doing as expected postop day #2 Problem List Unchanged Except for blood loss anemia with hemoglobin of 7.[address] Knox ordered transfusion of 1 unit of Packed red blood cell Plan Continue out of bed to chair and attempts short distance ambulation with a walker weightbearing as tolerated on the right. Would like to keep a dressing on the wounds but I think she will just keep taking it off. Final Diagonsis Three-part intertrochanteric fracture right hip status post short TFN Level of the visit: Level 3 MOHAN BARRETT MD Apr 17, 2021 16:39
[2021-04-18] MEDS: HYDROcodone/APAP 5 MG/325 MG (LORTAB) TAB PO PRN ×5 (00:45→20:18)
[2021-04-18] MEDS: LORazepam INJ 2 MG/ML (ATIVAN) VIAL IV PRN ×3 (00:45→13:02)
[2021-04-18] MEDS: LACTATED RINGERS 1,000 ML IV SCH ×2 (01:44→12:12)
[2021-04-18 05:43] LABS: BASOPHILS % (AUTO) 0 % (0-10); EOSINOPHILS # (AUTO) 0.1 10^3/uL (0.0-0.3); EOSINOPHILS % (AUTO) 2 % (0-10); HEMATOCRIT 23 % (35-52); HEMOGLOBIN 7.7 g/dL (11.5-16.0); LYMPHOCYTES # (AUTO) 0.9 10^3/uL (1.0-4.0); LYMPHOCYTES % (AUTO) 13 % (12-44); MEAN CORPUSCULAR HEMOGLOBIN 29 pg (25-34); MEAN CORPUSCULAR HGB CONC 33 g/dL (32-36); MEAN CORPUSCULAR VOLUME 89 fL (80-99); MEAN PLATELET VOLUME 12.7 fL (9.0-12.2); MONOCYTES # (AUTO) 0.6 10^3/uL (0.0-1.0); MONOCYTES % (AUTO) 10 % (0-12); NEUTROPHILS % (AUTO) 74 % (42-75); PLATELET COUNT 84 10^3/uL (130-400); WHITE BLOOD COUNT 6.7 10^3/uL (4.3-11.0)
[2021-04-18 07:40] VITALS: BP 98/59
[2021-04-18] MEDS ORDERED: CEFDINIR 300 MG (OMNICEF) CAP PO ONE (12:45)
--- NOTE | 2021-04-18 12:45 | Progress Note - Hospitalist ---
Subjective HPI/CC On Admission Date Seen by Provider: Apr 18, 2021 Time Seen by Provider: 10:25 Monae Landon is an 85 year old female with PMH dementia, hyperlipidemia, hypothyroidism, subdural hematoma on hospice, who presented with a fall. She is a long-term resident of [facility] and rehab. She reportedly fell when trying to get out of her wheelchair. She is a poor historian due to her dementia. She reports right leg pain. She denies any chest pain or shortness of breath. She denies any fevers. She denies any abdominal pain. She denies any nausea or vomiting. She has no history of renal disease. She is not on insulin. She has no history of stroke or heart disease. Subjective/Events-last exam She has no complaints or concerns. She denies pain. She denies trouble breathing. She is sleeping. Objective Exam Vital Signs Vital Signs Date Time Temp Pulse Resp B/P (MAP) Pulse Ox O2 Delivery O2 Flow Rate FiO2 04/18/21 08:30 93 Room Air 2.00 04/18/21 07:40 36.9 67 28 98/59 (72) Capillary Refill : Less Than 3 Seconds General Appearance: No Apparent Distress, Chronically ill Respiratory: Lungs Clear, Normal Breath Sounds, No Respiratory Distress Cardiovascular: Regular Rate, Rhythm, No Edema, No Murmur Gastrointestinal: Normal Bowel Sounds, Non Tender, Soft Extremity: Normal Inspection, Non Tender, No Pedal Edema Neurologic/Psychiatric: Alert, Disoriented Skin: Normal Color, Warm/Dry Results/Procedures Lab Laboratory Tests 04/18/21 04:46 Patient resulted labs reviewed. Imaging: Reviewed Imaging Report Assessment/Plan Assessment and Plan Assess & Plan/Chief Complaint Closed comminuted intertrochanteric right femur fracture Postoperative anemia XR consistent with right hip fracture Orthopedic surgery following, Dr. Steret Underwent surgery 04/15 s/p 1 unit PRBC Hgb improved, monitor Chronic intracranial subdural hematoma CT head showed stability, improvement UTI UA consistent with UTI Urine culture with Klebsiella pneumoniae Transition to Omnicef HLD Hypothyroidism Hold home meds, resume when able Dementia Hospice care patient Clincially significant, no acute management needs Palliative care consulted DVT prophylaxis: Lovenox Diagnosis/Problems Diagnosis/Problems (1) Closed comminuted intertrochanteric fracture of right femur Status: Acute (2) Fall from wheelchair Status: Acute Qualifiers: Encounter type: initial encounter Qualified Codes: W05.0XXA - Fall from non-moving wheelchair, initial encounter (3) Chronic intracranial subdural hematoma Status: Chronic (4) Dementia Status: Chronic (5) Urinary tract infection Status: Acute (6) Hospice care patient Status: Chronic BRADNON JASON MD Apr 18, 2021 12:45
[2021-04-18 16:17] VITALS: BP 137/57
[2021-04-18 19:49] VITALS: BP 139/61
[2021-04-18] MEDS: CEFDINIR 300 MG (OMNICEF) CAP PO SCH (20:18)
[2021-04-18] MEDS ORDERED: SERTRALINE 100 MG (ZOLOFT) TAB PO SCH (21:00)
[2021-04-18] MEDS ORDERED: QUEtiapine 25 MG (SEROquel) TAB IMMEDIATE RELEASE PO SCH (21:00)
[2021-04-18] MEDS ORDERED: DONEPEZIL 5 MG (ARICEPT) TAB PO SCH (21:00)
[2021-04-19] VITALS: BP 136/55
[2021-04-19] MEDS: HYDROcodone/APAP 5 MG/325 MG (LORTAB) TAB PO PRN ×2 (00:31→05:49)
[2021-04-19] MEDS ORDERED: LEVOTHYROXINE 75 MCG (LEVOTHROID) TABLET PO SCH (06:30)
[2021-04-19 08:00] VITALS: BP 128/57
--- NOTE | 2021-04-19 08:08 | Occupational Ther Daily Note ---
OT Current Status-Daily Note Subjective Pt lying in bed, awake. Pt is oriented x1 (name). Pt agrees to therapy. Nrsg reports that they are concerned about bruising on R LE and requested to complete bathing in supine and not get to EOB. Mental Status/Objective Patient Orientation: Person, Place, Time, Situation ADL-Treatment Pt agrees to bath in bed. Pt requires verbal and gestural cues to move from one area of the body to the next. Pt unable to reach to feet due to hip precautions. Pt already has hospital gown off prior to GILL entering room and does not want another on. After setup, pt able to complete oral care with toothbrush/paste. When asked if pt wanted to soak dentures, pt stated use but did not take out dentures. When asked again, pt stated yes and closed mouth. Did not soak dentures. After therapy, pt lying in bed on R side with call light in reach. Sitting present and bed alarm activated. All needs met in room. Therapy Code Descriptions/Definitions Functional [place] Measure: 0=Not Assessed/NA 4=Minimal Assistance 1=Total Assistance 5=Supervision or Setup 2=Maximal Assistance 6=Modified [place] 3=Moderate Assistance 7=Complete IndependenceSCALE: Activities may be completed with or without assistive devices. 1-Aigwgqscnr-cssrqwd completes the activity by him/herself with no assistance from a helper. 5-Set-up or Clean-up Assistance-helper sets up or cleans up; patient completes activity. [place] assists only prior to or following the activity. 4-Supervision or Touching Assistance-helper provides verbal cues and/or touching/steadying and/or contact guard assistance as patient completes activity. Assistance may be provided throughout the activity or intermittently. 3-Partial/Moderate Assistance-helper does LESS THAN HALF the effort. [place] lifts, holds or supports trunk or limbs, but provides less than half the effort. 2-Substantial/Maximal Assistance-helper does MORE THAN HALF the effort. [place] lifts or holds trunk or limbs and provides more than half the effort. 3-Gudkhslhn-jilucq does ALL the effort. Patient does none of the effort to complete the activity. Or, the assistance of 2 or more helpers is required for the patient to complete the activity. If activity was not attempted, code reason: 7-Patient Refused. 9-Not Applicable-not attempted and the patient did not perform the activity before the current illness, exacerbation or injury. 10-Not Attempted due to Environmental Limitations-(lack of equipment, weather restraints, etc.). 88-Not Attempted due to Medical Conditions or Safety Concerns. Oral Hygiene (QC): 5 Bathing Location: L Arm, R Arm, L Upper Leg, R Upper Leg, Chest, Abdomen, Buttocks, Perineal Area Shower/Bathe Self (QC): 3 (in supine) OT Biometrics Experimentalist Goals Fpc Goals Time Frame: Apr 30, 2021 Eating (QC): 5 Oral Hygiene (QC): 5 Toileting Hygiene (QC): 2 Shower/Bathe Self (QC): 2 Upper Body Dressing (QC): 5 Lower Body Dressing (QC): 2 On/Off Footwear (QC): 2 Additional Goals: 1-Demonstrate ADL Tasks, 2-Verbalize Understanding, 3- ImproveStrength/Jeannette 1=Demonstrate adherence to instructed precautions during ADL tasks. 2=Patient will verbalize/demonstrate understanding of assistive devices/modifications for ADL. 3=Patient will improve strength/tolerance for activity to enable patient to perform ADL's. OT Education/Plan Problem List/Assessment Assessment: Decreased Safety Aware, Impaired Cognition, Impaired Self-Care Skills Discharge Recommendations Plan/Recommendations: Continue POC Treatment Plan/Plan of Care Patient would benefit from OT for education, treatment and training to promote independence in ADL's, mobility, safety and/or upper extremity function for ADL's. Plan of Care: ADL Retraining, Functional Mobility, UE Funct Exercise/Act Treatment Duration: Apr 30, 2021 Frequency: 5 times per week Estimated Hrs Per Day: .25 hour per day Rehab Potential: Guarded Time/GCodes Start Time: 07:37 Stop Time: 08:00 Total Time Billed (hr/min): 23 Billed Treatment Time 1 visit-ADL 2 (23 min) ZONIA FERNANDEZ Apr 19, 2021 08:08
[2021-04-19] MEDS: CEFDINIR 300 MG (OMNICEF) CAP PO SCH (08:27)
[2021-04-19] MEDS ORDERED: SPIRONOLACTONE 25 MG (ALDACTONE) TAB PO SCH (09:00)
--- NOTE | 2021-04-19 09:22 | Progress Note - Ortho ---
Progress Note Subjective Date of Exam 04/19/21 Chief Complaint POD#4 Short TFN for a 3 part intertrochanteric fracture of the right hip HPI/Events since last exam Mrs. Landon is 4 days postop short TFN for three-part intertrochanteric fracture right hip.He is doing no ambulation.Does not seem to be any pain when I ask her she states she is having no hip pain Review of Systems Reviewed and no additions or change Allergies: Coded Allergies: Penicillins (Verified Allergy, Unknown, 11/26/07) cephalexin (Verified Allergy, Unknown, 11/26/07) ciprofloxacin (Verified Allergy, Unknown, 11/26/07) estrogens, conjugated (Verified Allergy, Unknown, 06/17/08) gatifloxacin (Verified Allergy, Unknown, 06/17/08) tetracycline (Verified Allergy, Unknown, 06/17/08) Home Meds Reported Medications Lorazepam (Ativan) 1 Mg Tablet, 1 MG PO Q4H, TAB 04/15/21 Morphine Sulfate (Morphine Conc. 20mg/ml) 100 Mg/5 Ml Solution, 0.25-1 ML SL Q4H PRN for PAIN-SEVERE (8-10), ML 04/15/21 Donepezil HCl (Donepezil HCl) 10 Mg Tablet, 5 MG PO BID, TAB TAKES (10MG) TABS 04/15/21 Ondansetron HCl (Ondansetron HCl) 4 Mg Tablet, 4 MG PO Q4H PRN for NAUSEA/VOMITING-1ST LINE, TAB 04/15/21 Mag Hydrox/Al Hydrox/Simeth (Maalox Maximum Strength Susp) 355 Ml Oral.susp, 30 ML PO QID PRN for UPSET STOMACH, ML 04/15/21 Hyoscyamine Sulfate (Hyoscyamine Sulfate) 0.125 Mg Tablet, 0.125 MG PO Q4H PRN for INCREASED SECRETIONS, TAB 04/15/21 Hydrocortisone (Hydrocortisone) 114 Gm Lotion, 1 APPLIC TP QID PRN for ITCHING, ML 04/15/21 Cetirizine HCl (Cetirizine HCl) 10 Mg Tablet, 10 MG PO SEASONAL ALLERGIES, TAB 04/15/21 Bisacodyl (Bisacodyl) 10 Mg Supp.rect, 10 MG RC DAILY PRN for CONSTIPATION-4TH LINE, SUPP.RECT 04/15/21 Acetaminophen (Tylenol Extra Strength) 500 Mg Tablet, 500 MG PO Q6H PRN for PAIN-MILD (1-4), TAB 04/15/21 Miconazole Nitrate (Remedy Antifungal) 85 Gm Powder, 1 APPLIC TP BID, EA APPLY TO BUTTOCKS 04/15/21 Menthol/Lanolin/Calamine/Znox (Calmoseptine Ointment) 71 Gm Oint, 1 EACH TP BID, EA APPLY BUTTOCKS 04/15/21 Lactobacillus Acidophilus (Acidophilus) 1 Each Capsule, 1 EACH PO TID, CAP 04/15/21 Cranberry Extract (Cranberry) 500 Mg Tablet, 500 MG PO DAILY, TAB 04/15/21 Multivitamin (Multivitamin) 1 Each Tablet, 1 EACH PO DAILY, TAB 04/15/21 Oxybutynin Chloride (Oxybutynin Chloride) 5 Mg Tablet, 5 MG PO TID 06/05/17 Levothyroxine Sodium (Levothyroxine Sodium) 75 Mcg Tablet, 75 MCG PO DAILY, TAB 06/05/17 Atorvastatin Calcium (Atorvastatin Calcium) 80 Mg Tablet, 80 MG PO HS 06/05/17 Acetaminophen (Acetaminophen) 500 Mg Tablet, 1000 MG PO TID, TAB 12/20/16 Sertraline HCl (Sertraline HCl) 100 Mg Tablet, 100 MG PO DAILY, TAB 12/20/16 Diphenoxylate HCl/Atropine (Diphenoxylate-Atrop 2.5-0.025) 1 Each Tablet, 1 TAB PO Q8H PRN for LOOSE STOOLS, TAB 12/20/16 Quetiapine Fumarate (Quetiapine Fumarate) 25 Mg Tablet, 25 MG PO HS 12/20/16 Spironolactone (Spironolactone) 25 Mg Tablet, 25 MG PO DAILY 12/20/16 Discontinued Reported Medications Morphine Sulfate (Morphine Sulfate) 20 Mg/5 Ml Solution, 20 MG PO for 7 Days, EA 04/15/21 Acetaminophen (Acetaminophen) 650 Mg Supp.rect, 650 MG RC, SUPP.RECT 04/15/21 Donepezil HCl (Donepezil HCl) 5 Mg Tablet, 5 MG PO BID 06/05/17 Multivit with Calcium,Iron,Min (Women's Daily Formula) 1 Each Tablet, 1 TAB PO DAILY, TAB 06/05/17 Temazepam (Temazepam) 15 Mg Capsule, 15 MG PO HS PRN for SLEEP 12/20/16 Pantoprazole Sodium (Pantoprazole Sodium) 40 Mg Tablet.dr, 40 MG PO BID 12/20/16 Discontinued Scripts Sulfamethoxazole/Trimethoprim (Bactrim Ds Tablet) 1 Each Tablet, 1 EACH PO BID, #14 TAB Prov:JOSELINE CASAS MD 10/02/20 L. Acidophilus/Bulgaricus (Floranex Tablet) 1 Each Tablet, 1 TAB.CHEW PO AC for 30 Days, #90 TAB 1 Refill Prov:ANDREW LEMON MD 06/06/17 Objective Exam Constitutional: [] HEENT: [] Neck: [] Cardiovascular: [] Respiratory: [] Gastrointestinal: [] Genitourinary: [] Skin: [] Back/Spine: [] Extremities: [Again no dressing is a patient keeps pulling the dressings off. She has swelling and bruising right hip and proximal thigh. Incisions are dry without redness or drainage. No calf tenderness negative Homans. She states she has normal sensation in her foot and toes and is able to dorsiflex and plantarflex the foot and toes without weakness. Mild pain with range of motion right hip] Neurologic: [] Psychiatric: [] Hematologic/lymphatic/immunologic: [] Vital Signs Vital Signs Date Time Temp Pulse Resp B/P (MAP) Pulse Ox O2 Delivery O2 Flow Rate FiO2 04/19/21 08:00 37.3 87 14 128/57 (80) 91 Room Air 04/19/21 00:00 36.7 98 16 136/55 (82) 90 Room Air 04/18/21 19:49 37.2 77 20 139/61 (87) 98 Room Air 04/18/21 19:30 Nasal Cannula 2.00 04/18/21 16:17 37.0 89 20 137/57 (83) 88 04/18/21 15:21 95 Nasal Cannula 2.00 I & O 04/19/21 07:00 Intake Total 3450 ml Balance 3450 ml Lab Results Microbiology 04/15/21 Urine Culture - Final, Complete Klebsiella pneumoniae Assessment and Plan Assessment Progressing as expected Problem List Unchanged Plan Continue out of bed to chair as tolerated. Patient is not an ambulator. Patient can probably be discharged back to long term when MRI with hospitalist Final Diagonsis Three-part intertrochanteric fracture right hip status post short TFN Level of the visit: Level 3 ARNOLD,MOHAN D MD Apr 19, 2021 09:22
--- NOTE | 2021-04-19 10:07 | Physical Therapy Daily Note ---
PT Daily Note-Current Subjective Patient is in bed. Does agree to exercise. Mental Status Patient Orientation: Confused Transfers SCALE: Activities may be completed with or without assistive devices. 3-Qonpuxfzaz-sdmvlew completes the activity by him/herself with no assistance from a helper. 5-Set-up or Clean-up Assistance-helper sets up or cleans up; patient completes activity. [place] assists only prior to or following the activity. 4-Supervision or Touching Assistance-helper provides verbal cues and/or touching/steadying and/or contact guard assistance as patient completes activity. Assistance may be provided throughout the activity or intermittently. 3-Partial/Moderate Assistance-helper does LESS THAN HALF the effort. [place] lifts, holds or supports trunk or limbs, but provides less than half the effort. 2-Substantial/Maximal Assistance-helper does MORE THAN HALF the effort. [place] lifts or holds trunk or limbs and provides more than half the effort. 2-Szhstinfe-cotmeo does ALL the effort. Patient does none of the effort to complete the activity. Or, the assistance of 2 or more helpers is required for the patient to complete the activity. If activity was not attempted, code reason: 7-Patient Refused. 9-Not Applicable-not attempted and the patient did not perform the activity before the current illness, exacerbation or injury. 10-Not Attempted due to Environmental Limitations-(lack of equipment, weather restraints, etc.). 88-Not Attempted due to Medical Conditions or Safety Concerns. Weight Bearing Weight Bearing/Tolerated Exercises Supine Ex: Ankle pumps, Heel Slides, Straight leg raise, Hip abd/add Supine Reps: 12 (2 sets bilateral LE AAROM) Assessment No OOB activity per RN. Tolerated AAROM bilateral LE. PT Senior Care Goals Cement Mixer Driver Goals PT Cement Mixer Driver Goals Time Frame: Apr 24, 2021 Roll Left & Right (QC): 2 Sit to Lying (QC): 2 Lying-Sitting on Side/Bed(QC): 2 Sit to Stand (QC): 2 Chair/Mqe-rb-Vplwe Xfer(QC): 2 PT Plan Treatment/Plan Treatment Plan: Continue Plan of Care Treatment Plan: Bed Mobility, Education, Functional Activity Jeannette, Functional Strength, Gait, Safety, Therapeutic Exercise, Transfers Treatment Duration: Apr 24, 2021 Frequency: 6 times per week Estimated Hrs Per Day: .25 hour per day Patient and/or Family Agrees t: Yes Time/GCodes Time In: 837 Time Out: 846 Total Billed Treatment Time: 9 Total Billed Treatment 1 visit EX 9 min ANAYA ROLLE PT Apr 19, 2021 10:07
--- NOTE | 2021-04-19 10:46 | Discharge Summary ---
Diagnosis/Chief Complaint Date of Admission Apr 15, 2021 at 02:13 Date of Discharge Admission Diagnosis Closed comminuted intertrochanteric right femur fracture Primary Care No,Local Physician Discharge Diagnosis (1) Closed comminuted intertrochanteric fracture of right femur Status: Acute (2) Fall from wheelchair Status: Acute (3) Chronic intracranial subdural hematoma Status: Chronic (4) Dementia Status: Chronic (5) Urinary tract infection Status: Acute (6) Hospice care patient Status: Chronic Discharge Summary Discharge Physical Exam Allergies: Coded Allergies: Penicillins (Verified Allergy, Unknown, 11/26/07) cephalexin (Verified Allergy, Unknown, 11/26/07) ciprofloxacin (Verified Allergy, Unknown, 11/26/07) estrogens, conjugated (Verified Allergy, Unknown, 06/17/08) gatifloxacin (Verified Allergy, Unknown, 06/17/08) tetracycline (Verified Allergy, Unknown, 06/17/08) Vitals & I&Os Vital Signs Date Time Temp Pulse Resp B/P (MAP) Pulse Ox O2 Delivery O2 Flow Rate FiO2 04/19/21 16:05 04/19/21 11:11 91 Room Air 04/19/21 08:00 37.3 87 14 04/18/21 19:30 2.00 General Appearance: No Apparent Distress, Chronically ill Cardiovascular: Regular Rate, Rhythm, No Murmur Gastrointestinal: Normal Bowel Sounds, Soft Neurologic/Psychiatric: Alert, Disoriented Hospital Course Pt was admitted to the hospital due to right femur fracture. She was previously on hospice at [facility] but they elected to revoke hospice for operative repair. She tolerated this well and pain was controlled. She was incidentally found to have a urinary tract infection and was treated with IV abx and transitioned to cefdinir per sensitivities. She discharged back to the long term to enroll back in hospice. Labs (last 24 hrs) Microbiology 04/15/21 Urine Culture - Final, Complete Klebsiella pneumoniae Patient resulted labs reviewed. Imaging: Reviewed Imaging Report Discussion & Recommendations Discharge Planning: >30 minutes discharge planning Discharge Home Medications: Active Scripts Active Cefdinir 300 Mg Capsule 300 Mg PO BID Reported Ativan (Lorazepam) 1 Mg Tablet 1 Mg PO Q4H Morphine Conc. 20mg/ml (Morphine Sulfate) 100 Mg/5 Ml Solution 0.25-1 Ml SL Q4H PRN Donepezil HCl 10 Mg Tablet 5 Mg PO BID TAKES (10MG) TABS Ondansetron HCl 4 Mg Tablet 4 Mg PO Q4H PRN Maalox Maximum Strength Susp (Mag Hydrox/Al Hydrox/Simeth) 355 Ml Oral.susp 30 Ml PO QID PRN Hyoscyamine Sulfate 0.125 Mg Tablet 0.125 Mg PO Q4H PRN Hydrocortisone 114 Gm Lotion 1 Applic TP QID PRN Cetirizine HCl 10 Mg Tablet 10 Mg PO SEASONAL ALLERGIES Bisacodyl 10 Mg Supp.rect 10 Mg RC DAILY PRN Tylenol Extra Strength (Acetaminophen) 500 Mg Tablet 500 Mg PO Q6H PRN Remedy Antifungal (Miconazole Nitrate) 85 Gm Powder 1 Applic TP BID APPLY TO BUTTOCKS Calmoseptine Ointment (Menthol/Lanolin/Calamine/Znox) 71 Gm Oint 1 Each TP BID APPLY BUTTOCKS Acidophilus (Lactobacillus Acidophilus) 1 Each Capsule 1 Each PO TID Cranberry (Cranberry Extract) 500 Mg Tablet 500 Mg PO DAILY Multivitamin 1 Each Tablet 1 Each PO DAILY Oxybutynin Chloride 5 Mg Tablet 5 Mg PO TID Levothyroxine Sodium 75 Mcg Tablet 75 Mcg PO DAILY Atorvastatin Calcium 80 Mg Tablet 80 Mg PO HS Acetaminophen 500 Mg Tablet 1,000 Mg PO TID Sertraline HCl 100 Mg Tablet 100 Mg PO DAILY Diphenoxylate-Atrop 2.5-0.025 (Diphenoxylate HCl/Atropine) 1 Each Tablet 1 Tab PO Q8H PRN Quetiapine Fumarate 25 Mg Tablet 25 Mg PO HS Spironolactone 25 Mg Tablet 25 Mg PO DAILY Instructions to patient/family Please see electronic discharge instructions given to patient. Problem Qualifiers (1) Fall from wheelchair: Encounter type: initial encounter Qualified Codes: W05.0XXA - Fall from non- moving wheelchair, initial encounter GRAEME MELTON MD Apr 19, 2021 10:46
[2021-04-19] MEDS ORDERED: CEFD300C3 PO (12:07)
--- NOTE | 2021-04-19 12:23 | Discharge Inst-Simple/Standard ---
Discharge Inst-Standard Discharge Medications New, Converted or Re-Newed RX: Transmitted to Pharmacy Patient Instructions/Follow Up Plan of Care/Instructions/FU: Please continue to take your medications as written. Please follow up with your primary care doctor to follow up this hospital stay. Activity as Tolerated: Yes Discharge Diet: Regular Diet Return to The Hospital For: Weakness, pain, shortness of breath, confusion, if you feel you are getting worse. GRAEME MELTON MD Apr 19, 2021 12:17
== END 2021-04-19 16:00 | disposition hospice, inpatient (51) | DRG 480 ==
LOC: EDUNIT# 22:19 → ER 22:21 → 4TH 04-15 02:13
PROVIDERS: ADMIT Internal Medicine; ATTEND Internal Medicine
PROC: 0QH836Z Insertion of Intramedullary Internal Fixation Device into Right Femoral Shaft, Percutaneous Approach (ICD-10-PCS; principal; 2021-04-15 11:05)
DX: S72.141A Displaced intertrochanteric fracture of right femur, initial encounter for closed fracture (principal); I62.03 Nontraumatic chronic subdural hemorrhage; N39.0 Urinary tract infection, site not specified; W05.0XXA Fall from non-moving wheelchair, initial encounter; E78.00 Pure hypercholesterolemia, unspecified; I10 Essential (primary) hypertension; I73.9 Peripheral vascular disease, unspecified; K21.9 Gastro-esophageal reflux disease without esophagitis; K57.90 Diverticulosis of intestine, part unspecified, without perforation or abscess without bleeding; M19.90 Unspecified osteoarthritis, unspecified site; Z51.5 Encounter for palliative care; M81.0 Age-related osteoporosis without current pathological fracture; E03.9 Hypothyroidism, unspecified; F41.9 Anxiety disorder, unspecified; D64.9 Anemia, unspecified; G30.9 Alzheimer's disease, unspecified; F02.80 Dementia in other diseases classified elsewhere, unspecified severity, without behavioral disturbance, psychotic disturbance, mood disturbance, and anxiety; Z86.718 Personal history of other venous thrombosis and embolism; Z87.820 Personal history of traumatic brain injury; Z86.16 Personal history of COVID-19
CPT/HCPCS: 36415; 51702; 70450; 71045; 73502; 76000; 80048; 80053; 81000; 85014; 85018; 85025; 85610; 85730; 86850; 86900; 86901; 86920; 87077; 87088; 87186; 94760; 96374; 96375; 96376

== ENCOUNTER 2022-12-06 10:38 | Emergency (ER) | payer MEDICARE, MEDICAID ==
[~2022-12-06 10:38] MED LIST changes: +ACET-2267 PO; +ACET650S15 RC; +BISA10SU8 RC; +CEFD300C3 PO; +CETI10TA17 PO; +CRAN500T4 PO; +DONE10TA41 PO; +HYDR120L2 TP; +HYOS-20 PO; +LACT1CAP28 PO; +LORA-405 PO; +MAG355OR17 PO; +MENT71OI TP; +MICO85PO4 TP; +MORP100S7 SL; +MORP20SO PO; +MULT-1136 PO; +ONDA-105 PO; -QUET25TA34 PO; +QUET25TA35 PO
--- NOTE | 2022-12-06 11:13 | ED Fall/Injury ---
General Chief Complaint: Trauma-Non Activation Stated Complaint: FALL Nursing Triage Note: PT TO [facility] BY EMS WITH C/O FALL THIS MORNING AND TAILBONE PAIN. PT DENIES HITTING HEAD. PT GIVEN 500MG TYLENOL AT FACILITY AROUND 0930 Source: patient, EMS, jail records Exam Limitations: physical impairment (YVETTE BURR) History of Present Illness Date Seen by Provider: Dec 06, 2022 Time Seen by Provider: 11:10 Initial Comments Patient is a 87-year-old female who presents ED for a witness mechanical fall. Patient is a resident at [facility]. Mechanical fall around 840 this morning while getting off her bed. She attempted to call for help but attempted to stand off her bed fell backwards landing on her buttock. She is complaining of lower back pain, tailbone pain. Denied hitting her head or loss of consciousness. Not on blood thinners. Was given 500 mg of Tylenol. Was brought to ED by EMS. Patient's only complaint is her tailbone bothering her at this time. There is no evidence of swelling or bruising according to staff. Pepe vieira does have a history of Alzheimer's difficulty obtaining history. She denies of any chest pain, cough, shortness of breath, headache, dizziness, lightheadedness, lower extremity pain. Uses assistance to ambulate. (YVETTE BURR) Allergies and Home Medications Allergies Coded Allergies: Penicillins (Verified Allergy, Unknown, 11/26/07) cephalexin (Verified Allergy, Unknown, 11/26/07) ciprofloxacin (Verified Allergy, Unknown, 11/26/07) estrogens, conjugated (Verified Allergy, Unknown, 06/17/08) gatifloxacin (Verified Allergy, Unknown, 06/17/08) tetracycline (Verified Allergy, Unknown, 06/17/08) Patient Home Medication List Home Medication List Reviewed: Yes (YVETTE BURR) Acetaminophen (Acetaminophen) 500 Mg Tablet, 1,000 MG PO TID, (Reported) Entered as Reported by: SHAKA RESTREPO on 12/20/16 1043 Acetaminophen (Tylenol Extra Strength) 500 Mg Tablet, 500 MG PO Q6H PRN for PAIN-MILD (1-4), (Reported) Entered as Reported by: JOSE SHELTON on 04/15/21 0947 Atorvastatin Calcium (Atorvastatin Calcium) 80 Mg Tablet, 80 MG PO HS, (Reported) Entered as Reported by: SHAKA RESTREPO on 06/05/17 170 Bisacodyl (Bisacodyl) 10 Mg Supp.rect, 10 MG RC DAILY PRN for CONSTIPATION-4TH LINE, (Reported) Entered as Reported by: JOSE SHELTON on 04/15/21946 Cefdinir (Cefdinir) 300 Mg Capsule, 300 MG PO BID Prescribed by: GRAEME MELTON on 04/19/21 1207 Cetirizine HCl (Cetirizine HCl) 10 Mg Tablet, 10 MG PO SEASONAL ALLERGIES, (Reported) Entered as Reported by: JOSE SHELTON on 04/15/21946 Cranberry Extract (Cranberry) 500 Mg Tablet, 500 MG PO DAILY, (Reported) Entered as Reported by: JOSE SHELTON on 04/15/21946 Diphenoxylate HCl/Atropine (Diphenoxylate-Atrop 2.5-0.025) 1 Each Tablet, 1 TAB PO Q8H PRN for LOOSE STOOLS, (Reported) Entered as Reported by: SHAKA RESTREPO on 12/20/16 1043 Donepezil HCl (Donepezil HCl) 10 Mg Tablet, 5 MG PO BID, (Reported) Entered as Reported by: JOSE SHELTON on 04/15/21946 Hydrocortisone (Hydrocortisone) 114 Gm Lotion, 1 APPLIC TP QID PRN for ITCHING, (Reported) Entered as Reported by: JOSE SHELTON on 04/15/21946 Hyoscyamine Sulfate (Hyoscyamine Sulfate) 0.125 Mg Tablet, 0.125 MG PO Q4H PRN for INCREASED SECRETIONS, (Reported) Entered as Reported by: JOSE SHELTON on 04/15/21946 Lactobacillus Acidophilus (Acidophilus) 1 Each Capsule, 1 EACH PO TID, (Reported) Entered as Reported by: JOSE SHELTON on 04/15/21946 Levothyroxine Sodium (Levothyroxine Sodium) 75 Mcg Tablet, 75 MCG PO DAILY, (Reported) Entered as Reported by: SHAKA RESTREPO on 06/05/17 170 Lorazepam (Ativan) 1 Mg Tablet, 1 MG PO Q4H, (Reported) Entered as Reported by: JOSE SHELTON on 04/15/21 1030 Mag Hydrox/Al Hydrox/Simeth (Maalox Maximum Strength Susp) 355 Ml Oral.susp, 30 ML PO QID PRN for UPSET STOMACH, (Reported) Entered as Reported by: JOSE SHELTON on 04/15/21 09 Menthol/Lanolin/Calamine/Znox (Calmoseptine Ointment) 71 Gm Oint, 1 EACH TP BID, (Reported) Entered as Reported by: JOSE SHELTON on 04/15/21 09 Miconazole Nitrate (Remedy Antifungal) 85 Gm Powder, 1 APPLIC TP BID, (Reported) Entered as Reported by: JOSE SHELTON on 04/15/21 09 Morphine Sulfate (Morphine Conc. 20mg/ml) 100 Mg/5 Ml Solution, 0.25-1 ML SL Q4H PRN for PAIN-SEVERE (8-10), (Reported) Entered as Reported by: JOSE SHELTON on 04/15/21 1030 Multivitamin (Multivitamin) 1 Each Tablet, 1 EACH PO DAILY, (Reported) Entered as Reported by: JOSE SHELTON on 04/15/21 09 Ondansetron HCl (Ondansetron HCl) 4 Mg Tablet, 4 MG PO Q4H PRN for NAUSEA/VOMITING-1ST LINE, (Reported) Entered as Reported by: JOSE SHELTON on 04/15/21 09 Oxybutynin Chloride (Oxybutynin Chloride) 5 Mg Tablet, 5 MG PO TID, (Reported) Entered as Reported by: SHAKA RESTREPO on 06/05/17 1706 Quetiapine Fumarate (Quetiapine Fumarate) 25 Mg Tablet, 25 MG PO HS, (Reported) Entered as Reported by: SHAKA RESTREPO on 12/20/16 1043 Sertraline HCl (Sertraline HCl) 100 Mg Tablet, 100 MG PO DAILY, (Reported) Entered as Reported by: SHAKA RESTREPO on 12/20/16 1043 Spironolactone (Spironolactone) 25 Mg Tablet, 25 MG PO DAILY, (Reported) Entered as Reported by: SHAKA RESTREPO on 12/20/16 1043 Review of Systems Review of Systems Constitutional: No chills, No diaphoresis, No fever, No malaise, No weakness Eyes: Denies Blurred Vision, Denies Drainage, Denies Decreased Acuity Ears, Nose, Mouth, Throat: denies ear pain, denies ear discharge Respiratory: No cough, No short of breath Cardiovascular: No chest pain Gastrointestinal: No abdominal pain, No constipation, No diarrhea, No nausea, No vomiting Genitourinary: No decreased output, No discharge Musculoskeletal: back pain; No joint pain; muscle pain Skin: No change in color, No change in hair/nails (YVETTE BURR) All Other Systems Reviewed Negative Unless Noted: Yes (YVETTE BURR) Past Zuygjxj-Grhiyx-Pqmurq Hx Patient Social History Tobacco Use?: No Substance use?: No Alcohol Use?: No Pt feels they are or have been: No (YVETTE BURR) Immunizations Up To Date Tetanus Booster (TDap): Unknown First/Initial COVID19 Vaccinat: 10/12/2020 Second COVID19 Vaccination Keagan: 11/21/2020 Third COVID19 Vaccination Date: 10/12/2020 (YVETTE BURR) Seasonal Allergies Seasonal Allergies: No (YVETTE BURR) Past Medical History Surgery/Hospitalization HX: HTN, SLEEP APNEA, GERD, DEPRESION, ANXIETY, ALZHEIMERS, DIVERTICULITIS, HERNIA, DEMENTIA, ANEMIA Surgeries: Yes (FEMUR FX/JEN) Abdominal, Joint Replacement, Orthopedic Respiratory: No Currently Using CPAP: No Currently Using BIPAP: No Cardiac: Yes Deep Vein Thrombosis, High Cholesterol, Hypertension, Peripheral Vascular Neurological: Yes (SUBDURAL BLEED 10/25/20--NO SURGERY/NO TREATMENT. 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 Sexually Transmitted Disease: No HIV/AIDS: No Genitourinary: Yes (INCONTINENCE) Bladder Infection Gastrointestinal: Yes Gastroesophageal Reflux, Diverticulosis, Chronic Diarrhea, Polyps, Hiatal Hernia, Ulcer Musculoskeletal: Yes (OSTEOMYELITIS LEFT TIB/FIB; GENERALIZED WEAKNESS; FREQUENT FALLS) Osteoporosis, Arthritis, Fractures Endocrine: Yes Hypothyroidsim HEENT: Yes Cataract Loss of Vision: Denies Hearing Impairment: Hard of Hearing Cancer: No Psychosocial: Yes Sleep Difficulties, Anxiety Integumentary: No Blood Disorders: No (YVETTE BURR) Family Medical History Patient reports no known family medical history. Diabetes, Hypertension HX OF COVID-19 INFECTION (YVETTE BURR) Physical Exam Vital Signs Vital Signs - First Documented 12/06/22 10:40 Temp 35.1 Pulse 68 Resp 14 B/P (MAP) 116/70 (85) (JOSELINE CASAS MD) Vital Signs Capillary Refill : (YVETTE BURR) Height, Weight, BMI Height: 5'6.00" Weight: 135lbs. 0.0oz. 61.457700iz; 18.98 BMI Method:Stated General Appearance: WD/WN, no apparent distress HEENT: PERRL/EOMI, normal ENT inspection, TMs normal, pharynx normal Neck: non-tender, full range of motion, supple, normal inspection Cardiovascular: regular rate, rhythm, no edema, no gallop, no JVD Respiratory: chest non-tender, lungs clear, normal breath sounds, no respiratory distress, no accessory muscle use Gastrointestinal: normal bowel sounds, non tender, soft, no organomegaly Pelvic: other (Posterior pelvis tenderness. No swelling, bruising) Back: other (Lumbar midline tenderness, right lumbar paraspinal muscle tenderness. Tailbone tenderness. 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 Reviewed previous ER visits, H&P, outpatient medical record, medication record. Patient fell while getting off her bed. This was witnessed. She did not hit her head or loss of consciousness. Complaining of low back pain and tailbone pain. Pain with any movement. She had no swelling or bruising to the back or pelvic region. No shortening of the legs. Due to to her current presentation CT scan of the lumbar and pelvis was ordered. CT scan lumbar spine negative for acute fracture. CT scan of the pelvis showed bilateral nondisplaced sacral ala fracture and S2 vertebral body nondisplaced fracture. Patient took Tylenol before arrival. Pain controlled at this time. Patient was discussed with Dr. Ramos orthopedic surgeon who recommended conservative treatment with walker, pain control and to follow-up in 3 to 4 weeks as needed. This was discussed with nursing staff at [facility]. Patient will be discharged and transferred back to the facility. Return precaution were discussed (YVETTE BURR) Impression Primary Impression: Fracture of sacrum Disposition: HOME, SELF-CARE Condition: Stable Departure-Patient Inst. Decision time for Depature: 12:03 (YVETTE BURR) Referrals: NO,LOCAL PHYSICIAN (PCP) Primary Care Physician PJ RAMOS MD Patient Instructions: Acute Pain, Adult (DC) Add. Discharge Instructions: Contacted Dr. Ramos orthopedic. Recommend treated conservatively with pain management, walker, ambulation as tolerated. May follow-up in 3 to 4 weeks if pain progress or worsen All discharge instructions reviewed with patient and/or family. Voiced understanding. ATTENDING PHYSICIAN NOTE: I was physically present as attending physician in the emergency department during the care of this patient, but I was not directly involved in the decision making or delivery of care for this patient. (JOSELINE CASAS MD) YVETTE BURR Dec 06, 2022 11:13 JOSELINE CASAS MD Dec 07, 2022 08:57
--- NOTE | 2022-12-06 11:44 | Diagnostic Imaging Report ---
PROCEDURE: CT lumbar spine without contrast. TECHNIQUE: Multiple contiguous axial images were obtained through the lumbar spine without the use of intravenous contrast. Sagittal and coronal reformations were then performed. Auto Exposure Controls were utilized during the CT exam to meet ALARA standards for radiation dose reduction. INDICATION: Fall. Back pain. COMPARISON: 12/09/2017. FINDINGS: No acute fracture or dislocation in the lumbar spine. Alignment is anatomic. No focal osseous lesions are seen. There is generalized osteopenia. No evidence of acute spinal canal stenosis. No high density material is seen at the spinal canal. The paraspinal soft tissues are unremarkable. IMPRESSION: 1. No acute fracture or dislocation in the lumbar spine. 2. Generalized osteopenia. Dictated by: Dictated on workstation # [id number]
--- NOTE | 2022-12-06 11:46 | Diagnostic Imaging Report ---
PROCEDURE: CT pelvis without contrast. TECHNIQUE: Multiple contiguous axial images were obtained through the pelvis without the use of intravenous contrast. Sagittal and coronal reformations were performed. Auto Exposure Controls were utilized during the CT exam to meet ALARA standards for radiation dose reduction. INDICATION: Back pain after fall. COMPARISON: CT lumbar spine performed concurrently. FINDINGS: Acute fracture in the bilateral sacral ala and anterior aspect of S2 vertebral body. The fractures are nondisplaced. There is no extension of the fracture lines into the SI joints or sacral foramen. Diffuse osseous demineralization is indicative of osteoporosis. Old healed intertrochanteric fracture on the right status post proximal femoral nail fixation. Partially imaged intracranial left proximal femur. No free pelvic fluid. No pelvic or inguinal lymphadenopathy. IMPRESSION: 1. Acute fractures of the bilateral sacral ala and S2 vertebral body are nondisplaced. This may be post traumatic in nature or due to insufficiency type fracture. 2. No acute fracture within the femurs. 3. Old healed right subtrochanteric fracture fixated with intramedullary nail. Dictated by: Dictated on workstation # [id number]
[2022-12-06 12:08] VITALS: BP 145/73
== END 2022-12-06 13:07 | disposition home or self-care (01) ==
LOC: EDUNIT# 10:38 → ER 10:40
DX: S32.19XA Other fracture of sacrum, initial encounter for closed fracture (principal); W06.XXXA Fall from bed, initial encounter
CPT/HCPCS: 72131; 72192

== ENCOUNTER 2022-12-09 18:02 | Emergency (ER) | payer MEDICARE, MEDICAID ==
[~2022-12-09] VITALS: Ht 157.5 cm; Wt 49.9 kg
[~2022-12-09 18:02] MED LIST changes: -APIX2.5T PO; -CATHETER FLUSH 10 ML SYR IV PRN; -HOLD METFORMIN - RECEIVED CONTRAST 20 ML VIAL IV SCH; -IOHEXOL 350 MG/ML 100 ML (OMNIPAQUE 350) VIAL IV ONE; -NS 100 ML (IVPB) BAG IV ONE
[2022-12-09 18:04] VITALS: BP 108/78
--- NOTE | 2022-12-09 18:20 | ED General ---
General Chief Complaint: Respiratory Problems Stated Complaint: LOW O2 Source of Information: Patient, EMS, Correction Records History of Present Illness Date Seen by Provider: Dec 09, 2022 Time Seen by Provider: 18:10 Initial Comments Patient is an 87-year-old female brought to the emergency department from [facility] chief complaint diagnosed with bilateral pulmonary embolisms by CAT scan earlier today. History obtained from [facility] from the [facility] and EMS staff who brought the patient in. Patient reportedly dropped her oxygen saturations at the [facility] this morning a chest x-ray was done which looked abnormal. The patient was sent over to the hospital for CT angio. She was diagnosed with bilateral multilobar pulmonary embolism with right heart strain. Sent to the emergency room for further evaluation. Patient has a history of dementia. As per the [facility] records she is a DNR. She is alert to self and location currently. She has no complaints of feeling short of breath or chest pain. No abdominal pain. No extremity pain. She had a recent fall and "broke my butt". She is not currently very ambulatory thus accounting likely for the pulmonary embolisms. Is not nauseous. No urinary complaints. She is not really sure why she is here. Is on 4 L of oxygen by nasal cannula at this point with oxygen saturations 94 to 97%. Associated Systoms: Denies Symptoms Allergies and Home Medications Allergies Coded Allergies: Penicillins (Verified Allergy, Unknown, 11/26/07) cephalexin (Verified Allergy, Unknown, 11/26/07) ciprofloxacin (Verified Allergy, Unknown, 11/26/07) estrogens, conjugated (Verified Allergy, Unknown, 06/17/08) gatifloxacin (Verified Allergy, Unknown, 06/17/08) tetracycline (Verified Allergy, Unknown, 06/17/08) Patient Home Medication List Home Medication List Reviewed: Yes Acetaminophen (Acetaminophen) 500 Mg Tablet, 1,000 MG PO TID, (Reported) Entered as Reported by: SHAKA RESTREPO on 12/20/16 1043 Acetaminophen (Tylenol Extra Strength) 500 Mg Tablet, 500 MG PO Q6H PRN for PAIN-MILD (1-4), (Reported) Entered as Reported by: JOSE SHELTON on 04/15/21 0947 Apixaban (Eliquis) 2.5 Mg Tablet, 2.5 MG PO BID Prescribed by: NITZA MONACO on 12/09/22 193 Atorvastatin Calcium (Atorvastatin Calcium) 80 Mg Tablet, 80 MG PO HS, (Reported) Entered as Reported by: SHAKA RESTREPO on 06/05/17 170 Bisacodyl (Bisacodyl) 10 Mg Supp.rect, 10 MG RC DAILY PRN for CONSTIPATION-4TH LINE, (Reported) Entered as Reported by: JOSE SHELTON on 04/15/21 09 Cefdinir (Cefdinir) 300 Mg Capsule, 300 MG PO BID Prescribed by: GRAEME MELTON on 04/19/21 1207 Cetirizine HCl (Cetirizine HCl) 10 Mg Tablet, 10 MG PO SEASONAL ALLERGIES, (Reported) Entered as Reported by: JOSE SHELTON on 04/15/21 09 Cranberry Extract (Cranberry) 500 Mg Tablet, 500 MG PO DAILY, (Reported) Entered as Reported by: JOSE SHELTON on 04/15/21946 Diphenoxylate HCl/Atropine (Diphenoxylate-Atrop 2.5-0.025) 1 Each Tablet, 1 TAB PO Q8H PRN for LOOSE STOOLS, (Reported) Entered as Reported by: SHAKA RESTREPO on 12/20/16 1043 Donepezil HCl (Donepezil HCl) 10 Mg Tablet, 5 MG PO BID, (Reported) Entered as Reported by: JOSE SHELTON on 04/15/21946 Hydrocortisone (Hydrocortisone) 114 Gm Lotion, 1 APPLIC TP QID PRN for ITCHING, (Reported) Entered as Reported by: JOSE SHELTON on 04/15/21946 Hyoscyamine Sulfate (Hyoscyamine Sulfate) 0.125 Mg Tablet, 0.125 MG PO Q4H PRN for INCREASED SECRETIONS, (Reported) Entered as Reported by: JOSE SHETLON on 04/15/21946 Lactobacillus Acidophilus (Acidophilus) 1 Each Capsule, 1 EACH PO TID, (Reported) Entered as Reported by: JOSE SHELTON on 04/15/21946 Levothyroxine Sodium (Levothyroxine Sodium) 75 Mcg Tablet, 75 MCG PO DAILY, ( Reported) Entered as Reported by: SHAKA RESTREPO on 06/05/17 170 Lorazepam (Ativan) 1 Mg Tablet, 1 MG PO Q4H, (Reported) Entered as Reported by: JOSE SHELTON on 04/15/21 1030 Mag Hydrox/Al Hydrox/Simeth (Maalox Maximum Strength Susp) 355 Ml Oral.susp, 30 ML PO QID PRN for UPSET STOMACH, (Reported) Entered as Reported by: JOSE SHELTON on 04/15/21 09 Menthol/Lanolin/Calamine/Znox (Calmoseptine Ointment) 71 Gm Oint, 1 EACH TP BID, (Reported) Entered as Reported by: JOSE SHELTON on 04/15/21 09 Miconazole Nitrate (Remedy Antifungal) 85 Gm Powder, 1 APPLIC TP BID, (Reported) Entered as Reported by: JOSE SHELTON on 04/15/21 09 Morphine Sulfate (Morphine Conc. 20mg/ml) 100 Mg/5 Ml Solution, 0.25-1 ML SL Q4H PRN for PAIN-SEVERE (8-10), (Reported) Entered as Reported by: JOSE SHELTON on 04/15/21 103 Multivitamin (Multivitamin) 1 Each Tablet, 1 EACH PO DAILY, (Reported) Entered as Reported by: JOSE SHELTON on 04/15/21 09 Ondansetron HCl (Ondansetron HCl) 4 Mg Tablet, 4 MG PO Q4H PRN for NAUSEA/VOMITING-1ST LINE, (Reported) Entered as Reported by: JOSE SHELTON on 04/15/21 09 Oxybutynin Chloride (Oxybutynin Chloride) 5 Mg Tablet, 5 MG PO TID, (Reported) Entered as Reported by: SHAKA RESTREPO on 06/05/17 1706 Quetiapine Fumarate (Quetiapine Fumarate) 25 Mg Tablet, 25 MG PO HS, (Reported) Entered as Reported by: SHAKA RESTREPO on 12/20/16 1043 Sertraline HCl (Sertraline HCl) 100 Mg Tablet, 100 MG PO DAILY, (Reported) Entered as Reported by: SHAKA RESTREPO on 12/20/16 1043 Spironolactone (Spironolactone) 25 Mg Tablet, 25 MG PO DAILY, (Reported) Entered as Reported by: SHAKA RESTREPO on 12/20/16 1043 Review of Systems Review of Systems Constitutional: see HPI EENTM: no symptoms reported Respiratory: no symptoms reported, other (reported low oxygen saturations) Cardiovascular: no symptoms reported Gastrointestinal: no symptoms reported Genitourinary: no symptoms reported Musculoskeletal: no symptoms reported Skin: no symptoms reported Past Xnsktmy-Encojc-Nmqept Hx Immunizations Up To Date Tetanus Booster (TDap): Unknown First/Initial COVID19 Vaccinat: 10/12/2020 Second COVID19 Vaccination Keagan: 11/21/2020 Third COVID19 Vaccination Date: 10/12/2020 Seasonal Allergies Seasonal Allergies: No Past Medical History Surgery/Hospitalization HX: HTN, SLEEP APNEA, GERD, DEPRESION, ANXIETY, ALZHEIMERS, DIVERTICULITIS, HERNIA, DEMENTIA, ANEMIA Surgeries: Yes (FEMUR FX/JEN) Abdominal, Joint Replacement, Orthopedic Respiratory: No Currently Using CPAP: No Currently Using BIPAP: No Cardiac: Yes Deep Vein Thrombosis, High Cholesterol, Hypertension, Peripheral Vascular Neurological: Yes (SUBDURAL BLEED 10/25/20--NO SURGERY/NO TREATMENT. 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 Sexually Transmitted Disease: No HIV/AIDS: No Genitourinary: Yes (INCONTINENCE) Bladder Infection Gastrointestinal: Yes Gastroesophageal Reflux, Diverticulosis, Chronic Diarrhea, Polyps, Hiatal Hernia, Ulcer Musculoskeletal: Yes (OSTEOMYELITIS LEFT TIB/FIB; GENERALIZED WEAKNESS; FREQUENT FALLS) Osteoporosis, Arthritis, Fractures Endocrine: Yes Hypothyroidsim HEENT: Yes Cataract Loss of Vision: Denies Hearing Impairment: Hard of Hearing Cancer: No Psychosocial: Yes Sleep Difficulties, Anxiety Integumentary: No Blood Disorders: No Family Medical History Patient reports no known family medical history. Diabetes, Hypertension HX OF COVID-19 INFECTION Physical Exam Vital Signs Vital Signs - First Documented 12/09/22 18:04 Temp 35.6 Pulse 93 Resp 24 B/P (MAP) 108/78 (88) Pulse Ox 92 O2 Delivery Nasal Cannula O2 Flow Rate 4.00 Capillary Refill : Height, Weight, BMI Height: 5'6.00" Weight: 135lbs. 0.0oz. 61.135119bj; 18.98 BMI Method:Stated General Appearance: No Apparent Distress, Thin Eyes: Bilateral Eye Normal Inspection, Bilateral Eye PERRL, Bilateral Eye EOMI HEENT: PERRL/EOMI Neck: Normal Inspection Respiratory: Lungs Clear, Normal Breath Sounds, No Accessory Muscle Use, No Respiratory Distress, Other (No increased work of breathing or respiratory dis tress) Cardiovascular: Regular Rate, Rhythm Gastrointestinal: Non Tender, Soft Extremity: Normal Inspection, Normal Range of Motion, Non Tender, No Calf Tenderness, No Pedal Edema, Other (No swelling in her arm) Neurologic/Psychiatric: Alert, Oriented x3, No Motor/Sensory Deficits, Normal Mood/Affect, Other (Oriented to self and location) Skin: Normal Color, Warm/Dry Progress/Results/Core Measures Suspected Sepsis SIRS Temperature: Pulse: Respiratory Rate: Laboratory Tests 12/09/22 18:14: White Blood Count 13.0H Blood Pressure / Mean: Laboratory Tests 12/09/22 18:14: Creatinine 0.79, INR Comment 1.3, Platelet Count 134, Total Bilirubin 0.6 Results/Orders Lab Results Laboratory Tests Test 12/09/22 18:14 12/09/22 18:20 Range/Units White Blood Count 13.0 H 4.3-11.0 10^3/uL Red Blood Count 4.46 3.80-5.11 10^6/uL Hemoglobin 14.2 11.5-16.0 g/dL Hematocrit 42 35-52 % Mean Corpuscular Volume 94 80-99 fL Mean Corpuscular Hemoglobin 32 25-34 pg Mean Corpuscular Hemoglobin Concent 34 32-36 g/dL Red Cell Distribution Width 12.9 10.0-14.5 % Platelet Count 134 130-400 10^3/uL Mean Platelet Volume 12.2 9.0-12.2 fL Immature Granulocyte % (Auto) 1 % Neutrophils (%) (Auto) 89 H 42-75 % Lymphocytes (%) (Auto) 5 L 12-44 % Monocytes (%) (Auto) 4 0-12 % Eosinophils (%) (Auto) 0 0-10 % Basophils (%) (Auto) 1 0-10 % Neutrophils # (Auto) 11.6 H 1.8-7.8 10^3/uL Lymphocytes # (Auto) 0.7 L 1.0-4.0 10^3/uL Monocytes # (Auto) 0.6 0.0-1.0 10^3/uL Eosinophils # (Auto) 0.0 0.0-0.3 10^3/uL Basophils # (Auto) 0.1 0.0-0.1 10^3/uL Immature Granulocyte # (Auto) 0.1 0.0-0.1 10^3/uL Neutrophils % (Manual) 75 % Lymphocytes % (Manual) 6 % Monocytes % (Manual) 9 % Eosinophils % (Manual) 1 % Band Neutrophils 6 % Reactive Lymphocytes 3 % Platelet Estimate OCC GIANT/LARGE Clumped Platelets OCC PLT CLUMPS Prothrombin Time 16.5 H 12.2-14.7 SEC INR Comment 1.3 0.8-1.4 Activated Partial Thromboplast Time 29 24-35 SEC Sodium Level 137 135-145 MMOL/L Potassium Level 4.9 3.6-5.0 MMOL/L Chloride Level 103 98-107 MMOL/L Carbon Dioxide Level 23 21-32 MMOL/L Anion Gap 11 5-14 MMOL/L Blood Urea Nitrogen 28 H 7-18 MG/DL Creatinine 0.79 0.60-1.30 MG/DL Estimat Glomerular Filtration Rate 72 BUN/Creatinine Ratio 35 Glucose Level 120 H 70-105 MG/DL Calcium Level 9.3 8.5-10.1 MG/DL Corrected Calcium 9.5 8.5-10.1 MG/DL Total Bilirubin 0.6 0.1-1.0 MG/DL Aspartate Amino Transf (AST/SGOT) 31 5-34 U/L Alanine Aminotransferase (ALT/SGPT) 24 0-55 U/L Alkaline Phosphatase 138 H 40-136 U/L Total Protein 7.4 6.4-8.2 GM/DL Albumin 3.8 3.2-4.5 GM/DL Blood Gas Puncture Site LEFT RADIAL Blood Gas Patient Temperature 35.6 Arterial Blood pH 7.43 7.37-7.43 Arterial Blood Partial Pressure CO2 31 L 35-45 MMHG Arterial Blood Partial Pressure O2 59 L 79-93 MMHG Arterial Blood HCO3 21 L 23-27 MMOL/L Arterial Blood Total CO2 22.1 21.0-31.0 MMOL/L Arterial Blood Oxygen Saturation 93 L 94-100 % Arterial Blood Base Excess -2.8 L -2.5-2.5 MMOL/L Ramirez Test N/A Blood Gas Ventilator Setting NO Blood Gas Inspired Oxygen 4L My Orders Orders - NITZA MONACO MD Ed Iv/Invasive Line Start (12/09/22 18:20) Cbc With Automated Diff (12/09/22 18:20) Comprehensive Metabolic Panel (12/09/22 18:20) Chest 1 View, Ap/Pa Only (12/09/22 18:20) Protime With Inr (12/09/22 18:20) Partial Thromboplastin Time (12/09/22 18:20) Ekg Tracing (12/09/22 18:20) Arterial Blood Gas (12/09/22 18:24) Manual Differential (12/09/22 18:14) Apixaban Tablet (Eliquis Tablet) (12/09/22 19:00) Medications Given in ED Current Medications Medications Dose Ordered Sig/Demarco Route Start Time Stop Time Status Last Admin Dose Admin Apixaban 2.5 mg ONCE ONCE PO 12/09/22 19:00 12/09/22 19:01 DC 12/09/22 19:24 2.5 MG Vital Signs/I&O 12/09/22 18:04 Temp 35.6 Pulse 93 Resp 24 B/P (MAP) 108/78 (88) Pulse Ox 92 O2 Delivery Nasal Cannula O2 Flow Rate 4.00 Capillary Refill : Progress Note : Time: 19:25 Progress Note Patient seen and evaluated by me. 87-year-old with history of hypertension and dementia from [facility] and rehab had CT earlier in the day that showed multilobar bilateral pulmonary embolisms. Patient sent for further evaluation due to hypoxia. Evaluation today includes physical exam, CBC, CMP, coag profile EKG and chest x-ray. Pertinent physical exam findings elderly appearing 87-year-old, frail, oriented to self and location. No increased work of breathing or respiratory distress. Breath sounds are diminished throughout no wheezing or crackles noted. Heart is regular, not tachycardic. Heart rate in the 80s and 90s. Sats are 93 to 96% on 4 L per nasal cannula. Blood pressure is good. She has no swelling in her lower extremities or calf tenderness. No swelling in her arms. Abdomen is soft nontender. Chest is nontender. She does demonstrate some evidence of her dementia with a little confusion when asking about recent medical events and history. Patient with known bilateral pulmonary embolisms. Labs independently interpreted by me patient CBC shows a mild leukocytosis, CMP shows slightly increased alk phos and glucose. Coags within normal limits. Patient declined her EKG states that she did not want 1. Chest x-ray shows subsegmental atelectasis. Patient denies any concerns of dysuria urgency frequency or diarrhea. Consideration for urinalysis however history and physical do not support the need. I discussed the case with Dr. Knox ([id number]) on for the hospitalist service. Patient is quite belligerent regarding care and evaluation here in the emergency department. She is a DNR according to the medical records from the [facility]. I spoke with her son Monico - patient's DPOA ([id number]). I advised him of her current clinical status and that she would likely not be a good candidate for embolectomy/aggressive treatment. He stated that she would not want aggressive measures done. He was agreeable to anticoagulation on Eliquis even with a history of traumatic subdural hematoma 2 years ago. I did explain to him that the Eliquis could cause a return of bleeding in her brain and in spite of therapy with Eliquis she could continue to decline and ultimately as a result of her pulmonary embolisms. He was still agreeable with the plan of care or outpatient treatment with 2.5 mg of Eliquis twice daily. She initially was refusing to take the Eliquis here in the emergency department. I think this was due to her confusion. I did explain in very blunt terms that without this medication it would accelerate her cause of ultimately being due to hypoxia/suffocation from the blood clots in her lungs. Ultimately she did take her first dose of Eliquis this evening Patient will be discharged back to [facility] rehab. Prescription for the Eliquis is being sent to her pharmacy. An order for oxygen has been written for the [facility]. [facility], [place] NAME: [facility] REC#: [id number] PT STATUS: REG CLI : 1935 PHYSICIAN: CK EDGAR APRN ADMIT DATE: 12/09/22/RAD Signed Date of Exam:12/09/22 CT ANGIO CHEST W EXAMINATION: CT angiography of the chest. TECHNIQUE: Contrast enhanced thin section helical images were obtained through the chest with intravenous contrast timed for the optimal opacification of the arterial structures per CTA protocol. Post-processing, reconstructions and interpretation of angiographic images of the vessels was performed. 3D MIP reconstructions were performed and reviewed. All CT scans use one or more of the following dose optimizing techniques: automated exposure control, MA and/or KvP adjustment based on a patient size and exam type, or iterative reconstruction. HISTORY: Hypoxia COMPARISON: None available. FINDINGS: There is a large burden of pulmonary emboli involving all lobes. There is moderate to severe dilation of the right ventricle with flattening of the interventricular septum and reflux of contrast into the inferior vena cava. There is no edema or pneumonia. No pleural effusion. No pneumothorax. No suspicious nodules. Lungs are emphysematous. There is no axillary or supraclavicular lymphadenopathy. There is no mediastinal lymphadenopathy. There are mild coronary artery calcifications. No pericardial effusion. Aorta is normal in caliber. There is a small hiatal hernia. Limited views of the upper abdomen show cysts in the right kidney. There are no suspicious osseus lesions. Show an unchanged severe compression fracture of T9 and a new mild T7 compression fracture. IMPRESSION: 1. Large burden of pulmonary emboli with right heart strain. Findings called to CHRISTINA Arechiga, by Dr. Diallo on 12/09/2022 at 4:35 PM Dictated by: Dictated on workstation # [id number] Dict: 12/09/229 Trans: 12/09/221846 [facility] [id number] Interpreted by: VJ DIALLO MD Electronically signed by: VJ DIALLO MD 12/09/221846 Diagnostic Imaging Diagonstic Imaging: Xray Plain Films/CT/US/NM/MRI: chest Comments [facility], [place] NAME: [facility] REC#: [id number] PT STATUS: REG ER : 1935 PHYSICIAN: NITZA MONACO MD ADMIT DATE: 12/09/22/ER Signed Date of Exam:12/09/22 CHEST 1 VIEW, AP/PA ONLY Chest 1 view, AP/PA only Indication: Pulmonary embolism. Comparison: None available. Findings: A small amount of basilar atelectasis is present. No pleural effusion or pneumothorax. Cardiomegaly. Impression: Scattered bibasilar subsegmental atelectasis. Dictated by: Dictated on workstation # [id number] Dict: 12/09/221900 Trans: 12/09/221906 [facility] [id number] Interpreted by: ZURI CORTEZ MD Electronically signed by: ZURI CORTEZ MD 12/09/22 238 Departure Communication (Admissions) Time/Spoke to Consulting Phy: 18:[address] Knox Impression Primary Impression: Bilateral pulmonary embolism Additional Impressions: Advanced age Dementia Qualified Codes: F03.C0 - Unspecified dementia, severe, without behavioral disturbance, psychotic disturbance, mood disturbance, and anxiety Disposition: 01 HOME, SELF-CARE Condition: Stable Departure-Patient Inst. Decision time for Depature: 19:31 Referrals: NO,LOCAL PHYSICIAN (PCP/Family) Primary Care Physician Patient Instructions: Going Home on Blood Thinners Add. Discharge Instructions: The Eliquis will need to be taken twice daily. 2.5 mg with each dose. Patient will need to remain on supplemental oxygen at 3 to 4 L to maintain oxygen saturations greater than 93%. Please contact her primary care physician for further evaluation and management of her blood clots in her lungs. Return to the emergency department for any new, concerning or emergent complaints Scripts Apixaban (Eliquis) 2.5 Mg Tablet 2.5 MG PO BID, #60 TAB 3 Refills Prov: NITZA MONACO MD 12/09/22 NITZA MONACO MD Dec 09, 2022 18:20
[2022-12-09 18:27] LABS: BASOPHILS # (AUTO) 0.1 10^3/uL (0.0-0.1); BASOPHILS % (AUTO) 1 % (0-10); EOSINOPHILS % (AUTO) 0 % (0-10); HEMATOCRIT 42 % (35-52); HEMOGLOBIN 14.2 g/dL (11.5-16.0); LYMPHOCYTES # (AUTO) 0.7 10^3/uL (1.0-4.0); LYMPHOCYTES % (AUTO) 5 % (12-44); MEAN CORPUSCULAR HEMOGLOBIN 32 pg (25-34); MEAN CORPUSCULAR HGB CONC 34 g/dL (32-36); MEAN CORPUSCULAR VOLUME 94 fL (80-99); MEAN PLATELET VOLUME 12.2 fL (9.0-12.2); MONOCYTES # (AUTO) 0.6 10^3/uL (0.0-1.0); MONOCYTES % (AUTO) 4 % (0-12); NEUTROPHILS # (AUTO) 11.6 10^3/uL (1.8-7.8); NEUTROPHILS % (AUTO) 89 % (42-75); PLATELET COUNT 134 10^3/uL (130-400)
[2022-12-09 18:30] LABS: ABG BASE EXCESS -2.8 MMOL/L (-2.5-2.5); ABG OXYGEN SATURATION 93 % (94-100); ABG PCO2 31 MMHG (35-45); ABG PH 7.43 (7.37-7.43); ABG PO2 59 MMHG (79-93); ABG TCO2 22.1 MMOL/L (21.0-31.0)
[2022-12-09 18:31] LABS: INSPIRED O2 4L; PATIENT TEMP 35.6; VENTILATOR NO
[2022-12-09 18:36] LABS: ALBUMIN 3.8 GM/DL (3.2-4.5); INR 1.3 (0.8-1.4); POTASSIUM 4.9 MMOL/L (3.6-5.0); PROTHROMBIN TIME PATIENT 16.5 SEC (12.2-14.7)
[2022-12-09 18:37] LABS: CALCIUM 9.3 MG/DL (8.5-10.1)
[2022-12-09 18:39] LABS: TOTAL PROTEIN 7.4 GM/DL (6.4-8.2)
[2022-12-09 18:41] LABS: BILIRUBIN,TOTAL 0.6 MG/DL (0.1-1.0)
[2022-12-09 18:42] LABS: CREATININE SERUM 0.79 MG/DL (0.60-1.30)
[2022-12-09 18:52] LABS: BAND NEUTROPHILS 6 %; EOSINOPHILS % (MANUAL) 1 %; LYMPHOCYTES % (MANUAL) 6 %; MONOCYTES % (MANUAL) 9 %; NEUTROPHILS % (MANUAL) 75 %; PLATELET CLUMPS OCC PLT CLUMPS; PLATELET ESTIMATE OCC GIANT/LARGE PLT; REACTIVE LYMPHOCYTES 3 %
[2022-12-09] MEDS ORDERED: APIXABAN 2.5 MG (ELIQUIS) TABLET PO ONE (19:00)
--- NOTE | 2022-12-09 19:04 | Diagnostic Imaging Report ---
Chest 1 view, AP/PA only Indication: Pulmonary embolism. Comparison: None available. Findings: A small amount of basilar atelectasis is present. No pleural effusion or pneumothorax. Cardiomegaly. Impression: Scattered bibasilar subsegmental atelectasis. Dictated by: Dictated on workstation # [id number]
[2022-12-09] MEDS ORDERED: APIX2.5T PO (19:31)
== END 2022-12-09 20:53 | disposition home or self-care (01) ==
LOC: EDUNIT# 18:02 → ER 18:13
DX: I26.99 Other pulmonary embolism without acute cor pulmonale (principal); F03.90 Unspecified dementia, unspecified severity, without behavioral disturbance, psychotic disturbance, mood disturbance, and anxiety; R54 Age-related physical debility
CPT/HCPCS: 36415; 71045; 80053; 82805; 85007; 85027; 85610; 85730

== ENCOUNTER → 2022-12-09 | Outpatient (CLI) | payer MEDICARE, MEDICAID ==
[~2022-12-09] MED LIST changes: +APIX2.5T PO; +CATHETER FLUSH 10 ML SYR IV PRN; +HOLD METFORMIN - RECEIVED CONTRAST 20 ML VIAL IV SCH; +IOHEXOL 350 MG/ML 100 ML (OMNIPAQUE 350) VIAL IV ONE; +NS 100 ML (IVPB) BAG IV ONE
[2022-12-09 15:31] LABS: CREATININE SERUM 0.8 MG/DL (0.60-1.30)
--- NOTE | 2022-12-09 16:43 | Diagnostic Imaging Report ---
EXAMINATION: CT angiography of the chest. TECHNIQUE: Contrast enhanced thin section helical images were obtained through the chest with intravenous contrast timed for the optimal opacification of the arterial structures per CTA protocol. Post-processing, reconstructions and interpretation of angiographic images of the vessels was performed. 3D MIP reconstructions were performed and reviewed. All CT scans use one or more of the following dose optimizing techniques: automated exposure control, MA and/or KvP adjustment based on a patient size and exam type, or iterative reconstruction. HISTORY: Hypoxia COMPARISON: None available. FINDINGS: There is a large burden of pulmonary emboli involving all lobes. There is moderate to severe dilation of the right ventricle with flattening of the interventricular septum and reflux of contrast into the inferior vena cava. There is no edema or pneumonia. No pleural effusion. No pneumothorax. No suspicious nodules. Lungs are emphysematous. There is no axillary or supraclavicular lymphadenopathy. There is no mediastinal lymphadenopathy. There are mild coronary artery calcifications. No pericardial effusion. Aorta is normal in caliber. There is a small hiatal hernia. Limited views of the upper abdomen show cysts in the right kidney. There are no suspicious osseus lesions. Show an unchanged severe compression fracture of T9 and a new mild T7 compression fracture. IMPRESSION: 1. Large burden of pulmonary emboli with right heart strain. Findings called to CHRISTINA Arechiga, by Dr. Schmidt on 12/09/2022 at 4:35 PM Dictated by: Dictated on workstation # [id number]
== END ==
LOC: RAD 14:54
PROVIDERS: ATTEND Nurse Practitioner Family
DX: I26.99 Other pulmonary embolism without acute cor pulmonale (principal); I51.9 Heart disease, unspecified; S32.10XA Unspecified fracture of sacrum, initial encounter for closed fracture; X58.XXXA Exposure to other specified factors, initial encounter
CPT/HCPCS: 36415; 71275; 82565; 84520

== ENCOUNTER → 2023-01-13 | Outpatient (CLI) | payer MEDICARE, MEDICAID ==
[~2023-01-13] MED LIST changes: +APIX2.5T PO; +HOLD METFORMIN - RECEIVED CONTRAST 20 ML VIAL IV SCH; +IOHEXOL 350 MG/ML 100 ML (OMNIPAQUE 350) VIAL IV ONE; +NS 100 ML (IVPB) BAG IV ONE
--- NOTE | 2023-01-13 14:15 | Diagnostic Imaging Report ---
PROCEDURE: CT angiography of the chest with contrast. TECHNIQUE: Multiple contiguous axial images were obtained through the chest after uneventful bolus administration of intravenous contrast. 3D reconstructed CTA MIP acquisitions were also performed. Auto Exposure Controls were utilized during the CT exam to meet ALARA standards for radiation dose reduction. DATE: January 13, 2023. COMPARISON: CT chest December 09, 2022. INDICATION: 87-year-old female, hypoxia and tachycardia. FINDINGS: There are findings of emphysema. There are predominantly linear opacities in the right middle lobe and right lower lobe and left lower lobe compatible with atelectasis and/or scarring. There is no identified pulmonary nodule or lung mass. There is no otherwise identified focal airspace consolidation. There is no pneumothorax. The central airways are patent. There is no sizable pleural effusion. There is no identified pulmonary embolus. The heart is not grossly enlarged. There is no identified pericardial effusion. There are atherosclerotic calcifications. There is no identified abnormally enlarged mediastinal, hilar, or axillary lymph node which meets CT size criteria for adenopathy. There is a moderate to large hiatal hernia. There is a low-attenuation right renal lesion on axial image 128 which measures 1.8 cm in size. Internal attenuation is consistent with a benign cyst. There is a 8 mm right renal lesion on axial image 136 which is too small to characterize. There are multilevel degenerative changes of the spine. There is a chronic right rib deformity. There are compression deformities of T7 and T9. There is approximately 50% height loss at T7 and complete height loss of T9. There is retropulsion of T9 beyond the expected posterior vertebral body margin by approximately 3 mm. These compression fractures are unchanged since at least December 09, 2022. IMPRESSION: CT CHEST. 1. No identified pulmonary embolus or other acute cardiopulmonary abnormality. 2. Moderate to large hiatal hernia. 3. Redemonstrated compression fractures of T7 and T9 which are unchanged since at least December 09, 2022. Dictated by: Dictated on workstation # [id number]
== END ==
LOC: RAD 12:49
PROVIDERS: ATTEND Nurse Practitioner Family
DX: K44.9 Diaphragmatic hernia without obstruction or gangrene (principal); M48.54XA Collapsed vertebra, not elsewhere classified, thoracic region, initial encounter for fracture; S32.10XA Unspecified fracture of sacrum, initial encounter for closed fracture
CPT/HCPCS: 71275

== ENCOUNTER 2023-02-02 21:17 | Emergency (ER) | payer MEDICARE, MEDICAID ==
[~2023-02-02] VITALS: Ht 167 cm; Wt 72.5 kg
[~2023-02-02 21:17] MED LIST changes: -HOLD METFORMIN - RECEIVED CONTRAST 20 ML VIAL IV SCH; -IOHEXOL 350 MG/ML 100 ML (OMNIPAQUE 350) VIAL IV ONE; -NS 100 ML (IVPB) BAG IV ONE
[2023-02-02 21:19] VITALS: BP 136/76
[2023-02-02 21:43] LABS: BASOPHILS # (AUTO) 0.1 10^3/uL (0.0-0.1); BASOPHILS % (AUTO) 1 % (0-10); EOSINOPHILS # (AUTO) 0.1 10^3/uL (0.0-0.3); EOSINOPHILS % (AUTO) 1 % (0-10); HEMATOCRIT 38 % (35-52); HEMOGLOBIN 12.7 g/dL (11.5-16.0); LYMPHOCYTES # (AUTO) 0.9 10^3/uL (1.0-4.0); LYMPHOCYTES % (AUTO) 10 % (12-44); MEAN CORPUSCULAR HEMOGLOBIN 31 pg (25-34); MEAN CORPUSCULAR HGB CONC 34 g/dL (32-36); MEAN CORPUSCULAR VOLUME 93 fL (80-99); MEAN PLATELET VOLUME 10.2 fL (9.0-12.2); MONOCYTES # (AUTO) 0.6 10^3/uL (0.0-1.0); MONOCYTES % (AUTO) 7 % (0-12); NEUTROPHILS # (AUTO) 7.3 10^3/uL (1.8-7.8); NEUTROPHILS % (AUTO) 81 % (42-75); PLATELET COUNT 187 10^3/uL (130-400)
[2023-02-02] MEDS ORDERED: TETANUS,DIPTH,PERTUSS P/F (BOOSTRIX) 0.5 ML VIAL IM ONE (21:45)
[2023-02-02 21:58] LABS: CALCIUM 9.4 MG/DL (8.5-10.1)
[2023-02-02 22:03] LABS: CREATININE SERUM 0.73 MG/DL (0.60-1.30)
[2023-02-02 22:13] LABS: VALPROIC ACID 30.5 UG/ML (50.0-100.0)
--- NOTE | 2023-02-02 22:21 | ED Fall/Injury ---
General Chief Complaint: Trauma-Non Activation Stated Complaint: FALL Nursing Triage Note: FELL FROM STANDING/ UNWITNESSED Source: patient, EMS, longterm records, old records Exam Limitations: other (Dementia) History of Present Illness Date Seen by Provider: February 02, 2023 Time Seen by Provider: 21:19 Initial Comments This 87-year-old woman presents to the emergency room via EMS with injuries related to a fall just prior to arrival. She is a resident at [facility]. She has known to have dementia and frequent falls. Tonight she fell forward while getting up out of her recliner. She has a hematoma and abrasion on her forehead. There is a skin tear on the left arm. There is bruising over the left knee. She has pain in the right hip and left knee on exam. She denies any neck injury. There was no loss of consciousness. Markings were noted on her back by longterm staff but these appear to be self-inflicted scratching excoriations. She is on numerous medications including Eliquis. She was recently diagnosed with pulmonary emboli. She has also had a history of intracranial hemorrhage. Mucous membranes appear dry. Location Injury Occurred: HEMATOMA FOREHEAD, PAIN RT HIP/ KNEE BRUISE/ SKIN TEAR LEFT FOREARM Allergies and Home Medications Allergies Coded Allergies: Penicillins (Verified Allergy, Unknown, 11/26/07) cephalexin (Verified Allergy, Unknown, 11/26/07) ciprofloxacin (Verified Allergy, Unknown, 11/26/07) estrogens, conjugated (Verified Allergy, Unknown, 06/17/08) gatifloxacin (Verified Allergy, Unknown, 06/17/08) tetracycline (Verified Allergy, Unknown, 06/17/08) Patient Home Medication List Home Medication List Reviewed: Yes Acetaminophen (Acetaminophen) 500 Mg Tablet, 1,000 MG PO TID, (Reported) Entered as Reported by: SHAKA RESTREPO on 12/20/16 1043 Acetaminophen (Tylenol Extra Strength) 500 Mg Tablet, 500 MG PO Q6H PRN for PAIN-MILD (1-4), (Reported) Entered as Reported by: JOSE SHELTON on 04/15/21 0947 Apixaban (Eliquis) 2.5 Mg Tablet, 2.5 MG PO BID Prescribed by: NITZA MONACO on 12/09/22 1931 Atorvastatin Calcium (Atorvastatin Calcium) 80 Mg Tablet, 80 MG PO HS, (Reported) Entered as Reported by: SHAKA RESTREPO on 06/05/17 170 Bisacodyl (Bisacodyl) 10 Mg Supp.rect, 10 MG RC DAILY PRN for CONSTIPATION-4TH LINE, (Reported) Entered as Reported by: JOSE SHELTON on 04/15/21946 Cefdinir (Cefdinir) 300 Mg Capsule, 300 MG PO BID Prescribed by: GRAEME MELTON on 04/19/21 1207 Cetirizine HCl (Cetirizine HCl) 10 Mg Tablet, 10 MG PO SEASONAL ALLERGIES, (Reported) Entered as Reported by: JOSE SHELTON on 04/15/21946 Cranberry Extract (Cranberry) 500 Mg Tablet, 500 MG PO DAILY, (Reported) Entered as Reported by: JOSE SHELTON on 04/15/21946 Diphenoxylate HCl/Atropine (Diphenoxylate-Atrop 2.5-0.025) 1 Each Tablet, 1 TAB PO Q8H PRN for LOOSE STOOLS, (Reported) Entered as Reported by: SHAKA RESTREPO on 12/20/16 104 Donepezil HCl (Donepezil HCl) 10 Mg Tablet, 5 MG PO BID, (Reported) Entered as Reported by: JOSE SHELTON on 04/15/21 09 Hydrocortisone (Hydrocortisone) 114 Gm Lotion, 1 APPLIC TP QID PRN for ITCHING, (Reported) Entered as Reported by: JOSE SHELTON on 04/15/21 09 Hyoscyamine Sulfate (Hyoscyamine Sulfate) 0.125 Mg Tablet, 0.125 MG PO Q4H PRN for INCREASED SECRETIONS, (Reported) Entered as Reported by: JOSE SHELTON on 04/15/21946 Lactobacillus Acidophilus (Acidophilus) 1 Each Capsule, 1 EACH PO TID, (Reported) Entered as Reported by: JOSE SHELTON on 04/15/21946 Levothyroxine Sodium (Levothyroxine Sodium) 75 Mcg Tablet, 75 MCG PO DAILY, (Reported) Entered as Reported by: SHAKA RESTREPO on 06/05/17 170 Lorazepam (Ativan) 1 Mg Tablet, 1 MG PO Q4H, (Reported) Entered as Reported by: JOSE SHELTON on 04/15/21 1030 Mag Hydrox/Al Hydrox/Simeth (Maalox Maximum Strength Susp) 355 Ml Oral.susp, 30 ML PO QID PRN for UPSET STOMACH, (Reported) Entered as Reported by: JOSE SHELTON on 04/15/21 09 Menthol/Lanolin/Calamine/Znox (Calmoseptine Ointment) 71 Gm Oint, 1 EACH TP BID, (Reported) Entered as Reported by: JOSE SHELTON on 04/15/21 09 Miconazole Nitrate (Remedy Antifungal) 85 Gm Powder, 1 APPLIC TP BID, (Reported) Entered as Reported by: JOSE SHELTON on 04/15/21 09 Morphine Sulfate (Morphine Conc. 20mg/ml) 100 Mg/5 Ml Solution, 0.25-1 ML SL Q4H PRN for PAIN-SEVERE (8-10), (Reported) Entered as Reported by: JOSE SHELTON on 04/15/21 1030 Multivitamin (Multivitamin) 1 Each Tablet, 1 EACH PO DAILY, (Reported) Entered as Reported by: JOSE SHELTON on 04/15/21 09 Nitrofurantoin Monohyd/M-Cryst (Macrobid 100 mg Capsule) 100 Mg Capsule, 1 TAB PO BID Prescribed by: JOSELINE MENDOZA on 02/02/23 2357 Ondansetron HCl (Ondansetron HCl) 4 Mg Tablet, 4 MG PO Q4H PRN for NAUSEA/VOMITING-1ST LINE, (Reported) Entered as Reported by: JOSE SHELTON on 04/15/21 09 Oxybutynin Chloride (Oxybutynin Chloride) 5 Mg Tablet, 5 MG PO TID, (Reported) Entered as Reported by: SHAKA RESTREPO on 06/05/17 1706 Quetiapine Fumarate (Quetiapine Fumarate) 25 Mg Tablet, 25 MG PO HS, (Reported) Entered as Reported by: SHAKA RESTREPO on 12/20/16 1043 Sertraline HCl (Sertraline HCl) 100 Mg Tablet, 100 MG PO DAILY, (Reported) Entered as Reported by: SHAKA RESTREPO on 12/20/16 1043 Spironolactone (Spironolactone) 25 Mg Tablet, 25 MG PO DAILY, (Reported) Entered as Reported by: SHAKA RESTREPO on 12/20/16 1043 Review of Systems Review of Systems Constitutional: no symptoms reported Eyes: No Symptoms Reported Ears, Nose, Mouth, Throat: see HPI Respiratory: no symptoms reported Cardiovascular: no symptoms reported Gastrointestinal: no symptoms reported Genitourinary: no symptoms reported : No Musculoskeletal: see HPI Skin: see HPI Psychiatric/Neurological: See HPI Past Xjwwdyw-Pwozbj-Bjxdqo Hx Patient Social History Tobacco Use?: No Substance use?: No Alcohol Use?: No Immunizations Up To Date Tetanus Booster (TDap): Unknown First/Initial COVID19 Vaccinat: 10/12/2020 Second COVID19 Vaccination Ke[place]: 11/21/2020 Third COVID19 Vaccination Date: 10/12/2020 Seasonal Allergies Seasonal Allergies: No Past Medical History Surgery/Hospitalization HX: HTN, SLEEP APNEA, GERD, DEPRESION, ANXIETY, ALZHEIMERS, DIVERTICULITIS, HERNIA, DEMENTIA, ANEMIA Surgeries: Yes (FEMUR FX/JEN) Abdominal, Joint Replacement, Orthopedic (ORIF of bilateral hips with femur rods) Respiratory: Yes Pulmonary Embolism Currently Using CPAP: No Currently Using BIPAP: No Cardiac: Yes Deep Vein Thrombosis, High Cholesterol, Hypertension, Peripheral Vascular Neurological: Yes (SUBDURAL BLEED 10/25/20--NO SURGERY/NO TREATMENT. ) Dementia, Traumatic Brain Injury, Vertigo Female Reproductive Disorders: Denies [employer] History: Menopausal Sexually Transmitted Disease: No HIV/AIDS: No Genitourinary: Yes (INCONTINENCE) Bladder Infection Gastrointestinal: Yes Gastroesophageal Reflux, Diverticulosis, Chronic Diarrhea, Polyps, Hiatal Hernia, Ulcer Musculoskeletal: Yes (OSTEOMYELITIS LEFT TIB/FIB; GENERALIZED WEAKNESS; FREQUENT FALLS) Osteoporosis, Arthritis, Fractures Endocrine: Yes Hypothyroidsim HEENT: Yes Cataract Loss of Vision: Denies Hearing Impairment: Hard of Hearing Cancer: No Psychosocial: Yes Sleep Difficulties, Anxiety Integumentary: No Blood Disorders: No Family Medical History Patient reports no known family medical history. Diabetes, Hypertension HX OF COVID-19 INFECTION Physical Exam Vital Signs Vital Signs - First Documented 02/02/23 21:19 Temp 36.9 Pulse 69 Resp 20 B/P (MAP) 136/76 (96) Pulse Ox 92 O2 Delivery Room Air Capillary Refill : Height, Weight, BMI Height: 5'6.00" Weight: 135lbs. 0.0oz. [id number]; 20.00 BMI Method:Stated General Appearance: WD/WN, no apparent distress HEENT: PERRL/EOMI, other (Oropharynx dry. Hematoma and abrasion on the central forehead with significant bruising) Neck: non-tender, normal inspection Cardiovascular: regular rate, rhythm, no edema Respiratory: lungs clear, normal breath sounds Gastrointestinal: non tender, soft; No distended Back: no vertebral tenderness, other (Excoriations on the right upper back) Extremities: other (Bruising over the left anterior knee. Pain with palpation of the right hip and rotation of the right hip. Skin tear of the left forearm) Neurologic/Psychiatric: no motor/sensory deficits, alert, normal mood/affect, other (Oriented to baseline with dementia) Skin: normal color, warm/dry, ecchymosis Sanjeev Coma Score Best Eye Response: (4) Open Spontaneously Best Verbal Response: (4) Confused Conversation Best Motor Response: (6) Obeys Commands [place] Total: 14 Progress/Results/Core Measures Results/Orders Lab Results Laboratory Tests Test 02/02/23 21:38 02/02/23 23:20 Range/Units White Blood Count 9.0 4.3-11.0 10^3/uL Red Blood Count 4.07 3.80-5.11 10^6/uL Hemoglobin 12.7 11.5-16.0 g/dL Hematocrit 38 35-52 % Mean Corpuscular Volume 93 80-99 fL Mean Corpuscular Hemoglobin 31 25-34 pg Mean Corpuscular Hemoglobin Concent 34 32-36 g/dL Red Cell Distribution Width 13.2 10.0-14.5 % Platelet Count 187 130-400 10^3/uL Mean Platelet Volume 10.2 9.0-12.2 fL Immature Granulocyte % (Auto) 0 % Neutrophils (%) (Auto) 81 H 42-75 % Lymphocytes (%) (Auto) 10 L 12-44 % Monocytes (%) (Auto) 7 0-12 % Eosinophils (%) (Auto) 1 0-10 % Basophils (%) (Auto) 1 0-10 % Neutrophils # (Auto) 7.3 1.8-7.8 10^3/uL Lymphocytes # (Auto) 0.9 L 1.0-4.0 10^3/uL Monocytes # (Auto) 0.6 0.0-1.0 10^3/uL Eosinophils # (Auto) 0.1 0.0-0.3 10^3/uL Basophils # (Auto) 0.1 0.0-0.1 10^3/uL Immature Granulocyte # (Auto) 0.0 0.0-0.1 10^3/uL Sodium Level 132 L 135-145 MMOL/L Potassium Level 4.0 3.6-5.0 MMOL/L Chloride Level 97 L 98-107 MMOL/L Carbon Dioxide Level 24 21-32 MMOL/L Anion Gap 11 5-14 MMOL/L Blood Urea Nitrogen 8 7-18 MG/DL Creatinine 0.73 0.60-1.30 MG/DL Estimat Glomerular Filtration Rate 80 BUN/Creatinine Ratio 11 Glucose Level 104 70-105 MG/DL Calcium Level 9.4 8.5-10.1 MG/DL Magnesium Level 2.0 1.6-2.4 MG/DL Thyroid Stimulating Hormone (TSH) 1.92 0.35-4.94 UIU/ML Free Thyroxine 0.84 0.70-1.48 NG/DL Valproic Acid (Depakene) Level 30.5 L 50.0-100.0 UG/ML Urine Color YELLOW Urine Clarity CLOUDY Urine pH 6.0 5-9 Urine Specific [place] <=1.005 1.016-1.022 Urine Protein NEGATIVE NEGATIVE Urine Glucose (UA) NEGATIVE NEGATIVE Urine Ketones NEGATIVE NEGATIVE Urine Nitrite POSITIVE H NEGATIVE Urine Bilirubin NEGATIVE NEGATIVE Urine Urobilinogen 0.2 < = 1.0 MG/DL Urine Leukocyte Esterase 3+ H NEGATIVE Urine RBC (Auto) TRACE-I H NEGATIVE Urine RBC RARE /HPF Urine WBC 25-50 H /HPF Urine Squamous Epithelial Cells 2-5 /HPF Urine Crystals NONE /LPF Urine Bacteria MODERATE H /HPF Urine Casts NONE /LPF Urine Mucus NEGATIVE /LPF Urine Culture Indicated YES My Orders Orders - JOSELINE CASAS MD Ct Head/Cervical Spine Wo (02/02/23 21:31) Knee, Left, 3 Views (02/02/23 21:31) Pelvis With Right Hip 2-3views (02/02/23 21:31) Basic Metabolic Panel (02/02/23 21:31) Cbc With Automated Diff (02/02/23 21:31) Magnesium (02/02/23 21:31) Ua Culture If Indicated (02/02/23 21:31) Valproic Acid (02/02/23 21:31) Thyroid Stimulating Hormone (02/02/23 21:31) Free T4 (Free Thyroxine) (02/02/23 21:31) Dipht,Pertuss(Acell),Tet Adult (Boostrix (02/02/23 21:45) Straight Cath For Spec.-Adult (02/02/23 23:16) Urine Culture (02/02/23 23:20) Nitrofurantoin Capsule,Macro (Macrobid C (02/03/23 00:00) Dipht,Pertuss(Acell),Tet Adult (Boostrix (02/03/23 01:09) Medications Given in ED Current Medications Medications Dose Ordered Sig/Demarco Route Start Time Stop Time Status Last Admin Dose Admin Diphtheria/ Tetanus/Acell Pertussis 0.5 ml ONCE ONCE IM 02/02/23 21:45 02/02/23 21:46 DC 02/03/23 01:17 0.5 ML Nitrofurantoin Macrocrystals 100 mg ONCE ONCE PO 02/03/23 00:00 02/03/23 00:01 DC 02/03/23 01:17 100 MG Vital Signs/I&O 02/02/23 21:19 Temp 36.9 Pulse 69 Resp 20 B/P (MAP) 136/76 (96) Pulse Ox 92 O2 Delivery Room Air Progress Progress Note : Time: 23:46 Progress Note Patient was interviewed and examined upon arrival. Imaging studies were ordered based on exam findings and complaints. Basic labs were obtained including CBC, CMP and urinalysis. Serum studies were unremarkable by my interpretation. UA suggested pyuria. Imaging studies included CT of the head and cervical spine as well as x-rays of the right hip, pelvis, and left knee. No acute fractures or dislocations were appreciated by my interpretation. Radiologist's interpretation of plain films is not yet available. CT of the head and cervical spine showed no acute injuries by my interpretation. [facility] interpretation also noted no acute injuries. Tetanus immunization was provided due to breaks in the skin at the forehead and left forearm skin tear. Macrobid was administered and prescribed for urinary tract infection. Patient has history of bilateral PE diagnosed in November of this year noted on review of chart. She is presently on Eliquis. She is noted to be hypoxic and is started on nasal cannula 2 L. Based on her longterm chart, she does have nasal cannula oxygen orders. Diagnostic Imaging Diagonstic Imaging: Xray Plain Films/CT/US/NM/MRI: pelvis, hip, knee Comments X-rays of the right hip, pelvis, and left knee were all viewed by me. Report not yet available. No acute injuries were identified. Diagonstic Imaging: CT Plain Films/CT/US/NM/MRI: c-spine, head Comments CT head and C-spine viewed by me and [facility] report reviewed. There was a right frontal scalp hematoma. Senescent changes were noted. No acute intracranial pathology was identified. No fractures or dislocations of the cervical spine were noted. Departure Impression Primary Impression: Fall on same level Qualified Codes: W18.30XA - Fall on same level, unspecified, initial encounter Additional Impressions: Facial hematoma Qualified Codes: S00.83XA - Contusion of other part of head, initial enco unter Skin tear Urinary tract infection Qualified Codes: N39.0 - Urinary tract infection, site not specified Hypoxia History of pulmonary embolism Disposition: HOME, SELF-CARE Condition: Stable Departure-Patient Inst. Decision time for Depature: 23:58 Referrals: NO,LOCAL PHYSICIAN (PCP/Family) Primary Care Physician Patient Instructions: HEMATOMA, Urinary Tract Infection, Adult ED Add. Discharge Instructions: The radiologist's interpretation of x-rays will not be available until after 9:00 in the morning. Please call the ER after 9:00 to obtain official radiologist's interpretation. Contact primary care provider on Monday to review urine culture results. Start Macrobid (nitrofurantoin) as prescribed. Please note this medication may turn the urine and orange issue or reddish color. Tylenol 1000 mg every 6 hours as needed may be administered for pain. Icing affected areas in 20-minute intervals may reduce pain and swelling. Return to care if there are symptoms worsening despite following these instructions. Use oxygen by nasal cannula at 2 to 4 L/min to keep oxygen saturation greater th an 92%. All discharge instructions reviewed with patient and/or family. Voiced understanding. Scripts Nitrofurantoin Monohyd/M-Cryst (Macrobid 100 mg Capsule) 100 Mg Capsule 1 TAB PO BID, #14 CAP Prov: JOSELINE CASAS MD 02/02/23 Copy Copies To 1: VJ CASPER MD, JOSHUA T MD February 02, 2023 22:21
[2023-02-02 22:28] LABS: FREE T4 (FREE THYROXINE) 0.84 NG/DL (0.70-1.48)
[2023-02-02 23:29] LABS: BILIRUBIN,URINE NEGATIVE (NEGATIVE); CLARITY,URINE CLOUDY; COLOR,URINE YELLOW; GLUCOSE, URINE (UA) NEGATIVE (NEGATIVE); KETONES,URINE NEGATIVE (NEGATIVE); LEUKOCYTE ESTERASE ,URINE 3+ (NEGATIVE); NITRITE,URINE POSITIVE (NEGATIVE); PROTEIN,URINE NEGATIVE (NEGATIVE)
[2023-02-02 23:37] LABS: RBC,URINE RARE /HPF
[2023-02-02 23:38] LABS: BACTERIA,URINE MODERATE /HPF; WBC,URINE 25-50 /HPF
[2023-02-02] MEDS ORDERED: NITR-65 PO (23:57)
[2023-02-03] MEDS ORDERED: NITROFURANTOIN 100 MG (MACROBID) CAPSULE PO ONE
[2023-02-03] MEDS ORDERED: TETANUS,DIPTH,PERTUSS P/F (BOOSTRIX) 0.5 ML VIAL IM ONE (01:09)
--- NOTE | 2023-02-03 07:18 | Diagnostic Imaging Report ---
INDICATION: Pain post fall, trauma TECHNIQUE: AP pelvis along with 2 views right hip, 11:03 PM CORRELATION STUDY: 04/15/2021 FINDINGS: Generalized bony demineralization. The pelvis demonstrates no acute displaced fracture within the pectineal lines and obturator rings maintained. SI joints and pubic symphysis preserved. Partial visualization of a longstem intramedullary lisbet in the proximal left femur. Since prior, internal fixation hardware has been placed in the proximal right femur. There is rather bulky bony protuberance now at the lesser trochanter developed since prior. An acute bony abnormality of the right hip is not present. IMPRESSION: Negative for acute fracture of the pelvis with attention to the right hip. Internal fixation hardware has been placed in the proximal right femur. Dictated by: Dictated on workstation # [id number]
--- NOTE | 2023-02-03 07:19 | Diagnostic Imaging Report ---
INDICATION: Trauma, fall, pain. TECHNIQUE: 3 views of the left knee CORRELATION STUDY: None FINDINGS: The joint spaces are maintained. The articular surfaces are smooth and preserved. There is no acute bony abnormality. Partial visualization of longstem intramedullary lisbet in the distal femur. Limitations given suboptimal positioning. IMPRESSION: 1. Negative for acute bony abnormality of the knee. Dictated by: Dictated on workstation # [id number]
--- NOTE | 2023-02-03 07:31 | Diagnostic Imaging Report ---
PROCEDURE: CT head and CT cervical spine without contrast. TECHNIQUE: Multiple contiguous axial images were obtained through the brain and cervical spine without the use of intravenous contrast. Sagittal and coronal reformations through the cervical spine were then performed. Auto Exposure Controls were utilized during the CT exam to meet ALARA standards for radiation dose reduction. INDICATION: 87-year-old female, trauma, fall, pain CORRELATION STUDY: CT head 04/15/2021, CT cervical spine 01/23/2021 FINDINGS: CT HEAD: Small approximately 2 x 0.5 cm right frontal scalp hematoma. Bony calvarium intact. Intracranially, generalized atrophic changes prompt the ventricles and sulci. Scattered areas decreased aeration likely owing to chronic small vessel ischemic disease. No acute or chronic intracranial hemorrhage. The previously noted left-sided subdural hematoma has resolved. Paranasal sinuses and mastoid air cells are generally clear and unremarkable. Prior bilateral lens replacement. CT CERVICAL SPINE: Cervical spine alignment is slight accentuated lordosis. Alignment otherwise anatomic. There is no acute fracture or traumatic subluxation. Vertebral body heights maintained. The C1-C2 relationship preserved and odontoid intact. Occipital condyles maintained. Posterior elements intact and in normal alignment. Moderate amount of degenerative disc disease is noted. No high degree osseous encroachment narrowing of the canal and/or foramina. Paraspinal soft tissues are generally unremarkable. Rather advanced emphysematous change about the visualized lung apices. IMPRESSION: CT HEAD: 1. Frontal scalp hematoma. Negative for fracture or acute traumatic intracranial abnormality. CT CERVICAL SPINE: 1. Negative for acute fracture or traumatic subluxation. Mild to moderately advanced degenerative disc disease. Initial report was provided by [facility]. Dictated by: Dictated on workstation # [id number]
== END 2023-02-03 01:18 | disposition home or self-care (01) ==
LOC: EDUNIT# 21:17 → ER 21:18
DX: S51.812A Laceration without foreign body of left forearm, initial encounter (principal); S00.83XA Contusion of other part of head, initial encounter; S80.02XA Contusion of left knee, initial encounter; N39.0 Urinary tract infection, site not specified; R09.02 Hypoxemia; M25.551 Pain in right hip; Z86.711 Personal history of pulmonary embolism; Z79.01 Long term (current) use of anticoagulants; Z23 Encounter for immunization; Z86.59 Personal history of other mental and behavioral disorders; Z88.0 Allergy status to penicillin; Z88.1 Allergy status to other antibiotic agents; W18.30XA Fall on same level, unspecified, initial encounter
CPT/HCPCS: 36415; 51701; 70450; 72125; 73562; 80048; 80164; 81000; 83735; 84439; 84443; 85025; 87077; 87088; 87186; 90715